=== PATIENT | male | born 1950 | race Caucasian/White ===

== ENCOUNTER → 2016-08-14 | Outpatient (CLI) | payer MEDICARE ==
--- NOTE | 2016-08-14 09:08 | CT ---
EXAMINATION TYPE: CT chest wo con DATE OF EXAM: 08/14/2016 8:57 AM COMPARISON: NONE HISTORY: Patient has history of ascending thopracic aorta CT DLP: 785.[address] of the chest was performed with lung and mediastinal window settings submitted. The la ck of contrast limits evaluation of the vascular, mediastinal and parenchymal structures including th e upper abdomen. LUNGS: The lungs are clear and free of infiltrate. No atelectasis. No pulmonary nodule or mass is de tected. No pleural effusion. No CT evidence of interstitial lung disease. MEDIASTINUM/LORI: Ascending thoracic aortic aneurysm is stable at 4.4 cm AP dimension. Mild atheromat ous changes identified. No evidence for dissection on this unenhanced study. The heart is not enlarge d. Coronary artery calcifications identified. No evidence for mediastinal mass. No lymph nodes gre ater than 1cm. UPPER ABDOMEN: Partially imaged low attenuating lesion lower pole left kidney. Probable adrenal adeno mas unchanged. OTHER: No significant other abnormality. IMPRESSION: 1. Stable ascending thoracic aortic aneurysm as noted.
== END | disposition home or self-care (01) ==
LOC: RADCTMAIN 08:37
PROVIDERS: ATTEND Thoracic Surgery (Cardiothoracic Vascular Surgery)
DX: I71.2 Thoracic aortic aneurysm, without rupture (principal)
CPT/HCPCS: 71250

== ENCOUNTER → 2017-08-22 | Outpatient (CLI) | payer MEDICARE ==
[2017-08-22 11:43] LABS: Blood Urea Nitrogen 14 mg/dL (9-20)
--- NOTE | 2017-08-22 14:02 | CT ---
EXAMINATION TYPE: CT chest w con DATE OF EXAM: 08/22/2017 COMPARISON: 08/14/2016 HISTORY: 67-year-old male Ascending Aortic Aneurysm TECHNIQUE: Contiguous axial scanning of the chest after the administration of 100 mL of Isovue 300. Coronal/sagittal reconstructions performed. CT DLP: 689.7mGycm. Automatic exposure control utilized for a dose reduction. FINDINGS: The heart is normal size without pericardial effusion. Coronary vessel calcifications are present and are remarkable for coronary artery disease. Ascending aorta aneurysmal at 4.5 cm, stable. There is bovine configuration to the aortic arch. Mild atherosclerotic calcifications are present. Ectasia of the upper descending thoracic aorta at 3.4 cm, unchanged. Ectasia of the lower descending thoracic aorta 2.9 cm. No thoracic lymphadenopathy. Evaluation of the lungs shows mild diffuse bronchial wall thickening which could represent bronchitis or asthma. There is minimal emphysematous change in the upper lungs. No consolidation or pleural eff usion. Subcentimeter hypodensity posterior left hepatic dome too small fractured CT characterization but sta ble, likely cysts. There is some reflux of contrast noted into the hepatic veins, tiny hiatal hernia, stable low-density nodularity right adrenal gland measuring 1.4 cm (stability suggesting an adrenal adenoma) and some thickening of the lateral limb of the left adrenal gland also unchanged. Subcentimeter hypodensity posterior aspect of the left kidney too small for accurate CT characterizat ion, probable cyst. Bones: Endplate spondylosis mid to lower thoracic spine. No osseous destructive process. IMPRESSION: 1. Stable aneurysm ascending aorta 4.5 cm and ectatic descending thoracic aorta measuring up to 3.4 c m. 2. CAD and COPD with minimal emphysema.
== END | disposition home or self-care (01) ==
LOC: RADCTMAIN 11:03
PROVIDERS: ATTEND Thoracic Surgery (Cardiothoracic Vascular Surgery)
DX: I71.2 Thoracic aortic aneurysm, without rupture (principal); I77.810 Thoracic aortic ectasia; I25.10 Atherosclerotic heart disease of native coronary artery without angina pectoris; J44.9 Chronic obstructive pulmonary disease, unspecified
CPT/HCPCS: 82565; 84520; 71260; Q9967

== ENCOUNTER → 2018-09-23 | Outpatient (CLI) | payer MEDICARE ==
[2018-09-23 10:34] LABS: Blood Urea Nitrogen 13 mg/dL (9-20)
--- NOTE | 2018-09-23 12:45 | CT ---
EXAMINATION TYPE: CT angio chest DATE OF EXAM: 09/23/2018 COMPARISON: CT chest August 22, 2017 and older CTs back to August 13, 2015 HISTORY: Aneurysm of ascending thoracic aorta. CT DLP: 478 mGycm. Automated Exposure Control for Dose Reduction was Utilized. CONTRAST: CTA scan of the thorax is performed with IV Contrast, patient injected with 100 ml mL of Isovue 300, pulmonary embolism protocol. MIP Images are created on CT scanner and reviewed. FINDINGS: LUNGS: Mild underlying emphysematous changes present without suspicious consolidation. There Is no co ncerning parenchymal mass or nodule identified. There is no pleural effusion or pneumothorax seen. The tracheobronchial tree is patent. MEDIASTINUM: There is satisfactory enhancement of the pulmonary artery and its branches, there is no CT evidence for pulmonary embolism. There are no greater than 1 cm hilar or mediastinal lymph nodes. No cardiomegaly or pericardial effusion is seen. Is a knee aorta at main pulmonary artery bifurcat ion measures up to 4.4 cm in diameter axial image 25 not significantly changed from 2016 CT. Mild per ipheral calcified plaque in the aortic arch and descending thoracic aorta is redemonstrated. There is moderate coronary artery calcification which is noted marker for underlying coronary artery disease. OTHER: Low density thickening to both adrenal glands is unchanged from 2016 study favoring benign lip id rich hyperplasia. Rim hyperdense dependent gallstones and gallbladder are seen better on current s tudy axial image 58 versus old studies. Moderate multilevel spurring thoracic spine is present. IMPRESSION: Stable 4.4 cm ascending aortic aneurysm accounting for technical differences.
== END | disposition home or self-care (01) ==
LOC: RADCTMAIN 09:42
PROVIDERS: ATTEND Thoracic Surgery (Cardiothoracic Vascular Surgery)
DX: I71.2 Thoracic aortic aneurysm, without rupture (principal)
CPT/HCPCS: 82565; 84520; 71275; 36415; Q9967

== ENCOUNTER → 2019-09-19 | Outpatient (CLI) | payer MEDICARE ==
[2019-09-19 13:13] LABS: African American GFR (CKD) >90 (>60 ml/min/1.73 sqM); Blood Urea Nitrogen 11 mg/dL (9-20); Non-African American GFR(CKD) 87 (>60 ml/min/1.73 sqM)
--- NOTE | 2019-09-19 15:12 | CT ---
EXAMINATION TYPE: CT angio chest DATE OF EXAM: 09/19/2019 COMPARISON: 09/23/2018 HISTORY: Thoracic aortic aneurysm without rupture CT DLP: 9:30 mGycm. Automated Exposure Control for Dose Reduction was Utilized. CONTRAST: CTA scan of the thorax is performed without and with IV Contrast, patient injected with 100 mL of Iso salma 300, pulmonary embolism protocol. MIP Images are created on CT scanner and reviewed. FINDINGS: LUNGS: Mild emphysematous changes are redemonstrated. Subcentimeter 3 mm pulmonary nodule in the left lower lobe on image 27 is unchanged from 08/13/2015 and therefore should be considered benign. The fo sarai consolidation, pleural effusion or pneumothorax. The tracheobronchial tree is patent. MEDIASTINUM: Precontrast images demonstrate no evidence of intramural hematoma. Moderate atherosclero sis of the thoracic aorta is seen with severe three-vessel coronary artery calcifications. Stable mil d thoracic aortic aneurysm is seen of the ascending thoracic aorta at the level of main pulmonary art dia measuring 4.4 cm on coronal series 11 image 25. The aortic root just above the sinotubular juncti on is upper limits of normal size measuring 3.9 cm although not aneurysmal. The distal aortic arch me asures 3.4 cm and descending thoracic aorta measures 2.7 cm. Incidental noted normal variant bovine a ortic arch. There are no greater than 1 cm hilar or mediastinal lymph nodes. Linear scarring contiguous with pleu ral surface of the right middle lobe as seen on image 38. No cardiomegaly or pericardial effusion is seen. OTHER: Unenhanced images demonstrate cholelithiasis. Thickening of the adrenal glands as seen on the prior examination is unchanged over multiple exams and likely relates to adrenal gland hyperplasia. M oderate multilevel degenerative change of the spine. IMPRESSION: 1. Stable mild aneurysmal dilatation of the ascending thoracic aortic arch measuring 4.4 cm. 2. Severe three-vessel coronary artery calcifications, marker of coronary artery disease.
== END | disposition home or self-care (01) ==
LOC: RADCTMAIN 12:32
PROVIDERS: ATTEND Thoracic Surgery (Cardiothoracic Vascular Surgery)
DX: I71.2 Thoracic aortic aneurysm, without rupture (principal); I25.10 Atherosclerotic heart disease of native coronary artery without angina pectoris
CPT/HCPCS: 82565; 84520; 71275; 36415; Q9967

== ENCOUNTER → 2020-09-22 | Outpatient (CLI) | payer MEDICARE ==
[2020-09-22 14:07] LABS: African American GFR (CKD) >90 (>60 ml/min/1.73 sqM); Blood Urea Nitrogen 12 mg/dL (9-20); Non-African American GFR(CKD) 89 (>60 ml/min/1.73 sqM)
--- NOTE | 2020-09-22 15:12 | CT ---
EXAMINATION TYPE: CT angio chest DATE OF EXAM: 09/22/2020 2:37 PM COMPARISON: CTA chest September 19, 2019 and older studies HISTORY: H/O thoracic aneurysm CT DLP: 766.20 mGycm Automated exposure control for dose reduction was used. CONTRAST: CTA scan of the thorax is performed with IV Contrast, patient injected with 100ml mL of Isovue 370, a neurysm protocol. 3D reconstructed images are created on an independent workstation and reviewed.. FINDINGS: LUNGS: Mild underlying emphysematous changes are redemonstrated without suspicious new groundglass op acity or consolidation. There Is no enlarging or new greater than 5 mm parenchymal mass or nodule uday ntified. There is no pleural effusion or pneumothorax seen. The tracheobronchial tree is patent. MEDIASTINUM: There is satisfactory enhancement of the central pulmonary arteries. There are no new g reater than 1 cm hilar or mediastinal lymph nodes. No cardiomegaly or pericardial effusion is seen. The ascending aorta at main pulmonary artery bifurcation measures up to 4.3 cm in diameter axial denise ge 29 not significantly changed from prior CT studies. Bovine type aortic arch redemonstrated. Mild p eripheral calcified plaque in the aortic arch and descending thoracic aorta is redemonstrated. There is moderate coronary artery calcification redemonstrated which is noted marker for underlying coronar y artery disease. OTHER: Low density thickening to both adrenal glands is redemonstrated consistent with benign lipid r ich hyperplasia. Rim hyperdense 2.7 cm gallstone in the gallbladder is redemonstrated. Moderate multi level anterior and lateral spurring thoracic spine is present. IMPRESSION: Stable 4.3 cm ascending aortic aneurysm accounting for technical differences.
== END | disposition home or self-care (01) ==
LOC: RADCTMAIN 12:46
PROVIDERS: ATTEND Thoracic Surgery (Cardiothoracic Vascular Surgery)
DX: I71.2 Thoracic aortic aneurysm, without rupture (principal)
CPT/HCPCS: 82565; 84520; 71275; 36415; Q9967

== ENCOUNTER 2021-07-27 10:45 | Emergency (ER) | payer MEDICARE ==
[2021-07-27 11:02] VITALS: BP 155/80; TEMP 97
[2021-07-27 11:46] LABS: Appearance,Urine Clear (Clear); Bilirubin,Urine Negative (Negative); Blood,Urine Trace (Negative); Calcium Oxalate Crystals,Urine Rare /hpf; Color,Urine Yellow; Glucose,Urine (UA) Negative (Negative); Hyaline Casts,Urine 2 /lpf (0-2); Ketones,Urine 1+ (Negative); Leukocyte Esterase,Urine Large (Negative); Mucus,Urine Many /hpf; Nitrite,Urine Negative (Negative); PH, Urine 5.5 (5.0-8.0); Protein,Urine 1+ (Negative); RBC,Urine 3 /hpf (0-5); Squamous Epithelial Cell,Urine <1 /hpf (0-4); WBC,Urine 23 /hpf (0-5)
--- NOTE | 2021-07-27 13:04 | ED ---
General Adult HPI - General Chief complaint: Abdominal Pain Stated complaint: Abdominal Pain Time Seen by Provider: 07/27/21 12:40 Source: patient, family, RN notes reviewed, old records reviewed Mode of arrival: ambulatory Limitations: no limitations - History of Present Illness Initial comments: This is a 71-year-old male presents emergency Department complaining of a three- day history of right lower quadrant pain is intermittent. Patient states when he lays down close to sleep tonight he doesn't feel when he gets up the pain is there and it is worse at times and better at times. Patient states currently he is feeling much better. Patient states currently is not nauseated but he was nauseated in the waiting room. Patient denies any diarrhea. Patient denies any fever chills. Patient has any dysuria hematuria or urinary frequency. Patient denies any back pain. Patient denies any chest pain or palpitations. Patient denies any shortness of breath. - Related Data Home Medications Medication Instructions Recorded Confirmed Aspirin EC [Ecotrin Low Dose] 81 mg PO HS 07/27/21 07/27/21 Cholecalciferol [Vitamin D3 (25 50 mcg PO HS 07/27/21 07/27/21 Mcg = 1000 Iu)] Cholecalciferol [Vitamin D3 (25 125 mcg PO DAILY 07/27/21 07/27/21 Mcg = 1000 Iu)] Propranolol HCl 80 mg PO BID 07/27/21 07/27/21 Triamcinolone 0.1% Cream [Kenalog 1 applic TOPICAL BID PRN 07/27/21 07/27/21 0.1% Cream] amLODIPine BESYLATE/BENAZEPRIL 1 cap PO DAILY 07/27/21 07/27/21 [Lotrel 10-40 MG] Allergies Allergy/AdvReac Type Severity Reaction Status Date / Time No Known Allergies Allergy Verified 07/27/21 14:26 Review of Systems ROS Statement: Those systems with pertinent positive or pertinent negative responses have been documented in the HPI. ROS Other: All systems not noted in ROS Statement are negative. Past Medical History Past Medical History: Hypertension History of Any Multi-Drug Resistant Organisms: None Reported Past Surgical History: No Surgical Hx Reported Past Psychological History: No Psychological Hx Reported Smoking Status: Current every day smoker Past Alcohol Use History: Occasional Past Drug Use History: None Reported General Exam - General Exam Comments Initial Comments: GENERAL: Patient is well-developed and well-nourished. Patient is nontoxic and well- hydrated and is in mild distress. ENT: Neck is soft and supple. No significant lymphadenopathy is noted. Oropharynx is clear. Moist mucous membranes. Neck has full range of motion without eliciting any pain. EYES: The sclera were anicteric and conjunctiva were pink and moist. Extraocular movements were intact and pupils were equal round and reactive to light. Eyelids were unremarkable. PULMONARY: Unlabored respirations. Good breath sounds bilaterally. No audible rales rhonchi or wheezing was noted. CARDIOVASCULAR: There is a regular rate and rhythm without any murmurs gallops or rubs. ABDOMEN: Soft and nontender with normal bowel sounds. SKIN: Skin is clear with no lesions or rashes and otherwise unremarkable. NEUROLOGIC: Patient is alert and oriented x3. Cranial nerves II through XII are grossly intact. Motor and sensory are also intact. Normal speech, volume and content. Symmetrical smile. MUSCULOSKELETAL: Normal extremities with adequate strength and full range of motion. No lower extremity swelling or edema. No calf tenderness. LYMPHATICS: No significant lymphadenopathy is noted PSYCHIATRIC: Normal psychiatric evaluation. Limitations: no limitations Course Vital Signs 07/27/21 10:56 Temperature 97.0 F L Pulse Rate 54 L Respiratory 18 Rate Blood Pressure 155/80 O2 Sat by Pulse 97 Oximetry Medical Decision Making - Medical Decision Making KUB shows no acute abnormality. I went back into the room the patient was having no abdominal pain at this time. Patient was sleeping in the room. When I awoke him he stated he felt fine will follow-up with his colonoscopy as previously scheduled next week - Lab Data Result diagrams: 07/27/21 13:19 07/27/21 13:19 Lab Results 07/27/21 07/27/21 07/27/21 Range/Units 11:12 13:19 13:19 WBC 9.1 (3.8-10.6) k/uL RBC 4.92 (4.30-5.90) m/uL Hgb 15.7 (13.0-17.5) gm/dL Hct 46.3 (39.0-53.0) % MCV 94.2 (80.0-100.0) fL MCH 32.0 (25.0-35.0) pg MCHC 33.9 (31.0-37.0) g/dL RDW 13.4 (11.5-15.5) % Plt Count 193 (150-450) k/uL MPV 8.1 Neutrophils % 72 % Lymphocytes % 18 % Monocytes % 6 % Eosinophils % 1 % Basophils % 0 % Neutrophils # 6.5 (1.3-7.7) k/uL Lymphocytes # 1.6 (1.0-4.8) k/uL Monocytes # 0.6 (0-1.0) k/uL Eosinophils # 0.1 (0-0.7) k/uL Basophils # 0.0 (0-0.2) k/uL Sodium 138 (137-145) mmol/L Potassium 4.4 (3.5-5.1) mmol/L Chloride 104 (98-107) mmol/L Carbon Dioxide 27 (22-30) mmol/L Anion Gap 7 mmol/L BUN 16 (9-20) mg/dL Creatinine 0.90 (0.66-1.25) mg/dL Est GFR (CKD-EPI)AfAm >90 (>60 ml/min/1.73 sqM) Est GFR (CKD-EPI)NonAf 86 (>60 ml/min/1.73 sqM) Glucose 98 (74-99) mg/dL Calcium 9.0 (8.4-10.2) mg/dL Total Bilirubin 1.5 H (0.2-1.3) mg/dL AST 22 (17-59) U/L ALT 14 (4-49) U/L Alkaline Phosphatase 68 (38-126) U/L Total Protein 7.0 (6.3-8.2) g/dL Albumin 4.1 (3.5-5.0) g/dL Amylase 61 (30-110) U/L Lipase 101 (23-300) U/L Urine Color Yellow Urine Appearance Clear (Clear) Urine pH 5.5 (5.0-8.0) Ur Specific [place] 1.030 (1.001-1.035) Urine Protein 1+ H (Negative) Urine Glucose (UA) Negative (Negative) Urine Ketones 1+ H (Negative) Urine Blood Trace H (Negative) Urine Nitrite Negative (Negative) Urine Bilirubin Negative (Negative) Urine Urobilinogen 8.0 (<2.0) mg/dL Ur Leukocyte Esterase Large H (Negative) Urine RBC 3 (0-5) /hpf Urine WBC 23 H (0-5) /hpf Ur Squamous Epith Cells <1 (0-4) /hpf Calcium Oxalate Crystal Rare H (None) /hpf Hyaline Casts 2 (0-2) /lpf Urine Mucus Many H (None) /hpf Disposition Clinical Impression: Abdominal pain Disposition: HOME SELF-CARE Instructions (If sedation given, give patient instructions): Abdominal Pain (ED) Is patient prescribed a controlled substance at d/c from ED?: No Referrals: Tobi Sandoval MD [Primary Care Provider] - 1-2 days Time of Disposition: 16:06
[2021-07-27 13:43] LABS: Basophils % (A) 0 %; Eosinophils # (A) 0.1 k/uL (0-0.7); Eosinophils % (A) 1 %; HCT 46.3 % (39.0-53.0); HGB 15.7 gm/dL (13.0-17.5); Lymphocytes # (A) 1.6 k/uL (1.0-4.8); Lymphocytes % (A) 18 %; MCHC 33.9 g/dL (31.0-37.0); MCV 94.2 fL (80.0-100.0); Mean Platelet Volume 8.1; Monocytes # (A) 0.6 k/uL (0-1.0); Monocytes % (A) 6 %; Neutrophils # (A) 6.5 k/uL (1.3-7.7); Neutrophils % (A) 72 %; Platelet Count 193 k/uL (150-450); RBC 4.92 m/uL (4.30-5.90); RDW 13.4 % (11.5-15.5); WBC 9.1 k/uL (3.8-10.6)
--- NOTE | 2021-07-27 13:46 | XR ---
EXAMINATION TYPE: XR KUB DATE OF EXAM: 07/27/2021 COMPARISON: NONE HISTORY: Pain TECHNIQUE: One view abdominal series FINDINGS: The osseous structures are intact. The bowel gas pattern is nonspecific. Lung bases are clear. Calc ification left upper quadrant measuring 2 mm. IMPRESSION: 1. Nonspecific abdomen. No obstruction. 2. 2 mm left upper quadrant calcification possibly renal correlate clinically.
[2021-07-27 13:51] LABS: ALT 14 U/L (4-49); AST 22 U/L (17-59); African American GFR (CKD) >90 (>60 ml/min/1.73 sqM); Albumin 4.1 g/dL (3.5-5.0); Alkaline Phosphatase 68 U/L (38-126); Amylase 61 U/L (30-110); Anion Gap 7 mmol/L; Blood Urea Nitrogen 16 mg/dL (9-20); Carbon Dioxide 27 mmol/L (22-30); Chloride 104 mmol/L (98-107); Glucose 98 mg/dL (74-99); Lipase 101 U/L (23-300); Non-African American GFR(CKD) 86 (>60 ml/min/1.73 sqM); Potassium 4.4 mmol/L (3.5-5.1); Sodium 138 mmol/L (137-145); Total Bilirubin 1.5 mg/dL (0.2-1.3)
[2021-07-27 16:21] VITALS: PULSE 68; RESP 16
== END 2021-07-27 16:21 | disposition home or self-care (01) ==
LOC: EC 10:45
DX: R10.31 Right lower quadrant pain (principal); I10 Essential (primary) hypertension; F17.200 Nicotine dependence, unspecified, uncomplicated; Z79.82 Long term (current) use of aspirin
CPT/HCPCS: 36415; 74018; 80053; 81001; 82150; 83690; 85025; 87086; 99284

== ENCOUNTER 2021-07-28 08:56 | Observation (INO) | payer MEDICARE ==
[2021-07-28] MEDS ORDERED: SODIUM CHLORIDE 0.9% 1,000 ML IV STA (09:28)
--- NOTE | 2021-07-28 09:44 | ED ---
Abdominal Pain HPI - General Chief Complaint: Abdominal Pain Stated Complaint: NVD Time Seen by Provider: 07/28/21 09:04 Source: patient, RN notes reviewed Mode of arrival: ambulatory Limitations: no limitations - History of Present Illness Initial Comments: This is a 71-year-old male presents emergency Department with chief complaint of abdominal pain. Patient states she's had abdominal pain last few days. Patient states his seen here yesterday was told having was normal. He is scheduled for colonoscopy. Patient states that he had worsening abdominal pain with nausea vomiting is morning. Patient states that the abdominal pain is diffuse in na ture. He did state that his stool has been darker than usual. Patient states he was scheduled for colonoscopy as he had a positive cologaurd test. Patient states the pain is improved at this time he's had no prior abdominal surgeries. No chest pain or shortness breath no dysuria no hematuria - Related Data Home Medications Medication Instructions Recorded Confirmed Aspirin EC [Ecotrin Low Dose] 81 mg PO HS 07/27/21 07/28/21 Cholecalciferol [Vitamin D3 (25 50 mcg PO HS 07/27/21 07/28/21 Mcg = 1000 Iu)] Cholecalciferol [Vitamin D3 (25 125 mcg PO DAILY 07/27/21 07/28/21 Mcg = 1000 Iu)] Propranolol HCl 80 mg PO BID 07/27/21 07/28/21 Triamcinolone 0.1% Cream [Kenalog 1 applic TOPICAL BID PRN 07/27/21 07/28/21 0.1% Cream] amLODIPine BESYLATE/BENAZEPRIL 1 cap PO DAILY 07/27/21 07/28/21 [Lotrel 10-40 MG] Allergies Allergy/AdvReac Type Severity Reaction Status Date / Time No Known Allergies Allergy Verified 07/28/21 09:25 Review of Systems ROS Statement: Those systems with pertinent positive or pertinent negative responses have been documented in the HPI. ROS Other: All systems not noted in ROS Statement are negative. Past Medical History Past Medical History: Hypertension History of Any Multi-Drug Resistant Organisms: None Reported Past Surgical History: No Surgical Hx Reported Past Psychological History: No Psychological Hx Reported Smoking Status: Current every day smoker Past Alcohol Use History: Occasional Past Drug Use History: None Reported General Exam Limitations: no limitations General appearance: alert, in no apparent distress Head exam: Present: atraumatic, normocephalic, normal inspection Eye exam: Present: normal appearance, PERRL, EOMI. Absent: scleral icterus, conjunctival injection, periorbital swelling ENT exam: Present: normal exam, normal oropharynx, mucous membranes moist Neck exam: Present: normal inspection, full ROM. Absent: tenderness, meningismus, lymphadenopathy Respiratory exam: Present: normal lung sounds bilaterally. Absent: respiratory distress, wheezes, rales, rhonchi, stridor Cardiovascular Exam: Present: regular rate, normal rhythm, normal heart sounds. Absent: systolic murmur, diastolic murmur, rubs, gallop, clicks GI/Abdominal exam: Present: soft, tenderness, normal bowel sounds. Absent: distended, guarding, rebound, rigid Back exam: Absent: CVA tenderness (R), CVA tenderness (L) Neurological exam: Present: alert Course Vital Signs 07/28/21 08:57 Temperature 97.8 F Pulse Rate 56 L Respiratory 18 Rate Blood Pressure 124/70 O2 Sat by Pulse 99 Oximetry Medical Decision Making - Medical Decision Making CT shows evidence of peptic ulcer disease concern for possibility of perforation contain I discuss case with Dr. Bateman recommends patient come in patient's on PPIs, close monitoring - Lab Data Result diagrams: 07/28/21 09:40 07/28/21 09:40 Lab Results 07/28/21 07/28/21 07/28/21 Range/Units 09:40 09:40 11:00 WBC 11.2 H (3.8-10.6) k/uL RBC 4.60 (4.30-5.90) m/uL Hgb 15.0 (13.0-17.5) gm/dL Hct 42.7 (39.0-53.0) % MCV 92.9 (80.0-100.0) fL MCH 32.7 (25.0-35.0) pg MCHC 35.2 (31.0-37.0) g/dL RDW 12.5 (11.5-15.5) % Plt Count 201 (150-450) k/uL MPV 7.9 Neutrophils % 71 % Lymphocytes % 16 % Monocytes % 7 % Eosinophils % 4 % Basophils % 1 % Neutrophils # 7.9 H (1.3-7.7) k/uL Lymphocytes # 1.8 (1.0-4.8) k/uL Monocytes # 0.8 (0-1.0) k/uL Eosinophils # 0.4 (0-0.7) k/uL Basophils # 0.1 (0-0.2) k/uL Sodium 135 L (137-145) mmol/L Potassium 4.2 (3.5-5.1) mmol/L Chloride 102 (98-107) mmol/L Carbon Dioxide 26 (22-30) mmol/L Anion Gap 7 mmol/L BUN 21 H (9-20) mg/dL Creatinine 0.96 (0.66-1.25) mg/dL Est GFR (CKD-EPI)AfAm >90 (>60 ml/min/1.73 sqM) Est GFR (CKD-EPI)NonAf 80 (>60 ml/min/1.73 sqM) Glucose 101 H (74-99) mg/dL Calcium 9.1 (8.4-10.2) mg/dL Total Bilirubin 2.0 H (0.2-1.3) mg/dL AST 25 (17-59) U/L ALT 18 (4-49) U/L Alkaline Phosphatase 68 (38-126) U/L Total Protein 7.1 (6.3-8.2) g/dL Albumin 4.1 (3.5-5.0) g/dL Amylase 58 (30-110) U/L Lipase 112 (23-300) U/L Urine Color Yellow Urine Appearance Clear (Clear) Urine pH 6.0 (5.0-8.0) Ur Specific [place] >1.050 H (1.001-1.035) Urine Protein Trace H (Negative) Urine Glucose (UA) Negative (Negative) Urine Ketones 1+ H (Negative) Urine Blood Negative (Negative) Urine Nitrite Negative (Negative) Urine Bilirubin Negative (Negative) Urine Urobilinogen 8.0 (<2.0) mg/dL Ur Leukocyte Esterase Negative (Negative) Disposition Clinical Impression: Peptic ulcer disease, Abdominal pain Disposition: ADMITTED IP TO THIS HOSP Condition: Fair Referrals: Tobi Sandoval MD [Primary Care Provider] - 1-2 days
[2021-07-28 09:48] LABS: Basophils # (A) 0.1 k/uL (0-0.2); Basophils % (A) 1 %; Eosinophils # (A) 0.4 k/uL (0-0.7); Eosinophils % (A) 4 %; HCT 42.7 % (39.0-53.0); Lymphocytes # (A) 1.8 k/uL (1.0-4.8); Lymphocytes % (A) 16 %; MCH 32.7 pg (25.0-35.0); MCHC 35.2 g/dL (31.0-37.0); MCV 92.9 fL (80.0-100.0); Mean Platelet Volume 7.9; Monocytes # (A) 0.8 k/uL (0-1.0); Monocytes % (A) 7 %; Neutrophils # (A) 7.9 k/uL (1.3-7.7); Neutrophils % (A) 71 %; Platelet Count 201 k/uL (150-450); RDW 12.5 % (11.5-15.5); WBC 11.2 k/uL (3.8-10.6)
[2021-07-28 09:59] LABS: ALT 18 U/L (4-49); AST 25 U/L (17-59); African American GFR (CKD) >90 (>60 ml/min/1.73 sqM); Albumin 4.1 g/dL (3.5-5.0); Alkaline Phosphatase 68 U/L (38-126); Amylase 58 U/L (30-110); Anion Gap 7 mmol/L; Blood Urea Nitrogen 21 mg/dL (9-20); Calcium 9.1 mg/dL (8.4-10.2); Carbon Dioxide 26 mmol/L (22-30); Chloride 102 mmol/L (98-107); Glucose 101 mg/dL (74-99); Lipase 112 U/L (23-300); Non-African American GFR(CKD) 80 (>60 ml/min/1.73 sqM); Potassium 4.2 mmol/L (3.5-5.1); Sodium 135 mmol/L (137-145); Total Protein 7.1 g/dL (6.3-8.2)
--- NOTE | 2021-07-28 11:00 | CT ---
EXAMINATION TYPE: CT abdomen pelvis w con DATE OF EXAM: 07/28/2021 COMPARISON: CT dated 04/30/2012 HISTORY: Epigastric abdominal pain, nausea and vomiting CT DLP: 1686.8 mGycm Automated exposure control for dose reduction was used. TECHNIQUE: Helical acquisition of images was performed from the lung bases through the pelvis. CONTRAST: Performed without Oral Contrast and with IV Contrast, patient injected with 100ml mL of Isovue 300. FINDINGS: LUNG BASES: No significant abnormality is appreciated. LIVER/GB: 14 mm left hepatic lobe cyst. No other definite hepatic focal lesion. 3.[address]. No pericholecystic fluid or fat stranding to suggest acute cholecystitis, please correlate clini fredo. PANCREAS: No significant abnormality is seen. SPLEEN: No significant abnormality is seen. ADRENALS: Stable 16 mm right adrenal nodule likely representing an adrenal adenoma. Nodular thickenin g of the left adrenal gland, slightly progressed compared to 2012 CT scan and could be due to multipl e enlarging left adrenal adenomas. This can be further assessed by elective dedicated CT scan of the adrenal glands. KIDNEYS: 7 cm left lower pole renal cyst without suspicious feature with smaller left renal cysts. Un remarkable kidneys otherwise. No hydroureter or hydronephrosis FREE AIR: No free air is visualized. RETROPERITONEAL ADENOPATHY: None visualized REPRODUCTIVE ORGANS: Prostatic concretion. No prostatic enlargement. Unremarkable seminal vesicles. URINARY BLADDER: Nondistended. PELVIC ADENOPATHY: None visualized. OSSEOUS STRUCTURES: Degenerative changes of the lower thoracic and lumbar spine. No aggressive bone lesion. BOWEL: Thickened gastric pylorus and the gastroduodenal junction with surrounding fat stranding and slightly prominent adjacent subsclerotic lymph nodes. This could be related to an inflamed peptic ulc er. Contained perforation cannot be excluded. Unremarkable duodenum and small bowel. Scattered uncomp licated colonic diverticulosis. Normal appendix. OTHER: Scattered arterial atherosclerotic calcifications. No sizable ascites. Left fat-containing ing uinal hernia. IMPRESSION Mild wall thickening of the gastric pylorus and gastroduodenal junction with surrounding mild inflamm atory changes as described above. This could be related to an inflamed peptic ulcer. Contained perfor ation cannot be excluded. No evidence of gastric obstruction or free peritoneal air. No abscess forma tion. Recommend clinical correlation and surgical consultation. Gastroscopy can be also considered. O ther incidental findings as described above.
[2021-07-28 11:33] LABS: Appearance,Urine Clear (Clear); Bilirubin,Urine Negative (Negative); Blood,Urine Negative (Negative); Color,Urine Yellow; Glucose,Urine (UA) Negative (Negative); Ketones,Urine 1+ (Negative); Leukocyte Esterase,Urine Negative (Negative); Nitrite,Urine Negative (Negative); Protein,Urine Trace (Negative)
[2021-07-28 11:34] LABS: Specific Gravity,Urine >1.050 (1.001-1.035)
[2021-07-28] MEDS ORDERED: PANTOPRAZOLE 40 MG/10 ML VIAL IVP ONE (11:54)
[2021-07-28] MEDS ORDERED: ONDANSETRON 4 MG/2 ML VIAL IVP PRN (11:56)
[2021-07-28] MEDS ORDERED: NALOXONE 0.4 MG/ML 1 ML VIAL IV PRN (11:56)
[2021-07-28] MEDS: SODIUM CHLORIDE 0.9% 1,000 ML IV SCH (12:34)
--- NOTE | 2021-07-28 12:43 | P.HPIM ---
History of Present Illness H&P Date: 07/28/21 Chief Complaint: Abdominal pain History of Presenting Illness: Patient is a very pleasant 71-year-old male with a past medical history including hypertension and nicotine dependence. He presented to the emergency department with a chief complaint of abdominal pain. Patient reports having intermittent epigastric pain off and on for the last 2 weeks that has significantly worsened over the past 4 days and became accompanied by nausea, vomiting, and dark colored loose stools. Patient reports pain is sharp and colicky and seems to wax and wane with no determining Patient states pain seems to slightly improved when he lays down and states worsens with any oral intake and that he has not been able to tolerate much oral intake. Patient denies having any fevers, chills, diaphoresis, chest pain, palpitations, gastric reflux, hematemesis, shortness of breath, cough, or experiencing any hematochezia. In the emergency department patient underwent full evaluation. He was found to have mild leukocytosis with WBC count of 11.2 and an elevated bilirubin of 2.0. Abdominal CT revealing mild wall thickening of the gastric pylorus and gastroduodenal junction with surrounding mild inflammatory changes possibly secondary to an inflamed peptic ulcer, however unable to exclude a contained perforation. Patient was admitted under our services with consultation to general surgery. Review of systems: Pertinent positives and negatives as discussed in HPI, a complete review of systems was performed and all other systems are negative. Physical exam: Vital signs reviewed and stable. General: Nontoxic, no distress and appears stated age. Derm: Skin warm and dry, normal coloration for ethnicity. Head: Atraumatic, normocephalic and symmetric. Eyes: EOMs intact, no lid lag, and anicteric sclera Mouth: no lip lesions, mucus membranes moist Cardiovascular: regular rate and rhythm with normal S1S2, no murmur, positive posterior tibial pulses bilaterally, and cap refill < 2 seconds. Lungs: Respirations even, regular, and unlabored on room air. Lungs CTA bilaterally, no rhonchi, no rales, no wheezing, and no accessory muscle usage. Abdominal: soft, mild tenderness to palpation in epigastric region, no guarding, no appreciable organomegaly Ext: ROM intact. No gross muscle atrophy, no edema, no contractures Neuro: Speech clear, face symmetrical and CN II-XII grossly intact with no noted focal neuro deficits Psych: Alert and oriented to person, place, time, and situation. Appropriate and pleasant affect. Assessment and Plan of Care: Epigastric pain accompanied by nausea and vomiting Leukocytosis Hyperbilirubinemia -Abdominal CT revealing mild wall thickening of the gastric pylorus and gastroduodenal junction with surrounding mild inflammatory changes possibly secondary to an inflamed peptic ulcer, however unable to exclude a contained perforation. -Symptomatic and supportive treatment. -Zofran as needed for nausea and vomiting. -Dilaudid as needed for pain -Protonix 40 mg IVP twice daily -Prophylactic IV antibiotics until further evaluation by general surgery and perforation can be ruled out: Rocephin and Flagyl -Continue hydration with IV fluids -Gen. surgery following, appreciate recommendations. Hypertension Monitor vital signs and continue daily medication regimen. CODE STATUS: Full code DVT prophylaxis: SCDs Discussed with: Patient and RN Anticipated discharge date: 1-[address]: Clinical course to determine A total of 45 minutes was spent on the care of this complex patient more than 50% of the time was spent in counseling and care coordination. Past Medical History Past Medical History: Hypertension History of Any Multi-Drug Resistant Organisms: None Reported Past Surgical History: No Surgical Hx Reported Past Psychological History: No Psychological Hx Reported Smoking Status: Current every day smoker Past Alcohol Use History: Occasional Past Drug Use History: None Reported - Past Family History Father Additional Family Medical History / Comment(s): Father had a ND at the age of 83 yrs and lived to be 91 yrs old. He had bilateral vijay replacements. Mother Family Medical History: No Reported History Additional Family Medical History / Comment(s): Mother lived to be 86 yrs old. Medications and Allergies Home Medications Medication Instructions Recorded Confirmed Type Aspirin EC [Ecotrin Low Dose] 81 mg PO HS 07/27/21 07/28/21 History Cholecalciferol [Vitamin D3 (25 50 mcg PO HS 07/27/21 07/28/21 History Mcg = 1000 Iu)] Cholecalciferol [Vitamin D3 (25 125 mcg PO DAILY 07/27/21 07/28/21 History Mcg = 1000 Iu)] Propranolol HCl 80 mg PO BID 07/27/21 07/28/21 History Triamcinolone 0.1% Cream [Kenalog 1 applic TOPICAL BID PRN 07/27/21 07/28/21 History 0.1% Cream] amLODIPine BESYLATE/BENAZEPRIL 1 cap PO DAILY 07/27/21 07/28/21 History [Lotrel 10-40 MG] Allergies Allergy/AdvReac Type Severity Reaction Status Date / Time No Known Allergies Allergy Verified 07/28/21 09:25 Physical Exam Vitals: Vital Signs Temp Pulse Resp BP Pulse Ox 07/28/21 12:32 60 16 135/84 98 07/28/21 08:57 97.8 F 56 L 18 124/70 99 Intake and Output 07/27/21 07/28/21 07/28/21 22:59 06:59 14:59 Other: Weight 113.398 kg Results CBC & Chem 7: 07/28/21 09:40 07/28/21 09:40 Labs: Abnormal Lab Results - Last 24 Hours (Table) 07/28/21 07/28/21 07/28/21 Range/Units 09:40 09:40 11:00 WBC 11.2 H (3.8-10.6) k/uL Neutrophils # 7.9 H (1.3-7.7) k/uL Sodium 135 L (137-145) mmol/L BUN 21 H (9-20) mg/dL Glucose 101 H (74-99) mg/dL Total Bilirubin 2.0 H (0.2-1.3) mg/dL Ur Specific [place] >1.050 H (1.001-1.035) Urine Protein Trace H (Negative) Urine Ketones 1+ H (Negative)
--- NOTE | 2021-07-28 14:17 | P.GSCN ---
<Kym Black - Last Filed: 07/28/21 13:56> History of Present Illness Consult date: 07/28/21 Reason for Consult: Peptic ulcer disease, rule out perforation History of present illness: CHIEF COMPLAINT: Abdominal pain, nausea, vomiting HISTORY OF PRESENT ILLNESS: This is a 71-year-old male who presented to the emergency department with an upset stomach. He states that for the last 3-5 days he has had some intermittent nausea and vomiting with upset stomach. He states most of that discomfort is in the epigastric region. He would vomit 1-2 times a day. He has not been able to tolerate much solids. Last time he vomited was yesterday evening. He did have some pop this morning which she has held down so far. He denies any fevers, chills, or diarrhea. He had a CT of the abdomen and pelvis with contrast that showed mild wall thickening of the gastric pylorus and gastroduodenal junction with surrounding mild inflammatory changes as described above. This could be related to an inflamed peptic ulcer. Contained perforation cannot be excluded. No evidence of gastric obstruction or free peritoneal air. No abscess formation. The patient denies any previous history of peptic ulcer disease or acid reflux. He denies any anticoagulation or regular NSAID use. He denies any previous EGD states that he is scheduled for colonoscopy next week with Dr. Azar screening for neoplasm as he had a positive cologuard. He denies any fevers or chills. He currently does not have any abdominal pain, no vomiting today. Denies any coffee-ground emesis but believes he may have seen streaks of blood yesterday. He was afebrile on admiss ion. Mild leukocytosis with a WBC of 11.2. PAST MEDICAL HISTORY: See list. PAST SURGICAL HISTORY: See list. MEDICATIONS: See list. ALLERGIES: See list. SOCIAL HISTORY: No illicit drug use. REVIEW OF SYSTEMS: CONSTITUTIONAL: Denies fever or chills. HEENT: Denies blurred vision, vision changes, or eye pain. Denies hemoptysis CARDIOVASCULAR: Denies chest pain or pressure. RESPIRATORY: No shortness of breath. GASTROINTESTINAL: See HPI for pertinent findings HEMATOLOGIC: Denies bleeding disorders. GENITOURINARY: Denies any blood in urine or increased urinary frequency. SKIN: Denies pruitis. Denies rash. PHYSICAL EXAM: VITAL SIGNS: Reviewed GENERAL: Well-developed in no acute distress. HEENT: No sclera icterus. Extraocular movements grossly intact. Moist buccal mucosa. Head is atraumatic, normocephalic. No nasal drainage. ABDOMEN: Soft. Obese. Nondistended. Tenderness with palpation in epigastric region. NEUROLOGIC: Alert and oriented. Cranial nerves II through XII grossly intact. LABORATORY DATA: WBC 11.2 hemoglobin 15 hematocrit 42 Sodium 135 potassium 4.2 BUN 21 creatinine 0.9 Total bilirubin 2.0 AST 25 ALT 18 alkaline phosphatase 68 amylase 58 and lipase 112 IMAGING: CT of the abdomen and pelvis with contrast that showed mild wall thickening of the gastric pylorus and gastroduodenal junction with surrounding mild inflammatory changes as described above. This could be related to an inflamed peptic ulcer. Contained perforation cannot be excluded. No evidence of gastric obstruction or free peritoneal air. No abscess formation. ASSESSMENT: 1. Abdominal pain 2. Nausea and vomiting 3. Mild thickening of gastric pylorus and gastroduodenal junction with surrounding mild inflammatory changes noted on CT of abdomen and pelvis. PLAN: 1. Keep nothing by mouth 2. Protonix 40 mg twice a day for GI prophylaxis 3. Antiemetics as needed 4. We'll plan to proceed with EGD today Thank you for this consultation, we will continue to follow. The impression and plan of care has been dictated as directed. Dr. Bateman I performed a history and examination of this patient, discussed the same with the dictator. I agree with the dictator's note ,documented as a scribe. Any additional findings or plans will be noted. Past Medical History Past Medical History: Hypertension History of Any Multi-Drug Resistant Organisms: None Reported Past Surgical History: No Surgical Hx Reported Past Psychological History: No Psychological Hx Reported Smoking Status: Current every day smoker Past Alcohol Use History: Occasional Past Drug Use History: None Reported - Past Family History Father Additional Family Medical History / Comment(s): Father had a AR at the age of 83 yrs and lived to be 91 yrs old. He had bilateral vijay replacements. Mother Family Medical History: No Reported History Additional Family Medical History / Comment(s): Mother lived to be 86 yrs old. Medications and Allergies Home Medications Medication Instructions Recorded Confirmed Type Aspirin EC [Ecotrin Low Dose] 81 mg PO HS 07/27/21 07/28/21 History Cholecalciferol [Vitamin D3 (25 50 mcg PO HS 07/27/21 07/28/21 History Mcg = 1000 Iu)] Cholecalciferol [Vitamin D3 (25 125 mcg PO DAILY 07/27/21 07/28/21 History Mcg = 1000 Iu)] Propranolol HCl 80 mg PO BID 07/27/21 07/28/21 History Triamcinolone 0.1% Cream [Kenalog 1 applic TOPICAL BID PRN 07/27/21 07/28/21 History 0.1% Cream] amLODIPine BESYLATE/BENAZEPRIL 1 cap PO DAILY 07/27/21 07/28/21 History [Lotrel 10-40 MG] Allergies Allergy/AdvReac Type Severity Reaction Status Date / Time No Known Allergies Allergy Verified 07/28/21 09:25 Surgical - Exam Vital Signs Temp Pulse Resp BP Pulse Ox 97.8 F 56 L 18 124/70 99 07/28/21 08:57 07/28/21 08:57 07/28/21 08:57 07/28/21 08:57 07/28/21 08:57 Results - Labs 07/28/21 09:40 07/28/21 09:40 Abnormal Lab Results - Last 24 Hours (Table) 07/28/21 07/28/21 07/28/21 Range/Units 09:40 09:40 11:00 WBC 11.2 H (3.8-10.6) k/uL Neutrophils # 7.9 H (1.3-7.7) k/uL Sodium 135 L (137-145) mmol/L BUN 21 H (9-20) mg/dL Glucose 101 H (74-99) mg/dL Total Bilirubin 2.0 H (0.2-1.3) mg/dL Ur Specific [place] >1.050 H (1.001-1.035) Urine Protein Trace H (Negative) Urine Ketones 1+ H (Negative) Diabetes panel 07/28/21 Range/Units 09:40 Sodium 135 L (137-145) mmol/L Potassium 4.2 (3.5-5.1) mmol/L Chloride 102 (98-107) mmol/L Carbon Dioxide 26 (22-30) mmol/L BUN 21 H (9-20) mg/dL Creatinine 0.96 (0.66-1.25) mg/dL Glucose 101 H (74-99) mg/dL Calcium 9.1 (8.4-10.2) mg/dL AST 25 (17-59) U/L ALT 18 (4-49) U/L Alkaline Phosphatase 68 (38-126) U/L Total Protein 7.1 (6.3-8.2) g/dL Albumin 4.1 (3.5-5.0) g/dL Calcium panel 07/28/21 Range/Units 09:40 Calcium 9.1 (8.4-10.2) mg/dL Albumin 4.1 (3.5-5.0) g/dL Pituitary panel 07/28/21 Range/Units 09:40 Sodium 135 L (137-145) mmol/L Potassium 4.2 (3.5-5.1) mmol/L Chloride 102 (98-107) mmol/L Carbon Dioxide 26 (22-30) mmol/L BUN 21 H (9-20) mg/dL Creatinine 0.96 (0.66-1.25) mg/dL Glucose 101 H (74-99) mg/dL Calcium 9.1 (8.4-10.2) mg/dL Adrenal panel 07/28/21 Range/Units 09:40 Sodium 135 L (137-145) mmol/L Potassium 4.2 (3.5-5.1) mmol/L Chloride 102 (98-107) mmol/L Carbon Dioxide 26 (22-30) mmol/L BUN 21 H (9-20) mg/dL Creatinine 0.96 (0.66-1.25) mg/dL Glucose 101 H (74-99) mg/dL Calcium 9.1 (8.4-10.2) mg/dL Total Bilirubin 2.0 H (0.2-1.3) mg/dL AST 25 (17-59) U/L ALT 18 (4-49) U/L Alkaline Phosphatase 68 (38-126) U/L Total Protein 7.1 (6.3-8.2) g/dL Albumin 4.1 (3.5-5.0) g/dL <Doe Bateman - Last Filed: 07/28/21 17:52> History of Present Illness History of present illness: I have personally seen and examined the patient, reviewed the [employer] /PAs history, exam and MDM and agree with the assessment and plan as written. Based on total visit time, I have performed more than 50% of the visit. As above: CAT scan films reviewed. CAT scan along with the patient's history is suspicious for peptic ulcer disease. We'll proceed with EGD at this time. Risks of bleeding and perforation reviewed. Patient understands and wishes to proceed. Surgical - Exam Vital Signs Temp Pulse Resp BP Pulse Ox 97.8 F 56 L 18 124/70 99 07/28/21 08:57 07/28/21 08:57 07/28/21 08:57 07/28/21 08:57 07/28/21 08:57 Results - Labs 07/28/21 09:40 07/28/21 09:40 Abnormal Lab Results - Last 24 Hours (Table) 07/28/21 07/28/21 07/28/21 Range/Units 09:40 09:40 11:00 WBC 11.2 H (3.8-10.6) k/uL Neutrophils # 7.9 H (1.3-7.7) k/uL Sodium 135 L (137-145) mmol/L BUN 21 H (9-20) mg/dL Glucose 101 H (74-99) mg/dL Total Bilirubin 2.0 H (0.2-1.3) mg/dL Ur Specific [place] >1.050 H (1.001-1.035) Urine Protein Trace H (Negative) Urine Ketones 1+ H (Negative) Diabetes panel 07/28/21 Range/Units 09:40 Sodium 135 L (137-145) mmol/L Potassium 4.2 (3.5-5.1) mmol/L Chloride 102 (98-107) mmol/L Carbon Dioxide 26 (22-30) mmol/L BUN 21 H (9-20) mg/dL Creatinine 0.96 (0.66-1.25) mg/dL Glucose 101 H (74-99) mg/dL Calcium 9.1 (8.4-10.2) mg/dL AST 25 (17-59) U/L ALT 18 (4-49) U/L Alkaline Phosphatase 68 (38-126) U/L Total Protein 7.1 (6.3-8.2) g/dL Albumin 4.1 (3.5-5.0) g/dL Calcium panel 07/28/21 Range/Units 09:40 Calcium 9.1 (8.4-10.2) mg/dL Albumin 4.1 (3.5-5.0) g/dL Pituitary panel 07/28/21 Range/Units 09:40 Sodium 135 L (137-145) mmol/L Potassium 4.2 (3.5-5.1) mmol/L Chloride 102 (98-107) mmol/L Carbon Dioxide 26 (22-30) mmol/L BUN 21 H (9-20) mg/dL Creatinine 0.96 (0.66-1.25) mg/dL Glucose 101 H (74-99) mg/dL Calcium 9.1 (8.4-10.2) mg/dL Adrenal panel 07/28/21 Range/Units 09:40 Sodium 135 L (137-145) mmol/L Potassium 4.2 (3.5-5.1) mmol/L Chloride 102 (98-107) mmol/L Carbon Dioxide 26 (22-30) mmol/L BUN 21 H (9-20) mg/dL Creatinine 0.96 (0.66-1.25) mg/dL Glucose 101 H (74-99) mg/dL Calcium 9.1 (8.4-10.2) mg/dL Total Bilirubin 2.0 H (0.2-1.3) mg/dL AST 25 (17-59) U/L ALT 18 (4-49) U/L Alkaline Phosphatase 68 (38-126) U/L Total Protein 7.1 (6.3-8.2) g/dL Albumin 4.1 (3.5-5.0) g/dL
[2021-07-28] MEDS ORDERED: PIPERACILLIN-TAZOBACTAM 3.375 GM in SODIUM CHLORIDE 0.9% 100 ML IVPB SCH (17:00)
[2021-07-28] MEDS ORDERED: HYDROmorphone 0.5 MG/0.5 ML SYRINGE IVP PRN (17:04)
[2021-07-28] MEDS ORDERED: IV FLUID CONTINUATION 1,000 ML IV ONE (18:01)
[2021-07-28] MEDS ORDERED: PROPOFOL 10 MG/ML 20 ML VIAL IV ONE (18:05)
[2021-07-28] MEDS ORDERED: LIDOCAINE 1% INJ 10MG/ML (20 ML MDV) ONE (18:05)
--- NOTE | 2021-07-28 18:24 | P.PCN ---
Date of Procedure: 07/28/21 Procedure(s) Performed: Preoperative Dx: Epigastric pain, possible peptic ulcer disease Postoperative Dx: Duodenal ulcer, mild gastritis, small hiatal hernia, short segment Maher's esophagus Procedure: EGD Anesthesia: Sedation Endoscopist: Dr. Bateman Specimens: None Endoscopic Procedure: The patient was on the endoscopy table in the left decubitus position. The Olympus gastroscope was inserted into the oropharynx and passed under direct visualization to the region of the third portion of the duodenum. From that point the scope was slowly withdrawn inspecting all surfaces carefully. The patient had bilious fluid in both the small bowel and in the stomach. When we reached the small bowel the second and third portion of the duodenum appeared normal. In the duodenal bulb just distal to the pylorus however there was a large ulcer present then encompassed approximately 50% of the circumference. There was noted to be a small amount of oozing near the ulcer edge. No visible vessel was seen. This seemed to be more anterior in location. This was difficult to visualize in its entirety because of the proximity to the pylorus. No definite evidence of perforation was seen endoscopically. The pylorus itself was widely patent. The stomach was inspected. He had mild gastritis. Retroflexion revealed a small hiatal hernia. The patient's esophagus was examined. The GE junction was present to 7 m above the diaphragmatic hiatus. The patient had approximately 2-3 cm segment of Maher's esophagus proximal to that. This was free of inflammation as well. The remainder the esophagus appear normal. I chose not to do biopsies so that we could monitor for evidence of bleeding. The patient was then taken to the recovery room in stable condition per anesthesia guidelines. Recommendations: Continue IV proton pump inhibitor twice a day. Begin clear liquids. Recheck labs tomorrow. Discussed case with the patient's Laura by phone.
[2021-07-28] MEDS: metroNIDAZOLE-NS PMX 500 MG in SALINE 1 100ML.BAG IVPB SCH (21:51)
[2021-07-28] MEDS: PANTOPRAZOLE 40 MG/10 ML VIAL IV SCH (21:55)
[2021-07-28] MEDS: PROPRANOLOL 40 MG TAB PO SCH (21:55)
[2021-07-28] MEDS: CHOLECALCIFEROL 25 MCG (1000 IU) TABLET PO SCH (21:55)
[2021-07-29] MEDS: metroNIDAZOLE-NS PMX 500 MG in SALINE 1 100ML.BAG IVPB SCH ×4 (04:43→23:28)
[2021-07-29] MEDS: SODIUM CHLORIDE 0.9% 1,000 ML IV SCH ×3 (04:44→21:40)
[2021-07-29] MEDS: PANTOPRAZOLE 40 MG/10 ML VIAL IV SCH ×2 (07:19→21:39)
[2021-07-29] MEDS: lisinopriL 20 MG TAB PO SCH (07:19)
[2021-07-29] MEDS: amLODIPine 10 MG TAB PO SCH (07:20)
[2021-07-29] MEDS: CHOLECALCIFEROL 25 MCG (1000 IU) TABLET PO SCH ×2 (07:20→21:40)
[2021-07-29] MEDS: SUCRALFATE 1 GM TAB PO SCH ×3 (07:21→17:07)
[2021-07-29 09:36] LABS: Basophils # (A) 0.03 X 10*3/uL (0.00-0.10); Basophils % (A) 0.4 %; Eosinophils # (A) 0.11 X 10*3/uL (0.04-0.35); Eosinophils % (A) 1.4 %; HCT 38.7 % (39.6-50.0); HGB 12.8 g/dL (13.0-17.0); Immature Grans, Automated 0.1 %; Lymphocytes # (A) 1.32 X 10*3/uL (0.90-5.00); Lymphocytes % (A) 16.4 %; MCH 30.8 pg (27.0-32.0); MCHC 33.1 g/dL (32.0-37.0); MCV 93.3 fL (80.0-97.0); Mean Platelet Volume 10.4 fL (9.5-12.2); Monocytes # (A) 0.78 X 10*3/uL (0.20-1.00); Monocytes % (A) 9.7 %; NRBC Per 100 WBC 0 /100 WBCS (0.0-0.0); Neutrophils # (A) 5.81 X 10*3/uL (1.80-7.70); Platelet Count 159 X 10*3/uL (140-440); RBC 4.15 X 10*6/uL (4.40-5.60); RDW 12.8 % (11.5-14.5); WBC 8.06 X 10*3/uL (4.50-10.00)
[2021-07-29] MEDS: PROPRANOLOL 40 MG TAB PO SCH ×2 (09:39→21:40)
[2021-07-29 10:16] LABS: African American GFR (CKD) 106.2 (60.0-200.0); Albumin 3.6 g/dL (3.8-4.9); Albumin/Globulin Ratio 1.92 (1.60-3.17); Anion Gap 11.4 mmol/L (10.00-18.00); BUN/Creat Ratio 21.62 Ratio (12.00-20.00); Blood Urea Nitrogen 16.8 mg/dL (9.0-27.0); Calcium 8.8 mg/dL (8.7-10.3); Carbon Dioxide 23.5 mmol/L (20.0-27.5); Globulin 1.9 g/dL (1.6-3.3); Magnesium 2.1 mg/dL (1.5-2.4); Non-African American GFR(CKD) 91.6 (60.0-200.0); Total Bilirubin 1.1 mg/dL (0.30-1.20); Total Protein 5.5 g/dL (6.2-8.2)
[2021-07-29 11:25] LABS: INR 1.01 (0.90-1.11); Prothrombin Time 11.4 sec (9.9-11.9)
--- NOTE | 2021-07-29 11:52 | P.PN ---
<WayneKym - Last Filed: 07/29/21 12:43> Subjective Progress Note Date: 07/29/21 CHIEF COMPLAINT: Epigastric pain, nausea vomiting HISTORY OF PRESENT ILLNESS: This is a 71-year-old male who presented to the emergency department yesterday with complaints of abdominal pain greatest in the epigastric region with nausea and vomiting. He had a CT of the abdomen and pelvis that was concerning for possible peptic ulcer disease. Yesterday he underwent EGD with findings of large duodenal ulcer, mild gastritis, small hiatal hernia and a short segment of Maher's esophagus. PHYSICAL EXAM: VITAL SIGNS: Reviewed. GENERAL: Well-developed in no acute distress. HEENT: No sclera icterus. Extraocular movements grossly intact. Moist buccal mucosa. Head is atraumatic, normocephalic. ABDOMEN: Soft. Nondistended. Nontender. NEUROLOGIC: Alert and oriented. Cranial nerves II through XII grossly intact. ASSESSMENT: 1. Status post EGD with findings of large duodenal ulcer with oozing, mild gastritis, small hiatal hernia and short segment of Maher's esophagus 2. Abdominal pain 3. Nausea and vomiting PLAN: 1. May advance to full liquid diet 2. Continue Protonix 40 mg twice a day 3. Daily CBC Thank you for this consultation, we will continue to follow. The impression and plan of care has been dictated as directed. I performed a history and examination of this patient, discussed the same with the dictator. I agree with the dictator's note ,documented as a scribe. Any additional findings or plans will be noted. Objective - Vital Signs Vital signs: Vital Signs Temp 97.9 F 07/29/21 03:43 Pulse 57 L 07/29/21 07:17 Resp 16 07/29/21 07:17 BP 143/75 07/29/21 07:17 Pulse Ox 94 L 07/29/21 07:17 Intake & Output 07/28/21 07/29/21 07/29/21 18:59 06:59 18:59 Intake Total 50 750 Balance 50 750 Weight 113.398 kg Intake: IV 50 Intake, IV Titration 750 Amount Sodium Chloride 0.9% 1, 600 000 ml @ 75 mls/hr IV . [id number] [facility] Rx#:[id number] cefTRIAXone 1 gm In 50 Sodium Chloride 0.9% 50 ml @ 100 mls/hr IVPB Q24HR [facility] Rx#:[id number] metroNIDAZOLE-NS PMX 500 100 mg In Saline 1 100ml.bag @ 100 mls/hr IVPB Q8H [facility] Rx#:[id number] - Labs CBC & Chem 7: 07/29/21 06:08 07/29/21 06:08 Labs: Abnormal Lab Results - Last 24 Hours (Table) 07/28/21 07/28/21 07/28/21 Range/Units 09:40 09:40 11:00 WBC 11.2 H (3.8-10.6) k/uL Neutrophils # 7.9 H (1.3-7.7) k/uL Sodium 135 L (137-145) mmol/L BUN 21 H (9-20) mg/dL Glucose 101 H (74-99) mg/dL Total Bilirubin 2.0 H (0.2-1.3) mg/dL Ur Specific [place] >1.050 H (1.001-1.035) Urine Protein Trace H (Negative) Urine Ketones 1+ H (Negative) <Doe Batemna - Last Filed: 07/29/21 17:03> Subjective I have personally seen and examined the patient, reviewed the [employer]CHNICIAN /PAs history, exam and MDM and agree with the assessment and plan as written. Based on total visit time, I have performed more than 50% of the visit. As above: Patient says he did start having black colored stools 5 days ago. Epigastric pain began a few days prior to that. Patient's bleeding seems to be fairly small volume given the patient's admitting hemoglobin and follow-up CBC today. Continue antiacid therapy. Continue full liquid diet. Repeat labs tomorrow. If hemoglobin relatively stable May discharge with outpatient follow- up. Objective - Vital Signs Vital signs: Vital Signs Temp 97.5 F L 07/29/21 11:45 Pulse 57 L 07/29/21 11:45 Resp 16 07/29/21 11:45 BP 114/64 07/29/21 11:45 Pulse Ox 95 07/29/21 11:45 Intake & Output 07/28/21 07/29/21 07/29/21 18:59 06:59 18:59 Intake Total 50 750 Balance 50 750 Weight 113.398 kg 113.398 kg Intake: IV 50 Intake, IV Titration 750 Amount Sodium Chloride 0.9% 1, 600 000 ml @ 75 mls/hr IV . [id number] [facility] Rx#:[id number] cefTRIAXone 1 gm In 50 Sodium Chloride 0.9% 50 ml @ 100 mls/hr IVPB Q24HR [facility] Rx#:[id number] metroNIDAZOLE-NS PMX 500 100 mg In Saline 1 100ml.bag @ 100 mls/hr IVPB Q8H [facility] Rx#:[id number] Other: Voiding Method Toilet - Labs CBC & Chem 7: 07/29/21 06:08 07/29/21 06:08 Labs: Abnormal Lab Results - Last 24 Hours (Table) 07/29/21 07/29/21 Range/Units 06:08 06:08 RBC 4.15 L (4.40-5.60) X 10*6/uL Hgb 12.8 L (13.0-17.0) g/dL Hct 38.7 L (39.6-50.0) % BUN/Creatinine Ratio 21.62 H (12.00-20.00) Ratio Total Protein 5.5 L (6.2-8.2) g/dL Albumin 3.6 L (3.8-4.9) g/dL
[2021-07-29 12:20] VITALS: BMI 34.8
--- NOTE | 2021-07-29 14:15 | P.PN ---
Subjective Progress Note Date: 07/29/21 Principal diagnosis: abdominal pain Feeling better today, states that his pain is currently 1-2 out of 10. No nausea or vomiting. Tolerating clear liquid diet. Objective - Vital Signs Vital signs: Vital Signs Temp 97.5 F L 07/29/21 11:45 Pulse 57 L 07/29/21 11:45 Resp 16 07/29/21 11:45 BP 114/64 07/29/21 11:45 Pulse Ox 95 07/29/21 11:45 Intake & Output 07/28/21 07/29/21 07/29/21 18:59 06:59 18:59 Intake Total 50 750 Balance 50 750 Weight 113.398 kg 113.398 kg Intake: IV 50 Intake, IV Titration 750 Amount Sodium Chloride 0.9% 1, 600 000 ml @ 75 mls/hr IV . [id number] [facility] Rx#:[id number] cefTRIAXone 1 gm In 50 Sodium Chloride 0.9% 50 ml @ 100 mls/hr IVPB Q24HR [facility] Rx#:[id number] metroNIDAZOLE-NS PMX 500 100 mg In Saline 1 100ml.bag @ 100 mls/hr IVPB Q8H [facility] Rx#:[id number] Other: Voiding Method Toilet - Exam Constitutional: No acute distress, conversant, pleasant Eyes:Anicteric sclerae, moist conjunctiva, no lid-lag, PERRLA, ENMT: Oropharynx clear, no erythema, exudates Neck: Supple, FROM, no masses, or JVD, No carotid bruits, No thyromegaly Lungs: Clear to auscultation, Clear to percussion, Normal respiratory effort, no accessory muscle use Cardiovascular: Heart regular in rate and rhythm, No murmurs, gallops, or rubs, No peripheral edema Abdominal: Soft, Nontender, no guarding, rebound or rigidity, Normoactive bowel sounds, No hepatomegaly, No splenomegaly, No palpable mass Skin: Normal temperature, tone, texture, turgor, no induration, No subcutaneous nodules, No rash, lesions, No ulcers Extremities: No digital cyanosis, No clubbing, Pedal pulses intact and symmetrical, Radial pulses intact and symmetrical, No calf tenderness Psychiatric: Alert and oriented to person, place and time, appropriate affect, intact judgement Neuro: Muscles Strength 5/5 in all 4 extremities, Sensation to light touch grossly present throughout, Cranial nerves II-XII grossly intact, no focal sensory deficits - Labs CBC & Chem 7: 07/29/21 06:08 07/29/21 06:08 Labs: Abnormal Lab Results - Last 24 Hours (Table) 07/29/21 07/29/21 Range/Units 06:08 06:08 RBC 4.15 L (4.40-5.60) X 10*6/uL Hgb 12.8 L (13.0-17.0) g/dL Hct 38.7 L (39.6-50.0) % BUN/Creatinine Ratio 21.62 H (12.00-20.00) Ratio Total Protein 5.5 L (6.2-8.2) g/dL Albumin 3.6 L (3.8-4.9) g/dL Assessment and Plan Plan: Epigastric pain accompanied by nausea and vomiting sec to duodenal ulcer and gastritis shown on EGD. Leukocytosis Hyperbilirubinemia -Abdominal CT revealing mild wall thickening of the gastric pylorus and gastroduodenal junction with surrounding mild inflammatory changes possibly secondary to an inflamed peptic ulcer, however unable to exclude a contained perforation. -Symptomatic and supportive treatment. -Zofran as needed for nausea and vomiting. -Dilaudid as needed for pain -Protonix 40 mg IVP twice daily -Prophylactic IV antibiotics until further evaluation by general surgery and perforation can be ruled out: Rocephin and Flagyl -Continue hydration with IV fluids -Gen. surgery following, appreciate recommendations. Advance diet to full liquid. Hypertension Monitor vital signs and continue daily medication regimen. CODE STATUS: Full code DVT prophylaxis: SCDs Discussed with: Patient and RN Anticipated discharge date: tomorrow Anticipated discharge place: home
[2021-07-29 21:38] VITALS: PULSE 53
[2021-07-30] MEDS: metroNIDAZOLE-NS PMX 500 MG in SALINE 1 100ML.BAG IVPB SCH (07:56)
[2021-07-30] MEDS: CHOLECALCIFEROL 25 MCG (1000 IU) TABLET PO SCH (08:00)
[2021-07-30] MEDS: PROPRANOLOL 40 MG TAB PO SCH (08:01)
[2021-07-30] MEDS: lisinopriL 20 MG TAB PO SCH (08:02)
[2021-07-30] MEDS: PANTOPRAZOLE 40 MG/10 ML VIAL IV SCH (08:02)
[2021-07-30] MEDS: amLODIPine 10 MG TAB PO SCH (08:03)
[2021-07-30] MEDS: SUCRALFATE 1 GM TAB PO SCH ×2 (08:03→13:35)
--- NOTE | 2021-07-30 10:23 | P.PN ---
Subjective Progress Note Date: 07/30/21 Principal diagnosis: Duodenal ulcer Patient doing well today. No significant abdominal pain. No bowel movement since before my evaluation yesterday. Morning labs are pending. No vomiting. Tolerating full liquids. Objective - Vital Signs Vital signs: Vital Signs Temp 98.2 F 07/30/21 05:00 Pulse 53 L 07/30/21 05:00 Resp 16 07/30/21 05:00 BP 151/81 07/30/21 05:00 Pulse Ox 98 07/30/21 05:00 Intake & Output 07/29/21 07/30/21 07/30/21 18:59 06:59 18:59 Intake Total 3800 1000 Balance 3800 1000 Weight 113.398 kg Intake: Intake, IV Titration 950 1000 Amount Sodium Chloride 0.9% 1, 750 900 000 ml @ 75 mls/hr IV . [id number] [facility] Rx#:[id number] metroNIDAZOLE-NS PMX 500 200 100 mg In Saline 1 100ml.bag @ 100 mls/hr IVPB Q8H [facility]ENN[facility] Rx#:[id number] Oral 2850 Other: Voiding Method Toilet Toilet # Voids 6 3 - Exam Abdomen: Soft, nontender, nondistended - Labs CBC & Chem 7: 07/29/21 06:08 07/29/21 06:08 Assessment and Plan (1) Peptic ulcer disease Narrative/Plan: 71-year-old male with duodenal ulcer. Continue full liquid diet. Continue antibiotics and antiacid therapy. Await morning labs. Hemoglobin stable May discharge. Instructed patient to slowly advance diet after discharge. Patient will follow-up in the office. Current Visit: Yes Status: Acute Code(s): K27.9 - PEPTIC ULC, SITE UNSP, UNSP AC OR CHR, W/O HEMOR OR PERF SNOMED Code(s): 86236592
[2021-07-30 11:38] LABS: Basophils % (A) 0 %; Eosinophils # (A) 0.2 k/uL (0-0.7); Eosinophils % (A) 2 %; HCT 42.6 % (39.0-53.0); HGB 13.9 gm/dL (13.0-17.5); Lymphocytes # (A) 1.3 k/uL (1.0-4.8); Lymphocytes % (A) 18 %; MCH 31.6 pg (25.0-35.0); MCHC 32.5 g/dL (31.0-37.0); MCV 97.2 fL (80.0-100.0); Monocytes # (A) 0.5 k/uL (0-1.0); Monocytes % (A) 6 %; Neutrophils # (A) 5.3 k/uL (1.3-7.7); Neutrophils % (A) 71 %; Platelet Count 184 k/uL (150-450); RBC 4.39 m/uL (4.30-5.90); RDW 13.2 % (11.5-15.5); WBC 7.5 k/uL (3.8-10.6)
--- NOTE | 2021-07-30 12:24 | P.DS ---
Providers Date of admission: 07/28/21 11:51 Expected date of discharge: 07/30/21 Attending physician: Jaqueline Mcknight DO Consults: 07/28/21 11:59 Consult Physician Urgent Consulting Provider: Doe Bateman Reason/Comments: Peptic ulcer disease rule out perforation Do you want consulting provider notified?: Yes Primary care physician: Tobi Sandoval MD Hospital Course: 71-year-old male with a past medical history including hypertension and nicotine dependence. He presented to the emergency department with a chief complaint of abdominal pain. Patient reports having intermittent epigastric pain off and on for the last 2 weeks that has significantly worsened over the past 4 days and became accompanied by nausea, vomiting, and dark colored loose stools. Patient reports pain is sharp and colicky and seems to wax and wane. Patient states pain seems to slightly improved when he lays down and states worsens with any oral intake and that he has not been able to tolerate much oral intake. Patient denies having any fevers, chills, diaphoresis, chest pain, palpitations, gastric reflux, hematemesis, shortness of breath, cough, or experiencing any hematochezia. In the emergency department patient underwent full evaluation. He was found to have mild leukocytosis with WBC count of 11.2 and an elevated bilirubin of 2.0. Abdominal CT revealing mild wall thickening of the gastric pylorus and gastroduodenal junction with surrounding mild inflammatory changes possibly secondary to an inflamed peptic ulcer, however unable to exclude a contained perforation. Patient was admitted under our services with consultation to general surgery. Patient was admitted, was started on IV fluids as well as antibiotics with ceftriaxone and Flagyl. He was also started on IV PPI. He was seen by general surgery who did an upper endoscopy which showed gastritis as well as duodenal ulcer. No signs of perforation were found on the scope. His diet was advanced gradually from clears to full liquid. Tolerated diet well. He chronically takes aspirin for unclear reasons, was instructed to discontinue it. He was also advised against smoking or drinking. His hemoglobin remained stable throughout admission. Did not have black stools or any signs of bleeding. He will be discharged in a stable condition. He was cleared by general surgery. Time for discharge 35 minutes. Patient Condition at Discharge: Fair Plan - Discharge Summary Discharge Rx Participant: No New Discharge Prescriptions: New Omeprazole [PriLOSEC] 20 mg PO AC-BID #90 cap Amoxicillin/Potassium Clav [Augmentin 875-125 Tablet] 1 tab PO BID 7 Days #14 tab Sucralfate [Carafate] 1 gm PO ACHS #120 tab Continue Aspirin EC [Ecotrin Low Dose] 81 mg PO HS amLODIPine BESYLATE/BENAZEPRIL [Lotrel 10-40 MG] 1 cap PO DAILY Triamcinolone 0.1% Cream [Kenalog 0.1% Cream] 1 applic TOPICAL BID PRN PRN Reason: Rash Propranolol HCl 80 mg PO BID Cholecalciferol [Vitamin D3 (25 Mcg = 1000 Iu)] 125 mcg PO DAILY Cholecalciferol [Vitamin D3 (25 Mcg = 1000 Iu)] 50 mcg PO HS Discharge Medication List Aspirin EC [Ecotrin Low Dose] 81 mg PO HS 07/27/21 [History] Cholecalciferol [Vitamin D3 (25 Mcg = 1000 Iu)] 50 mcg PO HS 07/27/21 [History] Cholecalciferol [Vitamin D3 (25 Mcg = 1000 Iu)] 125 mcg PO DAILY 07/27/21 [History] Propranolol HCl 80 mg PO BID 07/27/21 [History] Triamcinolone 0.1% Cream [Kenalog 0.1% Cream] 1 applic TOPICAL BID PRN 07/27/21 [History] amLODIPine BESYLATE/BENAZEPRIL [Lotrel 10-40 MG] 1 cap PO DAILY 07/27/21 [History] Amoxicillin/Potassium Clav [Augmentin 875-125 Tablet] 1 tab PO BID 7 Days #14 tab 07/30/21 [Rx] Omeprazole [PriLOSEC] 20 mg PO AC-BID #90 cap 07/30/21 [Rx] Sucralfate [Carafate] 1 gm PO ACHS #120 tab 07/30/21 [Rx] Follow up Appointment(s)/Referral(s): Doe Bateman MD [Medical Doctor] - 2 Weeks Tobi Sandoval MD [Primary Care Provider] - 1-2 days
[2021-07-30 12:35] VITALS: BP 132/71; RESP 19; TEMP 97.8
== END 2021-07-30 14:46 | disposition home or self-care (01) ==
LOC: EC 08:56 → 6NMEDSUR 11:51 → 5NMEDONC 14:22
PROVIDERS: ADMIT Internal Medicine; ATTEND Internal Medicine
DX: K26.9 Duodenal ulcer, unspecified as acute or chronic, without hemorrhage or perforation (principal); K29.70 Gastritis, unspecified, without bleeding; K44.9 Diaphragmatic hernia without obstruction or gangrene; K22.70 Barrett's esophagus without dysplasia; I10 Essential (primary) hypertension; D72.829 Elevated white blood cell count, unspecified; R17 Unspecified jaundice; K31.89 Other diseases of stomach and duodenum; F17.200 Nicotine dependence, unspecified, uncomplicated; K21.9 Gastro-esophageal reflux disease without esophagitis; I71.4 Abdominal aortic aneurysm, without rupture; Z71.9 Counseling, unspecified; Z71.6 Tobacco abuse counseling; Z79.82 Long term (current) use of aspirin; Z79.899 Other long term (current) drug therapy; Z82.49 Family history of ischemic heart disease and other diseases of the circulatory system
CPT/HCPCS: 96360; 99285; 36415; 80053 ×2; 82150; 83690; 83735; 85025 ×3; 85610; 81003; 74177; 43235; G0378 ×4; J2001; J0696 ×3; J2704; C9113 ×3; Q9967

== ENCOUNTER 2021-09-06 02:28 | Inpatient (IN) | payer MEDICARE ==
[2021-09-06] MEDS ORDERED: IPRATROPIUM-ALBUTEROL 3 ML NEB INHALATION STA (03:00)
--- NOTE | 2021-09-06 03:04 | ED ---
SOB HPI - General Chief Complaint: Shortness of Breath Stated Complaint: SOB Time Seen by Provider: 09/06/21 02:41 Source: patient, EMS Mode of arrival: EMS Limitations: no limitations - History of Present Illness Initial Comments: This patient is 71-year-old man who presents to be evaluated for shortness of breath and cough. Patient states that the symptoms started approximately 2 hours ago after he woke up to use the bathroom. He noticed that he was feeling too short of breath to go back to sleep. Patient denies similar history. No associated symptoms other than a little bit of cough. No chest pain. No fever or chills. No change in urination or bowel movements. No leg pain or swelling. Patient does note that he had suspected Coban exposure little over 2 weeks ago but he did have a test on that was negative. MD Complaint: shortness of breath, cough Onset/Timin -: hour(s) Severity scale (1-10): 0 Consistency: constant Improves With: nothing Worsens With: nothing Associated Symptoms: denies other symptoms - Related Data Home Medications Medication Instructions Recorded Confirmed Aspirin EC [Ecotrin Low Dose] 81 mg PO HS 07/27/21 07/28/21 Cholecalciferol [Vitamin D3 (25 50 mcg PO HS 07/27/21 07/28/21 Mcg = 1000 Iu)] Cholecalciferol [Vitamin D3 (25 125 mcg PO DAILY 07/27/21 07/28/21 Mcg = 1000 Iu)] Propranolol HCl 80 mg PO BID 07/27/21 07/28/21 Triamcinolone 0.1% Cream [Kenalog 1 applic TOPICAL BID PRN 07/27/21 07/28/21 0.1% Cream] amLODIPine BESYLATE/BENAZEPRIL 1 cap PO DAILY 07/27/21 07/28/21 [Lotrel 10-40 MG] Previous Rx's Medication Instructions Recorded Amoxicillin/Potassium Clav 1 tab PO BID 7 Days #14 tab 07/30/21 [Augmentin 875-125 Tablet] Omeprazole [PriLOSEC] 20 mg PO AC-BID #90 cap 07/30/21 Sucralfate [Carafate] 1 gm PO ACHS #120 tab 07/30/21 Allergies Allergy/AdvReac Type Severity Reaction Status Date / Time No Known Allergies Allergy Verified 07/28/21 09:25 Review of Systems ROS Statement: Those systems with pertinent positive or pertinent negative responses have been documented in the HPI. ROS Other: All systems not noted in ROS Statement are negative. Constitutional: Denies: fever, chills, weakness Respiratory: Reports: cough, dyspnea. Denies: hemoptysis Cardiovascular: Denies: chest pain, palpitations, edema, syncope Gastrointestinal: Denies: abdominal pain, nausea, vomiting, melena, hematochezia Genitourinary: Denies: dysuria, hematuria Musculoskeletal: Denies: back pain Skin: Denies: rash Neurological: Denies: headache, weakness Past Medical History Past Medical History: Hypertension Additional Past Medical History / Comment(s): Recent + cologuard and is to have a colonoscopy 08/03/21, ascending aortic aneurysm which has been stable for years, vitamin D deficiency. History of Any Multi-Drug Resistant Organisms: None Reported Past Surgical History: No Surgical Hx Reported Additional Past Surgical History / Comment(s): Pilonidal cyst, r upper back benign lesion removed. Past Anesthesia/Blood Transfusion Reactions: No Reported Reaction Past Psychological History: No Psychological Hx Reported Smoking Status: Current every day smoker Past Alcohol Use History: Occasional Past Drug Use History: None Reported - Past Family History Father Additional Family Medical History / Comment(s): Father had a WA at the age of 83 yrs and lived to be 91 yrs old. He had bilateral vijay replacements. Mother Family Medical History: No Reported History Additional Family Medical History / Comment(s): Mother lived to be 86 yrs old. General Exam Limitations: no limitations General appearance: alert, in no apparent distress Head exam: Present: atraumatic, normocephalic Eye exam: Present: normal appearance. Absent: scleral icterus, conjunctival injection Neck exam: Present: normal inspection Respiratory exam: Present: respiratory distress (Mild tachypnea), wheezes, decreased breath sounds. Absent: rales, rhonchi, stridor, accessory muscle use Cardiovascular Exam: Present: regular rate, normal rhythm, normal heart sounds. Absent: systolic murmur, diastolic murmur, rubs, gallop GI/Abdominal exam: Present: soft. Absent: distended, tenderness, guarding, rebound, rigid, mass Extremities exam: Present: normal inspection, normal capillary refill. Absent: pedal edema, calf tenderness Back exam: Present: normal inspection. Absent: CVA tenderness (R), CVA tenderness (L) Neurological exam: Present: alert Skin exam: Present: warm, dry, intact, normal color. Absent: rash Course Vital Signs 09/06/21 09/06/21 09/06/21 02:41 03:09 03:14 Temperature 98.3 F Pulse Rate 60 59 L 56 L Respiratory 30 H Rate Blood Pressure 141/83 O2 Sat by Pulse 100 Oximetry 09/06/21 09/06/21 03:48 05:00 Temperature Pulse Rate 55 L 55 L Respiratory 22 25 H Rate Blood Pressure 119/63 117/61 O2 Sat by Pulse 97 97 Oximetry Medical Decision Making - Medical Decision Making 's patient is a 71-year-old man presenting to have evaluation for acute onset of dyspnea tonight. Patient denies having any chest pain but does have elevated troponin here. Patient is symptom-free after being placed on oxygen and after having had the nebulized treatment. Given the findings, patient to be admitted with cardiology consultation and echocardiogram. - Lab Data Result diagrams: 09/06/21 03:24 09/06/21 03:24 Lab Results 09/06/21 09/06/21 09/06/21 Range/Units 03:24 03:24 03:24 WBC 9.4 (3.8-10.6) k/uL RBC 4.37 (4.30-5.90) m/uL Hgb 13.3 (13.0-17.5) gm/dL Hct 40.6 (39.0-53.0) % MCV 92.8 (80.0-100.0) fL MCH 30.5 (25.0-35.0) pg MCHC 32.9 (31.0-37.0) g/dL RDW 12.1 (11.5-15.5) % Plt Count 170 (150-450) k/uL MPV 8.5 Neutrophils % 76 % Lymphocytes % 12 % Monocytes % 8 % Eosinophils % 3 % Basophils % 1 % Neutrophils # 7.1 (1.3-7.7) k/uL Lymphocytes # 1.1 (1.0-4.8) k/uL Monocytes # 0.8 (0-1.0) k/uL Eosinophils # 0.2 (0-0.7) k/uL Basophils # 0.1 (0-0.2) k/uL PT 10.7 (9.0-12.0) sec INR 1.0 (<1.2) APTT 26.9 (22.0-30.0) sec D-Dimer 0.71 H (<0.60) mg/L FEU Sodium 137 (137-145) mmol/L Potassium 4.3 (3.5-5.1) mmol/L Chloride 105 (98-107) mmol/L Carbon Dioxide 25 (22-30) mmol/L Anion Gap 7 mmol/L BUN 13 (9-20) mg/dL Creatinine 0.82 (0.66-1.25) mg/dL Est GFR (CKD-EPI)AfAm >90 (>60 ml/min/1.73 sqM) Est GFR (CKD-EPI)NonAf 90 (>60 ml/min/1.73 sqM) Glucose 105 H (74-99) mg/dL Plasma Lactic Acid Ulices (0.7-2.0) mmol/L Calcium 8.6 (8.4-10.2) mg/dL Total Bilirubin 1.1 (0.2-1.3) mg/dL AST 41 (17-59) U/L ALT 34 (4-49) U/L Alkaline Phosphatase 61 (38-126) U/L Troponin I (0.000-0.034) ng/mL NT-Pro-B Natriuret Pep pg/mL Total Protein 6.7 (6.3-8.2) g/dL Albumin 3.7 (3.5-5.0) g/dL Coronavirus (PCR) (Not Detectd) 09/06/21 09/06/21 09/06/21 Range/Units 03:24 03:24 03:24 WBC (3.8-10.6) k/uL RBC (4.30-5.90) m/uL Hgb (13.0-17.5) gm/dL Hct (39.0-53.0) % MCV (80.0-100.0) fL MCH (25.0-35.0) pg MCHC (31.0-37.0) g/dL RDW (11.5-15.5) % Plt Count (150-450) k/uL MPV Neutrophils % % Lymphocytes % % Monocytes % % Eosinophils % % Basophils % % Neutrophils # (1.3-7.7) k/uL Lymphocytes # (1.0-4.8) k/uL Monocytes # (0-1.0) k/uL Eosinophils # (0-0.7) k/uL Basophils # (0-0.2) k/uL PT (9.0-12.0) sec INR (<1.2) APTT (22.0-30.0) sec D-Dimer (<0.60) mg/L FEU Sodium (137-145) mmol/L Potassium (3.5-5.1) mmol/L Chloride (98-107) mmol/L Carbon Dioxide (22-30) mmol/L Anion Gap mmol/L BUN (9-20) mg/dL Creatinine (0.66-1.25) mg/dL Est GFR (CKD-EPI)AfAm (>60 ml/min/1.73 sqM) Est GFR (CKD-EPI)NonAf (>60 ml/min/1.73 sqM) Glucose (74-99) mg/dL Plasma Lactic Acid Ulices 1.0 (0.7-2.0) mmol/L Calcium (8.4-10.2) mg/dL Total Bilirubin (0.2-1.3) mg/dL AST (17-59) U/L ALT (4-49) U/L Alkaline Phosphatase (38-126) U/L Troponin I 3.180 H* (0.000-0.034) ng/mL NT-Pro-B Natriuret Pep 2280 pg/mL Total Protein (6.3-8.2) g/dL Albumin (3.5-5.0) g/dL Coronavirus (PCR) (Not Detectd) 09/06/21 Range/Units 03:25 WBC (3.8-10.6) k/uL RBC (4.30-5.90) m/uL Hgb (13.0-17.5) gm/dL Hct (39.0-53.0) % MCV (80.0-100.0) fL MCH (25.0-35.0) pg MCHC (31.0-37.0) g/dL RDW (11.5-15.5) % Plt Count (150-450) k/uL MPV Neutrophils % % Lymphocytes % % Monocytes % % Eosinophils % % Basophils % % Neutrophils # (1.3-7.7) k/uL Lymphocytes # (1.0-4.8) k/uL Monocytes # (0-1.0) k/uL Eosinophils # (0-0.7) k/uL Basophils # (0-0.2) k/uL PT (9.0-12.0) sec INR (<1.2) APTT (22.0-30.0) sec D-Dimer (<0.60) mg/L FEU Sodium (137-145) mmol/L Potassium (3.5-5.1) mmol/L Chloride (98-107) mmol/L Carbon Dioxide (22-30) mmol/L Anion Gap mmol/L BUN (9-20) mg/dL Creatinine (0.66-1.25) mg/dL Est GFR (CKD-EPI)AfAm (>60 ml/min/1.73 sqM) Est GFR (CKD-EPI)NonAf (>60 ml/min/1.73 sqM) Glucose (74-99) mg/dL Plasma Lactic Acid Ulices (0.7-2.0) mmol/L Calcium (8.4-10.2) mg/dL Total Bilirubin (0.2-1.3) mg/dL AST (17-59) U/L ALT (4-49) U/L Alkaline Phosphatase (38-126) U/L Troponin I (0.000-0.034) ng/mL NT-Pro-B Natriuret Pep pg/mL Total Protein (6.3-8.2) g/dL Albumin (3.5-5.0) g/dL Coronavirus (PCR) Not Detected (Not Detectd) - EKG Data -: EKG Interpreted by Ks EKG shows normal: sinus rhythm, axis (Normal), intervals (QRS duration borderline for prolonged at 111 ms. MD interval 194 ms QTC 439 ms), QRS complexes (Nonspecific intraventricular conduction delay) Rate: bradycardia (Rate 56 bpm) Interpretation: nonspecific ST-T wave changes Disposition Clinical Impression: Congestive heart failure, NSTEMI (non-ST elevated myocardial infarction) Disposition: ADMITTED IP TO THIS HOSP Condition: Fair Referrals: Tobi Sandoval MD [Primary Care Provider] - 1-2 days
--- NOTE | 2021-09-06 03:33 | XR ---
EXAMINATION TYPE: XR chest 1V portable DATE OF EXAM: 09/06/2021 COMPARISON: NONE HISTORY: Difficulty breathing TECHNIQUE: Single view FINDINGS: Heart is borderline enlarged. There is some coarsening of the interstitial markings. There are chest leads. Costophrenic angles are clear. No obvious heart failure. IMPRESSION: There is some minimal pulmonary interstitial edema. No pleural fluid seen to suggest hear t failure.
[2021-09-06 03:44] LABS: Basophils # (A) 0.1 k/uL (0-0.2); Basophils % (A) 1 %; Eosinophils # (A) 0.2 k/uL (0-0.7); Eosinophils % (A) 3 %; HCT 40.6 % (39.0-53.0); HGB 13.3 gm/dL (13.0-17.5); Lymphocytes # (A) 1.1 k/uL (1.0-4.8); Lymphocytes % (A) 12 %; MCH 30.5 pg (25.0-35.0); MCHC 32.9 g/dL (31.0-37.0); MCV 92.8 fL (80.0-100.0); Mean Platelet Volume 8.5; Monocytes # (A) 0.8 k/uL (0-1.0); Monocytes % (A) 8 %; Neutrophils # (A) 7.1 k/uL (1.3-7.7); Neutrophils % (A) 76 %; Platelet Count 170 k/uL (150-450); RBC 4.37 m/uL (4.30-5.90); RDW 12.1 % (11.5-15.5); WBC 9.4 k/uL (3.8-10.6)
[2021-09-06 04:02] LABS: Partial Thromboplastin Time 26.9 sec (22.0-30.0); Prothrombin Time 10.7 sec (9.0-12.0)
[2021-09-06 04:08] LABS: ALT 34 U/L (4-49); AST 41 U/L (17-59); African American GFR (CKD) >90 (>60 ml/min/1.73 sqM); Albumin 3.7 g/dL (3.5-5.0); Alkaline Phosphatase 61 U/L (38-126); Anion Gap 7 mmol/L; Blood Urea Nitrogen 13 mg/dL (9-20); Calcium 8.6 mg/dL (8.4-10.2); Carbon Dioxide 25 mmol/L (22-30); Chloride 105 mmol/L (98-107); Glucose 105 mg/dL (74-99); Non-African American GFR(CKD) 90 (>60 ml/min/1.73 sqM); Potassium 4.3 mmol/L (3.5-5.1); Sodium 137 mmol/L (137-145); Total Bilirubin 1.1 mg/dL (0.2-1.3); Total Protein 6.7 g/dL (6.3-8.2)
[2021-09-06] MEDS ORDERED: NITROGLYCERIN SL TABS 0.4 MG TAB SUBLINGUAL PRN ×2 (05:09→08:44)
[2021-09-06] MEDS ORDERED: HEPARIN SODIUM 1,000 UN/ML (10ML VL) IV ONE (06:15)
[2021-09-06] MEDS ORDERED: HEPARIN SODIUM 1,000 UN/ML (10ML VL) IV PRN ×2 (06:15→12:46)
[2021-09-06] MEDS ORDERED: ASPIRIN 81 MG PO STA (06:16)
[2021-09-06] MEDS ORDERED: HEPARIN SOD,PORK IN 0.45% NACL 25,000 UNIT in 0.45% NACL 1 250ML.BAG IV SCH (06:30)
[2021-09-06 06:52] LABS: Prothrombin Time 11.2 sec (9.0-12.0)
[2021-09-06] MEDS ORDERED: HEPARIN SODIUM,PORCINE 2,500 UNIT in SODIUM CHLORIDE 0.9% 250 ML IRRIGATION PRN (07:00)
[2021-09-06] MEDS ORDERED: HEPARIN SODIUM,PORCINE 10,000 UNIT in SODIUM CHLORIDE 0.9% 1,000 ML IRRIGATION PRN (07:00)
[2021-09-06] MEDS ORDERED: IV FLUID CONTINUATION 1,000 ML IV ONE ×2 (07:24)
[2021-09-06] MEDS ORDERED: ASPIRIN 325 MG TAB PO STA (08:44)
[2021-09-06] MEDS ORDERED: ALPRAZolam 0.25 MG TAB PO PRN (08:44)
[2021-09-06] MEDS ORDERED: ALPRAZolam 0.5 MG TAB PO PRN (08:44)
[2021-09-06] MEDS ORDERED: ATORVASTATIN 80 MG TAB PO STA (08:44)
[2021-09-06] MEDS: ATORVASTATIN 80 MG TAB PO SCH ×2 (09:03→19:51)
[2021-09-06] MEDS ORDERED: LIDOCAINE 1% INJ 10MG/ML (20 ML MDV) ONE (09:03)
[2021-09-06] MEDS: METOPROLOL TARTRATE 12.5 MG TAB PO SCH ×2 (09:06→19:51)
[2021-09-06] MEDS ORDERED: VERAPAMIL 2.5 MG/ML 2 ML AMP ONE (09:13)
[2021-09-06] MEDS ORDERED: HEPARIN SODIUM 1,000 UN/ML (10ML VL) ONE (09:34)
[2021-09-06] MEDS ORDERED: fentaNYL (PF) 50 MCG/ML 2 ML AMP ONE (09:34)
[2021-09-06] MEDS ORDERED: fentaNYL (PF) 50 MCG/ML 2 ML AMP IV ONE (09:35)
[2021-09-06] MEDS ORDERED: MIDAZOLAM 2 MG/2 ML VIAL IV ONE (09:35)
[2021-09-06] MEDS ORDERED: LIDOCAINE 1% INJ 10MG/ML (20 ML MDV) SQ ONE (09:40)
[2021-09-06] MEDS ORDERED: VERAPAMIL SYRINGE (5 MG/10 ML) INTRAARTER ONE (09:43)
[2021-09-06] MEDS: HEPARIN SODIUM 1,000 UN/ML (10ML VL) IV ONE ×2 (09:47→09:59)
[2021-09-06] MEDS ORDERED: IOPAMIDOL-370 125ML BTL INJ ONE (10:04)
--- NOTE | 2021-09-06 10:18 | P.CARDCATH ---
Description of Procedure: PROCEDURES PERFORMED: Left heart catheterization, bilateral coronary angiography, iFR LAD INDICATION: Non-STEMI HISTORY: Patient is a pleasant 71-year-old male who had almost a full day of chest pain on Sunday in the which he attributed to eating a steak. He has been having worsening shortness of breath with significant heart failure symptoms yesterday and therefore came to emergency department and was found to have non-STEMI with diffuse ST depressions. Therefore heart catheterization was recommended. He denies any significant chest pain or dyspnea currently. CONSENT:I have discussed the risks, benefits and alternative therapies for the above-mentioned procedure and for both sedation/analgesia as well as necessary blood product administration, if indicated, as they pertain to this patient. The patient has indicated understanding and acceptance of the risks and procedures discussed. PROCEDURE: After the risks, benefits and alternatives of the above mentioned procedure explained in detail with the patient, informed consent was obtained. Patient was taken to the catheterization lab and prepped and draped in usual fashion. 1% lidocaine was used to anesthetize the right radial artery. A 6- Nigerien sheath was placed in the right radial artery using modified Seldinger technique. Left coronary angiography was performed with a 5-Nigerien JL 3.5 catheter and right coronary angiography was performed with a 5-Nigerien JR5 catheter in various views. A 5-Nigerien FR5 catheter was inserted into the left ventricle and pressure measurements were obtained. The decision was made to perform iFR of LAD. Heparin was given. A 6-Nigerien CLS 3.5 guide was used to engage the left main. A 0.014 pressure wire was advanced into the left main and normalized. The pressure wire was then advanced approximately 1 cm distal to the LAD lesion in the mid LAD. iFR was performed which was abnormal at 0.81. The right radial sheath was removed and a TR band was placed with hemostasis achieved. The patient tolerated the procedure well. Patient was transported back to the post catheterization holding area in stable condition. Conscious Sedation: Patient was monitored under the direct supervision of vision of myself for conscious sedation using Versed and fentanyl for a total duration of 25 minutes HEMODYNAMICS: Aorta: 138/80 LV: 132/8, LVEDP 23 SELECTIVE CORONARY ARTERIOGRAPHY: LEFT MAIN: The left main is a large caliber vessel which bifurcates into the LAD and circumflex. There is mild tender 20% left main stenosis. LEFT ANTERIOR DESCENDING CORONARY ARTERY: LAD is a large caliber vessel which wraps around to the apex. There is a proximal LAD 60-70% at the level of the first septal patient registration manager. Diagonal 1 branch is a small to moderate caliber vessel with a 99% proximal stenosis. There are [id number] collaterals to the PLV branch. LEFT CIRCUMFLEX CORONARY ARTERY: Left circumflex is a moderate caliber vessel. The circumflex gives off a small to moderate caliber OM1 branch without significant disease. The mid circumflex has a 100% stenosis and has very faint left to left collaterals appearing to give off a small caliber OM 2 branch. RIGHT CORONARY ARTERY: The right coronary artery is a large caliber vessel which gives off a PDA and PLV branch and is the dominant vessel. There is a proximal RCA 60 to 70% stenosis. The PLV is large caliber and has a proximal 90% stenosis. The PDA is moderate to large caliber and has a proximal 50% stenosis. FINAL IMPRESSION: 1. Three-vessel coronary artery disease as described above including proximal LAD 60-70% stenosis (iFR abnormal at 0.81), diagonal 1 99% stenosis, mid circumflex 100% stenosis, RCA 60-70% stenosis, PLV 90% stenosis and PDA 50% stenosis. 2. Elevated left sided filling pressures PLAN: 1. Aggressive risk factor modification per most recent ACC/AHA guidelines. 2. Given diffuse disease including abnormal iFR LAD recommend CABG evaluation. If patient deemed high risk or patient does not desire CABG proceed with multivessel PCI.
[2021-09-06] MEDS ORDERED: SODIUM CHLORIDE 0.9% 1,000 ML IV SCH (10:30)
[2021-09-06] MEDS ORDERED: RX INFO: IV CONTRAST WAS GIVEN 1 EACH MISC MISCELLANE PRN (10:34)
--- NOTE | 2021-09-06 11:48 | P.CRDCN ---
History of Present Illness Consult date: 09/06/21 History of present illness: HISTORY OF PRESENT ILLNESS: This is a 71 year old male with a past medical history significant for hypertension, hyperlipidemia (diet controlled per patient), GERD, nicotine dependence, and ascending aortic aneurysm. Patient does not follow with a family support specialist. We have been asked to see the patient in consultation for elevated troponin. Patient examined at the bedside. Patient presented to the hospital with a chief complaint of shortness of breath. He reports last night he was laying in bed and was having a hard time breathing. He states he had to sit up to catch his breath. He denied having any chest pain or pressure. Denied any dizziness or lightheadedness. He denies a history of diabetes. He is a current s moker. He denies any previous cardiac workup in the past including a cardiac cath or stress test. * EKG reveals sinus mechanism with diffuse ST depression * Chest xray there is some minimal pulmonary interstitial edema. No pleural fluid seen to suggest heart failure. * Laboratory data: W BC 9.4. Hemoglobin 13.3. Platelet count 170. Sodium 137. Potassium 4.3. BUN 13. Creatinine 0.82. Lactic acid 1.0. troponin 3.180. 2.980. 3.480. ProBNP 2280. * Current home cardiac medications include amlodipine-Benzapril 10-40mg daily, propanolol 80 mg twice a day, and aspirin 81 mg at night REVIEW OF SYSTEMS: At the time of my exam: CONSTITUTIONAL: Denies fever or chills. HEENT: Denies blurred vision, vision changes, or eye pain. Denies hemoptysis CARDIOVASCULAR: Denies chest pain. Denies orthopnea. Denies PND. Denies palpitations RESPIRATORY: Denies shortness of breath. GASTROINTESTINAL: Denies abdominal pain. Denies nausea or vomiting. HEMATOLOGIC: Denies bleeding disorders. GENITOURINARY: Denies any blood in urine. SKIN: Denies pruitis. Denies rash. PHYSICAL EXAM: VITAL SIGNS: Reviewed. GENERAL: Well-developed in no acute distress. HEENT: Head is normocephalic. Pupils are equal, round. Sclerae anicteric. Mucous membranes of the mouth are moist. Neck supple. No JVD or thyromegaly LUNGS: Respirations even and unlabored. Lungs essentially clear to auscultation bilaterally. HEART: Regular rate and rhythm. S1 and S2 heard. ABDOMEN: Soft. Nondistended. Nontender. EXTREMITIES: Normal range of motion. No clubbing or cyanosis. Peripheral pulses intact. No lower extremity edema NEUROLOGIC: Awake and alert. Oriented x 3. ASSESSMENT: Shortness of breath Non-STEMI Hypertension Hyperlipidemia, diet controlled per patient GERD Nicotine dependence History of ascending aortic aneurysm PLAN: Obtain 2D echo to assess cardiac structure and function Continue IV heparin Begin aspirin 81 mg daily, atorvastatin 80 mg at night, and metoprolol 12.5 mg twice a day Patient to undergo cardiac catheterization today with Dr. Austin Further recommendations pending patient course Nurse practitioner note has been reviewed by physician. Signing provider agrees with the documented findings, assessment, and plan of care. Past Medical History Past Medical History: Hypertension Additional Past Medical History / Comment(s): Recent + cologuard and is to have a colonoscopy 08/03/21, ascending aortic aneurysm which has been stable for years, vitamin D deficiency. History of Any Multi-Drug Resistant Organisms: None Reported Past Surgical History: No Surgical Hx Reported Additional Past Surgical History / Comment(s): Pilonidal cyst, r upper back benign lesion removed. Past Anesthesia/Blood Transfusion Reactions: No Reported Reaction Past Psychological History: No Psychological Hx Reported Smoking Status: Current every day smoker Past Alcohol Use History: Occasional Past Drug Use History: None Reported - Past Family History Father Additional Family Medical History / Comment(s): Father had a TN at the age of 83 yrs and lived to be 91 yrs old. He had bilateral vijay replacements. Mother Family Medical History: No Reported History Additional Family Medical History / Comment(s): Mother lived to be 86 yrs old. Sister(s) Family Medical History: Pulmonary Embolus Medications and Allergies Home Medications Medication Instructions Recorded Confirmed Type Aspirin EC [Ecotrin Low Dose] 81 mg PO HS 07/27/21 09/06/21 History Cholecalciferol [Vitamin D3 (25 50 mcg PO HS 07/27/21 09/06/21 History Mcg = 1000 Iu)] Cholecalciferol [Vitamin D3 (25 125 mcg PO DAILY 07/27/21 09/06/21 History Mcg = 1000 Iu)] Propranolol HCl 80 mg PO BID 07/27/21 09/06/21 History Triamcinolone 0.1% Cream [Kenalog 1 applic TOPICAL BID PRN 07/27/21 09/06/21 History 0.1% Cream] amLODIPine BESYLATE/BENAZEPRIL 1 cap PO DAILY 07/27/21 09/06/21 History [Lotrel 10-40 MG] Omeprazole [PriLOSEC] 20 mg PO AC-BID #90 cap 07/30/21 09/06/21 Rx Sucralfate [Carafate] 1 gm PO ACHS #120 tab 07/30/21 09/06/21 Rx Allergies Allergy/AdvReac Type Severity Reaction Status Date / Time No Known Allergies Allergy Verified 09/06/21 06:22 Physical Exam Vitals: Vital Signs Temp Pulse Pulse Resp BP BP Pulse Ox 09/06/21 07:58 98.6 F 58 L 18 145/79 97 09/06/21 06:08 56 L 24 119/65 97 09/06/21 05:00 55 L 25 H 117/61 97 09/06/21 03:48 55 L 22 119/63 97 09/06/21 03:14 56 L 09/06/21 03:09 59 L 09/06/21 02:41 98.3 F 60 30 H 141/83 100 Intake and Output 09/05/21 09/06/21 09/06/21 22:59 06:59 14:59 Other: Weight 108.862 kg Results 09/06/21 03:24 09/06/21 03:24 Cardiac Enzymes 09/06/21 09/06/21 09/06/21 Range/Units 03:24 03:24 06:40 AST 41 (17-59) U/L Troponin I 3.180 H* 2.990 H* (0.000-0.034) ng/mL Coagulation 09/06/21 09/06/21 Range/Units 03:24 06:40 PT 10.7 11.2 (9.0-12.0) sec APTT 26.9 (22.0-30.0) sec CBC 09/06/21 Range/Units 03:24 WBC 9.4 (3.8-10.6) k/uL RBC 4.37 (4.30-5.90) m/uL Hgb 13.3 (13.0-17.5) gm/dL Hct 40.6 (39.0-53.0) % Plt Count 170 (150-450) k/uL Comprehensive Metabolic Panel 09/06/21 Range/Units 03:24 Sodium 137 (137-145) mmol/L Potassium 4.3 (3.5-5.1) mmol/L Chloride 105 (98-107) mmol/L Carbon Dioxide 25 (22-30) mmol/L BUN 13 (9-20) mg/dL Creatinine 0.82 (0.66-1.25) mg/dL Glucose 105 H (74-99) mg/dL Calcium 8.6 (8.4-10.2) mg/dL AST 41 (17-59) U/L ALT 34 (4-49) U/L Alkaline Phosphatase 61 (38-126) U/L Total Protein 6.7 (6.3-8.2) g/dL Albumin 3.7 (3.5-5.0) g/dL Current Medications Generic Name Dose Route Start Last Admin Trade Name Freq PRN Reason Stop Dose Admin Heparin Sodium (Porcine) 0 unit 09/06/21 06:15 Heparin Sodium 1,000 Un/Ml (10ml Vl) IV PER PROTOCOL PRN Low PTT Protocol Heparin Sodium/Sodium Chloride 250 mls @ 10 mls/hr 09/06/21 06:30 09/06/21 06:29 25,000 unit/ Sodium Chloride IV 9.186 units/kg/hr .Q24H JENNIE 10 mls/hr Administration Protocol 9.186 UNITS/KG/HR Nitroglycerin 0.4 mg 09/06/21 05:09 Nitroglycerin Sl Tabs 0.4 Mg Tab SUBLINGUAL Q5M PRN Chest Pain Intake and Output 09/05/21 09/06/21 09/06/21 22:59 06:59 14:59 Other: Weight 108.862 kg 09/06/21 03:24 09/06/21 03:24
[2021-09-06] MEDS: FUROSEMIDE 10 MG/ML 4 ML VIAL IV SCH ×2 (11:50→19:51)
[2021-09-06 13:05] LABS: Appearance,Urine Clear (Clear); Bilirubin,Urine Negative (Negative); Blood,Urine Negative (Negative); Color,Urine Light Yellow; Glucose,Urine (UA) Negative (Negative); Ketones,Urine Negative (Negative); Leukocyte Esterase,Urine Negative (Negative); Nitrite,Urine Negative (Negative); Protein,Urine Negative (Negative); Specific Gravity,Urine 1.018 (1.001-1.035); Urobilinogen,Urine <2.0 mg/dL (<2.0)
--- NOTE | 2021-09-06 13:20 | P.GSCN ---
History of Present Illness Consult date: 09/06/21 Reason for Consult: Multivessel coronary artery disease, 4.3 cm thoracic aortic aneurysm, non-ST elevated Rajesh infarction this admission. Requesting physician: Fernie Austin History of present illness: This is a 71-year-old gentleman who is followed by Dr. Tobi Sandoval [facility] [place] primary care service on an outpatient basis. He has a past medical history significant for hypertension, hyperlipidemia which has been diet controlled, obesity, chronic ongoing tobacco dependence smoking about a half a pack cigarettes per day, peptic ulcer disease and a known history of an ascending aortic aneurysm. 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 He denies any fever, chills, nausea, vomiting, palpitations, presyncope, syncope, chest pain or chest pressure. He states that the shortness of breath did not resolve with rest and subsequently presented to the emergency department here at [facility]. Initial laboratory results showed a WBC count of 9.4, hemoglobin 13.3, hematocrit 40.6, platelets 170, INR 1.0, PT 10.7, PTT 26.9, d-dimer 0.71, sodium 137, potassium 4.3, BUN 13, creatinine 0.82, serial troponins were elevated and as high as 3.480. A coronavirus test was completed and showed not detected. A chest x-ray was completed which showed minimal pulmonary interstitial edema, no pleural fluid seen to suggest heart failure. A 12-lead EKG was completed which showed sinus bradycardia with diffuse ST depression. Due to the patient's presenting symptoms and elevated troponins a consult was placed to cardiology associates for further evaluation and treatment recommendations. A 2-D echo cardiogram has been ordered with results pending. Dr. Austin evaluated the patient and subsequently the patient underwent a cardiac catheterization which demonstrated three-vessel coronary artery disease with a 60-70% stenosis to his proximal left anterior descending coronary artery, an iFR was abnormal at 0.81, a 99% stenosis to his first diagonal coronary artery, a 100% stenosis to his mid circumflex coronary artery, a 60-70% stenosis to his right coronary artery, a 90% stenosis to his PLV coronary artery and a 50% stenosis to his posterior descending coronary artery. Due to the findings on the cardiac catheterization a consult was placed to Dr. Michael Guillen from cardiothoracic surgery for further evaluation and treatment recommendations including myocardial revascularization surgery. Review of Systems A 14 point review of systems was completed and was negative except as mentioned in the HPI. Past Medical History Past Medical History: Hyperlipidemia, Hypertension Additional Past Medical History / Comment(s): Recent + cologuard and is to have a colonoscopy 08/03/21, ascending aortic aneurysm which has been stable for years, vitamin D deficiency. History of Any Multi-Drug Resistant Organisms: None Reported Past Surgical History: No Surgical Hx Reported Additional Past Surgical History / Comment(s): Pilonidal cyst, r upper back benign lesion removed. Past Anesthesia/Blood Transfusion Reactions: No Reported Reaction Past Psychological History: No Psychological Hx Reported Smoking Status: Current every day smoker Past Alcohol Use History: Occasional Past Drug Use History: None Reported - Past Family History Father Additional Family Medical History / Comment(s): Father had a AR at the age of 83 yrs and lived to be 91 yrs old. He had bilateral vijay replacements. Mother Family Medical History: Diabetes Mellitus Additional Family Medical History / Comment(s): Mother lived to be 86 yrs old. Sister(s) Family Medical History: Pulmonary Embolus Medications and Allergies Home Medications Medication Instructions Recorded Confirmed Type Aspirin EC [Ecotrin Low Dose] 81 mg PO HS 07/27/21 09/06/21 History Cholecalciferol [Vitamin D3 (25 50 mcg PO HS 07/27/21 09/06/21 History Mcg = 1000 Iu)] Cholecalciferol [Vitamin D3 (25 125 mcg PO DAILY 07/27/21 09/06/21 History Mcg = 1000 Iu)] Propranolol HCl 80 mg PO BID 07/27/21 09/06/21 History Triamcinolone 0.1% Cream [Kenalog 1 applic TOPICAL BID PRN 07/27/21 09/06/21 History 0.1% Cream] amLODIPine BESYLATE/BENAZEPRIL 1 cap PO DAILY 07/27/21 09/06/21 History [Lotrel 10-40 MG] Omeprazole [PriLOSEC] 20 mg PO AC-BID #90 cap 07/30/21 09/06/21 Rx Sucralfate [Carafate] 1 gm PO ACHS #120 tab 07/30/21 09/06/21 Rx Allergies Allergy/AdvReac Type Severity Reaction Status Date / Time No Known Allergies Allergy Verified 09/06/21 06:22 Surgical - Exam Vital Signs Temp Pulse Resp BP Pulse Ox 98.3 F 60 30 H 141/83 100 09/06/21 02:41 09/06/21 02:41 09/06/21 02:41 09/06/21 02:41 09/06/21 02:41 - General Pleasant 71-year-old gentleman laying in bed on the cardiac stepdown unit. Cooperative, alert, oriented 3 and is in no acute distress. well developed, well nourished, no distress, no pain, obese - Eyes PERRL, normal ocular movement, no pale, no icteric - ENT normal pinna, normal nares, normal mucosa, no hearing loss, no congestion, poor custodial (Few scattered bottom teeth), dentures - Neck Neck is supple, no lymphadenopathy. no masses, no bruits, trachea midline, no venous distension - Respiratory Lung sounds essentially clear throughout. No wheezes, rhonchi or crackles. Respirations are symmetrical and nonlabored. - Cardiovascular Regular rhythm and rate. S1 and S2 present, negative for S3, gallop or murmur. No edema present. - Abdomen Abdomen is soft, nontender and nondistended. Active bowel sounds present in all 4 abdominal quadrants. No guarding or rigidity. No organomegaly appreciated. - Integumentary Skin is warm and dry. No clubbing or cyanosis is present. no rash, no growths, no abnormal pigmentation - Neurologic normal coordination, normal sensation - Musculoskeletal Moves all 4 extremities with equal strength bilaterally. - Psychiatric oriented to time, oriented to person, oriented to place, speech is normal, memory intact Results - Labs 09/06/21 03:24 09/06/21 03:24 Abnormal Lab Results - Last 24 Hours (Table) 09/06/21 09/06/21 09/06/21 Range/Units 03:24 03:24 03:24 D-Dimer 0.71 H (<0.60) mg/L FEU Glucose 105 H (74-99) mg/dL Troponin I 3.180 H* (0.000-0.034) ng/mL 09/06/21 09/06/21 Range/Units 06:40 08:43 D-Dimer (<0.60) mg/L FEU Glucose (74-99) mg/dL Troponin I 2.990 H* 3.480 H* (0.000-0.034) ng/mL Diabetes panel 09/06/21 Range/Units 03:24 Sodium 137 (137-145) mmol/L Potassium 4.3 (3.5-5.1) mmol/L Chloride 105 (98-107) mmol/L Carbon Dioxide 25 (22-30) mmol/L BUN 13 (9-20) mg/dL Creatinine 0.82 (0.66-1.25) mg/dL Glucose 105 H (74-99) mg/dL Calcium 8.6 (8.4-10.2) mg/dL AST 41 (17-59) U/L ALT 34 (4-49) U/L Alkaline Phosphatase 61 (38-126) U/L Total Protein 6.7 (6.3-8.2) g/dL Albumin 3.7 (3.5-5.0) g/dL Calcium panel 09/06/21 Range/Units 03:24 Calcium 8.6 (8.4-10.2) mg/dL Albumin 3.7 (3.5-5.0) g/dL Pituitary panel 09/06/21 Range/Units 03:24 Sodium 137 (137-145) mmol/L Potassium 4.3 (3.5-5.1) mmol/L Chloride 105 (98-107) mmol/L Carbon Dioxide 25 (22-30) mmol/L BUN 13 (9-20) mg/dL Creatinine 0.82 (0.66-1.25) mg/dL Glucose 105 H (74-99) mg/dL Calcium 8.6 (8.4-10.2) mg/dL Adrenal panel 09/06/21 Range/Units 03:24 Sodium 137 (137-145) mmol/L Potassium 4.3 (3.5-5.1) mmol/L Chloride 105 (98-107) mmol/L Carbon Dioxide 25 (22-30) mmol/L BUN 13 (9-20) mg/dL Creatinine 0.82 (0.66-1.25) mg/dL Glucose 105 H (74-99) mg/dL Calcium 8.6 (8.4-10.2) mg/dL Total Bilirubin 1.1 (0.2-1.3) mg/dL AST 41 (17-59) U/L ALT 34 (4-49) U/L Alkaline Phosphatase 61 (38-126) U/L Total Protein 6.7 (6.3-8.2) g/dL Albumin 3.7 (3.5-5.0) g/dL - Imaging Chest x-ray: report reviewed, image reviewed EKG: image reviewed Assessment and Plan Assessment: 1. Multivessel coronary artery disease 2. Non-ST elevated myocardial infarction this admission with elevated serial troponins as high as 3.480 3. Shortness of breath, likely secondary to above 4. Hypertension 5. Hyperlipidemia 6. Peptic ulcer disease 7. Chronic ongoing tobacco dependence, smokes half a pack of cigarettes per day 8. History of ascending aortic aneurysm Addendum: 71-year-old male presents with shortness of breath and positive troponins. He is found to have three-vessel coronary artery disease. Complicated previous medical history including recent upper GI bleed from large duodenal ulcer. The time of his EGD he was noted to have Maher's esophagus and gastritis but no biopsies were performed due to concern with upper GI bleeding. In addition the patient had a positive: Guarded test and has not had a colonoscopy. Computed tomography scan from 09/22/2020 shows a 4.2 cm ascending aortic aneurysm. This is not been followed up. Echocardiography is currently pending. At this time patient is asymptomatic. Plan: The patient was seen and examined at his bedside on the cardiac stepdown unit. His chart and diagnostics were reviewed. His case was discussed in detail with Dr. Michael Guillen from cardiothoracic surgery. Preoperative testing and preoperative teaching has been initiated. A 2-D echocardiogram results remain pending. The importance of smoking cessation was discussed with the patient. Continue to maximize medical therapy with aspirin, statin and beta hollis. Once the patient is able to ambulate we will obtain a 5 m walk test. Once the patient's preoperative testing has been collected we will calculate an STS risk score and discussed with the patient. Medical management and other comorbidities per primary care service. More recommendations to follow based on patient's clinical course and as the patient's preoperative testing has been obtained. Thank you Dr. Austin for this consult and we look forward to working with you in the care of this patient. Addendum: Patient will require coronary artery bypass. Prior to this he will need repeat CTA of the ascending thoracic aorta to evaluate his ascending aortic size. He will may well need ascending aortic replacement if there is been growth since the previous CAT scan. In addition he will require a completion of his GI workup. This should include a colonoscopy to evaluate for colon cancer given his recent positive: Guarded test. It should also include repeat EGD to evaluate healing of his ulcer and perform biopsies of his gastritis and Maher's esophagus to rule out malignancy. Echocardiogram will be evaluated to rule out valvular heart disease. Further recommendations to follow completion of the above workup. I personally seen and examined this patient and spoken with him about the above assessment and plan. I reviewed his previous CT and recent coronary angiography. Time spent evaluating and meeting with the patient exceeded 45 minutes. I have personally seen and examined the patient, performed the documentation and the assessment and plan as written. Number of minutes spent on the visit 30 minutes. Pee DICKERSON Time with Patient: Greater than 30
[2021-09-06 13:25] LABS: Prothrombin Time 10.9 sec (9.0-12.0)
[2021-09-06] MEDS: HEPARIN SOD,PORK IN 0.45% NACL 25,000 UNIT in 0.45% NACL 1 250ML.BAG IV SCH (14:46)
--- NOTE | 2021-09-06 15:47 | US ---
EXAMINATION TYPE: US carotid duplex BILAT DATE OF EXAM: 09/06/2021 COMPARISON: NONE CLINICAL HISTORY: Pre-Op Cardiac Surgery,Ankle Brachial Index (JOMAR) . HTN, Smoker Suboptimal visualization due to patient breathing EXAM MEASUREMENTS: RIGHT: Peak Systolic Velocity (PSV) cm/sec ----- Right CCA: 39.8 ----- Right ICA: 143.1 ----- Right ECA: 103.0 ICA/CCA ratio: 3.6 RIGHT: End Diastole cm/sec ----- Right CCA: 7.0 ----- Right ICA: 48.5 ----- Right ECA: 15.0 LEFT: Peak Systolic Velocity (PSV) cm/sec ----- Left CCA: 58.4 ----- Left ICA: 151.5 ----- Left ECA: 87.9 ICA/CCA ratio: 2.6 LEFT: End Diastole cm/sec ----- Left CCA: 16.5 ----- Left ICA: 31.3 ----- Left ECA: 10.2 VERTEBRALS (direction of flow): Right Vertebral: Antegrade Left Vertebral: Antegrade Rhythm: Normal Significant stenosis bilaterally. Plaque visualized in bulbs. Wall thickening bilaterally. Elevated bilateral ICA velocities. IMPRESSION: 1. Findings suggest a 50-69% stenosis bilaterally greater on the right. There is atherosclerotic plaq ue extensively. Recommend correlation with CTA neck carotid bifurcation. Criteria for Assigning % of Stenosis / Diameter reduction (Estimation based on the indirect measurements of the internal carotid artery velocities (ICA PSV). 1. Normal (no stenosis)=ICA PSV < 125 cm/s: ratio < 2.0: ICA EDV<40 cm/s. 2. Less than 50% stenosis=ICA PSV < 125 cm/s: ratio < 2.0: ICA EDV<40 cm/s. 3. 50 to 69% stenosis=ICA PSV of 125 to 230 cm/s: ration 2.0 ? 4.0: ICA EDV 40-100 cm/s. 4. Greater than 70% stenosis to near occlusion= ICA PSV > 230 cm/s: ratio > 4.0: ICA EDV > 100 cm/s. 5. Near occlusion= ICA PSV velocities may be low or undetectable: variable ratio and ICA EDV. 6. Total occlusion=unable to detect flow.
--- NOTE | 2021-09-06 15:57 | P.HPIM ---
History of Present Illness Patient is a 71-year-old male with a past medical history significant for essential hypertension, GERD and presented to the hospital secondary to shortness of breath and cough. This has been happening for the past few hours and has been progressively getting worse. Symptoms started to progressively get worse so decided to come into the emergency department. Patient denied any active chest pain, fever, chills or any leg swelling. In the emergency department he was found to have elevated cardiac troponin 3.18 and 2.99. EKG was also reviewed which did show some ST segment depressions. CBC was unremarkable, d-dimer elevated 0.71, BMP also unremarkable except for elevated troponin. COVID-19 negative. Patient was evaluated by cardiology and taken for cardiac catheterization with unfortunately found triple-vessel disease recommending CABG. Patient was examined at bedside not complaining of any active chest pain during my examination, shortness of breath or palpitations. Family present at bedside all questions have been answered. Past Medical History Past Medical History: Hypertension Additional Past Medical History / Comment(s): Recent + cologuard and is to have a colonoscopy 08/03/21, ascending aortic aneurysm which has been stable for years, vitamin D deficiency. History of Any Multi-Drug Resistant Organisms: None Reported Past Surgical History: No Surgical Hx Reported Additional Past Surgical History / Comment(s): Pilonidal cyst, r upper back benign lesion removed. Past Anesthesia/Blood Transfusion Reactions: No Reported Reaction Past Psychological History: No Psychological Hx Reported Smoking Status: Current every day smoker Past Alcohol Use History: Occasional Past Drug Use History: None Reported - Past Family History Father Additional Family Medical History / Comment(s): Father had a MD at the age of 83 yrs and lived to be 91 yrs old. He had bilateral vijay replacements. Mother Family Medical History: No Reported History Additional Family Medical History / Comment(s): Mother lived to be 86 yrs old. Sister(s) Family Medical History: Pulmonary Embolus Medications and Allergies Home Medications Medication Instructions Recorded Confirmed Type Aspirin EC [Ecotrin Low Dose] 81 mg PO HS 07/27/21 09/06/21 History Cholecalciferol [Vitamin D3 (25 50 mcg PO HS 07/27/21 09/06/21 History Mcg = 1000 Iu)] Cholecalciferol [Vitamin D3 (25 125 mcg PO DAILY 07/27/21 09/06/21 History Mcg = 1000 Iu)] Propranolol HCl 80 mg PO BID 07/27/21 09/06/21 History Triamcinolone 0.1% Cream [Kenalog 1 applic TOPICAL BID PRN 07/27/21 09/06/21 History 0.1% Cream] amLODIPine BESYLATE/BENAZEPRIL 1 cap PO DAILY 07/27/21 09/06/21 History [Lotrel 10-40 MG] Omeprazole [PriLOSEC] 20 mg PO AC-BID #90 cap 07/30/21 09/06/21 Rx Sucralfate [Carafate] 1 gm PO ACHS #120 tab 07/30/21 09/06/21 Rx Allergies Allergy/AdvReac Type Severity Reaction Status Date / Time No Known Allergies Allergy Verified 09/06/21 06:22 Physical Exam Vitals: Vital Signs Temp Pulse Pulse Resp BP BP Pulse Ox 09/06/21 07:58 98.6 F 58 L 18 145/79 97 09/06/21 06:08 56 L 24 119/65 97 09/06/21 05:00 55 L 25 H 117/61 97 09/06/21 03:48 55 L 22 119/63 97 09/06/21 03:14 56 L 09/06/21 03:09 59 L 09/06/21 02:41 98.3 F 60 30 H 141/83 100 Intake and Output 09/05/21 09/06/21 09/06/21 22:59 06:59 14:59 Intake Total 125.167 Balance 125.167 Intake: IV 100 Intake, IV Titration 25.167 Amount Heparin Sod,Pork in 0.45% 25.167 NaCl 25,000 unit In 0.45 % NaCl 1 250ml.bag @ 9. 186 UNITS/KG/HR 10 mls/hr IV .Q24H [facility] Rx#: [id number] Other: Weight 108.862 kg 111.5 kg Gen. patient is awake alert oriented 3 Respiratory no wheezing or rhonchi appreciated, bilateral air entry Cardio normal S1/S2 Abdomen soft, nontender Lower extremity no pitting edema noted Psychiatry good spirits Results CBC & Chem 7: 09/06/21 03:24 09/06/21 03:24 Labs: Abnormal Lab Results - Last 24 Hours (Table) 04/19/22 04/19/22 04/19/22 Range/Units 03:24 03:24 03:24 D-Dimer 0.71 H (<0.60) mg/L FEU Glucose 105 H (74-99) mg/dL Troponin I 3.180 H* (0.000-0.034) ng/mL 09/06/21 09/06/21 Range/Units 06:40 08:43 D-Dimer (<0.60) mg/L FEU Glucose (74-99) mg/dL Troponin I 2.990 H* 3.480 H* (0.000-0.034) ng/mL Thrombosis Risk Factor Assmnt - Choose All That Apply Any of the Below Risk Factors Present?: Yes Each Factor Represents 1 point: Obesity (BMI >25), Swollen legs (current) Other Risk Factors: Yes Each Risk Factor Represents 2 Points: Age 61-74 years Each Risk Factor Represents 3 Points: Family history of DVT/PE Other congenital or acquired thrombophilia - If yes, enter type in comment: No Thrombosis Risk Factor Assessment Total Risk Factor Score: 7 Thrombosis Risk Factor Assessment Level: High Risk Assessment and Plan Assessment: Assessment/plan #1 NSTEMI - ACS #2 essential hypertension #3 hyperlipidemia #4 coronary disease triple-vessel disease Plan: -Admit to medicine for close monitoring -Aspiration/fall precaution -Patient underwent cardiac catheterization suggesting triple-vessel disease -Further recommendations from cardiology and cardiothoracic surgery regarding CABG -Risk stratify patient with lipid panel, hemoglobin A1c, TSH reflex T4 -Continue with medical management for now -2-D echocardiogram -DVT prophylaxis currently on heparin drip.
[2021-09-06 19:42] LABS: Chol/HDL Ratio 4.78 Ratio; Hepatitis A Antibody IgM Nonreactive (Nonreactive); Hepatitis B Core IgM Nonreactive (Nonreactive); Hepatitis B Surface Antigen Nonreactive (Nonreactive); Hepatitis C IgG Antibody Nonreactive (Nonreactive); LDL Cholesterol,Calculated 117.4 mg/dL (0.0-131.0)
[2021-09-06] MEDS: MUPIROCIN 2% OINT 22 GM TUBE NASAL SCH (19:52)
[2021-09-07] MEDS ORDERED: PEG 3350-NA SULF,BICARB,CL/KCL 4,000 ML BOTTLE PO ONE (08:00)
[2021-09-07] MEDS ORDERED: ASPIRIN 325 MG TAB PO SCH (09:00)
[2021-09-07 09:31] LABS: LDL Cholesterol,Calculated 100.4 mg/dL (0.0-131.0)
[2021-09-07] MEDS: METOPROLOL TARTRATE 25 MG TAB PO SCH ×2 (09:31→21:11)
[2021-09-07] MEDS: FUROSEMIDE 10 MG/ML 4 ML VIAL IV SCH (09:31)
[2021-09-07] MEDS: ASPIRIN 81 MG PO SCH (09:31)
--- NOTE | 2021-09-07 10:05 | CA ---
Transthoracic Echo Report Name: Caryl Jasmine Age: 71 Gender: M : 1950 Exam Date: 09/06/2021 13:22 Exam Location: [place] [facility] Ht (in): 71 Wt (lb): 240 Ordering Physician: Boyd Elizabeth MD Attending/Referring Phys: Painter Tumbling [employer]rel Susy Peterson RDCS Procedure CPT: Indications: CHF/NSTEMI Cardiac Hx: Technical Quality: Fair Contrast 1: Total Dose (mL): Contrast 2: Total Dose (mL): MEASUREMENTS (Male / Female) Normal Values 2D ECHO LV Diastolic Diameter PLAX 5.4 cm 4.2 - 5.9 / 3.9 - 5.3 cm LV Systolic Diameter PLAX 3.4 cm IVS Diastolic Thickness 1.4 cm 0.6 - 1.0 / 0.6 - 0.9 cm LVPW Diastolic Thickness 1.4 cm 0.6 - 1.0 / 0.6 - 0.9 cm LV Relative Wall Thickness 0.5 RV Internal Dim ED PLAX 3.5 cm M-MODE Aortic Root Diameter MM 3.6 cm MV E Point Septal Separation 0.6 cm AV Cusp Separation MM 2.2 cm DOPPLER AV Peak Velocity 181.5 cm/s AV Peak Gradient 13.2 mmHg AV Mean Velocity 111.3 cm/s AV Mean Gradient 6.0 mmHg AV Velocity Time Integral 39.5 cm AI Peak Velocity 314.9 cm/s AI Peak Gradient 39.7 mmHg AI Pressure Half Time 1298.6 ms LVOT Peak Velocity 101.6 cm/s LVOT Peak Gradient 4.1 mmHg LVOT Velocity Time Integral 31.6 cm MV Area PHT 3.1 cm Mitral E Point Velocity 137.5 cm/s Mitral A Point Velocity 104.7 cm/s Mitral E to A Ratio 1.3 MV Deceleration Time 241.9 ms MV E' Velocity 4.7 cm/s Mitral E to MV E' Ratio 29.4 FINDINGS Left Ventricle Left ventricular ejection fraction is estimated at 60-65 Moderately increased left ventricular wall thickness. %. Right Ventricle Mild right ventricular dilatation. Right Atrium Normal right atrial size. Left Atrium Moderate left atrial dilatation. Mitral Valve Mild mitral regurgitation. Thickened mitral valve without stenosis. Aortic Valve Mild aortic stenosis with a peak gradient of 13 mmHg and a mean gradient of 6 mmHg. Tricuspid Valve Mild tricuspid regurgitation. Pulmonic Valve Trace to mild pulmonic regurgitation. Pericardium Normal pericardium. No pericardial effusion. Aorta Normal size aortic root and proximal ascending aorta. CONCLUSIONS #1. Moderate left ventricular concentric hypertrophy with preserved LV function. #2. Moderate left atrial enlargement. #3. Thickened mitral leaflets with mild regurgitation. #4. Mild aortic stenosis. #5. Trace to mild pulmonic insufficiency and mild tricuspid regurgitation. #6. No pericardial effusion Previewed by: Dr. Gordon Medrano MD (Electronically Signed) Final Date: 07 September 2021 10:04
--- NOTE | 2021-09-07 11:05 | P.PN ---
Subjective Progress Note Date: 09/07/21 Principal diagnosis: Multivessel coronary artery disease, 4.3 cm thoracic aortic aneurysm, non-ST elevated Rajesh infarction this admission. Past medical history significant for hypertension, hyperlipidemia which has been diet controlled, obesity, chronic ongoing tobacco dependence smoking about a half a pack cigarettes per day, peptic ulcer disease and a known history of an ascending aortic aneurysm. The patient was seen and examined in follow-up today 09/07/2021 at his bedside on the cardiac stepdown unit. Currently he is lying in bed, is awake, alert, oriented 3 and is in no acute apparent distress. Denies any further complaints of shortness of breath and continues to not any chest pain or chest pressure. Heparin drip remains infusing per protocol. Oxygen saturations are 95% on 3 L nasal cannula and he is achieving 2500 mL on his incentive spirometry with enc ouragement. A bedside FEV1 was completed yesterday which showed a predicted value of 36% with 1.22 L. A 5 m walk test was completed with the patient this morning which showed time 1: 2.70 seconds, time 2: 2.30 seconds, time 3: 2.50 seconds. The patient tolerated the 5 m walk test without complaints. Preoperative teaching has been reinforced the patient. Reinforced the importance with the patient of smoking cessation. Carotid duplex study completed yesterday 09/06/2021 demonstrated findings suggestive of a 50-69% bilateral internal carotid artery stenosis. Transthoracic 2-D echocardiogram results showed a left ventricular ejection fraction to be estimated at 60-65%, mild mitral valve regurgitation, mild aortic valve stenosis with a peak gradient of 13 mmHg and a mean gradient of 6 mmHg, mild tricuspid valve regurgitation, trace pulmonic valve regurgitation and a normal sized aortic root and proximal ascending aorta. Laboratory results were reviewed, troponin this morning is showing a trend down at 2.740. Objective - Vital Signs Vital signs: Vital Signs Temp 97.5 F L 09/07/21 03:50 Pulse 74 09/07/21 03:50 Resp 18 09/07/21 03:50 BP 140/73 09/07/21 03:50 Pulse Ox 95 09/07/21 03:50 Intake & Output 09/06/21 09/07/21 09/07/21 18:59 06:59 18:59 Intake Total 1605.167 63.722 180 Output Total 1350 1550 Balance 255.167 -1486.278 180 Weight 111.5 kg 107.7 kg Intake: IV 700 Sodium Chloride 0.9% 1, 600 000 ml @ 75 mls/hr IV . [id number] [facility] Rx#:[id number] Intake, IV Titration 25.167 63.722 Amount Heparin Sod,Pork in 0.45% 63.722 NaCl 25,000 unit In 0.45 % NaCl 1 250ml.bag @ 9 UNITS/KG/HR 10.035 mls/hr IV .Q24H [facility] Rx#: [id number] Heparin Sod,Pork in 0.45% 25.167 NaCl 25,000 unit In 0.45 % NaCl 1 250ml.bag @ 9. 186 UNITS/KG/HR 10 mls/hr IV .Q24H [facility] Rx#: [id number] Oral 880 180 Output: Urine 1350 1550 Other: Voiding Method Urinal # Voids 2 - Exam CONSTITUTIONAL: Laying in bed on the cardiac stepdown unit., appears comfortable, cooperative, no apparent acute distress. HEENT: Neck is supple, no JVD, no lymphadenopathy. RESPIRATORY: Lungs sounds essentially clear throughout, few expiratory wheezes. Respirations are symmetrical and nonlabored. Currently on 3 L nasal cannula with oxygen saturations 95%. Able to achieve 2500 mL on their incentive s pirometry. Strong cough. CARDIOVASCULAR: Regular rhythm and rate. S1 and S2 present, negative for S3, gallop or murmur. Remote telemetry showing normal sinus rhythm with depressed ST heart rate 63 BPM. GASTROINTESTINAL: Abdomen soft, nontender, nondistended. Active bowel sounds present 4 quadrants. Tolerating diet. Passing flatus. No guarding or rigidity. GENITOURINARY: Continues to void. INTEGUMENTARY: Skin is warm and dry with no evidence of clubbing or cyanosis. NEUROLOGIC: Cranial nerves II through XII intact. No focal deficits. MUSKULOSKELETAL: Able to move all extremities, strength equal bilaterally. PSYCHIATRIC: Alert and oriented to person place and time, appropriate affect, intact judgment and insight. - Allied health notes Allied health notes reviewed: nursing - Labs CBC & Chem 7: 09/06/21 03:24 09/06/21 03:24 Labs: Abnormal Lab Results - Last 24 Hours (Table) 09/06/21 09/06/21 09/07/21 Range/Units 12:45 20:11 02:09 APTT 42.0 H (22.0-30.0) sec Troponin I (0.000-0.034) ng/mL HDL Cholesterol 37.00 L 31.40 L (40.00-60.00) mg/dL 09/07/21 09/07/21 Range/Units 02:09 08:50 APTT 44.9 H (22.0-30.0) sec Troponin I 2.740 H* (0.000-0.034) ng/mL HDL Cholesterol (40.00-60.00) mg/dL Microbiology - Last 24 Hours (Table) 09/06/21 12:52 Nasal Screen MRSA/MSSA - Preliminary Nasopharyngeal Swab - Imaging and Cardiology 2-D echocardiogram results reviewed. Carotid duplex study results reviewed. Vein mapping results reviewed. Assessment and Plan Assessment: 1. Multivessel coronary artery disease 2. Non-ST elevated myocardial infarction this admission with elevated serial troponins as high as 3.480 3. Shortness of breath, likely secondary to above 4. Hypertension 5. Hyperlipidemia 6. Peptic ulcer disease 7. Chronic ongoing tobacco dependence, smokes half a pack of cigarettes per day 8. History of ascending aortic aneurysm Plan: 1. Continue to optimize medical management with aspirin, statin and beta hollis. 2. Dr. Meyers from pulmonary medicine has been consulted for pulmonary clearance as his bedside FEV1 showed a predicted value of 33% with 1.22 L. 3. 5 m walk test completed. Time 1: 2.70 seconds, time 2: 2.30 seconds, time 3: 2.50 seconds. 4. Preoperative testing in progress. Preoperative teaching has been reinforced with the patient. 5. Dr. Bateman from general surgery has been consulted for preoperative EGD and colonoscopy due to the patient's history of peptic ulcer disease and positive Cologaurd study in the past. 6. Heparin drip management per cardiology. 7. Once his preoperative testing has been collected we will calculate an STS risk score and discussed with the patient. 8. Importance of smoking cessation has been reinforced with the patient. 9. Encourage use of his incentive spirometry 10 times every hour while awake. 10. More recommendations to follow based on patient's clinical course. Time with Patient: Greater than 30
--- NOTE | 2021-09-07 11:11 | P.PN ---
Subjective Patient was examined at bedside today not complaining of any active chest pain, shortness of breath or palpitations. Resting in bed comfortably pending further recommendations from cardiology thoracic surgery. Objective - Vital Signs Vital signs: Vital Signs Temp 97.5 F L 09/07/21 03:50 Pulse 74 09/07/21 03:50 Resp 18 09/07/21 03:50 BP 140/73 09/07/21 03:50 Pulse Ox 95 09/07/21 03:50 Intake & Output 09/06/21 09/07/21 09/07/21 18:59 06:59 18:59 Intake Total 1605.167 63.722 180 Output Total 1350 1550 Balance 255.167 -1486.278 180 Weight 111.5 kg 107.7 kg Intake: IV 700 Sodium Chloride 0.9% 1, 600 000 ml @ 75 mls/hr IV . [id number] [facility] Rx#:[id number] Intake, IV Titration 25.167 63.722 Amount Heparin Sod,Pork in 0.45% 63.722 NaCl 25,000 unit In 0.45 % NaCl 1 250ml.bag @ 9 UNITS/KG/HR 10.035 mls/hr IV .Q24H [facility] Rx#: [id number] Heparin Sod,Pork in 0.45% 25.167 NaCl 25,000 unit In 0.45 % NaCl 1 250ml.bag @ 9. 186 UNITS/KG/HR 10 mls/hr IV .Q24H [facility] Rx#: [id number] Oral 880 180 Output: Urine 1350 1550 Other: Voiding Method Urinal # Voids 2 - Exam Gen. patient is awake alert oriented 3 Respiratory no wheezing or rhonchi appreciated, bilateral air entry Cardio normal S1/S2 Abdomen soft, nontender Lower extremity no pitting edema noted Psychiatry good spirits - Labs CBC & Chem 7: 09/06/21 03:24 09/06/21 03:24 Labs: Abnormal Lab Results - Last 24 Hours (Table) 09/06/21 09/06/21 09/07/21 Range/Units 12:45 20:11 02:09 APTT 42.0 H (22.0-30.0) sec Troponin I (0.000-0.034) ng/mL HDL Cholesterol 37.00 L 31.40 L (40.00-60.00) mg/dL 09/07/21 09/07/21 Range/Units 02:09 08:50 APTT 44.9 H (22.0-30.0) sec Troponin I 2.740 H* (0.000-0.034) ng/mL HDL Cholesterol (40.00-60.00) mg/dL Microbiology - Last 24 Hours (Table) 09/06/21 12:52 Nasal Screen MRSA/MSSA - Preliminary Nasopharyngeal Swab Assessment and Plan Assessment: Assessment/plan #1 NSTEMI - ACS- triple-vessel disease #2 essential hypertension #3 hyperlipidemia #4 coronary disease triple-vessel disease Plan: -Admit to medicine for close monitoring -Aspiration/fall precaution -Patient underwent cardiac catheterization suggesting triple-vessel disease -Further workup being completed by cardiothoracic surgery for possible CABG evaluation -Risk stratify patient with lipid panel, hemoglobin A1c, TSH reflex T4 reviewed -Continue with medical management for now -2-D echocardiogram -DVT prophylaxis currently on heparin drip. Disposition pending further recommendations from cardiothoracic surgery regarding CABG.
[2021-09-07 11:31] LABS: HCT 37.5 % (39.0-53.0); HGB 12.8 gm/dL (13.0-17.5); MCH 31.9 pg (25.0-35.0); MCV 93.9 fL (80.0-100.0); Mean Platelet Volume 8.8; Platelet Count 186 k/uL (150-450); RDW 12.7 % (11.5-15.5); WBC 6.3 k/uL (3.8-10.6)
[2021-09-07 11:47] LABS: African American GFR (CKD) >90 (>60 ml/min/1.73 sqM); Anion Gap 4 mmol/L; Blood Urea Nitrogen 12 mg/dL (9-20); Calcium 8.3 mg/dL (8.4-10.2); Carbon Dioxide 30 mmol/L (22-30); Chloride 104 mmol/L (98-107); Glucose 171 mg/dL (74-99); Non-African American GFR(CKD) >90 (>60 ml/min/1.73 sqM); Potassium 3.7 mmol/L (3.5-5.1); Sodium 138 mmol/L (137-145)
--- NOTE | 2021-09-07 12:21 | P.GSCN ---
History of Present Illness Consult date: 09/07/21 History of present illness: CHIEF COMPLAINT: Shortness of breath HISTORY OF PRESENT ILLNESS: This is a 71-year-old male who presented to the hospital with complaints of shortness of breath he is found have elevated troponins and evidence of a non-ST elevated RI. He had heart catheterization which did reveal triple-vessel coronary artery disease. He's been evaluated by the cardiothoracic surgeon and they want to proceed with cardiac bypass surgery. They have requested surgical consult for EGD and colonoscopy prior to patient's bypass surgery. Patient had a recent admission with upper GI bleed and at that time he had an EGD which revealed a duodenal ulcer, mild gastritis, small hiatal hernia and Maher's esophagus. This was completed on 07/28/2021. Patient also reports having a positive cologuard test in the outpatient setting in May 2021. Patient reports that his colonoscopy was canceled due to development of a skin rash. And therefore patient never did get the colonoscopy completed. Patient's black stools that he was having in July has resolved after his hospitalization. He denies any bright red blood in the stools. Denies any family history of colon cancer. Patient has never had colonoscopy before. Hemoglobin is stable at 13.3. Also note that biopsies were not done in July because of the active GI bleed. He denies any abdominal pain. PAST MEDICAL HISTORY: Ascending aortic aneurysm, hypertension PAST SURGICAL HISTORY: See list. MEDICATIONS: See list. ALLERGIES: See list. SOCIAL HISTORY: No illicit drug use. Nicotine dependence REVIEW OF SYSTEMS: CONSTITUTIONAL: Denies fever or chills. HEENT: Denies blurred vision, vision changes, or eye pain. Denies hemoptysis CARDIOVASCULAR: Denies chest pain or pressure. RESPIRATORY: No shortness of breath. GASTROINTESTINAL: See HPI for pertinent findings HEMATOLOGIC: Denies bleeding disorders. GENITOURINARY: Denies any blood in urine or increased urinary frequency. SKIN: Denies pruitis. Denies rash. PHYSICAL EXAM: VITAL SIGNS: Reviewed GENERAL: Well-developed in no acute distress. HEENT: No sclera icterus. Extraocular movements grossly intact. Moist buccal mucosa. Head is atraumatic, normocephalic. No nasal drainage. ABDOMEN: Soft. Nondistended. Nontender NEUROLOGIC: Alert and oriented. Cranial nerves II through XII grossly intact. LABORATORY DATA: WBC is 6.3 hemoglobin 13.3 down to 12.8 platelets 186 sodium 138 potassium 3.7 creatinine 0.79 Elevated troponin Stool for occult blood negative IMAGING: ASSESSMENT: 1. Duodenal ulcer, gastritis, Maher's esophagus on EGD in July 2. Positive cologuard test 3. Non-ST elevated RI 4. Multivessel coronary artery disease PLAN: -Patient scheduled for EGD and colonoscopy tomorrow, 09/08/[address] Bateman -Start clear liquid diet today -Start GoLYTELY prep today -Nothing by mouth after midnight -Continue supportive care Thank you for this consultation Physician Capsule Machine Operator note has been reviewed by physician. Signing provider agrees with the documented findings, assessment, and plan of care. I have personally seen and examined the patient, reviewed the STEREO EQUIPMENT SALESPERSON /PAs history, exam and MDM and agree with the assessment and plan as written. Based on total visit time, I have performed more than 50% of the visit. As above: Patient presents with acute RI. Patient being considered for possible CABG. Patient with recent hospitalization for duodenal ulcer. Also noted recently to have a positive cologuard test. We'll proceed with upper and lower endoscopy tomorrow. Patient is agreeable. Risks of bleeding, infection, perforation, cardiac event noted. He agrees and wishes to proceed. Past Medical History Past Medical History: Hypertension Additional Past Medical History / Comment(s): Recent + cologuard and is to have a colonoscopy 08/03/21, ascending aortic aneurysm which has been stable for years, vitamin D deficiency. History of Any Multi-Drug Resistant Organisms: None Reported Past Surgical History: No Surgical Hx Reported Additional Past Surgical History / Comment(s): Pilonidal cyst, r upper back benign lesion removed. Past Anesthesia/Blood Transfusion Reactions: No Reported Reaction Past Psychological History: No Psychological Hx Reported Smoking Status: Current every day smoker Past Alcohol Use History: Occasional Past Drug Use History: None Reported - Past Family History Father Additional Family Medical History / Comment(s): Father had a RI at the age of 83 yrs and lived to be 91 yrs old. He had bilateral vijay replacements. Mother Family Medical History: No Reported History Additional Family Medical History / Comment(s): Mother lived to be 86 yrs old. Sister(s) Family Medical History: Pulmonary Embolus Medications and Allergies Home Medications Medication Instructions Recorded Confirmed Type Aspirin EC [Ecotrin Low Dose] 81 mg PO HS 07/27/21 09/06/21 History Cholecalciferol [Vitamin D3 (25 50 mcg PO HS 07/27/21 09/06/21 History Mcg = 1000 Iu)] Cholecalciferol [Vitamin D3 (25 125 mcg PO DAILY 07/27/21 09/06/21 History Mcg = 1000 Iu)] Propranolol HCl 80 mg PO BID 07/27/21 09/06/21 History Triamcinolone 0.1% Cream [Kenalog 1 applic TOPICAL BID PRN 07/27/21 09/06/21 History 0.1% Cream] amLODIPine BESYLATE/BENAZEPRIL 1 cap PO DAILY 07/27/21 09/06/21 History [Lotrel 10-40 MG] Omeprazole [PriLOSEC] 20 mg PO AC-BID #90 cap 07/30/21 09/06/21 Rx Sucralfate [Carafate] 1 gm PO ACHS #120 tab 07/30/21 09/06/21 Rx Allergies Allergy/AdvReac Type Severity Reaction Status Date / Time No Known Allergies Allergy Verified 09/06/21 06:22 Surgical - Exam Vital Signs Temp Pulse Resp BP Pulse Ox 98.3 F 60 30 H 141/83 100 09/06/21 02:41 09/06/21 02:41 09/06/21 02:41 09/06/21 02:41 09/06/21 02:41 Results - Labs 09/07/21 08:50 09/07/21 08:50 Abnormal Lab Results - Last 24 Hours (Table) 09/06/21 09/06/21 09/07/21 Range/Units 12:45 20:11 02:09 RBC (4.30-5.90) m/uL Hgb (13.0-17.5) gm/dL Hct (39.0-53.0) % APTT 42.0 H (22.0-30.0) sec Glucose (74-99) mg/dL Calcium (8.4-10.2) mg/dL Troponin I (0.000-0.034) ng/mL HDL Cholesterol 37.00 L 31.40 L (40.00-60.00) mg/dL 09/07/21 09/07/21 09/07/21 Range/Units 02:09 08:50 08:50 RBC 4.00 L (4.30-5.90) m/uL Hgb 12.8 L (13.0-17.5) gm/dL Hct 37.5 L (39.0-53.0) % APTT 44.9 H (22.0-30.0) sec Glucose (74-99) mg/dL Calcium (8.4-10.2) mg/dL Troponin I 2.740 H* (0.000-0.034) ng/mL HDL Cholesterol (40.00-60.00) mg/dL 09/07/21 Range/Units 08:50 RBC (4.30-5.90) m/uL Hgb (13.0-17.5) gm/dL Hct (39.0-53.0) % APTT (22.0-30.0) sec Glucose 171 H (74-99) mg/dL Calcium 8.3 L (8.4-10.2) mg/dL Troponin I (0.000-0.034) ng/mL HDL Cholesterol (40.00-60.00) mg/dL Microbiology - Last 24 Hours (Table) 09/06/21 12:52 Nasal Screen MRSA/MSSA - Preliminary Nasopharyngeal Swab Diabetes panel 09/06/21 09/06/21 09/07/21 Range/Units 08:43 12:45 02:09 Sodium (137-145) mmol/L Potassium (3.5-5.1) mmol/L Chloride (98-107) mmol/L Carbon Dioxide (22-30) mmol/L BUN (9-20) mg/dL Creatinine (0.66-1.25) mg/dL Glucose (74-99) mg/dL Hemoglobin A1c 5.2 (0.0-6.0) % Calcium (8.4-10.2) mg/dL Triglycerides 113.00 111.00 (0.00-149.00) mg/dL HDL Cholesterol 37.00 L 31.40 L (40.00-60.00) mg/dL 09/07/21 Range/Units 08:50 Sodium 138 (137-145) mmol/L Potassium 3.7 (3.5-5.1) mmol/L Chloride 104 (98-107) mmol/L Carbon Dioxide 30 (22-30) mmol/L BUN 12 (9-20) mg/dL Creatinine 0.79 (0.66-1.25) mg/dL Glucose 171 H (74-99) mg/dL Hemoglobin A1c (0.0-6.0) % Calcium 8.3 L (8.4-10.2) mg/dL Triglycerides (0.00-149.00) mg/dL HDL Cholesterol (40.00-60.00) mg/dL Thyroid panel 09/06/21 Range/Units 12:45 TSH 2.490 (0.465-4.680) mIU/L Calcium panel 09/07/21 Range/Units 08:50 Calcium 8.3 L (8.4-10.2) mg/dL Pituitary panel 09/06/21 09/07/21 Range/Units 12:45 08:50 Sodium 138 (137-145) mmol/L Potassium 3.7 (3.5-5.1) mmol/L Chloride 104 (98-107) mmol/L Carbon Dioxide 30 (22-30) mmol/L BUN 12 (9-20) mg/dL Creatinine 0.79 (0.66-1.25) mg/dL Glucose 171 H (74-99) mg/dL Calcium 8.3 L (8.4-10.2) mg/dL TSH 2.490 (0.465-4.680) mIU/L Adrenal panel 09/07/21 Range/Units 08:50 Sodium 138 (137-145) mmol/L Potassium 3.7 (3.5-5.1) mmol/L Chloride 104 (98-107) mmol/L Carbon Dioxide 30 (22-30) mmol/L BUN 12 (9-20) mg/dL Creatinine 0.79 (0.66-1.25) mg/dL Glucose 171 H (74-99) mg/dL Calcium 8.3 L (8.4-10.2) mg/dL
--- NOTE | 2021-09-07 12:36 | P.PN ---
Subjective Progress Note Date: 09/07/21 HISTORY OF PRESENT ILLNESS: This is a 71 year old male with a past medical history significant for hypertension, hyperlipidemia (diet controlled per patient), GERD, nicotine dependence, and ascending aortic aneurysm. Patient does not follow with a aerospace engineer. We have been asked to see the patient in consultation for elevated troponin. Patient examined at the bedside. Patient presented to the hospital with a chief complaint of shortness of breath. He reports last night he was laying in bed and was having a hard time breathing. He states he had to sit up to catch his breath. He denied having any chest pain or pressure. Denied any dizziness or lightheadedness. He denies a history of diabetes. He is a current smoker. He denies any previous cardiac workup in the past including a cardiac cath or stress test. * EKG reveals sinus mechanism with diffuse ST depression * Chest xray there is some minimal pulmonary interstitial edema. No pleural fluid seen to suggest heart failure. * Laboratory data: W BC 9.4. Hemoglobin 13.3. Platelet count 170. Sodium 137. Potassium 4.3. BUN 13. Creatinine 0.82. Lactic acid 1.0. troponin 3.180. 2.980. 3.480. ProBNP 2280. * Current home cardiac medications include amlodipine-Benzapril 10-40mg daily, propanolol 80 mg twice a day, and aspirin 81 mg at night 09/07/2021 Patient is status post cardiac catheterization yesterday with Dr. Austin revealing triple vessel coronary artery disease including proximal LAD 60-70% stenosis, diagonal 199% stenosis, mid circumflex 100% stenosis, RCA 60-70% stenosis, PLV 90% stenosis, and PDA 50% stenosis. The patient was also found to have elevated left-sided filling pressures with LVEDP of 23. Cardiothoracic surgery was consulted for possible CABG He was started on IV Lasix 40 mg every 12 hours. Patient examined this morning at the bedside. He denies chest pain or pressure. He denies shortness of breath. The patient has a history of peptic ulcer disease. General surgery was consulted and patient is scheduled for endoscopy tomorrow. Echocardiogram completed revealing ejection fraction 60-65%, mild MR, mild aortic stenosis, and mild TR. PHYSICAL EXAM: VITAL SIGNS: Reviewed. GENERAL: Well-developed in no acute distress. HEENT: Head is normocephalic. Pupils are equal, round. Sclerae anicteric. Mucous membranes of the mouth are moist. Neck supple. No JVD or thyromegaly LUNGS: Respirations even and unlabored. Lungs essentially clear to auscultation bilaterally. HEART: Regular rate and rhythm. S1 and S2 heard. ABDOMEN: Soft. Nondistended. Nontender. EXTREMITIES: Normal range of motion. No clubbing or cyanosis. Peripheral pulses intact. No lower extremity edema NEUROLOGIC: Awake and alert. Oriented x 3. ASSESSMENT: Shortness of breath Non-STEMI, as well as cardiac catheterization revealing multivessel coronary artery disease Hypertension Hyperlipidemia, diet controlled per patient GERD Nicotine dependence History of ascending aortic aneurysm History of peptic ulcer disease PLAN: Continue current cardiac medications Continue IV heparin Discontinue IV Lasix. Begin oral lasix 40mg BID General surgery consulted. Patient scheduled for endoscopy tomorrow. Cardiothoracic surgery following for CABG. Await further recommendations. Further recommendations pending patient course Nurse practitioner note has been reviewed by physician. Signing provider agrees with the documented findings, assessment, and plan of care. Objective - Vital Signs Vital signs: Vital Signs Temp 96.9 F L 09/07/21 11:38 Pulse 48 L 09/07/21 11:38 Resp 18 09/07/21 11:38 BP 115/60 09/07/21 11:38 Pulse Ox 98 09/07/21 11:38 Intake & Output 09/06/21 09/07/21 09/07/21 18:59 06:59 18:59 Intake Total 1605.167 63.722 180 Output Total 1350 1550 Balance 255.167 -1486.278 180 Weight 111.5 kg 107.7 kg Intake: IV 700 Sodium Chloride 0.9% 1, 600 000 ml @ 75 mls/hr IV . [id number] [facility] Rx#:[id number] Intake, IV Titration 25.167 63.722 Amount Heparin Sod,Pork in 0.45% 63.722 NaCl 25,000 unit In 0.45 % NaCl 1 250ml.bag @ 9 UNITS/KG/HR 10.035 mls/hr IV .Q24H [facility] Rx#: [id number] Heparin Sod,Pork in 0.45% 25.167 NaCl 25,000 unit In 0.45 % NaCl 1 250ml.bag @ 9. 186 UNITS/KG/HR 10 mls/hr IV .Q24H [facility] Rx#: [id number] Oral 880 180 Output: Urine 1350 1550 Other: Voiding Method Urinal Urinal # Voids 2 - Labs CBC & Chem 7: 09/07/21 08:50 09/07/21 08:50 Labs: Abnormal Lab Results - Last 24 Hours (Table) 09/06/21 09/06/21 09/07/21 Range/Units 12:45 20:11 02:09 RBC (4.30-5.90) m/uL Hgb (13.0-17.5) gm/dL Hct (39.0-53.0) % APTT 42.0 H (22.0-30.0) sec Glucose (74-99) mg/dL Calcium (8.4-10.2) mg/dL Troponin I (0.000-0.034) ng/mL HDL Cholesterol 37.00 L 31.40 L (40.00-60.00) mg/dL 09/07/21 09/07/21 09/07/21 Range/Units 02:09 08:50 08:50 RBC 4.00 L (4.30-5.90) m/uL Hgb 12.8 L (13.0-17.5) gm/dL Hct 37.5 L (39.0-53.0) % APTT 44.9 H (22.0-30.0) sec Glucose (74-99) mg/dL Calcium (8.4-10.2) mg/dL Troponin I 2.740 H* (0.000-0.034) ng/mL HDL Cholesterol (40.00-60.00) mg/dL 09/07/21 Range/Units 08:50 RBC (4.30-5.90) m/uL Hgb (13.0-17.5) gm/dL Hct (39.0-53.0) % APTT (22.0-30.0) sec Glucose 171 H (74-99) mg/dL Calcium 8.3 L (8.4-10.2) mg/dL Troponin I (0.000-0.034) ng/mL HDL Cholesterol (40.00-60.00) mg/dL Microbiology - Last 24 Hours (Table) 09/06/21 12:52 Nasal Screen MRSA/MSSA - Preliminary Nasopharyngeal Swab
[2021-09-07] MEDS: HEPARIN SOD,PORK IN 0.45% NACL 25,000 UNIT in 0.45% NACL 1 250ML.BAG IV SCH (12:38)
[2021-09-07] MEDS: MUPIROCIN 2% OINT 22 GM TUBE NASAL SCH ×2 (12:41→21:14)
--- NOTE | 2021-09-07 14:37 | P.CNPUL ---
History of Present Illness Consult date: 09/07/21 Requesting physician: Choco Guerrero Reason for consult: dyspnea Chief complaint: Shortness of breath, multivessel coronary artery disease History of present illness: This is a 8-year-old white male patient with past medical history of hypertension, hyperlipidemia, GERD, nicotine dependence and ascending aortic aneurysm. Patient presented to the hospital on 09/06/2021 for evaluation of shortness of breath and cough. Patient reported almost a full day of chest pain on Sunday and which he thought was related to eating a steak. No fever or chills, no leg pain or swelling. Patient was found to have elevated troponins in the emergency department of 3.180, 2.990, 3.480, and 2.740. CBC was unremarkable, white count was normal, hemoglobin is 13, d-dimer was mildly elevated at 0.71, electrolytes and renal profile were unremarkable, lactic acid was 1, LFTs were within normal limits, proBNP was 2280. Urinalysis was negative, COVID-19 PCR was negative. EKG revealed sinus rhythm with diffuse ST depression. Chest x-ray shows some minimal pulmonary interstitial edema, no ple ural fluid is seen to suggest heart failure. Patient was seen by cardiology, he was diagnosed with non-ST elevated myocardial infarction and heart catheterization was recommended. Heart Was completed showing three-vessel coronary artery disease with LAD of 60-70% stenosis with abnormal I have far at 0.81, diagonal 1 with 99% stenosis, mid circumflex with 100% stenosis, RCA with 60-70% stenosis, PLV with 90% stenosis and PDA with 50% stenosis, ration had a elevated left sided filling pressures and LVEDP of 23. She was referred to cardiothoracic surgery for evaluation of possibility of coronary artery bypass grafting. Currently undergoing preop evaluation for surgery. His ascending aortic aneurysm has been stable for years. Patient remains a current smoker, his preoperative FEV1 was 36% predicted and showed severe obstruction. Patient has smoked 2 packs a day for the past 55 years, does have exertional dyspnea, and a mild cough in the morning consistent with history of smoking. Patient also has history of Maher's esophagus, and he had a recent positive Cologuard test with the recommendation of follow-up colonoscopy. Gen. surgery has been consulted, and the plan is to proceed with EGD and colonoscopy tomorrow on 09/08/2021. Currently his vitals are stable, he is on 2 L of oxygen pulse ox of 98%, breathing comfortably, no fever, blood pressure stable. No complaints of chest discomfort. on heparin infusion per weight-based protocol, he is on aspirin, intensive dose of Lipitor 80 mg, metoprolol 25 mg twice daily. Review of Systems All systems: negative Constitutional: Denies chills, Denies fever Eyes: denies blurred vision, denies pain Ears, nose, mouth and throat: Denies headache, Denies sore throat Cardiovascular: Reports chest pain, Reports dyspnea on exertion, Denies shortness of breath Respiratory: Denies cough Gastrointestinal: Denies abdominal pain, Denies diarrhea, Denies nausea, Denies vomiting Musculoskeletal: Denies myalgias Integumentary: Denies pruritus, Denies rash Neurological: Denies numbness, Denies weakness Psychiatric: Denies anxiety, Denies depression Endocrine: Denies fatigue, Denies weight change Past Medical History Past Medical History: Hypertension Additional Past Medical History / Comment(s): Recent + cologuard and is to have a colonoscopy 08/03/21, ascending aortic aneurysm which has been stable for years, vitamin D deficiency. History of Any Multi-Drug Resistant Organisms: None Reported Past Surgical History: No Surgical Hx Reported Additional Past Surgical History / Comment(s): Pilonidal cyst, r upper back benign lesion removed. Past Anesthesia/Blood Transfusion Reactions: No Reported Reaction Past Psychological History: No Psychological Hx Reported Smoking Status: Current every day smoker Past Alcohol Use History: Occasional Past Drug Use History: None Reported - Past Family History Father Additional Family Medical History / Comment(s): Father had a TN at the age of 83 yrs and lived to be 91 yrs old. He had bilateral vijay replacements. Mother Family Medical History: No Reported History Additional Family Medical History / Comment(s): Mother lived to be 86 yrs old. Sister(s) Family Medical History: Pulmonary Embolus Medications and Allergies Home Medications Medication Instructions Recorded Confirmed Type Aspirin EC [Ecotrin Low Dose] 81 mg PO HS 07/27/21 09/06/21 History Cholecalciferol [Vitamin D3 (25 50 mcg PO HS 07/27/21 09/06/21 History Mcg = 1000 Iu)] Cholecalciferol [Vitamin D3 (25 125 mcg PO DAILY 07/27/21 09/06/21 History Mcg = 1000 Iu)] Propranolol HCl 80 mg PO BID 07/27/21 09/06/21 History Triamcinolone 0.1% Cream [Kenalog 1 applic TOPICAL BID PRN 07/27/21 09/06/21 History 0.1% Cream] amLODIPine BESYLATE/BENAZEPRIL 1 cap PO DAILY 07/27/21 09/06/21 History [Lotrel 10-40 MG] Omeprazole [PriLOSEC] 20 mg PO AC-BID #90 cap 07/30/21 09/06/21 Rx Sucralfate [Carafate] 1 gm PO ACHS #120 tab 07/30/21 09/06/21 Rx Allergies Allergy/AdvReac Type Severity Reaction Status Date / Time No Known Allergies Allergy Verified 09/06/21 06:22 Physical Exam Vitals: Vital Signs Temp Pulse Resp BP Pulse Ox 09/07/21 11:38 96.9 F L 48 L 18 115/60 98 09/07/21 09:25 97.8 F 63 16 124/69 98 09/07/21 03:50 97.5 F L 74 18 140/73 95 09/07/21 00:00 97.5 F L 70 16 133/73 95 09/06/21 19:50 97.8 F 63 18 131/75 96 09/06/21 16:00 98.2 F 54 L 16 145/85 100 09/06/21 14:19 55 L 146/62 Intake and Output 09/06/21 09/07/21 09/07/21 22:59 06:59 14:59 Intake Total 323.722 828.278 Output Total 800 750 Balance -476.278 -750 828.278 Intake: Intake, IV Titration 63.722 186.278 Amount Heparin Sod,Pork in 0.45% 63.722 186.278 NaCl 25,000 unit In 0.45 % NaCl 1 250ml.bag @ 9 UNITS/KG/HR 10.035 mls/hr IV .Q24H [facility] Rx#: [id number] Oral 260 642 Output: Urine 800 750 Other: Voiding Method Urinal # Voids 2 Weight 107.7 kg GENERAL EXAM: Alert, very pleasant, 71-year-old white male, resting comfortably in bed, 2 L of oxygen his pulse ox is 98% comfortable in no apparent distress. HEAD: Normocephalic/atraumatic. EYES: Normal reaction of pupils, equal size. Conjunctiva pink, sclera white. NOSE: Clear with pink turbinates. THROAT: No erythema or exudates. NECK: No masses, no JVD, no thyroid enlargement, no adenopathy. CHEST: No chest wall deformity. Symmetrical expansion. LUNGS: Equal air entry with no crackles, wheeze, rhonchi or dullness. CVS: Regular rate and rhythm, normal S1 and S2, no gallops, no murmurs, no rubs ABDOMEN: Soft, nontender. No hepatosplenomegaly, normal bowel sounds, no guarding or rigidity. EXTREMITIES: No clubbing, no edema, no cyanosis, 2+ pulses and upper and lower extremities. MUSCULOSKELETAL: Muscle strength and tone normal. SPINE: No scoliosis or deformity SKIN: No rashes CENTRAL NERVOUS SYSTEM: Alert and oriented -3. No focal deficits, tone is normal in all 4 extremities. PSYCHIATRIC: Alert and oriented -3. Appropriate affect. Intact judgment and insight. Results - Laboratory Findings CBC and BMP: 09/07/21 08:50 09/07/21 08:50 PT/INR, D-dimer PT 10.9 sec (9.0-12.0) 09/06/21 12:54 INR 1.0 (<1.2) 09/06/21 12:54 D-Dimer 0.71 mg/L FEU (<0.60) H 09/06/21 03:24 Abnormal lab findings: Abnormal Labs 09/06/21 09/06/21 09/06/21 03:24 03:24 03:24 RBC Hgb Hct APTT D-Dimer 0.71 H Glucose 105 H Calcium Troponin I 3.180 H* HDL Cholesterol 09/06/21 09/06/21 09/06/21 06:40 08:43 12:45 RBC Hgb Hct APTT D-Dimer Glucose Calcium Troponin I 2.990 H* 3.480 H* HDL Cholesterol 37.00 L 09/06/21 09/07/21 09/07/21 20:11 02:09 02:09 RBC Hgb Hct APTT 42.0 H 44.9 H D-Dimer Glucose Calcium Troponin I HDL Cholesterol 31.40 L 09/07/21 09/07/21 09/07/21 08:50 08:50 08:50 RBC 4.00 L Hgb 12.8 L Hct 37.5 L APTT D-Dimer Glucose 171 H Calcium 8.3 L Troponin I 2.740 H* HDL Cholesterol - Diagnostic Findings Chest x-ray: report reviewed, image reviewed Assessment and Plan Plan: Assessment: #1. Acute non-ST elevated myocardial infarction #2. Multivessel coronary artery disease, undergoing preop evaluation for coronary artery bypass grafting #3. Shortness of breath, and chest pain related to the above #4. Long history of smoking, carries [id number] smoking history of 2 packs a day #5. Severe COPD with preop FEV1 showing FEV1 of 36% of predicted #6. Peptic ulcer disease #7. History of ascending aortic aneurysm, stable #8. Hypertension #9. Hyperlipidemia #10. GERD/reflux #11. Maher's esophagus #12. Recent positive Cologuard test Plan: Preop FEV1 has been reviewed and is consistent with advanced COPD History of COPD is not active right now Patient is undergoing preop evaluation for surgery He is going for EGD with colonoscopy tomorrow No need for any maintenance inhalers or breathing treatments We will have to see if the patient will be going home and be scheduled for coronary artery bypass grafting at a later date If he ends up "home will need a full PFT in the office We'll continue following with consultants on the case and making recommendations I have personally seen and examined the patient, performed the documentation and the assessment and plan as written. Number of minutes spent on the visit: [15] Time with Patient: Greater than 30
[2021-09-07] MEDS: FUROSEMIDE 40 MG TAB PO SCH (15:22)
[2021-09-07] MEDS: ATORVASTATIN 80 MG TAB PO SCH (21:11)
[2021-09-08 03:15] LABS: African American GFR (CKD) >90 (>60 ml/min/1.73 sqM); Anion Gap 2 mmol/L; Blood Urea Nitrogen 11 mg/dL (9-20); Calcium 8.4 mg/dL (8.4-10.2); Carbon Dioxide 32 mmol/L (22-30); Chloride 104 mmol/L (98-107); Glucose 87 mg/dL (74-99); Non-African American GFR(CKD) >90 (>60 ml/min/1.73 sqM); Potassium 3.5 mmol/L (3.5-5.1); Sodium 138 mmol/L (137-145)
[2021-09-08 03:30] LABS: HCT 36.3 % (39.0-53.0); HGB 12.7 gm/dL (13.0-17.5); MCH 32.9 pg (25.0-35.0); Mean Platelet Volume 8.6; Platelet Count 155 k/uL (150-450); RBC 3.86 m/uL (4.30-5.90); RDW 12.1 % (11.5-15.5); WBC 6.8 k/uL (3.8-10.6)
[2021-09-08] MEDS: HEPARIN SOD,PORK IN 0.45% NACL 25,000 UNIT in 0.45% NACL 1 250ML.BAG IV SCH (06:39)
--- NOTE | 2021-09-08 08:48 | US ---
EXAMINATION TYPE: US vein mapping BIL DATE OF EXAM: 09/06/2021 2:38 PM COMPARISON: NONE CLINICAL HISTORY: PreOp Cardiac Surgery. PreOP SIDE PERFORMED: Bilateral TECHNIQUE: Lower extremity saphenous vein is examined and measured utilizing real time linear array sonography. Patient History: Smoker: Yes Heart Disease: No Previous DVT: No Vascular Surgery: No Discoloration: No Hypertension: Yes Paralysis: No Varicosities: No Edema: No DUPLEX FINDINGS: Greater Saphenous: Color flow seen Measurements in mm: Right Greater Saphenous: Groin: 8.0 x 7.3 mm High Thigh: 5.2 x 5.0 mm Mid Thigh: 4.9 x 4.1 mm Above Knee: 4.5 x 3.4 mm Knee: 4.6 x 4.1 mm Below Knee: 4.8 x 4.2 mm Mid Calf: 4.5 x 4.1 mm At Ankle: 3.6 x 3.2 mm Left Greater Saphenous: Groin: 4.7 x 5.5 mm High Thigh: 4.6 x 4.9 mm Mid Thigh: 3.9 x 3.3 mm Above Knee: 5.4 x 4.8 mm Knee: 3.4 x 3.5 mm Below Knee: 4.7 x 3.5 mm Mid Calf: 3.4 x 2.8 mm At Ankle: 3.5 x 2.8 mm IMPRESSION: 1. Bilateral GSV measurements listed above. 2. Performing surgeon to determine viability as conduit.
[2021-09-08] MEDS: MUPIROCIN 2% OINT 22 GM TUBE NASAL SCH ×2 (08:52→21:23)
[2021-09-08] MEDS: METOPROLOL TARTRATE 25 MG TAB PO SCH ×2 (08:52→21:23)
[2021-09-08] MEDS: ASPIRIN 81 MG PO SCH (08:52)
[2021-09-08] MEDS: FUROSEMIDE 40 MG TAB PO SCH ×2 (08:52→16:15)
--- NOTE | 2021-09-08 09:23 | US ---
EXAMINATION TYPE: US arterial LE single level DATE OF EXAM: 09/06/2021 3:36 PM CLINICAL HISTORY: Ankle Brachial Index (JOMAR) . JOMAR for CABG Doppler Waveforms: Right: Multiphasic Left: Multiphasic Ankle-Brachial Indices: Right: 1.1 Left: 1.1 Right brachial pressures not obtained due to cardiac cath- right radial approach IMPRESSION: Normal ankle-brachial indices
--- NOTE | 2021-09-08 09:23 | P.PN ---
Subjective Progress Note Date: 09/08/21 Principal diagnosis: Multivessel coronary artery disease, 4.3 cm thoracic aortic aneurysm, non-ST elevated Rajesh infarction this admission. Past medical history significant for hypertension, hyperlipidemia which has been diet controlled, obesity, chronic ongoing tobacco dependence smoking about a half a pack cigarettes per day, peptic ulcer disease and a known history of an ascending aortic aneurysm. The patient was seen and examined on follow-up today 09/08/2021 at his bedside on cardiac stepdown unit. Currently he is lying in bed, is awake, alert, oriented 3 and is in no acute distress. He denies any further complaints of shortness of breath and continues to deny any complaints of chest pain or chest pressure. He reports that he has completed his prep for his EGD and colonoscopy scheduled today at 2:30 PM. He was seen in consultation by Dr. Meyers from pulmonary critical care medicine yesterday for preoperative clearance as his bedside FEV1 showed a 39% of predicted value with 1.22 L. Recommendations were made for a full pulmonary function test. Oxygen saturation are 98% on 2 L nasal cannula and he is achieving 2500 mL on his incentive spirometry with encouragement. A stool occult blood test was completed yesterday which showed negative. Laboratory results reviewed this morning. A repeat troponin was checked yesterday 09/07/2021 which showed his troponin trending down at 2.740. His STS risk score was calculated and discussed with the patient. He continues on Lasix 40 mg by mouth every 12 hours. He also remains on aspirin, atorvastatin and metoprolol tartrate. He has been afebrile the last 24 hours. Objective - Vital Signs Vital signs: Vital Signs Temp 97.7 F 09/08/21 03:30 Pulse 65 09/08/21 03:30 Resp 20 09/08/21 03:30 BP 142/72 09/08/21 03:30 Pulse Ox 98 09/08/21 03:30 Intake & Output 09/07/21 09/08/21 09/08/21 18:59 06:59 18:59 Intake Total 4828.278 227.739 Balance 4828.278 227.739 Intake: Intake, IV Titration 186.278 227.739 Amount Heparin Sod,Pork in 0.45% 186.278 227.739 NaCl 25,000 unit In 0.45 % NaCl 1 250ml.bag @ 9 UNITS/KG/HR 10.035 mls/hr IV .Q24H [facility] Rx#: [id number] Oral 4642 Other: Voiding Method Urinal Urinal # Voids 1 # Bowel Movements 1 - Exam CONSTITUTIONAL: Laying in bed on the cardiac stepdown unit, appears comfortable, cooperative, no apparent acute distress. HEENT: Neck is supple, no JVD, no lymphadenopathy. RESPIRATORY: Lungs sounds essentially clear throughout, few expiratory wheezes. Respirations are symmetrical and nonlabored. Currently on 2 L nasal cannula with oxygen saturations 98%. Able to achieve 2500 mL on his incentive spirometry. Strong cough. CARDIOVASCULAR: Regular rhythm and rate. S1 and S2 present, negative for S3, gallop or murmur. Remote telemetry showing sinus bradycardia with depressed ST heart rate 55 BPM. GASTROINTESTINAL: Abdomen soft, nontender, nondistended. Active bowel sounds present 4 quadrants. Tolerating diet. Passing flatus. No guarding or rigidity. Bowel movement yesterday 09/07/2021. GENITOURINARY: Continues to void. INTEGUMENTARY: Skin is warm and dry with no evidence of clubbing or cyanosis. NEUROLOGIC: Cranial nerves II through XII intact. No focal deficits. MUSKULOSKELETAL: Able to move all extremities, strength equal bilaterally. PSYCHIATRIC: Alert and oriented to person place and time, appropriate affect, intact judgment and insight. - Allied health notes Allied health notes reviewed: nursing - Labs CBC & Chem 7: 09/08/21 02:00 09/08/21 02:00 Labs: Abnormal Lab Results - Last 24 Hours (Table) 09/07/21 09/07/21 09/07/21 Range/Units 02:09 08:50 08:50 RBC 4.00 L (4.30-5.90) m/uL Hgb 12.8 L (13.0-17.5) gm/dL Hct 37.5 L (39.0-53.0) % APTT (22.0-30.0) sec Carbon Dioxide (22-30) mmol/L Glucose (74-99) mg/dL Calcium (8.4-10.2) mg/dL Troponin I 2.740 H* (0.000-0.034) ng/mL HDL Cholesterol 31.40 L (40.00-60.00) mg/dL 04/09/08/21 09/08/21 Range/Units 08:50 01:32 02:00 RBC 3.86 L (4.30-5.90) m/uL Hgb 12.7 L (13.0-17.5) gm/dL Hct 36.3 L (39.0-53.0) % APTT 43.6 H (22.0-30.0) sec Carbon Dioxide (22-30) mmol/L Glucose 171 H (74-99) mg/dL Calcium 8.3 L (8.4-10.2) mg/dL Troponin I (0.000-0.034) ng/mL HDL Cholesterol (40.00-60.00) mg/dL 09/08/21 Range/Units 02:00 RBC (4.30-5.90) m/uL Hgb (13.0-17.5) gm/dL Hct (39.0-53.0) % APTT (22.0-30.0) sec Carbon Dioxide 32 H (22-30) mmol/L Glucose (74-99) mg/dL Calcium (8.4-10.2) mg/dL Troponin I (0.000-0.034) ng/mL HDL Cholesterol (40.00-60.00) mg/dL Microbiology - Last 24 Hours (Table) 09/06/21 12:52 Nasal Screen MRSA/MSSA - Final Nasopharyngeal Swab Assessment and Plan Assessment: 1. Multivessel coronary artery disease 2. Non-ST elevated myocardial infarction this admission with elevated serial troponins as high as 3.480 3. Shortness of breath, likely secondary to above 4. Hypertension 5. Hyperlipidemia 6. Peptic ulcer disease 7. Severe COPD with preoperative FEV1 showing a predicted value of 36% 8. Chronic ongoing tobacco dependence, smokes half a pack of cigarettes per day 9. 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 Recent positive Cologaurd test Plan: 1. Continue to optimize medical management with aspirin, statin and beta hollis. 2. Pulmonary medicine consult noted and appreciated. A full PFThas been ordered. 3. STS risk score calculated and discussed with the patient.. 4. Preoperative teaching has been reinforced with the patient. 5. The patient is scheduled for a EGD and colonoscopy today 09/08/2021 at 2:30 PM, due to the patient's history of peptic ulcer disease and positive Cologaurd study in the past. 6. Encourage use of his incentive spirometry 10 times every hour while awake. 7. Medical management and other comorbidities per primary care service. 8. Importance of smoking cessation has been reinforced with the patient. 9. Date for myocardial revascularization to follow, pending results of EGD, colonoscopy and PFT. 10. More recommendations to follow based on patient's clinical course. Time with Patient: Greater than 30
--- NOTE | 2021-09-08 09:41 | US ---
EXAMINATION TYPE: Pre-Operative Non-Invasive Evaluation of the hand for Potential Radial Artery [address] [facility], Measurements only DATE OF EXAM: 09/07/2021 8:11 AM CLINICAL HISTORY: Pre-Op Cardiac Surgery. SIDE PERFORMED: Bilateral TECHNIQUE: Radial artery is measured utilizing real time linear array sonography. Dominant hand: Right Duplex Findings: Radial Artery: Color flow seen Measurements in mm, transverse view: Right Radial: Artery Proximal: 3.7 x 4.3 mm Mid: 3.4 x 3.6 mm Distal: 3.0 x 3.4 mm Left Radial: Artery Proximal: 2.6 x 3.3 mm Mid: 2.4 x 2.6 mm Distal: 2.4 x 3.0 mm IMPRESSION: 1. Bilateral radial artery measurements listed above. 2. Performing surgeon to determine viability as conduit.
--- NOTE | 2021-09-08 10:36 | P.PN ---
Subjective Progress Note Date: 09/08/21 Principal diagnosis: Possible bypass grafting. This is a 8-year-old white male patient with past medical history of hypertension, hyperlipidemia, GERD, nicotine dependence and ascending aortic aneurysm. Patient presented to the hospital on 09/06/2021 for evaluation of shortness of breath and cough. Patient reported almost a full day of chest pain on Sunday and which he thought was related to eating a steak. No fever or chills, no leg pain or swelling. Patient was found to have elevated troponins in the emergency department of 3.180, 2.990, 3.480, and 2.740. CBC was unremarkable, white count was normal, hemoglobin is 13, d-dimer was mildly elevated at 0.71, electrolytes and renal profile were unremarkable, lactic acid was 1, LFTs were within normal limits, proBNP was 2280. Urinalysis was negative, COVID-19 PCR was negative. EKG revealed sinus rhythm with diffuse ST depression. Chest x-ray shows some minimal pulmonary interstitial edema, no pleural fluid is seen to suggest heart failure. Patient was seen by cardiology, he was diagnosed with non-ST elevated myocardial infarction and heart catheterization was recommended. Heart Was completed showing three-vessel coronary artery disease with LAD of 60-70% stenosis with abnormal I have far at 0.81, diagonal 1 with 99% stenosis, mid circumflex with 100% stenosis, RCA with 60-70% stenosis, PLV with 90% stenosis and PDA with 50% stenosis, ration had a elevated left sided filling pressures and LVEDP of 23. She was referred to cardiothoracic surgery for evaluation of possibility of coronary artery bypass grafting. Currently undergoing preop evaluation for surgery. His ascending aortic aneurysm has been stable for years. Patient remains a current smoker, his preoperative FEV1 was 36% predicted and showed severe obstruction. Patient has smoked 2 packs a day for the past 55 years, does have exertional dyspnea, and a mild cough in the morning consistent with history of smoking. Patient also has history of Maher's esophagus, and he had a recent positive Cologuard test with the recommendation of follow-up colonoscopy. Gen. surgery has been consulted, and the plan is to proceed with EGD and colonoscopy tomorrow on 09/08/2021. Currently his vitals are stable, he is on 2 L of oxygen pulse ox of 98%, breathing comfortably, no fever, blood pressure stable. No complaints of chest discomfort. Ms. on heparin infusion per weight-based protocol, he is on aspirin, intensive dose of Lipitor 80 mg, metoprolol 25 mg twice daily. Progress note dated 09/08/2021. 71-year-old male is currently being evaluated for bypass surgery. The patient will be scheduled for a complete pulmonary function test. He apparently is not going to be discharged from the hospital, but rather stay in. The patient is scheduled to have an EGD and colonoscopy today. That's to evaluate a history of Maher's esophagus, duodenal ulcer, and a positive [place]-betzaida test. Currently, white count 6.8, hemoglobin 12.7, hematocrit 36.3, with a normal platelet count. Electrolytes look pretty good, with a CO2 level of 32. Everything else is normal. Objective - Vital Signs Vital signs: Vital Signs Temp 97.7 F 09/08/21 03:30 Pulse 66 09/08/21 08:00 Resp 16 09/08/21 08:00 BP 133/65 09/08/21 08:00 Pulse Ox 96 09/08/21 08:00 Intake & Output 09/07/21 09/08/21 09/08/21 18:59 06:59 18:59 Intake Total 4828.278 227.739 Balance 4828.278 227.739 Intake: Intake, IV Titration 186.278 227.739 Amount Heparin Sod,Pork in 0.45% 186.278 227.739 NaCl 25,000 unit In 0.45 % NaCl 1 250ml.bag @ 9 UNITS/KG/HR 10.035 mls/hr IV .Q24H [facility] Rx#: [id number] Oral 4642 Other: Voiding Method Urinal Urinal # Voids 1 # Bowel Movements 1 - Exam No acute distress, oriented 3. No respiratory distress. The patient's on 2 L of O2. HEENT examination is grossly unremarkable. Neck supple. Full range of motion. No adenopathy thyromegaly or neck vein distention. Cardiovascular examination reveals regular rhythm rate. S1-S2 normal. No S3 or S4. No discernible murmur noted. Heart rate 66 bpm. Lungs reveal mostly clear breath sounds. Breath sounds are equal bilaterally. Mild scattered rhonchi. No wheezes or crackles. Saturations 96%. Abdomen soft bowel sounds are heard. No masses or tenderness. Extremities are intact. No cyanosis clubbing or edema. Skin is without rash or lesion. Neurologic examination is brief but nonfocal. - Labs CBC & Chem 7: 09/08/21 02:00 09/08/21 02:00 Labs: Abnormal Lab Results - Last 24 Hours (Table) 09/07/21 09/07/21 09/08/21 Range/Units 08:50 08:50 01:32 RBC 4.00 L (4.30-5.90) m/uL Hgb 12.8 L (13.0-17.5) gm/dL Hct 37.5 L (39.0-53.0) % APTT 43.6 H (22.0-30.0) sec Carbon Dioxide (22-30) mmol/L Glucose 171 H (74-99) mg/dL Calcium 8.3 L (8.4-10.2) mg/dL 09/08/21 09/08/21 09/08/21 Range/Units 02:00 02:00 07:20 RBC 3.86 L (4.30-5.90) m/uL Hgb 12.7 L (13.0-17.5) gm/dL Hct 36.3 L (39.0-53.0) % APTT 52.8 H (22.0-30.0) sec Carbon Dioxide 32 H (22-30) mmol/L Glucose (74-99) mg/dL Calcium (8.4-10.2) mg/dL Microbiology - Last 24 Hours (Table) 09/06/21 12:52 Nasal Screen MRSA/MSSA - Final Nasopharyngeal Swab Assessment and Plan Assessment: Acute non-ST segment elevation myocardial infarction. Multivessel coronary artery disease. COPD. Long-standing history of tobacco use, 54 years. Peptic ulcer disease. Ascending aortic aneurysm. Hypertension. Hyperlipidemia. GERD. History of Maher's esophagus. Plan: Plan dated 09/08/2021. The patient is doing rather well. We will continue to follow the patient make recommendations were appropriate. The patient's currently on 2 L. Because the patient will not be discharged, we will order a full PFT. Prognosis is guarded. The patient is scheduled for an EGD, and colonoscopy today. We will await those results. Time with Patient: Less than 30
--- NOTE | 2021-09-08 12:47 | CT ---
EXAMINATION TYPE: CT angio chest DATE OF EXAM: 09/08/2021 COMPARISON: CT dated 09/22/2020 HISTORY: History of ascending aortic aneurysm CT DLP: 732.5 mGy.cm. Automated Exposure Control for Dose Reduction was Utilized. TECHNIQUE AND CONTRAST: CTA scan of the thorax is performed without and with IV Contrast, patient injected with 100 ml mL of Isovue 370, thoracic aortic angiogram protocol. MIP and 3-D Images are created on an independent wo rkstation and reviewed. FINDINGS: Slightly more prominent known ascending aortic aneurysm measuring 4.4 cm compared to 4.3 cm previousl y. Bovine aortic arch. Scattered arterial atherosclerotic calcifications and plaques. Unremarkable re mainder of the thoracic and upper abdominal aorta. No major or central pulmonary embolism. Coronary a rterial calcifications. No gross cardiomegaly. No pathologically enlarged lymph nodes in the chest. No pericardial effusion. Small right pleural eff usion. Small right basal pulmonary atelectasis. Mild COPD changes in the upper lobes, mainly centrilo bular emphysematous changes. Stable tiny middle lobe nodules. Patent trachea and main bronchi. Stable left hepatic lobe posterior cyst and solitary gallbladder sarai culus. Unchanged bilateral adrenal nodules. Stable left posterior renal cysts. Degenerative changes o f the thoracic spine. IMPRESSION: Ascending aortic aneurysm measuring up to 4.4 cm compared to 4.3 cm previously. Other interval change s and incidental findings as described above.
[2021-09-08] MEDS ORDERED: LACTATED RINGERS 1,000 ML IV ONE (12:56)
[2021-09-08] MEDS ORDERED: PROPOFOL 10 MG/ML 20 ML VIAL IV ONE (12:59)
[2021-09-08] MEDS ORDERED: LIDOCAINE 2% INJ 20 MG/ML (2 ML VIAL) ONE (12:59)
--- NOTE | 2021-09-08 13:16 | P.PN ---
Subjective Progress Note Date: 09/08/21 HISTORY OF PRESENT ILLNESS: This is a 71 year old male with a past medical history significant for hypertension, hyperlipidemia (diet controlled per patient), GERD, nicotine dependence, and ascending aortic aneurysm. Patient does not follow with a senior biostatistician/group leader. We have been asked to see the patient in consultation for elevated troponin. Patient examined at the bedside. Patient presented to the hospital with a chief complaint of shortness of breath. He reports last night he was laying in bed and was having a hard time breathing. He states he had to sit up to catch his breath. He denied having any chest pain or pressure. Denied any dizziness or lightheadedness. He denies a history of diabetes. He is a current smoker. He denies any previous cardiac workup in the past including a cardiac cath or stress test. * EKG reveals sinus mechanism with diffuse ST depression * Chest xray there is some minimal pulmonary interstitial edema. No pleural fluid seen to suggest heart failure. * Laboratory data: W BC 9.4. Hemoglobin 13.3. Platelet count 170. Sodium 137. Potassium 4.3. BUN 13. Creatinine 0.82. Lactic acid 1.0. troponin 3.180. 2.980. 3.480. ProBNP 2280. * Current home cardiac medications include amlodipine-Benzapril 10-40mg daily, propanolol 80 mg twice a day, and aspirin 81 mg at night 09/07/2021 Patient is status post cardiac catheterization yesterday with Dr. Austin revealing triple vessel coronary artery disease including proximal LAD 60-70% stenosis, diagonal 199% stenosis, mid circumflex 100% stenosis, RCA 60-70% stenosis, PLV 90% stenosis, and PDA 50% stenosis. The patient was also found to have elevated left-sided filling pressures with LVEDP of 23. Cardiothoracic surgery was consulted for possible CABG He was started on IV Lasix 40 mg every 12 hours. Patient examined this morning at the bedside. He denies chest pain or pressure. He denies shortness of breath. The patient has a history of peptic ulcer disease. General surgery was consulted and patient is scheduled for endoscopy tomorrow. Echocardiogram completed revealing ejection fraction 60-65%, mild MR, mild aortic stenosis, and mild TR. 09/08/2021 Patient examined this morning at the bedside. Patient denies chest pain or pressure. Denies SOB. He remains on IV heparin. Vital signs are stable. PHYSICAL EXAM: VITAL SIGNS: Reviewed. GENERAL: Well-developed in no acute distress. HEENT: Head is normocephalic. Pupils are equal, round. Sclerae anicteric. Mucous membranes of the mouth are moist. Neck supple. No JVD or thyromegaly LUNGS: Respirations even and unlabored. Lungs essentially clear to auscultation bilaterally. HEART: Regular rate and rhythm. S1 and S2 heard. ABDOMEN: Soft. Nondistended. Nontender. EXTREMITIES: Normal range of motion. No clubbing or cyanosis. Peripheral pulses intact. No lower extremity edema NEUROLOGIC: Awake and alert. Oriented x 3. ASSESSMENT: Shortness of breath Non-STEMI, as well as cardiac catheterization revealing multivessel coronary artery disease Hypertension Hyperlipidemia, diet controlled per patient GERD Nicotine dependence History of ascending aortic aneurysm History of peptic ulcer disease PLAN: Continue current cardiac medications Continue IV heparin General surgery consulted. Patient scheduled for endoscopy today. Cardiothoracic surgery following for CABG. Await further recommendations. Further recommendations pending patient course Nurse practitioner note has been reviewed by physician. Signing provider agrees with the documented findings, assessment, and plan of care. Objective - Vital Signs Vital signs: Vital Signs Temp 97.7 F 09/08/21 03:30 Pulse 65 09/08/21 12:00 Resp 16 09/08/21 12:00 BP 133/81 09/08/21 12:00 Pulse Ox 98 09/08/21 12:00 Intake & Output 09/07/21 09/08/21 09/08/21 18:59 06:59 18:59 Intake Total 4828.278 227.739 Balance 4828.278 227.739 Intake: Intake, IV Titration 186.278 227.739 Amount Heparin Sod,Pork in 0.45% 186.278 227.739 NaCl 25,000 unit In 0.45 % NaCl 1 250ml.bag @ 9 UNITS/KG/HR 10.035 mls/hr IV .Q24H [facility] Rx#: [id number] Oral 4642 Other: Voiding Method Urinal Urinal Urinal # Voids 1 # Bowel Movements 1 - Labs CBC & Chem 7: 09/08/21 02:00 09/08/21 02:00 Labs: Abnormal Lab Results - Last 24 Hours (Table) 09/08/21 09/08/21 09/08/21 Range/Units 01:32 02:00 02:00 RBC 3.86 L (4.30-5.90) m/uL Hgb 12.7 L (13.0-17.5) gm/dL Hct 36.3 L (39.0-53.0) % APTT 43.6 H (22.0-30.0) sec Carbon Dioxide 32 H (22-30) mmol/L 09/08/21 Range/Units 07:20 RBC (4.30-5.90) m/uL Hgb (13.0-17.5) gm/dL Hct (39.0-53.0) % APTT 52.8 H (22.0-30.0) sec Carbon Dioxide (22-30) mmol/L Microbiology - Last 24 Hours (Table) 09/06/21 12:52 Nasal Screen MRSA/MSSA - Final Nasopharyngeal Swab
[2021-09-08] MEDS ORDERED: MD COMMUNICATION TO PHARMACY 1 EACH MISC PO ONE (14:25)
--- NOTE | 2021-09-08 15:23 | P.PCN ---
Date of Procedure: 09/08/21 Procedure(s) Performed: PREOPERATIVE DIAGNOSIS: History of duodenal ulcer, abnormal stool test POSTOPERATIVE DIAGNOSIS: Gastritis, hiatal hernia, normal colon PROCEDURE: 1. EGD with biopsy 2. Colonoscopy ANESTHESIA: MAC SURGEON: Doe Bateman M.D. SPECIMENS: Antrum ENDOSCOPIC PROCEDURE: The patient was on the endoscopy table in the left decubitus position. The Olympus gastroscope was inserted into the oropharynx and passed under direct visualization to the region of the third portion of the duodenum. From that point the scope was slowly withdrawn inspecting all surfaces carefully. There were no neoplastic inflammatory or polypoid lesions throughout the duodenum. The previously seen duodenal ulceration was no longer evident. The pylorus was widely patent. The stomach was carefully inspected. There was mild gastritis present. A biopsy of the antrum took place to rule out H. pylori. Retroflexion revealed a small sliding hiatal hernia. The esophagus was then carefully examined. There were no neoplastic inflammatory or polypoid lesions throughout the visualized esophagus. It was no evidence of Maher's esophagus visibly at this time. The patient was kept on the endoscopy table in the left decubitus position. The Olympus colonoscope was inserted into the anus and passed under direct visualization to the base of the cecum. The appendiceal orifice was visualized. From that point the scope was slowly withdrawn inspecting all surfaces carefully. There were no neoplastic inflammatory or polypoid lesions throughout the cecum, ascending, transverse, descending, sigmoid and rectum. There was no diverticulosis noted. Digital rectal examination was normal. The patient was taken to the recovery room in stable condition per anesthesia guidelines. RECOMMENDATIONS: Resume diet. No contraindications to anticoagulation.
[2021-09-08] MEDS: IPRATROPIUM-ALBUTEROL 3 ML NEB INHALATION SCH ×2 (16:18→21:32)
--- NOTE | 2021-09-08 16:57 | P.PN ---
Progress Note - Text Progress Note Date: 09/08/21 Endoscopy results reviewed in detail with the patient. He was started on a heparin drip. Plans are underway for cardiac surgery tomorrow. We'll sign off at this time. Please call if general surgery issues arise.
--- NOTE | 2021-09-08 17:46 | P.PN ---
Subjective Doing okay today. Denies any chest pain or shortness of breath or any GI complaints. Status post EGD and colonoscopy preparation to CABG Objective - Vital Signs Vital signs: Vital Signs Temp 97.7 F 09/08/21 03:30 Pulse 65 09/08/21 16:31 Resp 16 09/08/21 16:00 BP 137/83 09/08/21 16:00 Pulse Ox 98 09/08/21 16:00 Intake & Output 09/07/21 09/08/21 09/08/21 18:59 06:59 18:59 Intake Total 4828.278 227.739 100 Balance 4828.278 227.739 100 Intake: IV 100 Intake, IV Titration 186.278 227.739 Amount Heparin Sod,Pork in 0.45% 186.278 227.739 NaCl 25,000 unit In 0.45 % NaCl 1 250ml.bag @ 9 UNITS/KG/HR 10.035 mls/hr IV .Q24H [facility] Rx#: [id number] Oral 4642 Other: Voiding Method Urinal Urinal Urinal # Voids 1 3 # Bowel Movements 1 - Exam Gen. patient is awake alert oriented 3 Lungs: No wheezing or rhonchi appreciated, bilateral air entry Cardio normal S1/S2 Abdomen soft, nontender Lower extremity no pitting edema noted No cyanosis no cough tenderness - Labs CBC & Chem 7: 09/08/21 02:00 09/08/21 02:00 Labs: Abnormal Lab Results - Last 24 Hours (Table) 09/08/21 09/08/21 09/08/21 Range/Units 01:32 02:00 02:00 RBC 3.86 L (4.30-5.90) m/uL Hgb 12.7 L (13.0-17.5) gm/dL Hct 36.3 L (39.0-53.0) % APTT 43.6 H (22.0-30.0) sec Carbon Dioxide 32 H (22-30) mmol/L Crossmatch 09/08/21 09/08/21 Range/Units 07:20 15:00 RBC (4.30-5.90) m/uL Hgb (13.0-17.5) gm/dL Hct (39.0-53.0) % APTT 52.8 H (22.0-30.0) sec Carbon Dioxide (22-30) mmol/L Crossmatch See Detail Microbiology - Last 24 Hours (Table) 09/06/21 12:52 Nasal Screen MRSA/MSSA - Final Nasopharyngeal Swab Assessment and Plan Plan: # NSTEMI - ACS- triple-vessel disease # essential hypertension # hyperlipidemia # coronary disease triple-vessel disease #History of peptic ulcer disease Plan: -Status post EGD and colonoscopy in preparation for CABG Continue per cardiothoracic surgery recommendations
[2021-09-08] MEDS: ATORVASTATIN 80 MG TAB PO SCH (21:23)
[2021-09-08] MEDS: BUDESONIDE 1 MG/2 ML NEBU INHALATION SCH (21:32)
[2021-09-08] MEDS: FORMOTEROL FUMARATE 20 MCG/2 ML NEBU INHALATION SCH (21:32)
[2021-09-09] MEDS: HEPARIN SOD,PORK IN 0.45% NACL 25,000 UNIT in 0.45% NACL 1 250ML.BAG IV SCH (03:59)
[2021-09-09] MEDS ORDERED: ceFAZolin 1,000 MG in SODIUM CHLORIDE 0.9% IRRIGATIO 1,000 ML IRRIGATION ONE (05:00)
[2021-09-09] MEDS ORDERED: NITROGLYCERIN-D5W PMX 50 MG in DEXTROSE/WATER 1 250ML.BAG IV SCH ×2 (05:00→13:31)
[2021-09-09] MEDS ORDERED: CLEVIDIPINE BUTYRATE 25 MG in EMPTY BAG 1 BAG IV SCH ×2 (05:00→13:31)
[2021-09-09] MEDS ORDERED: ALBUMIN HUMAN 5% 500 ML in EMPTY BAG 1 BAG IVPB ONE ×6 (05:00)
[2021-09-09] MEDS ORDERED: PROTAMINE SULFATE 250 MG in EMPTY BAG 1 BAG IV ONE (05:00)
[2021-09-09] MEDS ORDERED: NOREPINEPHRINE 4 MG in SODIUM CHLORIDE 0.9% 250 ML IV SCH (05:00)
[2021-09-09] MEDS ORDERED: CHLORHEXIDINE GLUCONATE 15 ML CUP MUCOUS MEM ONE (05:00)
[2021-09-09] MEDS ORDERED: MAGNESIUM SULFATE 16.24 MEQ in EMPTY SYRINGE 1 SYR IV ONE (05:00)
[2021-09-09] MEDS ORDERED: HEPARIN SODIUM,PORCINE 5,000 UNIT in SODIUM CHLORIDE 0.9% 500 ML 500 ML IV ONE (05:00)
[2021-09-09] MEDS ORDERED: INSULIN REGULAR 100 UNIT in SODIUM CHLORIDE 0.9% 100 ML IV SCH ×2 (05:00→14:00)
[2021-09-09] MEDS ORDERED: CARDIOPLEGIC SOLN (K+ 16 MEQ/L 1,000 ML with SOD BICARB SYR 8.4% (1 MEQ/ML) 20 ML, LIDO... PERFUSION NR ×3 (05:00)
[2021-09-09] MEDS ORDERED: ATORVASTATIN 10 MG TAB PO ONE (05:00)
[2021-09-09] MEDS ORDERED: PAPAVERINE 360 MG in SODIUM CHLORIDE 0.9% 90 ML IV ONE ×2 (05:00→09:26)
[2021-09-09] MEDS ORDERED: SODIUM BICARB 8.4% 50 ML SYR (1 MEQ/ML) IV ONE (05:00)
[2021-09-09] MEDS ORDERED: NITROGLYCERIN-D5W PMX 25 MG/250 ML BTL IV ONE (05:00)
[2021-09-09] MEDS ORDERED: DILTIAZEM 125 MG in SODIUM CHLORIDE 0.9% 100 ML IV SCH (05:00)
[2021-09-09] MEDS ORDERED: ALBUMIN HUMAN 25% 50 ML in EMPTY BAG 1 BAG IVPB ONE (05:00)
[2021-09-09] MEDS ORDERED: LACTATED RINGERS 1,000 ML IV SCH (05:00)
[2021-09-09] MEDS ORDERED: METOPROLOL TARTRATE 12.5 MG TAB PO ONE (05:00)
[2021-09-09] MEDS ORDERED: ASPIRIN 325 MG TAB PO ONE (05:00)
[2021-09-09] MEDS ORDERED: HEPARIN SODIUM 1,000 UN/ML (10ML VL) IV ONE (05:00)
[2021-09-09] MEDS ORDERED: PROTAMINE SULFATE 10 MG/ML 25 ML VIAL IV ONE (05:00)
[2021-09-09] MEDS ORDERED: MANNITOL 25% 12.5 GM/50 ML VIAL IV ONE ×2 (05:00)
[2021-09-09] MEDS ORDERED: CALCIUM CHLORIDE 100 MG/ML 10 ML SYRINGE IVP ONE (05:00)
[2021-09-09] MEDS ORDERED: TRANEXAMIC ACID 2,000 MG in SODIUM CHLORIDE 0.9% 80 ML IV ONE (05:00)
[2021-09-09] MEDS ORDERED: PHENYLEPHRINE 40 MG in SODIUM CHLORIDE 0.9% 250 ML IV ONE (05:00)
[2021-09-09] MEDS ORDERED: PHENYLEPHRINE 10 MG/ML VIAL IV ONE (05:00)
[2021-09-09] MEDS ORDERED: ceFAZolin 3 GM in SODIUM CHLORIDE 0.9% 100 ML IVPB ONE (05:00)
[2021-09-09 06:52] LABS: HCT 40.4 % (39.0-53.0); HGB 13.8 gm/dL (13.0-17.5); MCH 31.9 pg (25.0-35.0); MCHC 34.1 g/dL (31.0-37.0); MCV 93.7 fL (80.0-100.0); Mean Platelet Volume 8.9; Platelet Count 217 k/uL (150-450); RBC 4.32 m/uL (4.30-5.90); RDW 12.1 % (11.5-15.5); WBC 7.7 k/uL (3.8-10.6)
[2021-09-09 06:58] LABS: African American GFR (CKD) >90 (>60 ml/min/1.73 sqM); Anion Gap 9 mmol/L; Blood Urea Nitrogen 9 mg/dL (9-20); Calcium 8.9 mg/dL (8.4-10.2); Carbon Dioxide 29 mmol/L (22-30); Chloride 102 mmol/L (98-107); Glucose 96 mg/dL (74-99); Magnesium 1.9 mg/dL (1.6-2.3); Non-African American GFR(CKD) 88 (>60 ml/min/1.73 sqM); Potassium 3.7 mmol/L (3.5-5.1); Sodium 140 mmol/L (137-145)
[2021-09-09] MEDS: BUDESONIDE 1 MG/2 ML NEBU INHALATION SCH ×2 (07:30→19:39)
[2021-09-09] MEDS: IPRATROPIUM-ALBUTEROL 3 ML NEB INHALATION SCH ×3 (07:31→19:39)
[2021-09-09] MEDS: FORMOTEROL FUMARATE 20 MCG/2 ML NEBU INHALATION SCH (07:31)
[2021-09-09] MEDS ORDERED: CALCIUM CHLORIDE 100 MG/ML 10 ML SYRINGE ONE (07:40)
[2021-09-09] MEDS ORDERED: PHENYLEPHRINE-0.9% NACL SYG 1,000 MCG/10 ML SYRINGE ONE (07:40)
[2021-09-09] MEDS ORDERED: MAGNESIUM SULFATE 4 MEQ/ML 10ML VIAL ONE (07:40)
[2021-09-09] MEDS ORDERED: POTASSIUM CHLORIDE OPEN HEART 20 MEQ/50 ML BAG IVPB ONE (07:40)
[2021-09-09] MEDS ORDERED: LIDOCAINE 2% SYG (PF) 100 MG/5 ML ONE (07:40)
[2021-09-09] MEDS ORDERED: FUROSEMIDE 10 MG/ML 2 ML VIAL ONE (07:40)
[2021-09-09] MEDS ORDERED: ceFAZolin 1,000 MG VIAL ONE (07:40)
[2021-09-09] MEDS ORDERED: VECURONIUM 10 MG VIAL IV ONE (07:40)
[2021-09-09] MEDS ORDERED: HEPARIN SODIUM,PORCINE 10,000 UNIT/ML 1 ML VIAL ONE (07:40)
[2021-09-09] MEDS ORDERED: GLYCOPYRROLATE 0.2 MG/ML 2 ML VIAL ONE (07:40)
[2021-09-09] MEDS ORDERED: WATER FOR INJECTION, STERILE 10 ML VIAL IV ONE (07:40)
[2021-09-09] MEDS ORDERED: ALBUMIN HUMAN 5% (25gm) 500 ML VIAL IVPB ONE (07:40)
[2021-09-09] MEDS ORDERED: ePHEDrine 50 MG/ML 1 ML VIAL ONE (07:40)
[2021-09-09] MEDS ORDERED: PROPOFOL 10 MG/ML 20 ML VIAL IV ONE (07:40)
[2021-09-09] MEDS ORDERED: MIDAZOLAM HCL 10 MG/10 ML VIAL ONE (07:40)
[2021-09-09] MEDS ORDERED: NITROGLYCERIN-D5W PMX 50 MG/250 ML BOTTLE IV ONE (07:40)
[2021-09-09] MEDS ORDERED: fentaNYL (PF) 50 MCG/ML 50 ML VIAL ONE (07:40)
[2021-09-09] MEDS ORDERED: SODIUM CHLORIDE 0.9% 100 ML BAG ONE (07:40)
[2021-09-09] MEDS ORDERED: SODIUM CHLORIDE 0.9% 500 ML 500 ML with HEPARIN SODIUM,PORCINE 5,000 UNIT IV ONE ×2 (09:26)
[2021-09-09] MEDS ORDERED: ceFAZolin 1,000 MG in SODIUM CHLORIDE 0.9% 1,000 ML IRRIGATION ONE (09:27)
--- NOTE | 2021-09-09 10:11 | P.ANPRN ---
Procedure Note - Anesthesia - YUMIKO Intraop Pre Bypass YUMIKO Intraop - Anesthesia Indication: CAD, AI, MR Date of Procedure: 09/09/21 Pre-operative Diagnosis: CAD Post-operative Diagnosis: Same Surgeon: Michael Guillen Left Ventricle: EF 50 Ejection Fraction: Normal Regional Wall Motion Abnormalities: None Left Ventricle Hypertrophy: No R. Ventricle Function: Normal Anatomy: Trileaflet Aortic Stenosis: None Aortic Regurgitation: Trace Mitral Stenosis: None Mitral Regurgitation: Trace Tricuspid Stenosis: None Tricuspid Regurgitation: Trace Pulmonic Stenosis: None Pulmonic Regurgitation: None R. Atrial Dilation: No R. Atrial PFO: Yes L. Atrial Dilation: No Aortic Dissection: No Aortic Calcification: Moderate Plural Effusion: None
--- NOTE | 2021-09-09 11:14 | P.ANPRN ---
Procedure Note - Anesthesia - Invasive Line Left Central Line Time Out Performed: Yes (0724) Date of Procedure: 09/09/21 Time of Procedure: 07:25 Location of Patient: Phase I Preparation: Sterile Prep, Sterile Dressing Arterial Line Location: Radial Ultrasound Used: Yes Purpose - Visualization and Identification of Vasculature: Yes Needle Guage: 18g Image Stored and Saved: Yes Narrative: Central line placement per sterile protocol utilized. Attempt right IJ x1. vessel collapses significantly as it approaches central circulation. Abandoned -->left side +local +angio +cvp +jwire +uneventful dilation and introduction left IJ Cordis. Attempts x1
--- NOTE | 2021-09-09 11:15 | P.ANPRN ---
Procedure Note - Anesthesia - Invasive Line Left [place] Time Out Performed: Yes (0741) Date of Procedure: 09/09/21 Time of Procedure: 07:42 Location of Patient: Phase I Preparation: Sterile Prep, Sterile Dressing Arterial Line Location: Radial Ultrasound Used: No Purpose - Visualization and Identification of Vasculature: No Image Stored and Saved: No Narrative: Central line placement per sterile protocol utilized. PA floated in one attempt to PA wedge at 60cm. w/d 5cm to pa. Good wave form. 1 attempt.
--- NOTE | 2021-09-09 12:54 | P.OP ---
Date of Procedure: 09/09/21 Preoperative Diagnosis: Non-ST elevation CA, unstable angina, coronary artery disease Postoperative Diagnosis: Same Procedure(s) Performed: Off-pump CABG 3 with GATES to LAD, left radial artery graft to ANA, saphenous vein graft to PDA. Also, obliteration of left atrial appendage with 40 mm AtriCure clip, left lower extremity greater saphenous vein endovascular harvest, left radial artery and endovascular harvest. Implants: 40 mm AtriCure clip Anesthesia: GETA Surgeon: Michael Guillen Supervisor [employer] #1: Hans Kendrick Supervisor [employer] #2: Choco Guerrero Estimated Blood Loss (ml): 500 IV fluids (ml): 2,000 Urine output (ml): 300 Pathology: none sent Condition: stable Disposition: ICU Indications for Procedure: 71-year-old male who presented with shortness of breath and heart failure symptomatology. Troponins were positive. Catheterization demonstrated three-vessel coronary artery disease. He was admitted to the hospital and heparinized. He had a recent history of upper GI bleed and positive: Guarded test. He also had a known history of moderate ascending aortic dilatation. Repeat computed tomography scan confirmed the presence of moderate ascending aortic dilatation. This was not considered significant enough to warrant aortic replacement. He also underwent an EGD and colonoscopy. This demonstrated complete healing of his ulcer without any other abnormalities in the EGD and no evidence of colonic tumor on the colonoscopy. Patient was subsequently scheduled for urgent myocardial revascularization. Operative Findings: GATES was an excellent conduit. The radial artery was an excellent conduit. Saphenous vein was a good conduit although somewhat irregular in size. I consistently sized piece was utilized. Left ventricle was moderately enlarged. Target vessels were somewhat limited. There was diffuse disease in the LAD. It was grafted in its midportion. The diagonal was heavily diseased proximally and very small distally. The first obtuse marginal was a relatively small vessel which did not have significant stenosis on cath. The distal circumflex was a completely occluded vessel however we were only able to identify a very small lateral obtuse marginal branch which was not graftable. ANA and PDA were good targets. Description of Procedure: Patient was brought to the operating room, placed supine on the operating table, anesthetized and intubated. Preoperative monitoring lines been placed in the preop holding area including right radial arterial line and a left IJ [place] catheter. The anterior torso bilateral lower extremities and left upper extremity were sterilely prepped and draped. Endovascular harvesting of the left greater saphenous vein from mid calf to groin and the left radial artery were performed simultaneously with midline sternotomy. The left hemisternum was retracted upwards and the left internal mammary artery harvested on a vascula rized pedicle left intact on its origin from the subclavian and divided distally. The left pleural space was drained with a 32-[place] chest tube. Standard sternal retractor was placed. Pericardium was opened in the midline and the heart exposed with pericardial sutures. The patient was systemically heparinized and ACTs were maintained greater than 250 during grafting. We began with the GATES to the LAD. The LAD was stabilized and grafted in its midportion. It was a 1.75 mm vessel and blood flow was controlled with a 1.5 mm flow through after stabilization opening the vessel. End-to-side anastomosis between the GATES and LAD was performed with running 8-0 Prolene suture. On completion anastomosis flow through was removed effectively probing the proximal portion anastomosis. Suture was tied with good result and hemostasis. The XIOMARA pedicle was tacked surrounding epicardium with 6-0 silk was. Next the lateral wall was exposed and the posterior lateral branch was stabilized. We grafted the most distal posterior lateral branch. It was 2 mm vessel. It was opened and blood flow control with a 1.5 mm flow through. End to side anastomosis between the left radial artery and the ANA was performed with running 7-0 Prolene suture. On completion anastomosis flow through was removed effectively probing the proximal distal portion anastomosis. Suture was tied with good result and hemostasis. Next the PDA was stabilized and dissected out proximally. It was opened and blood flow control with a 2 mm flow through. Saphenous vein was trimmed and the best segment was used. It was anastomosed in an inside fashion with running 7-0 Prolene suture. On completion anastomosis flow through was removed effectively probing the proximal distal portion of the anastomosis. Suture was tied with good result and hemostasis. Backbleeding and both of these grafts was controlled with bulldog clamps. Heart was lowered into anatomic position. A heartstring device was deployed in the proximal ascending aorta. Proximal anastomosis of the saphenous vein off the aorta was performed with running 5-0 Prolene suture. On completion anastomosis the heartstring device was removed and the suture tied with good result and hemostasis. Vein graft was de-aired with needle holes and the inflow open. Distal anastomosis was hemostatic. Bulldog clamps were placed on the vein graft proximally and distally proximal to the acute margin of the heart. A longitudinal venotomy was performed and the proximal anastomosis of the radial artery off the vein graft was performed with running 7-0 Prolene suture. On completion anastomosis was de-aired by backbleeding and the inflow was open. All grafts were now noted to be hemostatic. Heparin was reversed with protamine. Good hemostasis was o btained throughout. The chest was irrigated with warm antibiotic solution. Mediastinum was drained with 36-[place] chest tube. Sternum was closed with 8 sternal wires. Fascia was closed with 0 Ethibond. Leg and morbid closed with layers of Vicryl suture. Dry sterile dressings were applied the patient was transferred to the ICU in stable condition. No blood transfusions were required. No inotropic support was required.
[2021-09-09] MEDS ORDERED: ALBUMIN HUMAN 5% 250 ML IVPB ONE ×2 (13:26)
[2021-09-09] MEDS ORDERED: hydrALAZINE HCL 20 MG/ML 1 ML VIAL IVP PRN (13:31)
[2021-09-09] MEDS ORDERED: ONDANSETRON 4 MG/2 ML VIAL IVP PRN (13:31)
[2021-09-09] MEDS ORDERED: BENZOCAINE/MENTHOL LOZENG 1 EACH LOZENGE MUCOUS MEM PRN (13:31)
[2021-09-09] MEDS ORDERED: Magnesium Replacement Protocol 1 EACH MISC MISCELLANE PRN (13:31)
[2021-09-09] MEDS ORDERED: Phosphorus Replacement Protoco 1 EACH MISC MISCELLANE PRN (13:31)
[2021-09-09] MEDS ORDERED: IPRATROPIUM-ALBUTEROL 3 ML NEB INHALATION PRN (13:31)
[2021-09-09] MEDS ORDERED: METOCLOPRAMIDE 5 MG/ML 2 ML VIAL IVP PRN (13:31)
[2021-09-09] MEDS ORDERED: Potassium Replacement Protocol 1 EACH MISC MISCELLANE PRN (13:31)
[2021-09-09] MEDS ORDERED: DEXMEDETOMIDINE/0.9% NACL(PMX) 400 MCG in EMPTY BAG 1 BAG IV SCH (13:31)
[2021-09-09] MEDS: DILTIAZEM 125 MG in SODIUM CHLORIDE 0.9% 100 ML IV SCH ×2 (14:00→21:43)
[2021-09-09] MEDS: LACTATED RINGERS 1,000 ML IV SCH (14:00)
[2021-09-09] MEDS ORDERED: DEXTROSE 5% IN WATER 100 ML with AMIODARONE 150 MG IV PRN (14:00)
[2021-09-09] MEDS ORDERED: CALCIUM GLUCONATE IN NACL 2 GM in SALINE 1 100ML.BAG IVPB PRN (14:00)
[2021-09-09 14:06] LABS: Glucose,Whole Blood 122 mg/dL (75-99)
[2021-09-09] MEDS ORDERED: AMIODARONE 360 MG in DEXTROSE 5% IN WATER 200 ML IV ONE ×2 (14:15)
[2021-09-09 14:20] LABS: Basophils % (A) 0 %; Eosinophils % (A) 0 %; HCT 28.1 % (39.0-53.0); Lymphocytes # (A) 0.7 k/uL (1.0-4.8); Lymphocytes % (A) 7 %; MCH 31.6 pg (25.0-35.0); MCHC 33.6 g/dL (31.0-37.0); MCV 94.2 fL (80.0-100.0); Mean Platelet Volume 9.4; Monocytes # (A) 0.6 k/uL (0-1.0); Monocytes % (A) 6 %; Neutrophils # (A) 8.6 k/uL (1.3-7.7); Neutrophils % (A) 86 %; Platelet Count 146 k/uL (150-450); RBC 2.98 m/uL (4.30-5.90); RDW 12.2 % (11.5-15.5); WBC 10.1 k/uL (3.8-10.6)
[2021-09-09 14:24] LABS: HGB 9.4 gm/dL (13.0-17.5)
[2021-09-09 14:24] LABS: ABG Base Excess -1.5 mmol/L; ABG HCO3 25 mmol/L (21-25); ABG Oxygen Saturation 99.1 % (94-97); ABG PCO2 52 mmHg (35-45); ABG PH 7.29 (7.35-7.45); ABG PO2 185 mmHg (83-108); ABG TCO2 27 mmol/L (19-24)
[2021-09-09 14:26] LABS: Allen Test Performed? no
[2021-09-09 14:34] LABS: INR 1.2 (<1.2); Partial Thromboplastin Time 41.3 sec (22.0-30.0); Prothrombin Time 12.4 sec (9.0-12.0)
--- NOTE | 2021-09-09 14:35 | XR ---
EXAMINATION TYPE: XR chest 1V portable DATE OF EXAM: 09/09/2021 COMPARISON: Chest x-ray 09/06/2021 HISTORY: Postop cardiac surgery TECHNIQUE: Single frontal view of the chest is obtained. FINDINGS: Patient is post median sternotomy and left atrial appendage clip placement. Endotracheal t ube, NG tube, left chest tube, left jugular central venous catheter, median sternal drain are in plac e and overlying appropriate positions. Patient is rotated. No evident pneumothorax or sizable effusio n. Lung volumes are low. Interstitium is increased. Patchy basilar density is noted. Heart may be enl arged. Aorta is dense. Subcutaneous emphysema is present. IMPRESSION: There may be a component of volume overload, interstitial edema although exam is rotated and expiratory, follow-up.
[2021-09-09 14:40] LABS: ALT 18 U/L (4-49); AST 34 U/L (17-59); African American GFR (CKD) >90 (>60 ml/min/1.73 sqM); Albumin 3.3 g/dL (3.5-5.0); Alkaline Phosphatase 32 U/L (38-126); Anion Gap 6 mmol/L; Blood Urea Nitrogen 8 mg/dL (9-20); Calcium 8.3 mg/dL (8.4-10.2); Carbon Dioxide 25 mmol/L (22-30); Chloride 107 mmol/L (98-107); Glucose 109 mg/dL (74-99); Non-African American GFR(CKD) >90 (>60 ml/min/1.73 sqM); Potassium 4.4 mmol/L (3.5-5.1); Sodium 138 mmol/L (137-145); Total Bilirubin 1.2 mg/dL (0.2-1.3); Total Protein 5.3 g/dL (6.3-8.2)
[2021-09-09] MEDS ORDERED: AMIODARONE 360 MG in DEXTROSE 5% IN WATER 200 ML IV PRN ×2 (14:41)
[2021-09-09] MEDS ORDERED: AMIODARONE 450 MG in DEXTROSE 5% IN WATER 250 ML IV PRN ×2 (14:41)
--- NOTE | 2021-09-09 14:54 | P.PN ---
Subjective Progress Note Date: 09/09/21 Principal diagnosis: Possible bypass grafting. This is a 8-year-old white male patient with past medical history of hypertension, hyperlipidemia, GERD, nicotine dependence and ascending aortic aneurysm. Patient presented to the hospital on 09/06/2021 for evaluation of shortness of breath and cough. Patient reported almost a full day of chest pain on Sunday and which he thought was related to eating a steak. No fever or chills, no leg pain or swelling. Patient was found to have elevated troponins in the emergency department of 3.180, 2.990, 3.480, and 2.740. CBC was unremarkable, white count was normal, hemoglobin is 13, d-dimer was mildly elevated at 0.71, electrolytes and renal profile were unremarkable, lactic acid was 1, LFTs were within normal limits, proBNP was 2280. Urinalysis was negative, COVID-19 PCR was negative. EKG revealed sinus rhythm with diffuse ST depression. Chest x-ray shows some minimal pulmonary interstitial edema, no pleural fluid is seen to suggest heart failure. Patient was seen by cardiology, he was diagnosed with non-ST elevated myocardial infarction and heart catheterization was recommended. Heart Was completed showing three-vessel coronary artery disease with LAD of 60-70% stenosis with abnormal I have far at 0.81, diagonal 1 with 99% stenosis, mid circumflex with 100% stenosis, RCA with 60-70% stenosis, PLV with 90% stenosis and PDA with 50% stenosis, ration had a elevated left sided filling pressures and LVEDP of 23. She was referred to cardiothoracic surgery for evaluation of possibility of coronary artery bypass grafting. Currently undergoing preop evaluation for surgery. His ascending aortic aneurysm has been stable for years. Patient remains a current smoker, his preoperative FEV1 was 36% predicted and showed severe obstruction. Patient has smoked 2 packs a day for the past 55 years, does have exertional dyspnea, and a mild cough in the morning consistent with history of smoking. Patient also has history of Maher's esophagus, and he had a recent positive Cologuard test with the recommendation of follow-up colonoscopy. Gen. surgery has been consulted, and the plan is to proceed with EGD and colonoscopy tomorrow on 09/08/2021. Currently his vitals are stable, he is on 2 L of oxygen pulse ox of 98%, breathing comfortably, no fever, blood pressure stable. No complaints of chest discomfort. Ms. on heparin infusion per weight-based protocol, he is on aspirin, intensive dose of Lipitor 80 mg, metoprolol 25 mg twice daily. Progress note dated 09/08/2021. 71-year-old male is currently being evaluated for bypass surgery. The patient will be scheduled for a complete pulmonary function test. He apparently is not going to be discharged from the hospital, but rather stay in. The patient is scheduled to have an EGD and colonoscopy today. That's to evaluate a history of Maher's esophagus, duodenal ulcer, and a positive [place]-betzaida test. Currently, white count 6.8, hemoglobin 12.7, hematocrit 36.3, with a normal platelet count. Electrolytes look pretty good, with a CO2 level of 32. Everything else is normal. Progress note dated 09/09/2021. 71-year-old male, who is going to undergo bypass surgery today. The patient is a heavy smoker. I believe his lung function to be adequate to be able to tolerate surgery. The patient smoked 1-2 packs a day for about 54 years. In addition, there was some concerns about his GI tract, but apparently his EGD and colonoscopy turned out okay. White count 10.1, hemoglobin 9.4, hematocrit 28.1, and platelet count 146,000 PTT was 41.3. Sodium 138, potassium 4.4, chlorides 107, CO2 25, anion gap 6, BUN 8, creatinine 0.75. Objective - Vital Signs Vital signs: Vital Signs Temp 96.6 F L 09/09/21 14:00 Pulse 55 L 09/09/21 14:00 Resp 24 09/09/21 14:00 BP 142/69 09/09/21 06:25 Pulse Ox 100 09/09/21 14:00 Intake & Output 09/08/21 09/09/21 09/09/21 18:59 06:59 18:59 Intake Total 100 350 57.144 Output Total 500 Balance 100 350 -442.856 Weight 104.8 kg Intake: IV 100 100 54 CARDIAC OUTPUT (0.9 0 Sodium Chloride) Lactated Ringers 1,000 ml 0 @ 50 mls/hr IV .Q20H [facility] Rx#:[id number] Nitroglycerin-D5w Pmx 50 0 mg In Dextrose/Water 1 250ml.bag @ 5 MCG/MIN 1.5 mls/hr IV .Q24H [facility] Rx#: [id number] PRESSURE BAG (0.9 Sodium 0 Chloride) Intake, IV Titration 250 3.144 Amount Heparin Sod,Pork in 0.45% 250 NaCl 25,000 unit In 0.45 % NaCl 1 250ml.bag @ 9 UNITS/KG/HR 10.035 mls/hr IV .Q24H [facility]ENN[facility] Rx#: [id number] propofoL 1,000 mg In 3.144 Empty Bag 1 bag @ Titrate IV .Q0M [facility]ENN[facility] Rx#: [id number] Output: Estimated Blood Loss 500 Other: Voiding Method Urinal Urinal # Voids 3 1 ABP, PAP, CO, CI - Last Documented Arterial Blood Pressure 90/50 Pulmonary Artery Pressure 57/21 Cardiac Output 6.2 Cardiac Index 2.8 - Exam No acute distress, oriented 3. No respiratory distress. The patient's on 2 L of O2. HEENT examination is grossly unremarkable. Neck supple. Full range of motion. No adenopathy thyromegaly or neck vein d istention. Cardiovascular examination reveals regular rhythm rate. S1-S2 normal. No S3 or S4. No discernible murmur noted. Heart rate 73 bpm. Lungs reveal mostly clear breath sounds. Breath sounds are equal bilaterally. Mild scattered rhonchi. No wheezes or crackles. Saturations 97 %. Abdomen soft bowel sounds are heard. No masses or tenderness. Extremities are intact. No cyanosis clubbing or edema. Skin is without rash or lesion. Neurologic examination is brief but nonfocal. - Labs CBC & Chem 7: 09/09/21 14:06 09/09/21 14:06 Labs: Abnormal Lab Results - Last 24 Hours (Table) 09/08/21 09/08/21 09/09/21 Range/Units 15:00 23:18 14:04 RBC (4.30-5.90) m/uL Hgb (13.0-17.5) gm/dL Hct (39.0-53.0) % Plt Count (150-450) k/uL Neutrophils # (1.3-7.7) k/uL Lymphocytes # (1.0-4.8) k/uL PT (9.0-12.0) sec INR (<1.2) APTT 50.9 H (22.0-30.0) sec ABG pH (7.35-7.45) ABG pCO2 (35-45) mmHg ABG pO2 (83-108) mmHg ABG Total CO2 (19-24) mmol/L ABG O2 Saturation (94-97) % BUN (9-20) mg/dL Glucose (74-99) mg/dL POC Glucose (mg/dL) 122 H (75-99) mg/dL Calcium (8.4-10.2) mg/dL Alkaline Phosphatase (38-126) U/L Total Protein (6.3-8.2) g/dL Albumin (3.5-5.0) g/dL Crossmatch See Detail 09/09/21 09/09/21 09/09/21 Range/Units 14:06 14:06 14:06 RBC 2.98 L (4.30-5.90) m/uL Hgb 9.4 L D (13.0-17.5) gm/dL Hct 28.1 L (39.0-53.0) % Plt Count 146 L (150-450) k/uL Neutrophils # 8.6 H (1.3-7.7) k/uL Lymphocytes # 0.7 L (1.0-4.8) k/uL PT 12.4 H (9.0-12.0) sec INR 1.2 H (<1.2) APTT 41.3 H (22.0-30.0) sec ABG pH (7.35-7.45) ABG pCO2 (35-45) mmHg ABG pO2 (83-108) mmHg ABG Total CO2 (19-24) mmol/L ABG O2 Saturation (94-97) % BUN 8 L (9-20) mg/dL Glucose 109 H (74-99) mg/dL POC Glucose (mg/dL) (75-99) mg/dL Calcium 8.3 L (8.4-10.2) mg/dL Alkaline Phosphatase 32 L (38-126) U/L Total Protein 5.3 L (6.3-8.2) g/dL Albumin 3.3 L (3.5-5.0) g/dL Crossmatch 09/09/21 Range/Units 14:23 RBC (4.30-5.90) m/uL Hgb (13.0-17.5) gm/dL Hct (39.0-53.0) % Plt Count (150-450) k/uL Neutrophils # (1.3-7.7) k/uL Lymphocytes # (1.0-4.8) k/uL PT (9.0-12.0) sec INR (<1.2) APTT (22.0-30.0) sec ABG pH 7.29 L (7.35-7.45) ABG pCO2 52 H (35-45) mmHg ABG pO2 185 H (83-108) mmHg ABG Total CO2 27 H (19-24) mmol/L ABG O2 Saturation 99.1 H (94-97) % BUN (9-20) mg/dL Glucose (74-99) mg/dL POC Glucose (mg/dL) (75-99) mg/dL Calcium (8.4-10.2) mg/dL Alkaline Phosphatase (38-126) U/L Total Protein (6.3-8.2) g/dL Albumin (3.5-5.0) g/dL Crossmatch Assessment and Plan Assessment: Acute non-ST segment elevation myocardial infarction, with anticipated bypass grafting. Multivessel coronary artery disease. COPD. Long-standing history of tobacco use, 54 years. Peptic ulcer disease. Ascending aortic aneurysm. Hypertension. Hyperlipidemia. GERD. History of Maher's esophagus. Plan: Plan dated 09/08/2021. The patient is doing rather well. We will continue to follow the patient make recommendations were appropriate. The patient's currently on 2 L. Because the patient will not be discharged, we will order a full PFT. Prognosis is guarded. The patient is scheduled for an EGD, and colonoscopy today. We will await those results. Plan dated 09/09/2021. The patient did have surgery today. Today's postop day #0. He had an off-pump 3 vessel bypass, GATES to LAD, left radial artery graft to PDA, and saphenous vein graft to PDA. In addition, he had obliteration of the left atrial appendage. The surgery was done by Dr. Guillen. Initial blood gases show pO2 of 185, pCO2 of 52, and pH is 7.29. The rate is increased from 12-16 breaths per minute. I've asked the nurse to tell respiratory to wean the FiO2. Additional recommendations and suggestions are forthcoming. Hopefully, we can get the patient extubated in a timely fashion. Time with Patient: Less than 30
[2021-09-09] MEDS: ALBUMIN HUMAN 5% 250 ML in EMPTY BAG 1 BAG IVPB PRN (14:57)
[2021-09-09 15:10] LABS: Glucose,Whole Blood 125 mg/dL (75-99)
[2021-09-09 16:00] LABS: Glucose,Whole Blood 124 mg/dL (75-99)
[2021-09-09] MEDS ORDERED: IPRATROPIUM-ALBUTEROL 3 ML NEB INHALATION SCH (16:00)
[2021-09-09] MEDS: HEPARIN SODIUM,PORCINE/PF 5,000 UNIT/0.5 ML SYRINGE SQ SCH ×2 (16:17→23:45)
[2021-09-09 17:01] LABS: Glucose,Whole Blood 127 mg/dL (75-99)
[2021-09-09] MEDS: KETOROLAC 15 MG/ML 1 ML VIAL IVP SCH ×2 (17:07→23:43)
[2021-09-09 17:58] LABS: ABG Base Excess -1.9 mmol/L; ABG HCO3 23 mmol/L (21-25); ABG Oxygen Saturation 97.5 % (94-97); ABG PCO2 38 mmHg (35-45); ABG PH 7.39 (7.35-7.45); ABG PO2 91 mmHg (83-108); ABG TCO2 24 mmol/L (19-24); Allen Test Performed? Yes
[2021-09-09 18:00] LABS: Basophils % (A) 0 %; Eosinophils % (A) 0 %; HCT 30.2 % (39.0-53.0); HGB 9.9 gm/dL (13.0-17.5); Lymphocytes % (A) 9 %; MCH 31.1 pg (25.0-35.0); MCHC 32.9 g/dL (31.0-37.0); MCV 94.4 fL (80.0-100.0); Mean Platelet Volume 8.7; Monocytes # (A) 0.8 k/uL (0-1.0); Monocytes % (A) 7 %; Neutrophils % (A) 82 %; Platelet Count 155 k/uL (150-450); RDW 12.1 % (11.5-15.5); WBC 10.9 k/uL (3.8-10.6)
[2021-09-09 18:07] LABS: Glucose,Whole Blood 129 mg/dL (75-99)
[2021-09-09] MEDS: ACETAMINOPHEN IV (For NPO) 1,000 MG in EMPTY BAG 1 BAG IVPB SCH ×2 (18:31→23:46)
[2021-09-09 19:27] LABS: Glucose,Whole Blood 133 mg/dL (75-99)
[2021-09-09 20:06] LABS: Glucose,Whole Blood 132 mg/dL (75-99)
[2021-09-09 20:12] LABS: Basophils % (A) 0 %; Eosinophils % (A) 0 %; HCT 28.6 % (39.0-53.0); HGB 9.7 gm/dL (13.0-17.5); Lymphocytes # (A) 0.6 k/uL (1.0-4.8); Lymphocytes % (A) 7 %; MCH 31.6 pg (25.0-35.0); Mean Platelet Volume 10.3; Monocytes # (A) 0.6 k/uL (0-1.0); Monocytes % (A) 7 %; Neutrophils # (A) 7.4 k/uL (1.3-7.7); Neutrophils % (A) 85 %; Platelet Count 130 k/uL (150-450); RBC 3.08 m/uL (4.30-5.90); RDW 12.8 % (11.5-15.5); WBC 8.7 k/uL (3.8-10.6)
[2021-09-09 21:06] LABS: Glucose,Whole Blood 135 mg/dL (75-99)
[2021-09-09] MEDS ORDERED: AMIODARONE 450 MG in DEXTROSE 5% IN WATER 250 ML IV SCH ×2 (21:15)
[2021-09-09 22:08] LABS: Glucose,Whole Blood 130 mg/dL (75-99)
[2021-09-09 23:04] LABS: Glucose,Whole Blood 127 mg/dL (75-99)
[2021-09-09 23:59] LABS: Glucose,Whole Blood 128 mg/dL (75-99)
[2021-09-10] MEDS ORDERED: HYDROcodone/APAP 5-325MG 1 EACH TAB PO PRN ×2 (00:51)
[2021-09-10 01:09] LABS: Glucose,Whole Blood 129 mg/dL (75-99)
[2021-09-10] MEDS: ALBUMIN HUMAN 5% 250 ML in EMPTY BAG 1 BAG IVPB PRN ×2 (01:45→07:01)
[2021-09-10 02:09] LABS: Glucose,Whole Blood 129 mg/dL (75-99)
[2021-09-10 03:10] LABS: Glucose,Whole Blood 130 mg/dL (75-99)
[2021-09-10 03:54] LABS: Glucose,Whole Blood 129 mg/dL (75-99)
[2021-09-10 04:04] LABS: Basophils % (A) 0 %; Eosinophils % (A) 0 %; HCT 29.1 % (39.0-53.0); HGB 9.7 gm/dL (13.0-17.5); Lymphocytes # (A) 0.7 k/uL (1.0-4.8); Lymphocytes % (A) 8 %; MCH 31.1 pg (25.0-35.0); MCHC 33.2 g/dL (31.0-37.0); MCV 93.8 fL (80.0-100.0); Mean Platelet Volume 9.2; Monocytes # (A) 0.6 k/uL (0-1.0); Monocytes % (A) 7 %; Neutrophils # (A) 7.5 k/uL (1.3-7.7); Neutrophils % (A) 83 %; Platelet Count 134 k/uL (150-450); RDW 12.3 % (11.5-15.5)
[2021-09-10 04:23] LABS: ALT 21 U/L (4-49); AST 59 U/L (17-59); African American GFR (CKD) >90 (>60 ml/min/1.73 sqM); Albumin 3.3 g/dL (3.5-5.0); Alkaline Phosphatase 33 U/L (38-126); Anion Gap 3 mmol/L; Blood Urea Nitrogen 11 mg/dL (9-20); Calcium 8.3 mg/dL (8.4-10.2); Carbon Dioxide 26 mmol/L (22-30); Chloride 108 mmol/L (98-107); Glucose 117 mg/dL (74-99); Magnesium 1.9 mg/dL (1.6-2.3); Non-African American GFR(CKD) >90 (>60 ml/min/1.73 sqM); Potassium 4.1 mmol/L (3.5-5.1); Sodium 137 mmol/L (137-145); Total Protein 5.3 g/dL (6.3-8.2)
[2021-09-10] MEDS: MAGNESIUM SULFATE-D5W PMX 1 GM in DEXTROSE/WATER 1 100ML.BAG IVPB SCH ×2 (04:37→06:16)
[2021-09-10 05:10] LABS: Glucose,Whole Blood 131 mg/dL (75-99)
[2021-09-10] MEDS: KETOROLAC 15 MG/ML 1 ML VIAL IVP SCH ×3 (06:14→18:35)
[2021-09-10 06:55] LABS: Glucose,Whole Blood 175 mg/dL (75-99)
[2021-09-10] MEDS: IPRATROPIUM-ALBUTEROL 3 ML NEB INHALATION SCH ×4 (07:16→19:12)
[2021-09-10] MEDS: BUDESONIDE 1 MG/2 ML NEBU INHALATION SCH ×2 (07:16→19:12)
--- NOTE | 2021-09-10 07:35 | XR ---
EXAMINATION TYPE: XR chest 1V portable DATE OF EXAM: 09/10/2021 COMPARISON: Chest x-ray 09/09/2021 HISTORY: Postop cardiac surgery, chest tube TECHNIQUE: Single frontal view of the chest is obtained. FINDINGS: There is been interval removal of endotracheal and NG tube. Left-sided chest tube remains in place. Left jugular central venous catheter shows the distal tip at the level of the pulmonary art dia. Patient is post median sternotomy. Left-sided chest tube, median sternal drain again noted, mushtaq ent is status post left atrial appendage clip placement. Lung volumes are low and the patient is rota thony. Interstitium is increased. Patchy basilar density is present, there are overlying artifacts. No sizable pneumothorax. IMPRESSION: Correlate for interstitial edema, volume overload, basilar atelectasis. Interval extubat ion.
[2021-09-10 08:22] LABS: Glucose,Whole Blood 130 mg/dL (75-99)
[2021-09-10] MEDS ORDERED: ACETAMINOPHEN TAB 325 MG TAB PO PRN (08:28)
--- NOTE | 2021-09-10 08:30 | P.PN ---
Subjective Progress Note Date: 09/10/21 Principal diagnosis: Coronary artery disease, unstable angina, non-STEMI this admission. Previous medical history of ascending aortic aneurysm 4.3-4.4 cm stable for years, hypertension, hyperlipidemia-diet controlled, obesity, chronic ongoing tobacco dependence, severe COPD, bilateral carotid artery stenosis 50-69%, peptic ulcer disease. POD #1 off-pump CABG 3 with left internal mammary artery to the left anterior descending artery, left radial artery graft to the ANA, reverse saphenous vein graft to the PDA. Obliteration of the left atrial appendage with a 40 mm AtriCu re clip. Endoscopic vein harvesting of the left greater saphenous vein. Endovascular left radial artery harvest. Intraoperative transesophageal echocardiogram performed by anesthesia. The patient was seen and examined sitting up in a recliner in the intensive care unit in no acute distress. He was successfully extubated last night at 18:10. Currently in sinus rhythm with heart rate in the mid 60s, hemodynamically stable. Denies any pain or shortness of breath. Working on his incentive sp irometry and achieving 4958-4758 mL at a time. Currently on 5 L nasal cannula with oxygen saturation in the low to mid 90s. Remains on IV nitro and Cardizem for vessel spasm prophylaxis. Left internal jugular Ahmeek/Cordis, right radial arterial line, mediastinal/left pleural chest tubes all remain. No new concerns. Objective - Vital Signs Vital signs: Vital Signs Temp 98.4 F 09/09/21 19:08 Pulse 72 09/10/21 07:36 Resp 20 09/10/21 07:00 BP 98/58 09/10/21 06:00 Pulse Ox 90 L 09/10/21 07:00 Intake & Output 09/09/21 09/10/21 09/10/21 18:59 06:59 18:59 Intake Total 203.398 6283.208 454.54 Output Total 1065 1209 100 Balance -256.012 448.208 354.54 Weight 108.5 kg Intake: IV 776.5 1411.0 445.5 ACETAMINOPHEN IV (For NPO 100 100 ) 1,000 mg In Empty Bag 1 bag @ 400 mls/hr IVPB Q6HR JENNIE Rx#:[id number] Albumin Human 5% 250 ml 250 250 In Empty Bag 1 bag @ 250 mls/hr IVPB Q1HR PRN Rx#: [id number] CARDIAC OUTPUT (0.9 70 330 30 Sodium Chloride) Diltiazem 125 mg In 55 5 Sodium Chloride 0.9% 100 ml @ 5 MG/HR 5 mls/hr IV .Q24H [facility] Rx#:[id number] Lactated Ringers 1,000 ml 200 600 50 @ 20 mls/hr IV .Q24H JENNIE Rx#:[id number] Magnesium Sulfate 100 100 Nitroglycerin-D5w Pmx 50 7.5 18.0 1.5 mg In Dextrose/Water 1 250ml.bag @ 5 MCG/MIN 1.5 mls/hr IV .Q24H JENNIE Rx#: [id number] PRESSURE BAG (0.9 Sodium 45 108 9 Chloride) ceFAZolin 2 gm In Sodium 50 100 Chloride 0.9% 50 ml @ 100 mls/hr IVPB ONCE ONE Rx# :[id number] Intake, IV Titration 32.488 46.208 9.04 Amount Diltiazem 125 mg In 38.583 Sodium Chloride 0.9% 100 ml @ 5 MG/HR 5 mls/hr IV .Q24H [facility] Rx#:[id number] Insulin Regular 100 unit 7.625 9.04 In Sodium Chloride 0.9% 100 ml @ Per Protocol IV .Q0M JENNIE Rx#:[id number] propofoL 1,000 mg In 32.488 Empty Bag 1 bag @ Titrate IV .Q0M [facility] Rx#: [id number] Oral 200 Output: Chest Tube Drainage 410 860 70 Left Pleural/Mediastinal 410 860 70 Urine 155 349 30 Estimated Blood Loss 500 Other: Voiding Method Indwelling Catheter Indwelling Catheter ABP, PAP, CO, CI - Last Documented Arterial Blood Pressure 107/46 Pulmonary Artery Pressure 30/5 Cardiac Output 4.9 Cardiac Index 2.2 - Exam CONSTITUTIONAL: Appears comfortable, cooperative, no acute distress RESPIRATORY: Lungs sounds diminished bilaterally. Respirations even, nonlabored. Currently on 5 L nasal cannula with oxygen saturation 92%. Able to achieve 1642-9943 mL on incentive spirometry. Strong nonproductive cough. CARDIOVASCULAR: S1, S2 present. Regular rate and rhythm, sinus rhythm on tel emetry. Sternum stable. Palpable peripheral pulses bilaterally. No edema present. No calf pain or tenderness noted. Heart hugger in place with patient demonstrating appropriate use. Antiembolism stockings, SCDs present. GASTROINTESTINAL: Abdomen soft, nontender, nondistended. Hypoactive bowel sounds present 4 quadrants. Tolerating clear liquid. Negative flatus GENITOURINARY: Islas present draining clear, yellow urine. Output overnight 20-25 mL per hour INTEGUMENTARY: Skin is warm and dry with evidence of good perfusion. Anterior chest incision well approximated and covered with dry intact dressing. Left lower extremity EVH site as well as left radial artery harvest site well approximated without redness or drainage. NEUROLOGIC: Cranial nerves II through XII intact MUSKULOSKELETAL: Able to move all extremities, strength equal bilaterally PSYCHIATRIC: Alert and oriented to person place and time, appropriate affect, intact judgment and insight INVASIVE LINES AND TUBES: Mediastinal/left pleural chest tubes present and connected to wall suction, no air leaks present, 600 mL serosanguineous drainage overnight, 1350 mL since surgery. Left internal jugular Ahmeek/Cordis, right radial arterial line present. Last CO/CI 4.9/2.2, PA 30/9, CVP 5. - Labs CBC & Chem 7: 09/10/21 03:52 09/10/21 03:52 Labs: Abnormal Lab Results - Last 24 Hours (Table) 09/08/21 09/09/21 09/09/21 Range/Units 15:00 14:04 14:06 WBC (3.8-10.6) k/uL RBC 2.98 L (4.30-5.90) m/uL Hgb 9.4 L D (13.0-17.5) gm/dL Hct 28.1 L (39.0-53.0) % Plt Count 146 L (150-450) k/uL Neutrophils # 8.6 H (1.3-7.7) k/uL Lymphocytes # 0.7 L (1.0-4.8) k/uL PT (9.0-12.0) sec INR (<1.2) APTT (22.0-30.0) sec ABG pH (7.35-7.45) ABG pCO2 (35-45) mmHg ABG pO2 (83-108) mmHg ABG Total CO2 (19-24) mmol/L ABG O2 Saturation (94-97) % Chloride (98-107) mmol/L BUN (9-20) mg/dL Glucose (74-99) mg/dL POC Glucose (mg/dL) 122 H (75-99) mg/dL Calcium (8.4-10.2) mg/dL Alkaline Phosphatase (38-126) U/L Total Protein (6.3-8.2) g/dL Albumin (3.5-5.0) g/dL Crossmatch See Detail 09/09/21 09/09/21 09/09/21 Range/Units 14:06 14:06 14:23 WBC (3.8-10.6) k/uL RBC (4.30-5.90) m/uL Hgb (13.0-17.5) gm/dL Hct (39.0-53.0) % Plt Count (150-450) k/uL Neutrophils # (1.3-7.7) k/uL Lymphocytes # (1.0-4.8) k/uL PT 12.4 H (9.0-12.0) sec INR 1.2 H (<1.2) APTT 41.3 H (22.0-30.0) sec ABG pH 7.29 L (7.35-7.45) ABG pCO2 52 H (35-45) mmHg ABG pO2 185 H (83-108) mmHg ABG Total CO2 27 H (19-24) mmol/L ABG O2 Saturation 99.1 H (94-97) % Chloride (98-107) mmol/L BUN 8 L (9-20) mg/dL Glucose 109 H (74-99) mg/dL POC Glucose (mg/dL) (75-99) mg/dL Calcium 8.3 L (8.4-10.2) mg/dL Alkaline Phosphatase 32 L (38-126) U/L Total Protein 5.3 L (6.3-8.2) g/dL Albumin 3.3 L (3.5-5.0) g/dL Crossmatch 09/09/21 09/09/21 09/09/21 Range/Units 15:08 15:58 16:58 WBC (3.8-10.6) k/uL RBC (4.30-5.90) m/uL Hgb (13.0-17.5) gm/dL Hct (39.0-53.0) % Plt Count (150-450) k/uL Neutrophils # (1.3-7.7) k/uL Lymphocytes # (1.0-4.8) k/uL PT (9.0-12.0) sec INR (<1.2) APTT (22.0-30.0) sec ABG pH (7.35-7.45) ABG pCO2 (35-45) mmHg ABG pO2 (83-108) mmHg ABG Total CO2 (19-24) mmol/L ABG O2 Saturation (94-97) % Chloride (98-107) mmol/L BUN (9-20) mg/dL Glucose (74-99) mg/dL POC Glucose (mg/dL) 125 H 124 H 127 H (75-99) mg/dL Calcium (8.4-10.2) mg/dL Alkaline Phosphatase (38-126) U/L Total Protein (6.3-8.2) g/dL Albumin (3.5-5.0) g/dL Crossmatch 09/09/21 09/09/21 09/09/21 Range/Units 17:00 17:55 18:02 WBC 10.9 H (3.8-10.6) k/uL RBC 3.20 L (4.30-5.90) m/uL Hgb 9.9 L (13.0-17.5) gm/dL Hct 30.2 L (39.0-53.0) % Plt Count (150-450) k/uL Neutrophils # 9.0 H (1.3-7.7) k/uL Lymphocytes # (1.0-4.8) k/uL PT (9.0-12.0) sec INR (<1.2) APTT (22.0-30.0) sec ABG pH (7.35-7.45) ABG pCO2 (35-45) mmHg ABG pO2 (83-108) mmHg ABG Total CO2 (19-24) mmol/L ABG O2 Saturation 97.5 H (94-97) % Chloride (98-107) mmol/L BUN (9-20) mg/dL Glucose (74-99) mg/dL POC Glucose (mg/dL) 129 H (75-99) mg/dL Calcium (8.4-10.2) mg/dL Alkaline Phosphatase (38-126) U/L Total Protein (6.3-8.2) g/dL Albumin (3.5-5.0) g/dL Crossmatch 09/09/21 09/09/21 09/09/21 Range/Units 19:25 20:00 20:03 WBC (3.8-10.6) k/uL RBC 3.08 L (4.30-5.90) m/uL Hgb 9.7 L (13.0-17.5) gm/dL Hct 28.6 L (39.0-53.0) % Plt Count 130 L (150-450) k/uL Neutrophils # (1.3-7.7) k/uL Lymphocytes # 0.6 L (1.0-4.8) k/uL PT (9.0-12.0) sec INR (<1.2) APTT (22.0-30.0) sec ABG pH (7.35-7.45) ABG pCO2 (35-45) mmHg ABG pO2 (83-108) mmHg ABG Total CO2 (19-24) mmol/L ABG O2 Saturation (94-97) % Chloride (98-107) mmol/L BUN (9-20) mg/dL Glucose (74-99) mg/dL POC Glucose (mg/dL) 133 H 132 H (75-99) mg/dL Calcium (8.4-10.2) mg/dL Alkaline Phosphatase (38-126) U/L Total Protein (6.3-8.2) g/dL Albumin (3.5-5.0) g/dL Crossmatch 09/09/21 09/09/21 09/09/21 Range/Units 20:55 22:06 23:01 WBC (3.8-10.6) k/uL RBC (4.30-5.90) m/uL Hgb (13.0-17.5) gm/dL Hct (39.0-53.0) % Plt Count (150-450) k/uL Neutrophils # (1.3-7.7) k/uL Lymphocytes # (1.0-4.8) k/uL PT (9.0-12.0) sec INR (<1.2) APTT (22.0-30.0) sec ABG pH (7.35-7.45) ABG pCO2 (35-45) mmHg ABG pO2 (83-108) mmHg ABG Total CO2 (19-24) mmol/L ABG O2 Saturation (94-97) % Chloride (98-107) mmol/L BUN (9-20) mg/dL Glucose (74-99) mg/dL POC Glucose (mg/dL) 135 H 130 H 127 H (75-99) mg/dL Calcium (8.4-10.2) mg/dL Alkaline Phosphatase (38-126) U/L Total Protein (6.3-8.2) g/dL Albumin (3.5-5.0) g/dL Crossmatch 09/09/21 09/10/21 09/10/21 Range/Units 23:58 01:07 02:08 WBC (3.8-10.6) k/uL RBC (4.30-5.90) m/uL Hgb (13.0-17.5) gm/dL Hct (39.0-53.0) % Plt Count (150-450) k/uL Neutrophils # (1.3-7.7) k/uL Lymphocytes # (1.0-4.8) k/uL PT (9.0-12.0) sec INR (<1.2) APTT (22.0-30.0) sec ABG pH (7.35-7.45) ABG pCO2 (35-45) mmHg ABG pO2 (83-108) mmHg ABG Total CO2 (19-24) mmol/L ABG O2 Saturation (94-97) % Chloride (98-107) mmol/L BUN (9-20) mg/dL Glucose (74-99) mg/dL POC Glucose (mg/dL) 128 H 129 H 129 H (75-99) mg/dL Calcium (8.4-10.2) mg/dL Alkaline Phosphatase (38-126) U/L Total Protein (6.3-8.2) g/dL Albumin (3.5-5.0) g/dL Crossmatch 09/10/21 09/10/21 09/10/21 Range/Units 03:07 03:52 03:52 WBC (3.8-10.6) k/uL RBC 3.10 L (4.30-5.90) m/uL Hgb 9.7 L (13.0-17.5) gm/dL Hct 29.1 L (39.0-53.0) % Plt Count 134 L (150-450) k/uL Neutrophils # (1.3-7.7) k/uL Lymphocytes # 0.7 L (1.0-4.8) k/uL PT (9.0-12.0) sec INR (<1.2) APTT (22.0-30.0) sec ABG pH (7.35-7.45) ABG pCO2 (35-45) mmHg ABG pO2 (83-108) mmHg ABG Total CO2 (19-24) mmol/L ABG O2 Saturation (94-97) % Chloride 108 H (98-107) mmol/L BUN (9-20) mg/dL Glucose 117 H (74-99) mg/dL POC Glucose (mg/dL) 130 H (75-99) mg/dL Calcium 8.3 L (8.4-10.2) mg/dL Alkaline Phosphatase 33 L (38-126) U/L Total Protein 5.3 L (6.3-8.2) g/dL Albumin 3.3 L (3.5-5.0) g/dL Crossmatch 09/10/21 09/10/21 09/10/21 Range/Units 03:52 05:08 06:54 WBC (3.8-10.6) k/uL RBC (4.30-5.90) m/uL Hgb (13.0-17.5) gm/dL Hct (39.0-53.0) % Plt Count (150-450) k/uL Neutrophils # (1.3-7.7) k/uL Lymphocytes # (1.0-4.8) k/uL PT (9.0-12.0) sec INR (<1.2) APTT (22.0-30.0) sec ABG pH (7.35-7.45) ABG pCO2 (35-45) mmHg ABG pO2 (83-108) mmHg ABG Total CO2 (19-24) mmol/L ABG O2 Saturation (94-97) % Chloride (98-107) mmol/L BUN (9-20) mg/dL Glucose (74-99) mg/dL POC Glucose (mg/dL) 129 H 131 H 175 H (75-99) mg/dL Calcium (8.4-10.2) mg/dL Alkaline Phosphatase (38-126) U/L Total Protein (6.3-8.2) g/dL Albumin (3.5-5.0) g/dL Crossmatch - Imaging and Cardiology Chest x-ray: report reviewed, image reviewed Assessment and Plan Assessment: 1. Coronary artery disease, unstable angina, non-STEMI this admission, status post off-pump three-vessel CABG 2. History of ascending aortic aneurysm 4.3-4.4 cm stable for years 3. Hypertension 4. Hyperlipidemia-diet controlled, cholesterol 154, LDL 100, triglycerides 111 5. Obesity 6. Chronic ongoing tobacco dependence 7. Severe COPD, preoperative FEV1 39% of predicted 8. Bilateral carotid artery stenosis 50-69% 9. Peptic ulcer disease Plan: 1. Continue aspirin, statin, Plavix, beta hollis therapy. Will increase beta hollis therapy as tolerated. Discontinue IV nitro 2. Will initiate low-dose Norvasc for radial artery spasm prophylaxis, discontinue IV Cardizem after first oral dose given 3. Wean O2 as tolerated. Encourage incentive spirometry 10 times every hour while awake. Bronchodilators/inhaled steroids per pulmonology 4. Increase activity, ambulate as tolerated. PT/OT/cardiac rehab consulted 5. GI/DVT prophylaxis 6. Discontinue Ahmeek. Connect Cordis to continuous CVP monitoring 7. Pain control with current medication regimen 8. Insulin management per primary care service. The patient is not diabetic, preoperative hemoglobin A1c 5.2%, however he does need tight blood sugar control to prevent infection and promote healing 9. Will monitor daily labs and x-rays. Electrolyte replacement per protocol 10. Continue chest tubes for another 24 hours and monitor output 11. Continue Islas catheter for another 24 hours for strict accurate intake and output. Daily weights 12. More recommendations to follow based on patient's progress
[2021-09-10] MEDS: ATORVASTATIN 40 MG TAB PO SCH (08:33)
[2021-09-10] MEDS: CLOPIDOGREL 75 MG TAB PO SCH (08:33)
[2021-09-10] MEDS: ASPIRIN 325 MG TAB PO SCH (08:33)
[2021-09-10] MEDS: METOPROLOL TARTRATE 12.5 MG TAB PO SCH ×2 (08:33→20:08)
[2021-09-10] MEDS: HEPARIN SODIUM,PORCINE/PF 5,000 UNIT/0.5 ML SYRINGE SQ SCH ×2 (08:34→16:40)
[2021-09-10] MEDS ORDERED: bisacodyL 10 MG SUPP RECTAL PRN (09:00)
[2021-09-10] MEDS ORDERED: MAGNESIUM HYDROXIDE 2,400 MG/10 ML CUP PO PRN (09:00)
[2021-09-10] MEDS ORDERED: PANTOPRAZOLE 40 MG/10 ML VIAL IVP SCH (09:00)
[2021-09-10] MEDS ORDERED: amLODIPine 2.5 MG TAB PO SCH (09:00)
[2021-09-10 09:06] LABS: Glucose,Whole Blood 160 mg/dL (75-99)
--- NOTE | 2021-09-10 09:10 | P.PN ---
Subjective Progress Note Date: 09/10/21 Principal diagnosis: Possible bypass grafting. This is a 8-year-old white male patient with past medical history of hypertension, hyperlipidemia, GERD, nicotine dependence and ascending aortic aneurysm. Patient presented to the hospital on 09/06/2021 for evaluation of shortness of breath and cough. Patient reported almost a full day of chest pain on Sunday and which he thought was related to eating a steak. No fever or chills, no leg pain or swelling. Patient was found to have elevated troponins in the emergency department of 3.180, 2.990, 3.480, and 2.740. CBC was unremarkable, white count was normal, hemoglobin is 13, d-dimer was mildly elevated at 0.71, electrolytes and renal profile were unremarkable, lactic acid was 1, LFTs were within normal limits, proBNP was 2280. Urinalysis was negative, COVID-19 PCR was negative. EKG revealed sinus rhythm with diffuse ST depression. Chest x-ray shows some minimal pulmonary interstitial edema, no pleural fluid is seen to suggest heart failure. Patient was seen by cardiology, he was diagnosed with non-ST elevated myocardial infarction and heart catheterization was recommended. Heart Was completed showing three-vessel coronary artery disease with LAD of 60-70% stenosis with abnormal I have far at 0.81, diagonal 1 with 99% stenosis, mid circumflex with 100% stenosis, RCA with 60-70% stenosis, PLV with 90% stenosis and PDA with 50% stenosis, ration had a elevated left sided filling pressures and LVEDP of 23. She was referred to cardiothoracic surgery for evaluation of possibility of coronary artery bypass grafting. Currently undergoing preop evaluation for surgery. His ascending aortic aneurysm has been stable for years. Patient remains a current smoker, his preoperative FEV1 was 36% predicted and showed severe obstruction. Patient has smoked 2 packs a day for the past 55 years, does have exertional dyspnea, and a mild cough in the morning consistent with history of smoking. Patient also has history of Maher's esophagus, and he had a recent positive Cologuard test with the recommendation of follow-up colonoscopy. Gen. surgery has been consulted, and the plan is to proceed with EGD and colonoscopy tomorrow on 09/08/2021. Currently his vitals are stable, he is on 2 L of oxygen pulse ox of 98%, breathing comfortably, no fever, blood pressure stable. No complaints of chest discomfort. Ms. on heparin infusion per weight-based protocol, he is on aspirin, intensive dose of Lipitor 80 mg, metoprolol 25 mg twice daily. Progress note dated 09/08/2021. 71-year-old male is currently being evaluated for bypass surgery. The patient will be scheduled for a complete pulmonary function test. He apparently is not going to be discharged from the hospital, but rather stay in. The patient is scheduled to have an EGD and colonoscopy today. That's to evaluate a history of Maher's esophagus, duodenal ulcer, and a positive [place]-betzaida test. Currently, white count 6.8, hemoglobin 12.7, hematocrit 36.3, with a normal platelet count. Electrolytes look pretty good, with a CO2 level of 32. Everything else is normal. Progress note dated 09/09/2021. 71-year-old male, who is going to undergo bypass surgery today. The patient is a heavy smoker. I believe his lung function to be adequate to be able to tolerate surgery. The patient smoked 1-2 packs a day for about 54 years. In addition, there was some concerns about his GI tract, but apparently his EGD and colonoscopy turned out okay. White count 10.1, hemoglobin 9.4, hematocrit 28.1, and platelet count 146,000 PTT was 41.3. Sodium 138, potassium 4.4, chlorides 107, CO2 25, anion gap 6, BUN 8, creatinine 0.75. Progress note dated 09/10/2021. 71-year-old male postop day #1, status post off-pump three-vessel bypass grafting. The patient was extubated in less than 4 hours. Currently, the patient's doing well. He is currently on 5 L nasal cannula. Getting lactated Ringer's at 50 mL an hour insulin at 3 units an hour and Cardizem drip at 5 mg an hour. The patient does sitting up in the chair next to the bed. Looks very well. Laboratory data includes a white count of 9 hemoglobin 9.7 hematocrit 29.1 and platelet count 134,000. Sodium and potassium are normal chlorides 108 CO2 26 BUN 11 and creatinine of 0.74. Albumin is 3.3. Chest x-ray shows some basilar atelectasis, and mild interstitial edema. Objective - Vital Signs Vital signs: Vital Signs Temp 98.4 F 09/09/21 19:08 Pulse 72 09/10/21 07:36 Resp 20 09/10/21 07:00 BP 98/58 09/10/21 06:00 Pulse Ox 90 L 09/10/21 07:00 Intake & Output 09/09/21 09/10/21 09/10/21 18:59 06:59 18:59 Intake Total 305.661 0196.208 458.479 Output Total 1065 1209 100 Balance -256.012 448.208 358.479 Weight 108.5 kg Intake: IV 776.5 1411.0 445.5 ACETAMINOPHEN IV (For NPO 100 100 ) 1,000 mg In Empty Bag 1 bag @ 400 mls/hr IVPB Q6HR [facility] Rx#:[id number] Albumin Human 5% 250 ml 250 250 In Empty Bag 1 bag @ 250 mls/hr IVPB Q1HR PRN Rx#: [id number] CARDIAC OUTPUT (0.9 70 330 30 Sodium Chloride) Diltiazem 125 mg In 55 5 Sodium Chloride 0.9% 100 ml @ 5 MG/HR 5 mls/hr IV .Q24H [facility] Rx#:[id number] Lactated Ringers 1,000 ml 200 600 50 @ 20 mls/hr IV .Q24H [facility] Rx#:[id number] Magnesium Sulfate 100 100 Nitroglycerin-D5w Pmx 50 7.5 18.0 1.5 mg In Dextrose/Water 1 250ml.bag @ 5 MCG/MIN 1.5 mls/hr IV .Q24H [facility] Rx#: [id number] PRESSURE BAG (0.9 Sodium 45 108 9 Chloride) ceFAZolin 2 gm In Sodium 50 100 Chloride 0.9% 50 ml @ 100 mls/hr IVPB ONCE ONE Rx# :[id number] Intake, IV Titration 32.488 46.208 12.979 Amount Diltiazem 125 mg In 38.583 Sodium Chloride 0.9% 100 ml @ 5 MG/HR 5 mls/hr IV .Q24H [facility] Rx#:[id number] Insulin Regular 100 unit 7.625 12.979 In Sodium Chloride 0.9% 100 ml @ Per Protocol IV .Q0M [facility] Rx#:[id number] propofoL 1,000 mg In 32.488 Empty Bag 1 bag @ Titrate IV .Q0M [facility] Rx#: [id number] Oral 200 Output: Chest Tube Drainage 410 860 70 Left Pleural/Mediastinal 410 860 70 Urine 155 349 30 Estimated Blood Loss 500 Other: Voiding Method Indwelling Catheter Indwelling Catheter ABP, PAP, CO, CI - Last Documented Arterial Blood Pressure 107/46 Pulmonary Artery Pressure 30/5 Cardiac Output 4.9 Cardiac Index 2.2 - Exam No acute distress, oriented 3. No respiratory distress. Currently on 5 L nasal cannula. HEENT examination is grossly unremarkable. Neck supple. Full range of motion. No adenopathy thyromegaly or neck vein distention. Cardiovascular examination reveals regular rhythm rate. S1-S2 normal. No S3 or S4. No discernible murmur noted. Heart rate 72 bpm. Lungs reveal mostly clear breath sounds. Breath sounds are equal bilaterally. Mild scattered rhonchi. No wheezes or crackles. Saturations 92 %. Abdomen soft bowel sounds are heard. No masses or tenderness. Extremities are intact. No cyanosis clubbing or edema. Skin is without rash or lesion. Neurologic examination is brief but nonfocal. - Labs CBC & Chem 7: 09/10/21 03:52 09/10/21 03:52 Labs: Abnormal Lab Results - Last 24 Hours (Table) 09/08/21 09/09/21 09/09/21 Range/Units 15:00 14:04 14:06 WBC (3.8-10.6) k/uL RBC 2.98 L (4.30-5.90) m/uL Hgb 9.4 L D (13.0-17.5) gm/dL Hct 28.1 L (39.0-53.0) % Plt Count 146 L (150-450) k/uL Neutrophils # 8.6 H (1.3-7.7) k/uL Lymphocytes # 0.7 L (1.0-4.8) k/uL PT (9.0-12.0) sec INR (<1.2) APTT (22.0-30.0) sec ABG pH (7.35-7.45) ABG pCO2 (35-45) mmHg ABG pO2 (83-108) mmHg ABG Total CO2 (19-24) mmol/L ABG O2 Saturation (94-97) % Chloride (98-107) mmol/L BUN (9-20) mg/dL Glucose (74-99) mg/dL POC Glucose (mg/dL) 122 H (75-99) mg/dL Calcium (8.4-10.2) mg/dL Alkaline Phosphatase (38-126) U/L Total Protein (6.3-8.2) g/dL Albumin (3.5-5.0) g/dL Crossmatch See Detail 09/09/21 09/09/21 09/09/21 Range/Units 14:06 14:06 14:23 WBC (3.8-10.6) k/uL RBC (4.30-5.90) m/uL Hgb (13.0-17.5) gm/dL Hct (39.0-53.0) % Plt Count (150-450) k/uL Neutrophils # (1.3-7.7) k/uL Lymphocytes # (1.0-4.8) k/uL PT 12.4 H (9.0-12.0) sec INR 1.2 H (<1.2) APTT 41.3 H (22.0-30.0) sec ABG pH 7.29 L (7.35-7.45) ABG pCO2 52 H (35-45) mmHg ABG pO2 185 H (83-108) mmHg ABG Total CO2 27 H (19-24) mmol/L ABG O2 Saturation 99.1 H (94-97) % Chloride (98-107) mmol/L BUN 8 L (9-20) mg/dL Glucose 109 H (74-99) mg/dL POC Glucose (mg/dL) (75-99) mg/dL Calcium 8.3 L (8.4-10.2) mg/dL Alkaline Phosphatase 32 L (38-126) U/L Total Protein 5.3 L (6.3-8.2) g/dL Albumin 3.3 L (3.5-5.0) g/dL Crossmatch 09/09/21 09/09/21 09/09/21 Range/Units 15:08 15:58 16:58 WBC (3.8-10.6) k/uL RBC (4.30-5.90) m/uL Hgb (13.0-17.5) gm/dL Hct (39.0-53.0) % Plt Count (150-450) k/uL Neutrophils # (1.3-7.7) k/uL Lymphocytes # (1.0-4.8) k/uL PT (9.0-12.0) sec INR (<1.2) APTT (22.0-30.0) sec ABG pH (7.35-7.45) ABG pCO2 (35-45) mmHg ABG pO2 (83-108) mmHg ABG Total CO2 (19-24) mmol/L ABG O2 Saturation (94-97) % Chloride (98-107) mmol/L BUN (9-20) mg/dL Glucose (74-99) mg/dL POC Glucose (mg/dL) 125 H 124 H 127 H (75-99) mg/dL Calcium (8.4-10.2) mg/dL Alkaline Phosphatase (38-126) U/L Total Protein (6.3-8.2) g/dL Albumin (3.5-5.0) g/dL Crossmatch 09/09/21 09/09/21 09/09/21 Range/Units 17:00 17:55 18:02 WBC 10.9 H (3.8-10.6) k/uL RBC 3.20 L (4.30-5.90) m/uL Hgb 9.9 L (13.0-17.5) gm/dL Hct 30.2 L (39.0-53.0) % Plt Count (150-450) k/uL Neutrophils # 9.0 H (1.3-7.7) k/uL Lymphocytes # (1.0-4.8) k/uL PT (9.0-12.0) sec INR (<1.2) APTT (22.0-30.0) sec ABG pH (7.35-7.45) ABG pCO2 (35-45) mmHg ABG pO2 (83-108) mmHg ABG Total CO2 (19-24) mmol/L ABG O2 Saturation 97.5 H (94-97) % Chloride (98-107) mmol/L BUN (9-20) mg/dL Glucose (74-99) mg/dL POC Glucose (mg/dL) 129 H (75-99) mg/dL Calcium (8.4-10.2) mg/dL Alkaline Phosphatase (38-126) U/L Total Protein (6.3-8.2) g/dL Albumin (3.5-5.0) g/dL Crossmatch 09/09/21 09/09/21 09/09/21 Range/Units 19:25 20:00 20:03 WBC (3.8-10.6) k/uL RBC 3.08 L (4.30-5.90) m/uL Hgb 9.7 L (13.0-17.5) gm/dL Hct 28.6 L (39.0-53.0) % Plt Count 130 L (150-450) k/uL Neutrophils # (1.3-7.7) k/uL Lymphocytes # 0.6 L (1.0-4.8) k/uL PT (9.0-12.0) sec INR (<1.2) APTT (22.0-30.0) sec ABG pH (7.35-7.45) ABG pCO2 (35-45) mmHg ABG pO2 (83-108) mmHg ABG Total CO2 (19-24) mmol/L ABG O2 Saturation (94-97) % Chloride (98-107) mmol/L BUN (9-20) mg/dL Glucose (74-99) mg/dL POC Glucose (mg/dL) 133 H 132 H (75-99) mg/dL Calcium (8.4-10.2) mg/dL Alkaline Phosphatase (38-126) U/L Total Protein (6.3-8.2) g/dL Albumin (3.5-5.0) g/dL Crossmatch 09/09/21 09/09/21 09/09/21 Range/Units 20:55 22:06 23:01 WBC (3.8-10.6) k/uL RBC (4.30-5.90) m/uL Hgb (13.0-17.5) gm/dL Hct (39.0-53.0) % Plt Count (150-450) k/uL Neutrophils # (1.3-7.7) k/uL Lymphocytes # (1.0-4.8) k/uL PT (9.0-12.0) sec INR (<1.2) APTT (22.0-30.0) sec ABG pH (7.35-7.45) ABG pCO2 (35-45) mmHg ABG pO2 (83-108) mmHg ABG Total CO2 (19-24) mmol/L ABG O2 Saturation (94-97) % Chloride (98-107) mmol/L BUN (9-20) mg/dL Glucose (74-99) mg/dL POC Glucose (mg/dL) 135 H 130 H 127 H (75-99) mg/dL Calcium (8.4-10.2) mg/dL Alkaline Phosphatase (38-126) U/L Total Protein (6.3-8.2) g/dL Albumin (3.5-5.0) g/dL Crossmatch 09/09/21 09/10/21 09/10/21 Range/Units 23:58 01:07 02:08 WBC (3.8-10.6) k/uL RBC (4.30-5.90) m/uL Hgb (13.0-17.5) gm/dL Hct (39.0-53.0) % Plt Count (150-450) k/uL Neutrophils # (1.3-7.7) k/uL Lymphocytes # (1.0-4.8) k/uL PT (9.0-12.0) sec INR (<1.2) APTT (22.0-30.0) sec ABG pH (7.35-7.45) ABG pCO2 (35-45) mmHg ABG pO2 (83-108) mmHg ABG Total CO2 (19-24) mmol/L ABG O2 Saturation (94-97) % Chloride (98-107) mmol/L BUN (9-20) mg/dL Glucose (74-99) mg/dL POC Glucose (mg/dL) 128 H 129 H 129 H (75-99) mg/dL Calcium (8.4-10.2) mg/dL Alkaline Phosphatase (38-126) U/L Total Protein (6.3-8.2) g/dL Albumin (3.5-5.0) g/dL Crossmatch 09/10/21 09/10/21 09/10/21 Range/Units 03:07 03:52 03:52 WBC (3.8-10.6) k/uL RBC 3.10 L (4.30-5.90) m/uL Hgb 9.7 L (13.0-17.5) gm/dL Hct 29.1 L (39.0-53.0) % Plt Count 134 L (150-450) k/uL Neutrophils # (1.3-7.7) k/uL Lymphocytes # 0.7 L (1.0-4.8) k/uL PT (9.0-12.0) sec INR (<1.2) APTT (22.0-30.0) sec ABG pH (7.35-7.45) ABG pCO2 (35-45) mmHg ABG pO2 (83-108) mmHg ABG Total CO2 (19-24) mmol/L ABG O2 Saturation (94-97) % Chloride 108 H (98-107) mmol/L BUN (9-20) mg/dL Glucose 117 H (74-99) mg/dL POC Glucose (mg/dL) 130 H (75-99) mg/dL Calcium 8.3 L (8.4-10.2) mg/dL Alkaline Phosphatase 33 L (38-126) U/L Total Protein 5.3 L (6.3-8.2) g/dL Albumin 3.3 L (3.5-5.0) g/dL Crossmatch 09/10/21 09/10/21 09/10/21 Range/Units 03:52 05:08 06:54 WBC (3.8-10.6) k/uL RBC (4.30-5.90) m/uL Hgb (13.0-17.5) gm/dL Hct (39.0-53.0) % Plt Count (150-450) k/uL Neutrophils # (1.3-7.7) k/uL Lymphocytes # (1.0-4.8) k/uL PT (9.0-12.0) sec INR (<1.2) APTT (22.0-30.0) sec ABG pH (7.35-7.45) ABG pCO2 (35-45) mmHg ABG pO2 (83-108) mmHg ABG Total CO2 (19-24) mmol/L ABG O2 Saturation (94-97) % Chloride (98-107) mmol/L BUN (9-20) mg/dL Glucose (74-99) mg/dL POC Glucose (mg/dL) 129 H 131 H 175 H (75-99) mg/dL Calcium (8.4-10.2) mg/dL Alkaline Phosphatase (38-126) U/L Total Protein (6.3-8.2) g/dL Albumin (3.5-5.0) g/dL Crossmatch 09/10/21 Range/Units 08:20 WBC (3.8-10.6) k/uL RBC (4.30-5.90) m/uL Hgb (13.0-17.5) gm/dL Hct (39.0-53.0) % Plt Count (150-450) k/uL Neutrophils # (1.3-7.7) k/uL Lymphocytes # (1.0-4.8) k/uL PT (9.0-12.0) sec INR (<1.2) APTT (22.0-30.0) sec ABG pH (7.35-7.45) ABG pCO2 (35-45) mmHg ABG pO2 (83-108) mmHg ABG Total CO2 (19-24) mmol/L ABG O2 Saturation (94-97) % Chloride (98-107) mmol/L BUN (9-20) mg/dL Glucose (74-99) mg/dL POC Glucose (mg/dL) 130 H (75-99) mg/dL Calcium (8.4-10.2) mg/dL Alkaline Phosphatase (38-126) U/L Total Protein (6.3-8.2) g/dL Albumin (3.5-5.0) g/dL Crossmatch Assessment and Plan Assessment: Postop day #1, status post off-pump three-vessel bypass grafting. Acute non-ST segment elevation myocardial infarction, with anticipated bypass grafting. Multivessel coronary artery disease. COPD. Long-standing history of tobacco use, 54 years. Peptic ulcer disease. Ascending aortic aneurysm. Hypertension. Hyperlipidemia. GERD. History of Maher's esophagus. Plan: Plan dated 09/08/2021. The patient is doing rather well. We will continue to follow the patient make recommendations were appropriate. The patient's currently on 2 L. Because the patient will not be discharged, we will order a full PFT. Prognosis is guarded. The patient is scheduled for an EGD, and colonoscopy today. We will await those results. Plan dated 09/09/2021. The patient did have surgery today. Today's postop day #0. He had an off-pump 3 vessel bypass, GATES to LAD, left radial artery graft to PDA, and saphenous vein graft to PDA. In addition, he had obliteration of the left atrial appendage. The surgery was done by Dr. Guillen. Initial blood gases show pO2 of 185, pCO2 of 52, and pH is 7.29. The rate is increased from 12-16 breaths per minute. I've asked the nurse to tell respiratory to wean the FiO2. Additional recommendations and suggestions are forthcoming. Hopefully, we can get the patient extubated in a timely fashion. Plan dated 09/10/2021. The patient is doing very well. We will continue to follow and make recommendations where appropriate. Currently he is on 5 L. His also getting lactated Ringer's at 50 mL an hour, and an insulin drip at 3 units an hour. Chest x-ray, labs, and medications are all reviewed. The patient's prognosis is guarded. We will continue to follow the patient and make recommendations. We do recommend hourly use of incentive spirometer, updraft treatments, as well as deep breathing, coughing, clearing of secretions. Time with Patient: Greater than 30
[2021-09-10 10:10] LABS: Glucose,Whole Blood 125 mg/dL (75-99)
[2021-09-10 11:08] VITALS: BMI 33.3
--- NOTE | 2021-09-10 11:38 | P.PN ---
Subjective Progress Note Date: 09/10/21 The patient is a 71-year-old male currently admitted to the hospital for non-ST elevated myocardial infarction. 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 No postoperative complications to date. The patient was interviewed and examined sitting up in the recliner chair. He states he is feeling well this morning. Minimal sternal discomfort. No shortness of breath, palpitations, dizziness, or lightheadedness. GENERAL: Well-appearing, well-nourished and in no acute distress. NECK: Supple without JVD or thyromegaly. LUNGS: Breath sounds rhonchorous to auscultation bilaterally. Respiration equal and unlabored. HEART: Regular rate and rhythm without murmurs, rubs or gallops. S1 and S2 heard. EXTREMITIES: Normal range of motion, no edema. No clubbing or cyanosis. Peripheral pulses palpable. VITALS: Blood pressure 147/57, respiratory rate 22 pulse 76, SpO2 95% on 3 L nasal cannula TELEMETRY: Sinus mechanism. LABS: WBC 9.0, hemoglobin 9.7, hematocrit 29.1, platelet 134, sodium 137, potassium 4.1, BUN 11, creatinine 0.74, magnesium 1.9, AST 59, ALT 21, ALP 33 IMPRESSION: Non-ST elevated myocardial infarction, multivessel disease Status post CABG 3 Hypertension Dyslipidemia Nicotine dependence History of ascending aortic aneurysm PLAN: No additional recommendations from the cardiac standpoint Continue aggressive pulmonary hygiene Further recommendations will be based upon clinical course. I am dictating on behalf of Dr Alex Mckenzie's history/physical and assessment/plan. Objective - Vital Signs Vital signs: Vital Signs Temp 99.0 F 09/10/21 08:00 Pulse 68 09/10/21 11:22 Resp 22 09/10/21 11:00 BP 98/58 09/10/21 06:00 Pulse Ox 95 09/10/21 11:00 Intake & Output 09/09/21 09/10/21 09/10/21 18:59 06:59 18:59 Intake Total 373.587 9467.208 719.392 Output Total 1065 1209 360 Balance -256.012 448.208 359.392 Weight 108.5 kg 108.5 kg Intake: IV 776.5 1411.0 703.5 ACETAMINOPHEN IV (For NPO 100 100 ) 1,000 mg In Empty Bag 1 bag @ 400 mls/hr IVPB Q6HR [facility] Rx#:[id number] Albumin Human 5% 250 ml 250 250 In Empty Bag 1 bag @ 250 mls/hr IVPB Q1HR PRN Rx#: [id number] CARDIAC OUTPUT (0.9 70 330 60 Sodium Chloride) Diltiazem 125 mg In 55 15 Sodium Chloride 0.9% 100 ml @ 5 MG/HR 5 mls/hr IV .Q24H [facility] Rx#:[id number] Lactated Ringers 1,000 ml 200 600 250 @ 20 mls/hr IV .Q24H [facility] Rx#:[id number] Magnesium Sulfate 100 100 Nitroglycerin-D5w Pmx 50 7.5 18.0 1.5 mg In Dextrose/Water 1 250ml.bag @ 5 MCG/MIN 1.5 mls/hr IV .Q24H [facility] Rx#: [id number] PRESSURE BAG (0.9 Sodium 45 108 27 Chloride) ceFAZolin 2 gm In Sodium 50 100 Chloride 0.9% 50 ml @ 100 mls/hr IVPB ONCE ONE Rx# :[id number] Intake, IV Titration 32.488 46.208 15.892 Amount Diltiazem 125 mg In 38.583 Sodium Chloride 0.9% 100 ml @ 5 MG/HR 5 mls/hr IV .Q24H [facility] Rx#:[id number] Insulin Regular 100 unit 7.625 15.892 In Sodium Chloride 0.9% 100 ml @ Per Protocol IV .Q0M [facility] Rx#:[id number] propofoL 1,000 mg In 32.488 Empty Bag 1 bag @ Titrate IV .Q0M [facility] Rx#: [id number] Oral 200 Output: Chest Tube Drainage 410 860 230 Left Pleural/Mediastinal 410 860 230 Urine 155 349 130 Estimated Blood Loss 500 Other: Voiding Method Indwelling Catheter Indwelling Catheter ABP, PAP, CO, CI - Last Documented Arterial Blood Pressure 147/57 Pulmonary Artery Pressure 19/5 Cardiac Output 8.2 Cardiac Index 3.7 - Labs CBC & Chem 7: 09/10/21 03:52 09/10/21 03:52 Labs: Abnormal Lab Results - Last 24 Hours (Table) 09/08/21 09/09/21 09/09/21 Range/Units 15:00 14:04 14:06 WBC (3.8-10.6) k/uL RBC 2.98 L (4.30-5.90) m/uL Hgb 9.4 L D (13.0-17.5) gm/dL Hct 28.1 L (39.0-53.0) % Plt Count 146 L (150-450) k/uL Neutrophils # 8.6 H (1.3-7.7) k/uL Lymphocytes # 0.7 L (1.0-4.8) k/uL PT (9.0-12.0) sec INR (<1.2) APTT (22.0-30.0) sec ABG pH (7.35-7.45) ABG pCO2 (35-45) mmHg ABG pO2 (83-108) mmHg ABG Total CO2 (19-24) mmol/L ABG O2 Saturation (94-97) % Chloride (98-107) mmol/L BUN (9-20) mg/dL Glucose (74-99) mg/dL POC Glucose (mg/dL) 122 H (75-99) mg/dL Calcium (8.4-10.2) mg/dL Alkaline Phosphatase (38-126) U/L Total Protein (6.3-8.2) g/dL Albumin (3.5-5.0) g/dL Crossmatch See Detail 09/09/21 09/09/21 09/09/21 Range/Units 14:06 14:06 14:23 WBC (3.8-10.6) k/uL RBC (4.30-5.90) m/uL Hgb (13.0-17.5) gm/dL Hct (39.0-53.0) % Plt Count (150-450) k/uL Neutrophils # (1.3-7.7) k/uL Lymphocytes # (1.0-4.8) k/uL PT 12.4 H (9.0-12.0) sec INR 1.2 H (<1.2) APTT 41.3 H (22.0-30.0) sec ABG pH 7.29 L (7.35-7.45) ABG pCO2 52 H (35-45) mmHg ABG pO2 185 H (83-108) mmHg ABG Total CO2 27 H (19-24) mmol/L ABG O2 Saturation 99.1 H (94-97) % Chloride (98-107) mmol/L BUN 8 L (9-20) mg/dL Glucose 109 H (74-99) mg/dL POC Glucose (mg/dL) (75-99) mg/dL Calcium 8.3 L (8.4-10.2) mg/dL Alkaline Phosphatase 32 L (38-126) U/L Total Protein 5.3 L (6.3-8.2) g/dL Albumin 3.3 L (3.5-5.0) g/dL Crossmatch 09/09/21 09/09/21 09/09/21 Range/Units 15:08 15:58 16:58 WBC (3.8-10.6) k/uL RBC (4.30-5.90) m/uL Hgb (13.0-17.5) gm/dL Hct (39.0-53.0) % Plt Count (150-450) k/uL Neutrophils # (1.3-7.7) k/uL Lymphocytes # (1.0-4.8) k/uL PT (9.0-12.0) sec INR (<1.2) APTT (22.0-30.0) sec ABG pH (7.35-7.45) ABG pCO2 (35-45) mmHg ABG pO2 (83-108) mmHg ABG Total CO2 (19-24) mmol/L ABG O2 Saturation (94-97) % Chloride (98-107) mmol/L BUN (9-20) mg/dL Glucose (74-99) mg/dL POC Glucose (mg/dL) 125 H 124 H 127 H (75-99) mg/dL Calcium (8.4-10.2) mg/dL Alkaline Phosphatase (38-126) U/L Total Protein (6.3-8.2) g/dL Albumin (3.5-5.0) g/dL Crossmatch 09/09/21 09/09/21 09/09/21 Range/Units 17:00 17:55 18:02 WBC 10.9 H (3.8-10.6) k/uL RBC 3.20 L (4.30-5.90) m/uL Hgb 9.9 L (13.0-17.5) gm/dL Hct 30.2 L (39.0-53.0) % Plt Count (150-450) k/uL Neutrophils # 9.0 H (1.3-7.7) k/uL Lymphocytes # (1.0-4.8) k/uL PT (9.0-12.0) sec INR (<1.2) APTT (22.0-30.0) sec ABG pH (7.35-7.45) ABG pCO2 (35-45) mmHg ABG pO2 (83-108) mmHg ABG Total CO2 (19-24) mmol/L ABG O2 Saturation 97.5 H (94-97) % Chloride (98-107) mmol/L BUN (9-20) mg/dL Glucose (74-99) mg/dL POC Glucose (mg/dL) 129 H (75-99) mg/dL Calcium (8.4-10.2) mg/dL Alkaline Phosphatase (38-126) U/L Total Protein (6.3-8.2) g/dL Albumin (3.5-5.0) g/dL Crossmatch 09/09/21 09/09/21 09/09/21 Range/Units 19:25 20:00 20:03 WBC (3.8-10.6) k/uL RBC 3.08 L (4.30-5.90) m/uL Hgb 9.7 L (13.0-17.5) gm/dL Hct 28.6 L (39.0-53.0) % Plt Count 130 L (150-450) k/uL Neutrophils # (1.3-7.7) k/uL Lymphocytes # 0.6 L (1.0-4.8) k/uL PT (9.0-12.0) sec INR (<1.2) APTT (22.0-30.0) sec ABG pH (7.35-7.45) ABG pCO2 (35-45) mmHg ABG pO2 (83-108) mmHg ABG Total CO2 (19-24) mmol/L ABG O2 Saturation (94-97) % Chloride (98-107) mmol/L BUN (9-20) mg/dL Glucose (74-99) mg/dL POC Glucose (mg/dL) 133 H 132 H (75-99) mg/dL Calcium (8.4-10.2) mg/dL Alkaline Phosphatase (38-126) U/L Total Protein (6.3-8.2) g/dL Albumin (3.5-5.0) g/dL Crossmatch 09/09/21 09/09/21 09/09/21 Range/Units 20:55 22:06 23:01 WBC (3.8-10.6) k/uL RBC (4.30-5.90) m/uL Hgb (13.0-17.5) gm/dL Hct (39.0-53.0) % Plt Count (150-450) k/uL Neutrophils # (1.3-7.7) k/uL Lymphocytes # (1.0-4.8) k/uL PT (9.0-12.0) sec INR (<1.2) APTT (22.0-30.0) sec ABG pH (7.35-7.45) ABG pCO2 (35-45) mmHg ABG pO2 (83-108) mmHg ABG Total CO2 (19-24) mmol/L ABG O2 Saturation (94-97) % Chloride (98-107) mmol/L BUN (9-20) mg/dL Glucose (74-99) mg/dL POC Glucose (mg/dL) 135 H 130 H 127 H (75-99) mg/dL Calcium (8.4-10.2) mg/dL Alkaline Phosphatase (38-126) U/L Total Protein (6.3-8.2) g/dL Albumin (3.5-5.0) g/dL Crossmatch 09/09/21 09/10/21 09/10/21 Range/Units 23:58 01:07 02:08 WBC (3.8-10.6) k/uL RBC (4.30-5.90) m/uL Hgb (13.0-17.5) gm/dL Hct (39.0-53.0) % Plt Count (150-450) k/uL Neutrophils # (1.3-7.7) k/uL Lymphocytes # (1.0-4.8) k/uL PT (9.0-12.0) sec INR (<1.2) APTT (22.0-30.0) sec ABG pH (7.35-7.45) ABG pCO2 (35-45) mmHg ABG pO2 (83-108) mmHg ABG Total CO2 (19-24) mmol/L ABG O2 Saturation (94-97) % Chloride (98-107) mmol/L BUN (9-20) mg/dL Glucose (74-99) mg/dL POC Glucose (mg/dL) 128 H 129 H 129 H (75-99) mg/dL Calcium (8.4-10.2) mg/dL Alkaline Phosphatase (38-126) U/L Total Protein (6.3-8.2) g/dL Albumin (3.5-5.0) g/dL Crossmatch 09/10/21 09/10/21 09/10/21 Range/Units 03:07 03:52 03:52 WBC (3.8-10.6) k/uL RBC 3.10 L (4.30-5.90) m/uL Hgb 9.7 L (13.0-17.5) gm/dL Hct 29.1 L (39.0-53.0) % Plt Count 134 L (150-450) k/uL Neutrophils # (1.3-7.7) k/uL Lymphocytes # 0.7 L (1.0-4.8) k/uL PT (9.0-12.0) sec INR (<1.2) APTT (22.0-30.0) sec ABG pH (7.35-7.45) ABG pCO2 (35-45) mmHg ABG pO2 (83-108) mmHg ABG Total CO2 (19-24) mmol/L ABG O2 Saturation (94-97) % Chloride 108 H (98-107) mmol/L BUN (9-20) mg/dL Glucose 117 H (74-99) mg/dL POC Glucose (mg/dL) 130 H (75-99) mg/dL Calcium 8.3 L (8.4-10.2) mg/dL Alkaline Phosphatase 33 L (38-126) U/L Total Protein 5.3 L (6.3-8.2) g/dL Albumin 3.3 L (3.5-5.0) g/dL Crossmatch 09/10/21 09/10/21 09/10/21 Range/Units 03:52 05:08 06:54 WBC (3.8-10.6) k/uL RBC (4.30-5.90) m/uL Hgb (13.0-17.5) gm/dL Hct (39.0-53.0) % Plt Count (150-450) k/uL Neutrophils # (1.3-7.7) k/uL Lymphocytes # (1.0-4.8) k/uL PT (9.0-12.0) sec INR (<1.2) APTT (22.0-30.0) sec ABG pH (7.35-7.45) ABG pCO2 (35-45) mmHg ABG pO2 (83-108) mmHg ABG Total CO2 (19-24) mmol/L ABG O2 Saturation (94-97) % Chloride (98-107) mmol/L BUN (9-20) mg/dL Glucose (74-99) mg/dL POC Glucose (mg/dL) 129 H 131 H 175 H (75-99) mg/dL Calcium (8.4-10.2) mg/dL Alkaline Phosphatase (38-126) U/L Total Protein (6.3-8.2) g/dL Albumin (3.5-5.0) g/dL Crossmatch 09/10/21 09/10/21 09/10/21 Range/Units 08:20 09:05 10:08 WBC (3.8-10.6) k/uL RBC (4.30-5.90) m/uL Hgb (13.0-17.5) gm/dL Hct (39.0-53.0) % Plt Count (150-450) k/uL Neutrophils # (1.3-7.7) k/uL Lymphocytes # (1.0-4.8) k/uL PT (9.0-12.0) sec INR (<1.2) APTT (22.0-30.0) sec ABG pH (7.35-7.45) ABG pCO2 (35-45) mmHg ABG pO2 (83-108) mmHg ABG Total CO2 (19-24) mmol/L ABG O2 Saturation (94-97) % Chloride (98-107) mmol/L BUN (9-20) mg/dL Glucose (74-99) mg/dL POC Glucose (mg/dL) 130 H 160 H 125 H (75-99) mg/dL Calcium (8.4-10.2) mg/dL Alkaline Phosphatase (38-126) U/L Total Protein (6.3-8.2) g/dL Albumin (3.5-5.0) g/dL Crossmatch
[2021-09-10 12:09] LABS: Glucose,Whole Blood 130 mg/dL (75-99)
[2021-09-10 13:04] LABS: Glucose,Whole Blood 121 mg/dL (75-99)
--- NOTE | 2021-09-10 13:30 | P.PN ---
Subjective Progress Note Date: 09/10/21 Patient is doing well, postop day 1. On insulin drip at 1 unit per hour, sugars well-controlled. Saturating 95% on 4 L nasal cannula, blood pressure is 147/57, heart rate is in normal sinus rhythm at 72. He is on Dilt drip at 5. Lactated Ringer's at 20 Gen: awake, alert HEENT: normocephalic, atraumatic, good hearing acuity, moist mucous membranes Resp: good air exchange, breathing comfortably with no accessory muscle use CVS: good distal perfusion x 4, chest tubes x 2 GI: soft, NTTP, ND : no SPT, no CVAT, ahuja catheter is present MSK: no pitting edema, no clubbing Neuro: non-focal, moving all extremities Psych: cooperative, euthymic mood Assessment/plan: # NSTEMI - ACS- triple-vessel disease # essential hypertension # hyperlipidemia # coronary disease triple-vessel disease #History of peptic ulcer disease Plan: -Strict sugar control -Continue insulin -Cardiology, cardiothoracic, pulmonary conditions -Aspirin, statin, Plavix -Metoprolol -Dilt drip, amiodarone drip per CT surgery -Pain control -PT/OT Patient is full code DVT PPx with heparin Objective - Vital Signs Vital signs: Vital Signs Temp 99.0 F 09/10/21 08:00 Pulse 72 09/10/21 11:35 Resp 22 09/10/21 11:00 BP 98/58 09/10/21 06:00 Pulse Ox 95 09/10/21 11:00 Intake & Output 09/09/21 09/10/21 09/10/21 18:59 06:59 18:59 Intake Total 180.422 3416.208 719.392 Output Total 1065 1209 360 Balance -256.012 448.208 359.392 Weight 108.5 kg 108.5 kg Intake: IV 776.5 1411.0 703.5 ACETAMINOPHEN IV (For NPO 100 100 ) 1,000 mg In Empty Bag 1 bag @ 400 mls/hr IVPB Q6HR [facility] Rx#:[id number] Albumin Human 5% 250 ml 250 250 In Empty Bag 1 bag @ 250 mls/hr IVPB Q1HR PRN Rx#: [id number] CARDIAC OUTPUT (0.9 70 330 60 Sodium Chloride) Diltiazem 125 mg In 55 15 Sodium Chloride 0.9% 100 ml @ 5 MG/HR 5 mls/hr IV .Q24H [facility] Rx#:[id number] Lactated Ringers 1,000 ml 200 600 250 @ 20 mls/hr IV .Q24H [facility] Rx#:[id number] Magnesium Sulfate 100 100 Nitroglycerin-D5w Pmx 50 7.5 18.0 1.5 mg In Dextrose/Water 1 250ml.bag @ 5 MCG/MIN 1.5 mls/hr IV .Q24H [facility] Rx#: [id number] PRESSURE BAG (0.9 Sodium 45 108 27 Chloride) ceFAZolin 2 gm In Sodium 50 100 Chloride 0.9% 50 ml @ 100 mls/hr IVPB ONCE ONE Rx# :[id number] Intake, IV Titration 32.488 46.208 15.892 Amount Diltiazem 125 mg In 38.583 Sodium Chloride 0.9% 100 ml @ 5 MG/HR 5 mls/hr IV .Q24H [facility] Rx#:[id number] Insulin Regular 100 unit 7.625 15.892 In Sodium Chloride 0.9% 100 ml @ Per Protocol IV .Q0M [facility] Rx#:[id number] propofoL 1,000 mg In 32.488 Empty Bag 1 bag @ Titrate IV .Q0M [facility] Rx#: [id number] Oral 200 Output: Chest Tube Drainage 410 860 230 Left Pleural/Mediastinal 410 860 230 Urine 155 349 130 Estimated Blood Loss 500 Other: Voiding Method Indwelling Catheter Indwelling Catheter ABP, PAP, CO, CI - Last Documented Arterial Blood Pressure 147/57 Pulmonary Artery Pressure 19/5 Cardiac Output 8.2 Cardiac Index 3.7 - Labs CBC & Chem 7: 09/10/21 03:52 09/10/21 03:52 Labs: Abnormal Lab Results - Last 24 Hours (Table) 09/08/21 09/09/21 09/09/21 Range/Units 15:00 14:04 14:06 WBC (3.8-10.6) k/uL RBC 2.98 L (4.30-5.90) m/uL Hgb 9.4 L D (13.0-17.5) gm/dL Hct 28.1 L (39.0-53.0) % Plt Count 146 L (150-450) k/uL Neutrophils # 8.6 H (1.3-7.7) k/uL Lymphocytes # 0.7 L (1.0-4.8) k/uL PT (9.0-12.0) sec INR (<1.2) APTT (22.0-30.0) sec ABG pH (7.35-7.45) ABG pCO2 (35-45) mmHg ABG pO2 (83-108) mmHg ABG Total CO2 (19-24) mmol/L ABG O2 Saturation (94-97) % Chloride (98-107) mmol/L BUN (9-20) mg/dL Glucose (74-99) mg/dL POC Glucose (mg/dL) 122 H (75-99) mg/dL Calcium (8.4-10.2) mg/dL Alkaline Phosphatase (38-126) U/L Total Protein (6.3-8.2) g/dL Albumin (3.5-5.0) g/dL Crossmatch See Detail 09/09/21 09/09/21 09/09/21 Range/Units 14:06 14:06 14:23 WBC (3.8-10.6) k/uL RBC (4.30-5.90) m/uL Hgb (13.0-17.5) gm/dL Hct (39.0-53.0) % Plt Count (150-450) k/uL Neutrophils # (1.3-7.7) k/uL Lymphocytes # (1.0-4.8) k/uL PT 12.4 H (9.0-12.0) sec INR 1.2 H (<1.2) APTT 41.3 H (22.0-30.0) sec ABG pH 7.29 L (7.35-7.45) ABG pCO2 52 H (35-45) mmHg ABG pO2 185 H (83-108) mmHg ABG Total CO2 27 H (19-24) mmol/L ABG O2 Saturation 99.1 H (94-97) % Chloride (98-107) mmol/L BUN 8 L (9-20) mg/dL Glucose 109 H (74-99) mg/dL POC Glucose (mg/dL) (75-99) mg/dL Calcium 8.3 L (8.4-10.2) mg/dL Alkaline Phosphatase 32 L (38-126) U/L Total Protein 5.3 L (6.3-8.2) g/dL Albumin 3.3 L (3.5-5.0) g/dL Crossmatch 09/09/21 09/09/21 09/09/21 Range/Units 15:08 15:58 16:58 WBC (3.8-10.6) k/uL RBC (4.30-5.90) m/uL Hgb (13.0-17.5) gm/dL Hct (39.0-53.0) % Plt Count (150-450) k/uL Neutrophils # (1.3-7.7) k/uL Lymphocytes # (1.0-4.8) k/uL PT (9.0-12.0) sec INR (<1.2) APTT (22.0-30.0) sec ABG pH (7.35-7.45) ABG pCO2 (35-45) mmHg ABG pO2 (83-108) mmHg ABG Total CO2 (19-24) mmol/L ABG O2 Saturation (94-97) % Chloride (98-107) mmol/L BUN (9-20) mg/dL Glucose (74-99) mg/dL POC Glucose (mg/dL) 125 H 124 H 127 H (75-99) mg/dL Calcium (8.4-10.2) mg/dL Alkaline Phosphatase (38-126) U/L Total Protein (6.3-8.2) g/dL Albumin (3.5-5.0) g/dL Crossmatch 09/09/21 09/09/21 09/09/21 Range/Units 17:00 17:55 18:02 WBC 10.9 H (3.8-10.6) k/uL RBC 3.20 L (4.30-5.90) m/uL Hgb 9.9 L (13.0-17.5) gm/dL Hct 30.2 L (39.0-53.0) % Plt Count (150-450) k/uL Neutrophils # 9.0 H (1.3-7.7) k/uL Lymphocytes # (1.0-4.8) k/uL PT (9.0-12.0) sec INR (<1.2) APTT (22.0-30.0) sec ABG pH (7.35-7.45) ABG pCO2 (35-45) mmHg ABG pO2 (83-108) mmHg ABG Total CO2 (19-24) mmol/L ABG O2 Saturation 97.5 H (94-97) % Chloride (98-107) mmol/L BUN (9-20) mg/dL Glucose (74-99) mg/dL POC Glucose (mg/dL) 129 H (75-99) mg/dL Calcium (8.4-10.2) mg/dL Alkaline Phosphatase (38-126) U/L Total Protein (6.3-8.2) g/dL Albumin (3.5-5.0) g/dL Crossmatch 09/09/21 09/09/21 09/09/21 Range/Units 19:25 20:00 20:03 WBC (3.8-10.6) k/uL RBC 3.08 L (4.30-5.90) m/uL Hgb 9.7 L (13.0-17.5) gm/dL Hct 28.6 L (39.0-53.0) % Plt Count 130 L (150-450) k/uL Neutrophils # (1.3-7.7) k/uL Lymphocytes # 0.6 L (1.0-4.8) k/uL PT (9.0-12.0) sec INR (<1.2) APTT (22.0-30.0) sec ABG pH (7.35-7.45) ABG pCO2 (35-45) mmHg ABG pO2 (83-108) mmHg ABG Total CO2 (19-24) mmol/L ABG O2 Saturation (94-97) % Chloride (98-107) mmol/L BUN (9-20) mg/dL Glucose (74-99) mg/dL POC Glucose (mg/dL) 133 H 132 H (75-99) mg/dL Calcium (8.4-10.2) mg/dL Alkaline Phosphatase (38-126) U/L Total Protein (6.3-8.2) g/dL Albumin (3.5-5.0) g/dL Crossmatch 09/09/21 09/09/21 09/09/21 Range/Units 20:55 22:06 23:01 WBC (3.8-10.6) k/uL RBC (4.30-5.90) m/uL Hgb (13.0-17.5) gm/dL Hct (39.0-53.0) % Plt Count (150-450) k/uL Neutrophils # (1.3-7.7) k/uL Lymphocytes # (1.0-4.8) k/uL PT (9.0-12.0) sec INR (<1.2) APTT (22.0-30.0) sec ABG pH (7.35-7.45) ABG pCO2 (35-45) mmHg ABG pO2 (83-108) mmHg ABG Total CO2 (19-24) mmol/L ABG O2 Saturation (94-97) % Chloride (98-107) mmol/L BUN (9-20) mg/dL Glucose (74-99) mg/dL POC Glucose (mg/dL) 135 H 130 H 127 H (75-99) mg/dL Calcium (8.4-10.2) mg/dL Alkaline Phosphatase (38-126) U/L Total Protein (6.3-8.2) g/dL Albumin (3.5-5.0) g/dL Crossmatch 09/09/21 09/10/21 09/10/21 Range/Units 23:58 01:07 02:08 WBC (3.8-10.6) k/uL RBC (4.30-5.90) m/uL Hgb (13.0-17.5) gm/dL Hct (39.0-53.0) % Plt Count (150-450) k/uL Neutrophils # (1.3-7.7) k/uL Lymphocytes # (1.0-4.8) k/uL PT (9.0-12.0) sec INR (<1.2) APTT (22.0-30.0) sec ABG pH (7.35-7.45) ABG pCO2 (35-45) mmHg ABG pO2 (83-108) mmHg ABG Total CO2 (19-24) mmol/L ABG O2 Saturation (94-97) % Chloride (98-107) mmol/L BUN (9-20) mg/dL Glucose (74-99) mg/dL POC Glucose (mg/dL) 128 H 129 H 129 H (75-99) mg/dL Calcium (8.4-10.2) mg/dL Alkaline Phosphatase (38-126) U/L Total Protein (6.3-8.2) g/dL Albumin (3.5-5.0) g/dL Crossmatch 09/10/21 09/10/21 09/10/21 Range/Units 03:07 03:52 03:52 WBC (3.8-10.6) k/uL RBC 3.10 L (4.30-5.90) m/uL Hgb 9.7 L (13.0-17.5) gm/dL Hct 29.1 L (39.0-53.0) % Plt Count 134 L (150-450) k/uL Neutrophils # (1.3-7.7) k/uL Lymphocytes # 0.7 L (1.0-4.8) k/uL PT (9.0-12.0) sec INR (<1.2) APTT (22.0-30.0) sec ABG pH (7.35-7.45) ABG pCO2 (35-45) mmHg ABG pO2 (83-108) mmHg ABG Total CO2 (19-24) mmol/L ABG O2 Saturation (94-97) % Chloride 108 H (98-107) mmol/L BUN (9-20) mg/dL Glucose 117 H (74-99) mg/dL POC Glucose (mg/dL) 130 H (75-99) mg/dL Calcium 8.3 L (8.4-10.2) mg/dL Alkaline Phosphatase 33 L (38-126) U/L Total Protein 5.3 L (6.3-8.2) g/dL Albumin 3.3 L (3.5-5.0) g/dL Crossmatch 09/10/21 09/10/21 09/10/21 Range/Units 03:52 05:08 06:54 WBC (3.8-10.6) k/uL RBC (4.30-5.90) m/uL Hgb (13.0-17.5) gm/dL Hct (39.0-53.0) % Plt Count (150-450) k/uL Neutrophils # (1.3-7.7) k/uL Lymphocytes # (1.0-4.8) k/uL PT (9.0-12.0) sec INR (<1.2) APTT (22.0-30.0) sec ABG pH (7.35-7.45) ABG pCO2 (35-45) mmHg ABG pO2 (83-108) mmHg ABG Total CO2 (19-24) mmol/L ABG O2 Saturation (94-97) % Chloride (98-107) mmol/L BUN (9-20) mg/dL Glucose (74-99) mg/dL POC Glucose (mg/dL) 129 H 131 H 175 H (75-99) mg/dL Calcium (8.4-10.2) mg/dL Alkaline Phosphatase (38-126) U/L Total Protein (6.3-8.2) g/dL Albumin (3.5-5.0) g/dL Crossmatch 09/10/21 09/10/21 09/10/21 Range/Units 08:20 09:05 10:08 WBC (3.8-10.6) k/uL RBC (4.30-5.90) m/uL Hgb (13.0-17.5) gm/dL Hct (39.0-53.0) % Plt Count (150-450) k/uL Neutrophils # (1.3-7.7) k/uL Lymphocytes # (1.0-4.8) k/uL PT (9.0-12.0) sec INR (<1.2) APTT (22.0-30.0) sec ABG pH (7.35-7.45) ABG pCO2 (35-45) mmHg ABG pO2 (83-108) mmHg ABG Total CO2 (19-24) mmol/L ABG O2 Saturation (94-97) % Chloride (98-107) mmol/L BUN (9-20) mg/dL Glucose (74-99) mg/dL POC Glucose (mg/dL) 130 H 160 H 125 H (75-99) mg/dL Calcium (8.4-10.2) mg/dL Alkaline Phosphatase (38-126) U/L Total Protein (6.3-8.2) g/dL Albumin (3.5-5.0) g/dL Crossmatch 09/10/21 09/10/21 Range/Units 12:07 13:02 WBC (3.8-10.6) k/uL RBC (4.30-5.90) m/uL Hgb (13.0-17.5) gm/dL Hct (39.0-53.0) % Plt Count (150-450) k/uL Neutrophils # (1.3-7.7) k/uL Lymphocytes # (1.0-4.8) k/uL PT (9.0-12.0) sec INR (<1.2) APTT (22.0-30.0) sec ABG pH (7.35-7.45) ABG pCO2 (35-45) mmHg ABG pO2 (83-108) mmHg ABG Total CO2 (19-24) mmol/L ABG O2 Saturation (94-97) % Chloride (98-107) mmol/L BUN (9-20) mg/dL Glucose (74-99) mg/dL POC Glucose (mg/dL) 130 H 121 H (75-99) mg/dL Calcium (8.4-10.2) mg/dL Alkaline Phosphatase (38-126) U/L Total Protein (6.3-8.2) g/dL Albumin (3.5-5.0) g/dL Crossmatch
[2021-09-10 15:16] LABS: Glucose,Whole Blood 134 mg/dL (75-99)
[2021-09-10 16:34] LABS: Glucose,Whole Blood 114 mg/dL (75-99)
[2021-09-10] MEDS: PANTOPRAZOLE 40 MG TABLET PO SCH (16:40)
[2021-09-10] MEDS: LACTATED RINGERS 1,000 ML IV SCH ×2 (16:44→18:34)
[2021-09-10 18:42] LABS: Glucose,Whole Blood 151 mg/dL (75-99)
[2021-09-10 19:59] LABS: Glucose,Whole Blood 143 mg/dL (75-99)
[2021-09-10] MEDS: SENNOSIDES-DOCUSATE SODIUM 1 EACH TAB PO SCH (20:08)
[2021-09-10 21:11] LABS: Glucose,Whole Blood 117 mg/dL (75-99)
[2021-09-10] MEDS ORDERED: FUROSEMIDE 10 MG/ML 2 ML VIAL IV ONE (21:16)
[2021-09-10 22:04] LABS: Glucose,Whole Blood 119 mg/dL (75-99)
[2021-09-11] MEDS: KETOROLAC 15 MG/ML 1 ML VIAL IVP SCH ×4 (00:10→17:40)
[2021-09-11] MEDS: HEPARIN SODIUM,PORCINE/PF 5,000 UNIT/0.5 ML SYRINGE SQ SCH ×3 (00:10→16:32)
[2021-09-11 00:15] LABS: Glucose,Whole Blood 134 mg/dL (75-99)
[2021-09-11 01:55] LABS: Glucose,Whole Blood 131 mg/dL (75-99)
[2021-09-11 04:17] LABS: Glucose,Whole Blood 127 mg/dL (75-99)
[2021-09-11 04:48] LABS: Basophils % (A) 0 %; Eosinophils # (A) 0.1 k/uL (0-0.7); Eosinophils % (A) 1 %; HCT 29.3 % (39.0-53.0); HGB 9.8 gm/dL (13.0-17.5); Lymphocytes # (A) 0.9 k/uL (1.0-4.8); Lymphocytes % (A) 11 %; MCH 31.5 pg (25.0-35.0); MCHC 33.6 g/dL (31.0-37.0); MCV 93.8 fL (80.0-100.0); Mean Platelet Volume 8.5; Monocytes # (A) 0.6 k/uL (0-1.0); Monocytes % (A) 8 %; Neutrophils # (A) 6.2 k/uL (1.3-7.7); Neutrophils % (A) 78 %; Platelet Count 148 k/uL (150-450); RBC 3.12 m/uL (4.30-5.90); RDW 12.4 % (11.5-15.5); WBC 7.9 k/uL (3.8-10.6)
[2021-09-11 05:10] LABS: Ionized Calcium 4.9 mg/dL (4.5-5.3)
[2021-09-11 05:19] LABS: ALT 18 U/L (4-49); AST 54 U/L (17-59); African American GFR (CKD) >90 (>60 ml/min/1.73 sqM); Albumin 2.9 g/dL (3.5-5.0); Alkaline Phosphatase 41 U/L (38-126); Anion Gap 5 mmol/L; Blood Urea Nitrogen 15 mg/dL (9-20); Carbon Dioxide 24 mmol/L (22-30); Chloride 106 mmol/L (98-107); Glucose 105 mg/dL (74-99); Non-African American GFR(CKD) 89 (>60 ml/min/1.73 sqM); Potassium 3.7 mmol/L (3.5-5.1); Sodium 135 mmol/L (137-145); Total Bilirubin 1.3 mg/dL (0.2-1.3)
[2021-09-11 06:08] LABS: Glucose,Whole Blood 109 mg/dL (75-99)
[2021-09-11] MEDS: PANTOPRAZOLE 40 MG TABLET PO SCH ×2 (06:47→17:41)
--- NOTE | 2021-09-11 07:12 | XR ---
EXAMINATION TYPE: XR chest 1V portable DATE OF EXAM: 09/11/2021 5:53 AM COMPARISON: Chest radiograph from one day prior. TECHNIQUE: XR chest 1V portable Frontal view of the chest. CLINICAL INDICATION:Male, 71 years old with history of Post Operative Cardiac Surgery; FINDINGS: Lungs/Pleura: There is no evidence of pleural effusion, focal consolidation, or pneumothorax. Pulmonary vascularity: Pulmonary vascular congestion. Heart/mediastinum: Cardiomediastinal silhouette is enlarged and stable. Atrial appendage occlusion d evices present. Musculoskeletal: No acute osseous pathology. Midline sternotomy wires are noted and stable. Lines/Tubes: Left thoracotomy tube is present without evidence of pneumothorax. IMPRESSION: 1. Left thoracotomy tube without large pneumothorax. 2. Similar Cardiomegaly and mild pulmonary vascular congestion.
[2021-09-11] MEDS: BUDESONIDE 1 MG/2 ML NEBU INHALATION SCH ×2 (07:17→18:59)
[2021-09-11] MEDS: IPRATROPIUM-ALBUTEROL 3 ML NEB INHALATION SCH ×4 (07:17→18:59)
[2021-09-11] MEDS ORDERED: PANTOPRAZOLE 40 MG TABLET PO SCH (07:30)
[2021-09-11] MEDS ORDERED: Potassium Replacement Protocol 1 EACH MISC MISCELLANE PRN (07:50)
[2021-09-11 08:23] LABS: Glucose,Whole Blood 132 mg/dL (75-99)
--- NOTE | 2021-09-11 08:28 | P.PN ---
Subjective Progress Note Date: 09/11/21 Principal diagnosis: Coronary artery disease, unstable angina, non-STEMI this admission. Previous medical history of ascending aortic aneurysm 4.3-4.4 cm stable for years, hypertension, hyperlipidemia-diet controlled, obesity, chronic ongoing tobacco dependence, severe COPD, bilateral carotid artery stenosis 50-69%, peptic ulcer disease. POD #2 off-pump CABG 3 with left internal mammary artery to the left anterior descending artery, left radial artery graft to the ANA, reverse saphenous vein graft to the PDA. Obliteration of the left atrial appendage with a 40 mm AtriCu re clip. Endoscopic vein harvesting of the left greater saphenous vein. Endovascular left radial artery harvest. Intraoperative transesophageal echocardiogram performed by anesthesia. The patient was seen and examined sitting up in a recliner in the intensive care unit in no acute distress. Remains in sinus rhythm with heart rate in the 70- 80s, hemodynamically stable. Denies any pain or shortness of breath. Working on his incentive spirometry and achieving 1500 mL at a time. Currently on 2 L nasal cannula with oxygen saturation in the low to mid 90s. Left internal jugular Cordis, right radial arterial line, mediastinal/left pleural chest tubes all remain. Patient ambulate in the hallway yesterday without difficulty. No new concerns. Objective - Vital Signs Vital signs: Vital Signs Temp 97.7 F 09/11/21 04:00 Pulse 74 09/11/21 07:35 Resp 12 09/11/21 07:00 BP 110/70 09/11/21 07:00 Pulse Ox 94 L 09/11/21 07:00 Intake & Output 09/10/21 09/11/21 09/11/21 18:59 06:59 18:59 Intake Total 1035.839 548.494 66 Output Total 785 855 160 Balance 250.839 -306.506 -94 Weight 108.5 kg 112.4 kg Intake: IV 1013.5 426 66 Albumin Human 5% 250 ml 250 In Empty Bag 1 bag @ 250 mls/hr IVPB Q1HR PRN Rx#: [id number] CARDIAC OUTPUT (0.9 60 Sodium Chloride) Diltiazem 125 mg In 15 Sodium Chloride 0.9% 100 ml @ 5 MG/HR 5 mls/hr IV .Q24H [facility] Rx#:[id number] Lactated Ringers 1,000 ml 560 360 60 @ 20 mls/hr IV .Q24H [facility] Rx#:[id number] Magnesium Sulfate 100 Nitroglycerin-D5w Pmx 50 1.5 mg In Dextrose/Water 1 250ml.bag @ 5 MCG/MIN 1.5 mls/hr IV .Q24H [facility] Rx#: [id number] PRESSURE BAG (0.9 Sodium 27 66 6 Chloride) Intake, IV Titration 22.339 122.494 Amount Diltiazem 125 mg In 111.25 Sodium Chloride 0.9% 100 ml @ 5 MG/HR 5 mls/hr IV .Q24H [facility] Rx#:[id number] Insulin Regular 100 unit 22.339 11.244 In Sodium Chloride 0.9% 100 ml @ Per Protocol IV .Q0M [facility] Rx#:[id number] Output: Chest Tube Drainage 490 365 50 Left Pleural/Mediastinal 490 365 50 Urine 295 490 110 Other: Voiding Method Indwelling Catheter Indwelling Catheter ABP, PAP, CO, CI - Last Documented Arterial Blood Pressure 110/60 Pulmonary Artery Pressure 19/5 Cardiac Output 8.2 Cardiac Index 3.7 - Exam CONSTITUTIONAL: Appears comfortable, cooperative, no acute distress RESPIRATORY: Lungs sounds diminished bilaterally. Respirations even, nonlabored. Currently on 2 L nasal cannula with oxygen saturation 94%. Able to achieve 1500 mL on incentive spirometry. Strong nonproductive cough. CARDIOVASCULAR: S1, S2 present. Regular rate and rhythm, sinus rhythm on telemetry. Sternum stable. Palpable peripheral pulses bilaterally. No edema present. No calf pain or tenderness noted. Heart hugger in place with patient demonstrating appropriate use. Antiembolism stockings, SCDs present. GASTROINTESTINAL: Abdomen soft, nontender, nondistended. Hypoactive bowel sounds present 4 quadrants. Tolerating diet. Negative flatus GENITOURINARY: Islas present draining clear, yellow urine. Output overnight 25-60 mL per hour, 785 mL in the last 24 hours INTEGUMENTARY: Skin is warm and dry with evidence of good perfusion. Anterior chest incision well approximated and covered with dry intact dressing. Left lower extremity EVH site as well as left radial artery harvest site well approximated without redness or drainage. NEUROLOGIC: Cranial nerves II through XII intact MUSKULOSKELETAL: Able to move all extremities, strength equal bilaterally PSYCHIATRIC: Alert and oriented to person place and time, appropriate affect, intact judgment and insight INVASIVE LINES AND TUBES: Mediastinal/left pleural chest tubes present and connected to wall suction, no air leaks present, 250 mL serosanguineous drainage overnight, 790 mL in the last 24 hours. Left internal jugular Cordis, right radial arterial line present. - Labs CBC & Chem 7: 09/11/21 04:15 09/11/21 04:15 Labs: Abnormal Lab Results - Last 24 Hours (Table) 09/10/21 09/10/21 09/10/21 Range/Units 09:05 10:08 12:07 RBC (4.30-5.90) m/uL Hgb (13.0-17.5) gm/dL Hct (39.0-53.0) % Plt Count (150-450) k/uL Lymphocytes # (1.0-4.8) k/uL Sodium (137-145) mmol/L Glucose (74-99) mg/dL POC Glucose (mg/dL) 160 H 125 H 130 H (75-99) mg/dL Calcium (8.4-10.2) mg/dL Total Protein (6.3-8.2) g/dL Albumin (3.5-5.0) g/dL 09/10/21 09/10/21 09/10/21 Range/Units 13:02 15:14 16:33 RBC (4.30-5.90) m/uL Hgb (13.0-17.5) gm/dL Hct (39.0-53.0) % Plt Count (150-450) k/uL Lymphocytes # (1.0-4.8) k/uL Sodium (137-145) mmol/L Glucose (74-99) mg/dL POC Glucose (mg/dL) 121 H 134 H 114 H (75-99) mg/dL Calcium (8.4-10.2) mg/dL Total Protein (6.3-8.2) g/dL Albumin (3.5-5.0) g/dL 09/10/21 09/10/21 09/10/21 Range/Units 18:40 19:58 21:10 RBC (4.30-5.90) m/uL Hgb (13.0-17.5) gm/dL Hct (39.0-53.0) % Plt Count (150-450) k/uL Lymphocytes # (1.0-4.8) k/uL Sodium (137-145) mmol/L Glucose (74-99) mg/dL POC Glucose (mg/dL) 151 H 143 H 117 H (75-99) mg/dL Calcium (8.4-10.2) mg/dL Total Protein (6.3-8.2) g/dL Albumin (3.5-5.0) g/dL 09/10/21 09/11/21 09/11/21 Range/Units 22:03 00:14 01:54 RBC (4.30-5.90) m/uL Hgb (13.0-17.5) gm/dL Hct (39.0-53.0) % Plt Count (150-450) k/uL Lymphocytes # (1.0-4.8) k/uL Sodium (137-145) mmol/L Glucose (74-99) mg/dL POC Glucose (mg/dL) 119 H 134 H 131 H (75-99) mg/dL Calcium (8.4-10.2) mg/dL Total Protein (6.3-8.2) g/dL Albumin (3.5-5.0) g/dL 09/11/21 09/11/21 09/11/21 Range/Units 04:15 04:15 04:15 RBC 3.12 L (4.30-5.90) m/uL Hgb 9.8 L (13.0-17.5) gm/dL Hct 29.3 L (39.0-53.0) % Plt Count 148 L (150-450) k/uL Lymphocytes # 0.9 L (1.0-4.8) k/uL Sodium 135 L (137-145) mmol/L Glucose 105 H (74-99) mg/dL POC Glucose (mg/dL) 127 H (75-99) mg/dL Calcium 8.0 L (8.4-10.2) mg/dL Total Protein 5.0 L (6.3-8.2) g/dL Albumin 2.9 L (3.5-5.0) g/dL 09/11/21 Range/Units 06:07 RBC (4.30-5.90) m/uL Hgb (13.0-17.5) gm/dL Hct (39.0-53.0) % Plt Count (150-450) k/uL Lymphocytes # (1.0-4.8) k/uL Sodium (137-145) mmol/L Glucose (74-99) mg/dL POC Glucose (mg/dL) 109 H (75-99) mg/dL Calcium (8.4-10.2) mg/dL Total Protein (6.3-8.2) g/dL Albumin (3.5-5.0) g/dL - Imaging and Cardiology Chest x-ray: report reviewed, image reviewed Assessment and Plan Assessment: 1. Coronary artery disease, unstable angina, non-STEMI this admission, status post off-pump three-vessel CABG 2. History of ascending aortic aneurysm 4.3-4.4 cm stable for years 3. Hypertension 4. Hyperlipidemia-diet controlled, cholesterol 154, LDL 100, triglycerides 111 5. Obesity 6. Chronic ongoing tobacco dependence 7. Severe COPD, preoperative FEV1 39% of predicted 8. Bilateral carotid artery stenosis 50-69% 9. Peptic ulcer disease Plan: 1. Continue aspirin, statin, Plavix, beta hollis therapy. Will increase beta hollis therapy as tolerated, increase to 25 mg twice daily today. 2. Continue low-dose Norvasc for radial artery spasm prophylaxis 3. Wean O2 as tolerated. Encourage incentive spirometry 10 times every hour while awake. Bronchodilators/inhaled steroids per pulmonology 4. Increase activity, ambulate as tolerated. PT/OT/cardiac rehab consulted 5. GI/DVT prophylaxis 6. Discontinue arterial line as it is not functioning, unable to draw blood back. Continue Cordis for another 24 hours 7. Pain control with current medication regimen 8. Insulin management per primary care service. The patient is not diabetic, preoperative hemoglobin A1c 5.2%, however he does need tight blood sugar control to prevent infection and promote healing 9. Will monitor daily labs and x-rays. Electrolyte replacement per protocol 10. Mediastinal chest tube discontinued without incident, will keep left pleural chest tube for another 24 hours and monitor drainage 11. Discontinue Islas catheter. May bladder scan and straight cath for greater than 300 mL residual 12. Strict accurate intake and output. Daily weights 13. More recommendations to follow based on patient's progress
[2021-09-11] MEDS ORDERED: POTASSIUM CHLORIDE ER 20 MEQ TAB.ER PO SCH (08:30)
[2021-09-11] MEDS: CLOPIDOGREL 75 MG TAB PO SCH (08:32)
[2021-09-11] MEDS: ASPIRIN 325 MG TAB PO SCH (08:33)
[2021-09-11] MEDS: ATORVASTATIN 40 MG TAB PO SCH (08:33)
[2021-09-11] MEDS: METOPROLOL TARTRATE 25 MG TAB PO SCH ×2 (08:33→20:28)
[2021-09-11 10:20] LABS: Glucose,Whole Blood 106 mg/dL (75-99)
--- NOTE | 2021-09-11 10:51 | P.PN ---
Subjective Progress Note Date: 09/11/21 Patient is doing well, postop day 1. On insulin drip at 1 unit per hour, sugars well-controlled. Saturating 95% on 4 L nasal cannula, blood pressure is 147/57, heart rate is in normal sinus rhythm at 72. He is on Dilt drip at 5. Lactated Ringer's at 20 Gen: awake, alert HEENT: normocephalic, atraumatic, good hearing acuity, moist mucous membranes Resp: good air exchange, breathing comfortably with no accessory muscle use CVS: good distal perfusion x 4, chest tubes x 2 GI: soft, NTTP, ND : no SPT, no CVAT, ahuja catheter is present MSK: no pitting edema, no clubbing Neuro: non-focal, moving all extremities Psych: cooperative, euthymic mood Assessment/plan: # NSTEMI - ACS- triple-vessel disease # essential hypertension # hyperlipidemia # coronary disease triple-vessel disease #History of peptic ulcer disease Plan: -Strict sugar control -Continue insulin, ACHS + SSI -Cardiology, cardiothoracic, pulmonary conditions -Aspirin, statin, Plavix -Metoprolol -Dilt drip, amiodarone drip per CT surgery -Pain control -PT/OT Patient is full code DVT PPx with heparin Objective - Vital Signs Vital signs: Vital Signs Temp 98.2 F 09/11/21 08:00 Pulse 74 09/11/21 10:00 Resp 23 09/11/21 10:00 BP 115/65 09/11/21 10:00 Pulse Ox 97 09/11/21 10:00 Intake & Output 09/10/21 09/11/21 09/11/21 18:59 06:59 18:59 Intake Total 1035.839 548.494 127.986 Output Total 785 855 265 Balance 250.839 -306.506 -137.014 Weight 108.5 kg 112.4 kg Intake: IV 1013.5 426 126 Albumin Human 5% 250 ml 250 In Empty Bag 1 bag @ 250 mls/hr IVPB Q1HR PRN Rx#: [id number] CARDIAC OUTPUT (0.9 60 Sodium Chloride) Diltiazem 125 mg In 15 Sodium Chloride 0.9% 100 ml @ 5 MG/HR 5 mls/hr IV .Q24H [facility] Rx#:[id number] Lactated Ringers 1,000 ml 560 360 120 @ 20 mls/hr IV .Q24H [facility] Rx#:[id number] Magnesium Sulfate 100 Nitroglycerin-D5w Pmx 50 1.5 mg In Dextrose/Water 1 250ml.bag @ 5 MCG/MIN 1.5 mls/hr IV .Q24H [facility] Rx#: [id number] PRESSURE BAG (0.9 Sodium 27 66 6 Chloride) Intake, IV Titration 22.339 122.494 1.986 Amount Diltiazem 125 mg In 111.25 Sodium Chloride 0.9% 100 ml @ 5 MG/HR 5 mls/hr IV .Q24H [facility] Rx#:[id number] Insulin Regular 100 unit 22.339 11.244 1.986 In Sodium Chloride 0.9% 100 ml @ Per Protocol IV .Q0M [facility] Rx#:[id number] Output: Chest Tube Drainage 490 365 70 Left Pleural/Mediastinal 490 365 70 Urine 295 490 195 Other: Voiding Method Indwelling Catheter Indwelling Catheter ABP, PAP, CO, CI - Last Documented Arterial Blood Pressure 104/64 Pulmonary Artery Pressure 19/5 Cardiac Output 8.2 Cardiac Index 3.7 - Labs CBC & Chem 7: 09/11/21 04:15 09/11/21 04:15 Labs: Abnormal Lab Results - Last 24 Hours (Table) 09/10/21 09/10/21 09/10/21 Range/Units 12:07 13:02 15:14 RBC (4.30-5.90) m/uL Hgb (13.0-17.5) gm/dL Hct (39.0-53.0) % Plt Count (150-450) k/uL Lymphocytes # (1.0-4.8) k/uL Sodium (137-145) mmol/L Glucose (74-99) mg/dL POC Glucose (mg/dL) 130 H 121 H 134 H (75-99) mg/dL Calcium (8.4-10.2) mg/dL Total Protein (6.3-8.2) g/dL Albumin (3.5-5.0) g/dL 09/10/21 09/10/21 09/10/21 Range/Units 16:33 18:40 19:58 RBC (4.30-5.90) m/uL Hgb (13.0-17.5) gm/dL Hct (39.0-53.0) % Plt Count (150-450) k/uL Lymphocytes # (1.0-4.8) k/uL Sodium (137-145) mmol/L Glucose (74-99) mg/dL POC Glucose (mg/dL) 114 H 151 H 143 H (75-99) mg/dL Calcium (8.4-10.2) mg/dL Total Protein (6.3-8.2) g/dL Albumin (3.5-5.0) g/dL 09/10/21 09/10/21 09/11/21 Range/Units 21:10 22:03 00:14 RBC (4.30-5.90) m/uL Hgb (13.0-17.5) gm/dL Hct (39.0-53.0) % Plt Count (150-450) k/uL Lymphocytes # (1.0-4.8) k/uL Sodium (137-145) mmol/L Glucose (74-99) mg/dL POC Glucose (mg/dL) 117 H 119 H 134 H (75-99) mg/dL Calcium (8.4-10.2) mg/dL Total Protein (6.3-8.2) g/dL Albumin (3.5-5.0) g/dL 09/11/21 09/11/21 09/11/21 Range/Units 01:54 04:15 04:15 RBC 3.12 L (4.30-5.90) m/uL Hgb 9.8 L (13.0-17.5) gm/dL Hct 29.3 L (39.0-53.0) % Plt Count 148 L (150-450) k/uL Lymphocytes # 0.9 L (1.0-4.8) k/uL Sodium 135 L (137-145) mmol/L Glucose 105 H (74-99) mg/dL POC Glucose (mg/dL) 131 H (75-99) mg/dL Calcium 8.0 L (8.4-10.2) mg/dL Total Protein 5.0 L (6.3-8.2) g/dL Albumin 2.9 L (3.5-5.0) g/dL 09/11/21 09/11/21 09/11/21 Range/Units 04:15 06:07 08:21 RBC (4.30-5.90) m/uL Hgb (13.0-17.5) gm/dL Hct (39.0-53.0) % Plt Count (150-450) k/uL Lymphocytes # (1.0-4.8) k/uL Sodium (137-145) mmol/L Glucose (74-99) mg/dL POC Glucose (mg/dL) 127 H 109 H 132 H (75-99) mg/dL Calcium (8.4-10.2) mg/dL Total Protein (6.3-8.2) g/dL Albumin (3.5-5.0) g/dL 09/11/21 Range/Units 10:19 RBC (4.30-5.90) m/uL Hgb (13.0-17.5) gm/dL Hct (39.0-53.0) % Plt Count (150-450) k/uL Lymphocytes # (1.0-4.8) k/uL Sodium (137-145) mmol/L Glucose (74-99) mg/dL POC Glucose (mg/dL) 106 H (75-99) mg/dL Calcium (8.4-10.2) mg/dL Total Protein (6.3-8.2) g/dL Albumin (3.5-5.0) g/dL
--- NOTE | 2021-09-11 11:39 | P.PN ---
Subjective Progress Note Date: 09/11/21 The patient is a 71-year-old male currently admitted to the hospital for non-ST elevated myocardial infarction. 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 No postoperative complications to date. The patient was interviewed and examined resting comfortably in bed. He states he did well overnight and is looking forward to getting back into the recliner chair. Minimal sternal discomfort. No shortness of breath, palpitations, dizziness, or lightheadedness. GENERAL: Well-appearing, well-nourished and in no acute distress. NECK: Supple without JVD or thyromegaly. LUNGS: Breath sounds diminished to auscultation bilaterally. Respiration equal and unlabored. HEART: Regular rate and rhythm without murmurs, rubs or gallops. S1 and S2 heard. EXTREMITIES: Normal range of motion, no edema. No clubbing or cyanosis. Peripheral pulses palpable. VITALS: Blood pressure 118/68, pulse 82, respiratory rate 15, 96% on 2 L TELEMETRY: Sinus mechanism. No ectopy overnight LABS: WBC 7.9, hemoglobin 9.8, hematocrit 29.3, platelet 140, sodium 135, potassium 3.7, BUN 15, creatinine 0.82, AST 54, ALT 18, ALP 41 IMPRESSION: Non-ST elevated myocardial infarction, multivessel disease Status post CABG 3 Hypertension Dyslipidemia Nicotine dependence History of ascending aortic aneurysm PLAN: No additional recommendations from the cardiac standpoint Continue aggressive pulmonary hygiene and supportive care Transfer to floor when recommended by CV surgery I am dictating on behalf of Dr Alex Mckenzie's history/physical and assessment/plan. Objective - Vital Signs Vital signs: Vital Signs Temp 98.2 F 09/11/21 08:00 Pulse 74 09/11/21 10:00 Resp 23 09/11/21 10:00 BP 115/65 09/11/21 10:00 Pulse Ox 97 09/11/21 10:00 Intake & Output 09/10/21 09/11/21 09/11/21 18:59 06:59 18:59 Intake Total 1035.839 548.494 127.986 Output Total 785 855 265 Balance 250.839 -306.506 -137.014 Weight 108.5 kg 112.4 kg Intake: IV 1013.5 426 126 Albumin Human 5% 250 ml 250 In Empty Bag 1 bag @ 250 mls/hr IVPB Q1HR PRN Rx#: [id number] CARDIAC OUTPUT (0.9 60 Sodium Chloride) Diltiazem 125 mg In 15 Sodium Chloride 0.9% 100 ml @ 5 MG/HR 5 mls/hr IV .Q24H [facility] Rx#:[id number] Lactated Ringers 1,000 ml 560 360 120 @ 20 mls/hr IV .Q24H [facility] Rx#:[id number] Magnesium Sulfate 100 Nitroglycerin-D5w Pmx 50 1.5 mg In Dextrose/Water 1 250ml.bag @ 5 MCG/MIN 1.5 mls/hr IV .Q24H [facility] Rx#: [id number] PRESSURE BAG (0.9 Sodium 27 66 6 Chloride) Intake, IV Titration 22.339 122.494 1.986 Amount Diltiazem 125 mg In 111.25 Sodium Chloride 0.9% 100 ml @ 5 MG/HR 5 mls/hr IV .Q24H [facility] Rx#:[id number] Insulin Regular 100 unit 22.339 11.244 1.986 In Sodium Chloride 0.9% 100 ml @ Per Protocol IV .Q0M [facility] Rx#:[id number] Output: Chest Tube Drainage 490 365 70 Left Pleural/Mediastinal 490 365 70 Urine 295 490 195 Other: Voiding Method Indwelling Catheter Indwelling Catheter ABP, PAP, CO, CI - Last Documented Arterial Blood Pressure 104/64 Pulmonary Artery Pressure 19/5 Cardiac Output 8.2 Cardiac Index 3.7 - Labs CBC & Chem 7: 09/11/21 04:15 09/11/21 04:15 Labs: Abnormal Lab Results - Last 24 Hours (Table) 09/10/21 09/10/21 09/10/21 Range/Units 12:07 13:02 15:14 RBC (4.30-5.90) m/uL Hgb (13.0-17.5) gm/dL Hct (39.0-53.0) % Plt Count (150-450) k/uL Lymphocytes # (1.0-4.8) k/uL Sodium (137-145) mmol/L Glucose (74-99) mg/dL POC Glucose (mg/dL) 130 H 121 H 134 H (75-99) mg/dL Calcium (8.4-10.2) mg/dL Total Protein (6.3-8.2) g/dL Albumin (3.5-5.0) g/dL 09/10/21 09/10/21 09/10/21 Range/Units 16:33 18:40 19:58 RBC (4.30-5.90) m/uL Hgb (13.0-17.5) gm/dL Hct (39.0-53.0) % Plt Count (150-450) k/uL Lymphocytes # (1.0-4.8) k/uL Sodium (137-145) mmol/L Glucose (74-99) mg/dL POC Glucose (mg/dL) 114 H 151 H 143 H (75-99) mg/dL Calcium (8.4-10.2) mg/dL Total Protein (6.3-8.2) g/dL Albumin (3.5-5.0) g/dL 09/10/21 09/10/21 09/11/21 Range/Units 21:10 22:03 00:14 RBC (4.30-5.90) m/uL Hgb (13.0-17.5) gm/dL Hct (39.0-53.0) % Plt Count (150-450) k/uL Lymphocytes # (1.0-4.8) k/uL Sodium (137-145) mmol/L Glucose (74-99) mg/dL POC Glucose (mg/dL) 117 H 119 H 134 H (75-99) mg/dL Calcium (8.4-10.2) mg/dL Total Protein (6.3-8.2) g/dL Albumin (3.5-5.0) g/dL 09/11/21 09/11/21 09/11/21 Range/Units 01:54 04:15 04:15 RBC 3.12 L (4.30-5.90) m/uL Hgb 9.8 L (13.0-17.5) gm/dL Hct 29.3 L (39.0-53.0) % Plt Count 148 L (150-450) k/uL Lymphocytes # 0.9 L (1.0-4.8) k/uL Sodium 135 L (137-145) mmol/L Glucose 105 H (74-99) mg/dL POC Glucose (mg/dL) 131 H (75-99) mg/dL Calcium 8.0 L (8.4-10.2) mg/dL Total Protein 5.0 L (6.3-8.2) g/dL Albumin 2.9 L (3.5-5.0) g/dL 09/11/21 09/11/21 09/11/21 Range/Units 04:15 06:07 08:21 RBC (4.30-5.90) m/uL Hgb (13.0-17.5) gm/dL Hct (39.0-53.0) % Plt Count (150-450) k/uL Lymphocytes # (1.0-4.8) k/uL Sodium (137-145) mmol/L Glucose (74-99) mg/dL POC Glucose (mg/dL) 127 H 109 H 132 H (75-99) mg/dL Calcium (8.4-10.2) mg/dL Total Protein (6.3-8.2) g/dL Albumin (3.5-5.0) g/dL 09/11/21 Range/Units 10:19 RBC (4.30-5.90) m/uL Hgb (13.0-17.5) gm/dL Hct (39.0-53.0) % Plt Count (150-450) k/uL Lymphocytes # (1.0-4.8) k/uL Sodium (137-145) mmol/L Glucose (74-99) mg/dL POC Glucose (mg/dL) 106 H (75-99) mg/dL Calcium (8.4-10.2) mg/dL Total Protein (6.3-8.2) g/dL Albumin (3.5-5.0) g/dL
[2021-09-11] MEDS: amLODIPine 2.5 MG TAB PO SCH (11:49)
--- NOTE | 2021-09-11 11:55 | P.PN ---
Subjective Progress Note Date: 09/11/21 Principal diagnosis: Possible bypass grafting. This is a 8-year-old white male patient with past medical history of hypertension, hyperlipidemia, GERD, nicotine dependence and ascending aortic aneurysm. Patient presented to the hospital on 09/06/2021 for evaluation of shortness of breath and cough. Patient reported almost a full day of chest pain on Sunday and which he thought was related to eating a steak. No fever or chills, no leg pain or swelling. Patient was found to have elevated troponins in the emergency department of 3.180, 2.990, 3.480, and 2.740. CBC was unremarkable, white count was normal, hemoglobin is 13, d-dimer was mildly elevated at 0.71, electrolytes and renal profile were unremarkable, lactic acid was 1, LFTs were within normal limits, proBNP was 2280. Urinalysis was negative, COVID-19 PCR was negative. EKG revealed sinus rhythm with diffuse ST depression. Chest x-ray shows some minimal pulmonary interstitial edema, no pleural fluid is seen to suggest heart failure. Patient was seen by cardiology, he was diagnosed with non-ST elevated myocardial infarction and heart catheterization was recommended. Heart Was completed showing three-vessel coronary artery disease with LAD of 60-70% stenosis with abnormal I have far at 0.81, diagonal 1 with 99% stenosis, mid circumflex with 100% stenosis, RCA with 60-70% stenosis, PLV with 90% stenosis and PDA with 50% stenosis, ration had a elevated left sided filling pressures and LVEDP of 23. She was referred to cardiothoracic surgery for evaluation of possibility of coronary artery bypass grafting. Currently undergoing preop evaluation for surgery. His ascending aortic aneurysm has been stable for years. Patient remains a current smoker, his preoperative FEV1 was 36% predicted and showed severe obstruction. Patient has smoked 2 packs a day for the past 55 years, does have exertional dyspnea, and a mild cough in the morning consistent with history of smoking. Patient also has history of Maher's esophagus, and he had a recent positive Cologuard test with the recommendation of follow-up colonoscopy. Gen. surgery has been consulted, and the plan is to proceed with EGD and colonoscopy tomorrow on 09/08/2021. Currently his vitals are stable, he is on 2 L of oxygen pulse ox of 98%, breathing comfortably, no fever, blood pressure stable. No complaints of chest discomfort. Ms. on heparin infusion per weight-based protocol, he is on aspirin, intensive dose of Lipitor 80 mg, metoprolol 25 mg twice daily. Progress note dated 09/08/2021. 71-year-old male is currently being evaluated for bypass surgery. The patient will be scheduled for a complete pulmonary function test. He apparently is not going to be discharged from the hospital, but rather stay in. The patient is scheduled to have an EGD and colonoscopy today. That's to evaluate a history of Maher's esophagus, duodenal ulcer, and a positive Edison-betzaida test. Currently, white count 6.8, hemoglobin 12.7, hematocrit 36.3, with a normal platelet count. Electrolytes look pretty good, with a CO2 level of 32. Everything else is normal. Progress note dated 09/09/2021. 71-year-old male, who is going to undergo bypass surgery today. The patient is a heavy smoker. I believe his lung function to be adequate to be able to tolerate surgery. The patient smoked 1-2 packs a day for about 54 years. In addition, there was some concerns about his GI tract, but apparently his EGD and colonoscopy turned out okay. White count 10.1, hemoglobin 9.4, hematocrit 28.1, and platelet count 146,000 PTT was 41.3. Sodium 138, potassium 4.4, chlorides 107, CO2 25, anion gap 6, BUN 8, creatinine 0.75. Progress note dated 09/10/2021. 71-year-old male postop day #1, status post off-pump three-vessel bypass grafting. The patient was extubated in less than 4 hours. Currently, the patient's doing well. He is currently on 5 L nasal cannula. Getting lactated Ringer's at 50 mL an hour insulin at 3 units an hour and Cardizem drip at 5 mg an hour. The patient does sitting up in the chair next to the bed. Looks very well. Laboratory data includes a white count of 9 hemoglobin 9.7 hematocrit 29.1 and platelet count 134,000. Sodium and potassium are normal chlorides 108 CO2 26 BUN 11 and creatinine of 0.74. Albumin is 3.3. Chest x-ray shows some basilar atelectasis, and mild interstitial edema. Progress note dated 09/11/2021. 71-year-old male, who is postop day #2, status post op I'll three-vessel bypass grafting. The patient's doing well. She remains on lactated Ringer's at 30 mL an hour, and an insulin drip at 1 unit per hour. Patient's on 2 L nasal cannula. His chest x-ray shows bibasilar atelectasis. White count 7.9, hemoglobin 9.8, hematocrit 29.3, and platelet count 148,000. Sodium 135, potassium 3.7, chlorides 106, CO2 24, BUN 15, and creatinine 0.84. Albumin is 2.9. Objective - Vital Signs Vital signs: Vital Signs Temp 98.2 F 09/11/21 08:00 Pulse 82 09/11/21 11:00 Resp 15 09/11/21 11:00 BP 118/68 09/11/21 11:00 Pulse Ox 96 09/11/21 11:00 Intake & Output 09/10/21 09/11/21 09/11/21 18:59 06:59 18:59 Intake Total 1035.839 548.494 127.986 Output Total 785 855 265 Balance 250.839 -306.506 -137.014 Weight 108.5 kg 112.4 kg Intake: IV 1013.5 426 126 Albumin Human 5% 250 ml 250 In Empty Bag 1 bag @ 250 mls/hr IVPB Q1HR PRN Rx#: [id number] CARDIAC OUTPUT (0.9 60 Sodium Chloride) Diltiazem 125 mg In 15 Sodium Chloride 0.9% 100 ml @ 5 MG/HR 5 mls/hr IV .Q24H JENNIE Rx#:[id number] Lactated Ringers 1,000 ml 560 360 120 @ 20 mls/hr IV .Q24H JENNIE Rx#:[id number] Magnesium Sulfate 100 Nitroglycerin-D5w Pmx 50 1.5 mg In Dextrose/Water 1 250ml.bag @ 5 MCG/MIN 1.5 mls/hr IV .Q24H JENNIE Rx#: [id number] PRESSURE BAG (0.9 Sodium 27 66 6 Chloride) Intake, IV Titration 22.339 122.494 1.986 Amount Diltiazem 125 mg In 111.25 Sodium Chloride 0.9% 100 ml @ 5 MG/HR 5 mls/hr IV .Q24H JENNIE Rx#:[id number] Insulin Regular 100 unit 22.339 11.244 1.986 In Sodium Chloride 0.9% 100 ml @ Per Protocol IV .Q0M JENNIE Rx#:[id number] Output: Chest Tube Drainage 490 365 70 Left Pleural/Mediastinal 490 365 70 Urine 295 490 195 Other: Voiding Method Indwelling Catheter Indwelling Catheter ABP, PAP, CO, CI - Last Documented Arterial Blood Pressure 104/64 Pulmonary Artery Pressure 19/5 Cardiac Output 8.2 Cardiac Index 3.7 - Exam No acute distress, oriented 3. No respiratory distress. Currently on 2 L nasal cannula. HEENT examination is grossly unremarkable. Neck supple. Full range of motion. No adenopathy thyromegaly or neck vein distention. Cardiovascular examination reveals regular rhythm rate. S1-S2 normal. No S3 or S4. No discernible murmur noted. Heart rate 82 bpm. Lungs reveal mostly clear breath sounds. Breath sounds are equal bilaterally. Mild scattered rhonchi. No wheezes or crackles. Saturations 97 %. Abdomen soft bowel sounds are heard. No masses or tenderness. Extremities are intact. No cyanosis clubbing or edema. Skin is without rash or lesion. Neurologic examination is brief but nonfocal. - Labs CBC & Chem 7: 09/11/21 04:15 09/11/21 04:15 Labs: Abnormal Lab Results - Last 24 Hours (Table) 09/10/21 09/10/21 09/10/21 Range/Units 12:07 13:02 15:14 RBC (4.30-5.90) m/uL Hgb (13.0-17.5) gm/dL Hct (39.0-53.0) % Plt Count (150-450) k/uL Lymphocytes # (1.0-4.8) k/uL Sodium (137-145) mmol/L Glucose (74-99) mg/dL POC Glucose (mg/dL) 130 H 121 H 134 H (75-99) mg/dL Calcium (8.4-10.2) mg/dL Total Protein (6.3-8.2) g/dL Albumin (3.5-5.0) g/dL 09/10/21 09/10/21 09/10/21 Range/Units 16:33 18:40 19:58 RBC (4.30-5.90) m/uL Hgb (13.0-17.5) gm/dL Hct (39.0-53.0) % Plt Count (150-450) k/uL Lymphocytes # (1.0-4.8) k/uL Sodium (137-145) mmol/L Glucose (74-99) mg/dL POC Glucose (mg/dL) 114 H 151 H 143 H (75-99) mg/dL Calcium (8.4-10.2) mg/dL Total Protein (6.3-8.2) g/dL Albumin (3.5-5.0) g/dL 09/10/21 09/10/21 09/11/21 Range/Units 21:10 22:03 00:14 RBC (4.30-5.90) m/uL Hgb (13.0-17.5) gm/dL Hct (39.0-53.0) % Plt Count (150-450) k/uL Lymphocytes # (1.0-4.8) k/uL Sodium (137-145) mmol/L Glucose (74-99) mg/dL POC Glucose (mg/dL) 117 H 119 H 134 H (75-99) mg/dL Calcium (8.4-10.2) mg/dL Total Protein (6.3-8.2) g/dL Albumin (3.5-5.0) g/dL 09/11/21 09/11/21 09/11/21 Range/Units 01:54 04:15 04:15 RBC 3.12 L (4.30-5.90) m/uL Hgb 9.8 L (13.0-17.5) gm/dL Hct 29.3 L (39.0-53.0) % Plt Count 148 L (150-450) k/uL Lymphocytes # 0.9 L (1.0-4.8) k/uL Sodium 135 L (137-145) mmol/L Glucose 105 H (74-99) mg/dL POC Glucose (mg/dL) 131 H (75-99) mg/dL Calcium 8.0 L (8.4-10.2) mg/dL Total Protein 5.0 L (6.3-8.2) g/dL Albumin 2.9 L (3.5-5.0) g/dL 09/11/21 09/11/21 09/11/21 Range/Units 04:15 06:07 08:21 RBC (4.30-5.90) m/uL Hgb (13.0-17.5) gm/dL Hct (39.0-53.0) % Plt Count (150-450) k/uL Lymphocytes # (1.0-4.8) k/uL Sodium (137-145) mmol/L Glucose (74-99) mg/dL POC Glucose (mg/dL) 127 H 109 H 132 H (75-99) mg/dL Calcium (8.4-10.2) mg/dL Total Protein (6.3-8.2) g/dL Albumin (3.5-5.0) g/dL 09/11/21 Range/Units 10:19 RBC (4.30-5.90) m/uL Hgb (13.0-17.5) gm/dL Hct (39.0-53.0) % Plt Count (150-450) k/uL Lymphocytes # (1.0-4.8) k/uL Sodium (137-145) mmol/L Glucose (74-99) mg/dL POC Glucose (mg/dL) 106 H (75-99) mg/dL Calcium (8.4-10.2) mg/dL Total Protein (6.3-8.2) g/dL Albumin (3.5-5.0) g/dL Assessment and Plan Assessment: Postop day #2, status post off-pump three-vessel bypass grafting. Acute non-ST segment elevation myocardial infarction, with anticipated bypass grafting. Multivessel coronary artery disease. COPD. Long-standing history of tobacco use, 54 years. Peptic ulcer disease. Ascending aortic aneurysm. Hypertension. Hyperlipidemia. GERD. History of Maher's esophagus. Plan: Plan dated 09/08/2021. The patient is doing rather well. We will continue to follow the patient make recommendations were appropriate. The patient's currently on 2 L. Because the patient will not be discharged, we will order a full PFT. Prognosis is guarded. The patient is scheduled for an EGD, and colonoscopy today. We will await those results. Plan dated 09/09/2021. The patient did have surgery today. Today's postop day #0. He had an off-pump 3 vessel bypass, GATES to LAD, left radial artery graft to PDA, and saphenous vein graft to PDA. In addition, he had obliteration of the left atrial appendage. The surgery was done by Dr. Guillen. Initial blood gases show pO2 of 185, pCO2 of 52, and pH is 7.29. The rate is increased from 12-16 breaths per minute. I've asked the nurse to tell respiratory to wean the FiO2. Additional recommendations and suggestions are forthcoming. Hopefully, we can get the patient extubated in a timely fashion. Plan dated 09/10/2021. The patient is doing very well. We will continue to follow and make recommendations where appropriate. Currently he is on 5 L. His also getting lactated Ringer's at 50 mL an hour, and an insulin drip at 3 units an hour. Chest x-ray, labs, and medications are all reviewed. The patient's prognosis is guarded. We will continue to follow the patient and make recommendations. We do recommend hourly use of incentive spirometer, updraft treatments, as well as deep breathing, coughing, clearing of secretions. Plan dated 09/11/2021. The patient is doing well. He's been weaned down to 2 L. Labs, x-rays, medications are reviewed. He is postop day #2, status post off-pump three- vessel bypass grafting. The patient remains on an insulin drip at 1 unit an hour. He is getting lactated Ringer's at 30 mL an hour. Additional recommendations and suggestions are forthcoming. We will continue to follow and make recommendations where appropriate. Time with Patient: Less than 30
[2021-09-11 16:38] LABS: Glucose,Whole Blood 105 mg/dL (75-99)
[2021-09-11 20:28] LABS: Glucose,Whole Blood 137 mg/dL (75-99)
[2021-09-11] MEDS: SENNOSIDES-DOCUSATE SODIUM 1 EACH TAB PO SCH (20:28)
[2021-09-12] MEDS: HEPARIN SODIUM,PORCINE/PF 5,000 UNIT/0.5 ML SYRINGE SQ SCH ×3 (00:34→16:45)
[2021-09-12] MEDS: KETOROLAC 15 MG/ML 1 ML VIAL IVP SCH ×2 (00:34→14:34)
[2021-09-12 04:49] LABS: Basophils % (A) 0 %; Eosinophils # (A) 0.3 k/uL (0-0.7); Eosinophils % (A) 3 %; HCT 31.1 % (39.0-53.0); HGB 10.6 gm/dL (13.0-17.5); Lymphocytes # (A) 1.6 k/uL (1.0-4.8); Lymphocytes % (A) 17 %; MCH 32.1 pg (25.0-35.0); MCHC 34.1 g/dL (31.0-37.0); Mean Platelet Volume 8.5; Monocytes # (A) 0.7 k/uL (0-1.0); Monocytes % (A) 7 %; Neutrophils # (A) 6.5 k/uL (1.3-7.7); Neutrophils % (A) 70 %; Platelet Count 175 k/uL (150-450); RBC 3.31 m/uL (4.30-5.90); RDW 12.5 % (11.5-15.5); WBC 9.3 k/uL (3.8-10.6)
[2021-09-12 04:59] LABS: ALT 20 U/L (4-49); AST 41 U/L (17-59); African American GFR (CKD) >90 (>60 ml/min/1.73 sqM); Alkaline Phosphatase 46 U/L (38-126); Anion Gap 3 mmol/L; Blood Urea Nitrogen 16 mg/dL (9-20); Calcium 8.3 mg/dL (8.4-10.2); Carbon Dioxide 26 mmol/L (22-30); Chloride 106 mmol/L (98-107); Glucose 100 mg/dL (74-99); Non-African American GFR(CKD) >90 (>60 ml/min/1.73 sqM); Sodium 135 mmol/L (137-145); Total Bilirubin 1.3 mg/dL (0.2-1.3); Total Protein 5.3 g/dL (6.3-8.2)
[2021-09-12] MEDS: BUDESONIDE 1 MG/2 ML NEBU INHALATION SCH ×2 (08:25→19:18)
[2021-09-12] MEDS: IPRATROPIUM-ALBUTEROL 3 ML NEB INHALATION SCH ×4 (08:25→19:18)
[2021-09-12 10:45] LABS: Glucose,Whole Blood 104 mg/dL (75-99)
[2021-09-12 11:31] LABS: Glucose,Whole Blood 109 mg/dL (75-99)
--- NOTE | 2021-09-12 11:53 | P.PN ---
Subjective Progress Note Date: 09/12/21 This is a 71-year-old male patient in the patient's current the post of the #3. The patient undergone coronary artery bypass surgery off pump and the patient underwent three-vessel bypass. The cordis is out, the mediastinal chest tube is out, and the patient continues to have a left-sided chest tube in place without the being around 300 mL over the past 24 hours. Current cardiac rhythm is sinus. The patient is on lactated Ringer at the rate of 30 mL an hour. He is using incentive spirometer and is pulling approximately 1500. No nausea. No vomiting. No chest pain. No focal neurological deficit at this point in time. He is known to have hypertension, hyperlipidemia, and history of smoking along with an ascending aortic aneurysm. The patient has a preop FEV1 of 36% of predicted consistent with COPD as the patient carries more than [id number] smoking history. The blood work from today shows a white cell count myopathy with a hemoglobin of 10.6 and a platelet count of 175, BUN is a 60 with a creatinine of 0.8. LFTs are within normal limits. No other acute abnormality is on the blood work. Objective - Vital Signs Vital signs: Vital Signs Temp 97.9 F 09/12/21 04:00 Pulse 68 09/12/21 04:00 Resp 19 09/12/21 04:00 BP 124/69 09/12/21 04:00 Pulse Ox 93 L 09/12/21 04:00 Intake & Output 09/11/21 09/12/21 09/12/21 18:59 06:59 18:59 Intake Total 397.986 297 Output Total 725 490 Balance -327.014 -193 Intake: IV 396 297 Lactated Ringers 1,000 ml 390 270 @ 20 mls/hr IV .Q24H JENINE Rx#:[id number] PRESSURE BAG (0.9 Sodium 6 27 Chloride) Intake, IV Titration 1.986 Amount Insulin Regular 100 unit 1.986 In Sodium Chloride 0.9% 100 ml @ Per Protocol IV .Q0M JENNIE Rx#:[id number] Output: Chest Tube Drainage 265 65 Left Pleural/Mediastinal 265 65 Urine 460 425 Other: Voiding Method Urinal Urinal # Voids 0 ABP, PAP, CO, CI - Last Documented Arterial Blood Pressure 104/64 Pulmonary Artery Pressure 19/5 Cardiac Output 8.2 Cardiac Index 3.7 - Exam No acute distress, oriented 3. No respiratory distress. Currently on 2 L nasal cannula. HEENT examination is grossly unremarkable. Neck supple. Full range of motion. No adenopathy thyromegaly or neck vein distention. Cardiovascular examination reveals regular rhythm rate. S1-S2 normal. No S3 or S4. No discernible murmur noted. the patient has a left-sided pleural chest tube. Lungs reveal mostly clear breath sounds. Breath sounds are equal bilaterally. Mild scattered rhonchi. No wheezes or crackles. Saturations 97 %. Abdomen soft bowel sounds are heard. No masses or tenderness. Extremities are intact. No cyanosis clubbing or edema. Skin is without rash or lesion. Neurologic examination is brief but nonfocal. - Labs CBC & Chem 7: 09/12/21 04:30 09/12/21 04:30 Labs: Abnormal Lab Results - Last 24 Hours (Table) 09/11/21 09/11/21 09/12/21 Range/Units 16:36 20:26 04:30 RBC (4.30-5.90) m/uL Hgb (13.0-17.5) gm/dL Hct (39.0-53.0) % Sodium 135 L (137-145) mmol/L Glucose 100 H (74-99) mg/dL POC Glucose (mg/dL) 105 H 137 H (75-99) mg/dL Calcium 8.3 L (8.4-10.2) mg/dL Total Protein 5.3 L (6.3-8.2) g/dL Albumin 3.0 L (3.5-5.0) g/dL 09/12/21 09/12/21 09/12/21 Range/Units 04:30 06:42 11:30 RBC 3.31 L (4.30-5.90) m/uL Hgb 10.6 L (13.0-17.5) gm/dL Hct 31.1 L (39.0-53.0) % Sodium (137-145) mmol/L Glucose (74-99) mg/dL POC Glucose (mg/dL) 104 H 109 H (75-99) mg/dL Calcium (8.4-10.2) mg/dL Total Protein (6.3-8.2) g/dL Albumin (3.5-5.0) g/dL Assessment and Plan Plan: Postop day #3 , status post off-pump three-vessel bypass grafting. Acute non-ST segment elevation myocardial infarction, with anticipated bypass grafting. Multivessel coronary artery disease. COPD, Long-standing history of tobacco use, 54 years. Peptic ulcer disease. Ascending aortic aneurysm. Hypertension. Hyperlipidemia. GERD. History of Maher's esophagus. Plan: May consider discontinuing the left-sided chest tube, the chest x-ray was reviewed from today. The patient started negative and some mild pulmonary vascular congestion. The left-sided chest tube is in a good location. There is no evidence of any pneumothorax at this point in time. He is using incentive spirometer. Wean down the FiO2 as tolerated to maintain saturation above 90%. The patient is adequate pain control. Continue aspirin. Continue Plavix. Continue amiodarone for A. fib prophylaxis. Continue rest of the supportive care and will continue to follow make further recommendations based on his progress. The patient will stay in ICU for another 24 hours.
--- NOTE | 2021-09-12 12:13 | P.PN ---
Subjective Progress Note Date: 09/12/21 Principal diagnosis: Coronary artery disease, unstable angina, non-STEMI this admission. Previous medical history of ascending aortic aneurysm 4.3-4.4 cm stable for years, hypertension, hyperlipidemia-diet controlled, obesity, chronic ongoing tobacco dependence, severe COPD, bilateral carotid artery stenosis 50-69%, peptic ulcer disease. POD #3 off-pump CABG 3 with left internal mammary artery to the left anterior descending artery, left radial artery graft to the ANA, reverse saphenous vein graft to the PDA. Obliteration of the left atrial appendage with a 40 mm AtriCu re clip. Endoscopic vein harvesting of the left greater saphenous vein. Endovascular left radial artery harvest. Intraoperative transesophageal echocardiogram performed by anesthesia. The patient was seen and examined sitting up in a recliner in the intensive care unit in no acute distress. Remains in sinus rhythm with heart rate in the 70- 80s, hemodynamically stable on no inotropes or pressors. Denies any pain or shortness of breath. Working on his incentive spirometry and achieving 1750 mL at a time. Currently on room air with oxygen saturation in the mid 90s. Left internal jugular Cordis, left pleural chest tube remains. Patient has ambulate in the hallway without difficulty. Islas cath was removed yesterday, patient has voided. No new concerns. Objective - Vital Signs Vital signs: Vital Signs Temp 97.9 F 09/12/21 04:00 Pulse 68 09/12/21 04:00 Resp 19 09/12/21 04:00 BP 124/69 09/12/21 04:00 Pulse Ox 93 L 09/12/21 04:00 Intake & Output 09/11/21 09/12/21 09/12/21 18:59 06:59 18:59 Intake Total 397.986 297 Output Total 725 490 Balance -327.014 -193 Intake: IV 396 297 Lactated Ringers 1,000 ml 390 270 @ 20 mls/hr IV .Q24H JENNIE Rx#:[id number] PRESSURE BAG (0.9 Sodium 6 27 Chloride) Intake, IV Titration 1.986 Amount Insulin Regular 100 unit 1.986 In Sodium Chloride 0.9% 100 ml @ Per Protocol IV .Q0M JENNIE Rx#:[id number] Output: Chest Tube Drainage 265 65 Left Pleural/Mediastinal 265 65 Urine 460 425 Other: Voiding Method Urinal Urinal # Voids 0 ABP, PAP, CO, CI - Last Documented Arterial Blood Pressure 104/64 Pulmonary Artery Pressure 19/5 Cardiac Output 8.2 Cardiac Index 3.7 - Exam CONSTITUTIONAL: Appears comfortable, cooperative, no acute distress RESPIRATORY: Lungs sounds diminished bilaterally. Respirations even, nonlabored. Currently on room air with oxygen saturation 94%. Able to achieve 1750 mL on incentive spirometry. Strong productive cough with yellow sputum. CARDIOVASCULAR: S1, S2 present. Regular rate and rhythm, sinus rhythm on tele metry. Sternum stable. Palpable peripheral pulses bilaterally. No edema present. No calf pain or tenderness noted. Heart hugger in place with patient demonstrating appropriate use. Antiembolism stockings, SCDs present. GASTROINTESTINAL: Abdomen soft, nontender, nondistended. Active bowel sounds present 4 quadrants. Tolerating diet. Positive bowel movement GENITOURINARY: Islas discontinued yesterday, patient is voiding INTEGUMENTARY: Skin is warm and dry with evidence of good perfusion. Anterior chest incision well approximated and covered with dry intact dressing. Left lower extremity EVH site as well as left radial artery harvest site well approximated without redness or drainage. NEUROLOGIC: Cranial nerves II through XII intact MUSKULOSKELETAL: Able to move all extremities, strength equal bilaterally PSYCHIATRIC: Alert and oriented to person place and time, appropriate affect, intact judgment and insight INVASIVE LINES AND TUBES: Left pleural chest tube present and connected to wall suction, no air leaks present, 300 mL serosanguinous drainage in the last 24 joycelyn rs. Left internal jugular Cordis present. - Labs CBC & Chem 7: 09/12/21 04:30 09/12/21 04:30 Labs: Abnormal Lab Results - Last 24 Hours (Table) 09/11/21 09/11/21 09/12/21 Range/Units 16:36 20:26 04:30 RBC (4.30-5.90) m/uL Hgb (13.0-17.5) gm/dL Hct (39.0-53.0) % Sodium 135 L (137-145) mmol/L Glucose 100 H (74-99) mg/dL POC Glucose (mg/dL) 105 H 137 H (75-99) mg/dL Calcium 8.3 L (8.4-10.2) mg/dL Total Protein 5.3 L (6.3-8.2) g/dL Albumin 3.0 L (3.5-5.0) g/dL 09/12/21 09/12/21 09/12/21 Range/Units 04:30 06:42 11:30 RBC 3.31 L (4.30-5.90) m/uL Hgb 10.6 L (13.0-17.5) gm/dL Hct 31.1 L (39.0-53.0) % Sodium (137-145) mmol/L Glucose (74-99) mg/dL POC Glucose (mg/dL) 104 H 109 H (75-99) mg/dL Calcium (8.4-10.2) mg/dL Total Protein (6.3-8.2) g/dL Albumin (3.5-5.0) g/dL Assessment and Plan Assessment: 1. Coronary artery disease, unstable angina, non-STEMI this admission, status post off-pump three-vessel CABG 2. History of ascending aortic aneurysm 4.3-4.4 cm stable for years 3. Hypertension 4. Hyperlipidemia-diet controlled, cholesterol 154, LDL 100, triglycerides 111 5. Obesity 6. Chronic ongoing tobacco dependence 7. Severe COPD, preoperative FEV1 39% of predicted 8. Bilateral carotid artery stenosis 50-69% 9. Peptic ulcer disease Plan: 1. Continue aspirin, statin, Plavix, beta hollis therapy. Will increase beta hollis therapy as tolerated 2. Continue low-dose Norvasc for radial artery spasm prophylaxis 3. Encourage incentive spirometry 10 times every hour while awake. Bronchodilators/inhaled steroids per pulmonology 4. Increase activity, ambulate as tolerated. PT/OT/cardiac rehab consulted. Shower daily 5. GI/DVT prophylaxis 6. Discontinue Cordis 7. Pain control with current medication regimen 8. Insulin management per primary care service. The patient is not diabetic, preoperative hemoglobin A1c 5.2%, however he does need tight blood sugar control to prevent infection and promote healing 9. Will monitor daily labs and x-rays. Electrolyte replacement per protocol 10. Left pleural chest tube discontinued without incident 11. Strict accurate intake and output. Daily weights 12. Will place transfer orders for 3S cardiac stepdown unit. May transfer when bed available 13. Discharge planning in progress, anticipate discharge to home with home care in the next 24 hours 14. More recommendations to follow based on patient's progress
--- NOTE | 2021-09-12 12:20 | XR ---
EXAMINATION TYPE: XR chest 1V portable DATE OF EXAM: 09/12/2021 COMPARISON: 09/11/2021 HISTORY: Postop TECHNIQUE: Single frontal view of the chest is obtained. FINDINGS: Postsurgical changes are seen with cardiomegaly and chest tube. There is a small approxima te 5% left apical pneumothorax. Bilateral subsegmental areas of consolidation. No sizable pleural eff usion. Mild interstitial prominence. IMPRESSION: 1. Approximately 5-10% left apical pneumothorax. 2. Postoperative changes correlate for mild central venous congestion with basilar atelectasis or ear ly infiltrate.
--- NOTE | 2021-09-12 12:36 | P.PN ---
Subjective Progress Note Date: 09/12/21 Patient is doing well, postop day 2. On ACHS SSI. Gen: awake, alert HEENT: normocephalic, atraumatic, good hearing acuity, moist mucous membranes Resp: good air exchange, breathing comfortably with no accessory muscle use CVS: good distal perfusion x 4, chest tubes x 2 GI: soft, NTTP, ND : no SPT, no CVAT, ahuja catheter is present MSK: no pitting edema, no clubbing Neuro: non-focal, moving all extremities Psych: cooperative, euthymic mood Assessment/plan: # NSTEMI - ACS- triple-vessel disease # essential hypertension # hyperlipidemia # coronary disease triple-vessel disease #History of peptic ulcer disease Plan: -Strict sugar control -Continue insulin, ACHS + SSI -Cardiology, cardiothoracic, pulmonary conditions -Aspirin, statin, Plavix -Metoprolol -Dilt drip, amiodarone drip per CT surgery -Pain control -PT/OT Patient is full code DVT PPx with heparin Objective - Vital Signs Vital signs: Vital Signs Temp 97.9 F 09/12/21 04:00 Pulse 68 09/12/21 04:00 Resp 19 09/12/21 04:00 BP 124/69 09/12/21 04:00 Pulse Ox 93 L 09/12/21 04:00 Intake & Output 09/11/21 09/12/21 09/12/21 18:59 06:59 18:59 Intake Total 397.986 297 Output Total 725 490 Balance -327.014 -193 Intake: IV 396 297 Lactated Ringers 1,000 ml 390 270 @ 20 mls/hr IV .Q24H [facility] Rx#:[id number] PRESSURE BAG (0.9 Sodium 6 27 Chloride) Intake, IV Titration 1.986 Amount Insulin Regular 100 unit 1.986 In Sodium Chloride 0.9% 100 ml @ Per Protocol IV .Q0M [facility] Rx#:[id number] Output: Chest Tube Drainage 265 65 Left Pleural/Mediastinal 265 65 Urine 460 425 Other: Voiding Method Urinal Urinal # Voids 0 ABP, PAP, CO, CI - Last Documented Arterial Blood Pressure 104/64 Pulmonary Artery Pressure 19/5 Cardiac Output 8.2 Cardiac Index 3.7 - Labs CBC & Chem 7: 09/12/21 04:30 09/12/21 04:30 Labs: Abnormal Lab Results - Last 24 Hours (Table) 09/11/21 09/11/21 09/12/21 Range/Units 16:36 20:26 04:30 RBC (4.30-5.90) m/uL Hgb (13.0-17.5) gm/dL Hct (39.0-53.0) % Sodium 135 L (137-145) mmol/L Glucose 100 H (74-99) mg/dL POC Glucose (mg/dL) 105 H 137 H (75-99) mg/dL Calcium 8.3 L (8.4-10.2) mg/dL Total Protein 5.3 L (6.3-8.2) g/dL Albumin 3.0 L (3.5-5.0) g/dL 09/12/21 09/12/21 09/12/21 Range/Units 04:30 06:42 11:30 RBC 3.31 L (4.30-5.90) m/uL Hgb 10.6 L (13.0-17.5) gm/dL Hct 31.1 L (39.0-53.0) % Sodium (137-145) mmol/L Glucose (74-99) mg/dL POC Glucose (mg/dL) 104 H 109 H (75-99) mg/dL Calcium (8.4-10.2) mg/dL Total Protein (6.3-8.2) g/dL Albumin (3.5-5.0) g/dL
--- NOTE | 2021-09-12 12:55 | P.PN ---
Subjective Progress Note Date: 09/12/21 HISTORY OF PRESENT ILLNESS: This is a 71 year old male with a past medical history significant for hypertension, hyperlipidemia (diet controlled per patient), GERD, nicotine dependence, and ascending aortic aneurysm. Patient does not follow with a general intern. We have been asked to see the patient in consultation for elevated troponin. Patient examined at the bedside. Patient presented to the hospital with a chief complaint of shortness of breath. He reports last night he was laying in bed and was having a hard time breathing. He states he had to sit up to catch his breath. He denied having any chest pain or pressure. Denied any dizziness or lightheadedness. He denies a history of diabetes. He is a current smoker. He denies any previous cardiac workup in the past including a cardiac cath or stress test. * EKG reveals sinus mechanism with diffuse ST depression * Chest xray there is some minimal pulmonary interstitial edema. No pleural fluid seen to suggest heart failure. * Laboratory data: W BC 9.4. Hemoglobin 13.3. Platelet count 170. Sodium 137. Potassium 4.3. BUN 13. Creatinine 0.82. Lactic acid 1.0. troponin 3.180. 2.980. 3.480. ProBNP 2280. * Current home cardiac medications include amlodipine-Benzapril 10-40mg daily, propanolol 80 mg twice a day, and aspirin 81 mg at night 09/07/2021 Patient is status post cardiac catheterization yesterday with Dr. Austin revealing triple vessel coronary artery disease including proximal LAD 60-70% stenosis, diagonal 199% stenosis, mid circumflex 100% stenosis, RCA 60-70% stenosis, PLV 90% stenosis, and PDA 50% stenosis. The patient was also found to have elevated left-sided filling pressures with LVEDP of 23. Cardiothoracic surgery was consulted for possible CABG He was started on IV Lasix 40 mg every 12 hours. Patient examined this morning at the bedside. He denies chest pain or pressure. He denies shortness of breath. The patient has a history of peptic ulcer disease. General surgery was consulted and patient is scheduled for endoscopy tomorrow. Echocardiogram completed revealing ejection fraction 60-65%, mild MR, mild aortic stenosis, and mild TR. 09/08/2021 Patient examined this morning at the bedside. Patient denies chest pain or pressure. Denies SOB. He remains on IV heparin. Vital signs are stable. 09/11/2021 The patient is a 71-year-old male currently admitted to the hospital for non-ST elevated myocardial infarction. 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 No postoperative complications to date. The patient was interviewed and examined resting comfortably in bed. He states he did well overnight and is looking forward to getting back into the recliner chair. Minimal sternal discomfort. No shortness of breath, palpitations, dizziness, or lightheadedness. 09/12/2021 Patient examined this morning in the ICU. Patient is sitting up in the chair. Family present. Patient denies chest pain or pressure. Denies SOB. Telemetry reveals sinus mechanism. Vital signs are stable. PHYSICAL EXAM: VITAL SIGNS: Reviewed. GENERAL: Well-developed in no acute distress. HEENT: Head is normocephalic. Pupils are equal, round. Sclerae anicteric. Mucous membranes of the mouth are moist. Neck supple. No JVD or thyromegaly LUNGS: Respirations even and unlabored. Lungs essentially clear to auscultation bilaterally. HEART: Regular rate and rhythm. S1 and S2 heard. ABDOMEN: Soft. Nondistended. Nontender. EXTREMITIES: Normal range of motion. No clubbing or cyanosis. Peripheral pulses intact. No lower extremity edema NEUROLOGIC: Awake and alert. Oriented x 3. ASSESSMENT: Shortness of breath Non-STEMI, s/p cardiac catheterization revealing multivessel coronary artery disease S/P CABG x 3 Hypertension Hyperlipidemia GERD Nicotine dependence History of ascending aortic aneurysm History of peptic ulcer disease PLAN: Continue postoperative management per CTS Continue current cardiac medications Increase activity as tolerated Encourage use of IS Possible discharge in the next 24 hours Further recommendations pending patient course Nurse practitioner note has been reviewed by physician. Signing provider agrees with the documented findings, assessment, and plan of care. Objective - Vital Signs Vital signs: Vital Signs Temp 97.9 F 09/12/21 04:00 Pulse 68 09/12/21 04:00 Resp 19 09/12/21 04:00 BP 124/69 09/12/21 04:00 Pulse Ox 93 L 09/12/21 04:00 Intake & Output 09/11/21 09/12/21 09/12/21 18:59 06:59 18:59 Intake Total 397.986 297 Output Total 725 490 Balance -327.014 -193 Intake: IV 396 297 Lactated Ringers 1,000 ml 390 270 @ 20 mls/hr IV .Q24H [facility] Rx#:[id number] PRESSURE BAG (0.9 Sodium 6 27 Chloride) Intake, IV Titration 1.986 Amount Insulin Regular 100 unit 1.986 In Sodium Chloride 0.9% 100 ml @ Per Protocol IV .Q0M [facility] Rx#:[id number] Output: Chest Tube Drainage 265 65 Left Pleural/Mediastinal 265 65 Urine 460 425 Other: Voiding Method Urinal Urinal # Voids 0 ABP, PAP, CO, CI - Last Documented Arterial Blood Pressure 104/64 Pulmonary Artery Pressure 19/5 Cardiac Output 8.2 Cardiac Index 3.7 - Labs CBC & Chem 7: 09/12/21 04:30 09/12/21 04:30 Labs: Abnormal Lab Results - Last 24 Hours (Table) 09/11/21 09/11/21 09/12/21 Range/Units 16:36 20:26 04:30 RBC (4.30-5.90) m/uL Hgb (13.0-17.5) gm/dL Hct (39.0-53.0) % Sodium 135 L (137-145) mmol/L Glucose 100 H (74-99) mg/dL POC Glucose (mg/dL) 105 H 137 H (75-99) mg/dL Calcium 8.3 L (8.4-10.2) mg/dL Total Protein 5.3 L (6.3-8.2) g/dL Albumin 3.0 L (3.5-5.0) g/dL 09/12/21 09/12/21 09/12/21 Range/Units 04:30 06:42 11:30 RBC 3.31 L (4.30-5.90) m/uL Hgb 10.6 L (13.0-17.5) gm/dL Hct 31.1 L (39.0-53.0) % Sodium (137-145) mmol/L Glucose (74-99) mg/dL POC Glucose (mg/dL) 104 H 109 H (75-99) mg/dL Calcium (8.4-10.2) mg/dL Total Protein (6.3-8.2) g/dL Albumin (3.5-5.0) g/dL
[2021-09-12] MEDS: PANTOPRAZOLE 40 MG TABLET PO SCH ×2 (14:34→16:45)
[2021-09-12] MEDS: METOPROLOL TARTRATE 25 MG TAB PO SCH ×2 (14:35→20:38)
[2021-09-12] MEDS: ASPIRIN 325 MG TAB PO SCH (14:35)
[2021-09-12] MEDS: ATORVASTATIN 40 MG TAB PO SCH (14:35)
[2021-09-12] MEDS: CLOPIDOGREL 75 MG TAB PO SCH (14:35)
[2021-09-12] MEDS: INSULIN ASPART (NovoLOG) 100 UNIT/ML VIAL SQ SCH ×3 (14:36→20:41)
[2021-09-12 16:09] LABS: Glucose,Whole Blood 101 mg/dL (75-99)
[2021-09-12] MEDS: amLODIPine 2.5 MG TAB PO SCH (16:45)
[2021-09-12 20:37] LABS: Glucose,Whole Blood 110 mg/dL (75-99)
[2021-09-12] MEDS: SENNOSIDES-DOCUSATE SODIUM 1 EACH TAB PO SCH (20:38)
[2021-09-13] MEDS: HEPARIN SODIUM,PORCINE/PF 5,000 UNIT/0.5 ML SYRINGE SQ SCH ×2 (00:12→08:39)
[2021-09-13 06:56] LABS: Glucose,Whole Blood 102 mg/dL (75-99)
--- NOTE | 2021-09-13 07:10 | P.PN ---
Subjective Progress Note Date: 09/13/21 Principal diagnosis: Coronary artery disease, unstable angina, non-STEMI this admission. Previous medical history of ascending aortic aneurysm 4.3-4.4 cm stable for years, hypertension, hyperlipidemia-diet controlled, obesity, chronic ongoing tobacco dependence, severe COPD, bilateral carotid artery stenosis 50-69%, peptic ulcer disease. POD #4 off-pump CABG 3 with left internal mammary artery to the left anterior descending artery, left radial artery graft to the ANA, reverse saphenous vein graft to the PDA. Obliteration of the left atrial appendage with a 40 mm AtriCu re clip. Endoscopic vein harvesting of the left greater saphenous vein. Endovascular left radial artery harvest. Intraoperative transesophageal echocardiogram performed by anesthesia. The patient was seen and examined sitting up in a recliner in the intensive care unit in no acute distress eating breakfast. Remains in sinus rhythm with heart rate in the 70-80s, hemodynamically stable. Denies any pain or shortness of breath. Working on his incentive spirometry and achieving 2000 mL at a time. Currently on room air with oxygen saturation in the mid 90s. Patient has ambulate in the hallway without difficulty. Anticipates discharge today. No new concerns. Objective - Vital Signs Vital signs: Vital Signs Temp 98.4 F 09/13/21 04:00 Pulse 69 09/13/21 04:00 Resp 26 H 09/13/21 04:00 BP 113/67 09/13/21 04:00 Pulse Ox 93 L 09/13/21 04:00 Intake & Output 09/12/21 09/13/21 09/13/21 18:59 06:59 18:59 Intake Total 1113 250 Output Total 550 0 Balance 563 250 Intake: IV 33 Lactated Ringers 1,000 ml 30 @ 20 mls/hr IV .Q24H [facility] Rx#:[id number] PRESSURE BAG (0.9 Sodium 3 Chloride) Oral 1080 250 Output: Urine 550 0 Other: Voiding Method Urinal Urinal # Bowel Movements 1 ABP, PAP, CO, CI - Last Documented Arterial Blood Pressure 104/64 Pulmonary Artery Pressure 19/5 Cardiac Output 8.2 Cardiac Index 3.7 - Exam CONSTITUTIONAL: Appears comfortable, cooperative, no acute distress RESPIRATORY: Lungs sounds diminished bilaterally. Respirations even, nonlabored. Currently on room air with oxygen saturation 93%. Able to achieve 2000 mL on incentive spirometry. Strong productive cough with yellow sputum. CARDIOVASCULAR: S1, S2 present. Regular rate and rhythm, sinus rhythm on telemetry. Sternum stable. Palpable peripheral pulses bilaterally. No edema present. No calf pain or tenderness noted. Heart hugger in place with patient demonstrating appropriate use. Antiembolism stockings, SCDs present. GASTROINTESTINAL: Abdomen soft, nontender, nondistended. Active bowel sounds present 4 quadrants. Tolerating diet. Positive bowel movement 09/12 GENITOURINARY: Continues to void INTEGUMENTARY: Skin is warm and dry with evidence of good perfusion. Anterior chest incision well approximated and covered with dry intact dressing. Left lower extremity EVH site as well as left radial artery harvest site well approx imated without redness or drainage. NEUROLOGIC: Cranial nerves II through XII intact MUSKULOSKELETAL: Able to move all extremities, strength equal bilaterally PSYCHIATRIC: Alert and oriented to person place and time, appropriate affect, intact judgment and insight - Allied health notes Allied health notes reviewed: nursing - Labs CBC & Chem 7: 09/12/21 04:30 09/12/21 04:30 Labs: Abnormal Lab Results - Last 24 Hours (Table) 09/12/21 09/12/21 09/12/21 Range/Units 06:42 11:30 16:07 POC Glucose (mg/dL) 104 H 109 H 101 H (75-99) mg/dL 09/12/21 09/13/21 Range/Units 20:36 06:55 POC Glucose (mg/dL) 110 H 102 H (75-99) mg/dL - Imaging and Cardiology Chest x-ray: image reviewed Assessment and Plan Assessment: 1. Coronary artery disease, unstable angina, non-STEMI this admission, status post off-pump three-vessel CABG 2. History of ascending aortic aneurysm 4.3-4.4 cm stable for years 3. Hypertension 4. Hyperlipidemia-diet controlled, cholesterol 154, LDL 100, triglycerides 111 5. Obesity 6. Chronic ongoing tobacco dependence 7. Severe COPD, preoperative FEV1 39% of predicted 8. Bilateral carotid artery stenosis 50-69% 9. Peptic ulcer disease Plan: 1. Continue aspirin, statin, Plavix, beta hollis therapy. 2. Continue low-dose Norvasc for radial artery spasm prophylaxis 3. Encourage incentive spirometry 10 times every hour while awake. Bronchodilators/inhaled steroids per pulmonology 4. Increase activity, ambulate as tolerated. PT/OT/cardiac rehab consulted. Shower daily 5. GI/DVT prophylaxis 6. Pain control with current medication regimen 7. Insulin management per primary care service 8. Strict accurate intake and output. Daily weights 9. Discharge planning in progress, anticipate discharge to home with home care this afternoon
[2021-09-13] MEDS: BUDESONIDE 1 MG/2 ML NEBU INHALATION SCH (07:28)
[2021-09-13] MEDS: IPRATROPIUM-ALBUTEROL 3 ML NEB INHALATION SCH ×2 (07:28→10:47)
[2021-09-13 07:45] LABS: HCT 32.7 % (39.0-53.0); HGB 10.9 gm/dL (13.0-17.5); MCH 31.2 pg (25.0-35.0); MCHC 33.3 g/dL (31.0-37.0); MCV 93.8 fL (80.0-100.0); Mean Platelet Volume 8.1; Platelet Count 238 k/uL (150-450); RBC 3.49 m/uL (4.30-5.90); RDW 13.1 % (11.5-15.5); WBC 7.6 k/uL (3.8-10.6)
[2021-09-13 08:01] LABS: African American GFR (CKD) >90 (>60 ml/min/1.73 sqM); Anion Gap 6 mmol/L; Blood Urea Nitrogen 15 mg/dL (9-20); Calcium 8.5 mg/dL (8.4-10.2); Carbon Dioxide 27 mmol/L (22-30); Chloride 106 mmol/L (98-107); Glucose 93 mg/dL (74-99); Non-African American GFR(CKD) 89 (>60 ml/min/1.73 sqM); Potassium 4.2 mmol/L (3.5-5.1); Sodium 139 mmol/L (137-145)
--- NOTE | 2021-09-13 08:31 | XR ---
EXAMINATION TYPE: XR chest 2V DATE OF EXAM: 09/13/2021 COMPARISON: Chest x-ray 09/12/2021 HISTORY: Status post cardiac surgery, chest tube removal TECHNIQUE: Frontal and lateral views of the chest are obtained. FINDINGS: Left-sided chest tube has been removed in the interval. There are overlying artifacts. Pos top changes are again seen. Minimal left apical pneumothorax is present. Heart remains enlarged. No s izable effusion, minimal blunting the posterior costophrenic angles persists. IMPRESSION: Interval chest tube removal without significant interval change. Postop changes, cardiom egaly. There may be small effusions.
[2021-09-13] MEDS: INSULIN ASPART (NovoLOG) 100 UNIT/ML VIAL SQ SCH (08:37)
[2021-09-13] MEDS: CLOPIDOGREL 75 MG TAB PO SCH (08:39)
[2021-09-13] MEDS: ATORVASTATIN 40 MG TAB PO SCH (08:39)
[2021-09-13] MEDS: PANTOPRAZOLE 40 MG TABLET PO SCH (08:39)
[2021-09-13] MEDS: ASPIRIN 325 MG TAB PO SCH (08:39)
[2021-09-13] MEDS: METOPROLOL TARTRATE 25 MG TAB PO SCH (08:39)
--- NOTE | 2021-09-13 09:27 | P.PN ---
Subjective Progress Note Date: 09/13/21 Principal diagnosis: Coronary artery disease, unstable angina, non-ST elevated myocardial infarction On 09/13/2021 patient seen in follow-up in intensive care unit, today is post operative day number 4, status post off-pump CABG 3 with GATES to LAD, left radial artery to the LAD, SVG to the PDA, left atrial appendage exclusion, endovascular vein harvest from the left greater saphenous vein, and left radial artery endovascular graft. Patient is doing very well, room air pulse ox is 97%, hemodynamically stable, he is in sinus mechanism, not on any drips, hep- locked IV fluids. Breathing comfortably, denies any specific complaints, all of his chest tubes have been discontinued, today's chest x-ray has been reviewed showing interval chest tube removal without significant interval change, cardiomegaly, and small pleural effusions. Today's labs have been reviewed, white blood cell count is 7.6, hemoglobin is 10.9, platelet count is 238, electrolytes and renal profile were unremarkable. Patient remains on DuoNeb, Pulmicort and Perforomist, he does have severe COPD preop FEV1 in the 36%. Patient has been tolerating ambulation around the unit, with supervision only, he took his first day postoperative shower today. He is anticipated to be discharged home today Objective - Vital Signs Vital signs: Vital Signs Temp 98.4 F 09/13/21 04:00 Pulse 69 09/13/21 04:00 Resp 26 H 09/13/21 04:00 BP 113/67 09/13/21 04:00 Pulse Ox 93 L 09/13/21 04:00 Intake & Output 09/12/21 09/13/21 09/13/21 18:59 06:59 18:59 Intake Total 1113 250 Output Total 550 0 Balance 563 250 Intake: IV 33 Lactated Ringers 1,000 ml 30 @ 20 mls/hr IV .Q24H [facility] Rx#:[id number] PRESSURE BAG (0.9 Sodium 3 Chloride) Oral 1080 250 Output: Urine 550 0 Other: Voiding Method Urinal Urinal # Bowel Movements 1 ABP, PAP, CO, CI - Last Documented Arterial Blood Pressure 104/64 Pulmonary Artery Pressure 19/5 Cardiac Output 8.2 Cardiac Index 3.7 - Exam GENERAL EXAM: Alert, very pleasant, 71-year-old white male, comfortable in no apparent distress. HEAD: Normocephalic/atraumatic. EYES: Normal reaction of pupils, equal size. Conjunctiva pink, sclera white. NOSE: Clear with pink turbinates. THROAT: No erythema or exudates. NECK: No masses, no JVD, no thyroid enlargement, no adenopathy. CHEST: No chest wall deformity. Symmetrical expansion. Midsternal incision is clean dry and intact, chest tube sites are clean dry and intact LUNGS: Equal air entry with no crackles, wheeze, rhonchi or dullness. CVS: Regular rate and rhythm, normal S1 and S2, no gallops, no murmurs, no rubs ABDOMEN: Soft, nontender. No hepatosplenomegaly, normal bowel sounds, no guarding or rigidity. EXTREMITIES: No clubbing, no edema, no cyanosis, 2+ pulses and upper and lower extremities. MUSCULOSKELETAL: Muscle strength and tone normal. SPINE: No scoliosis or deformity SKIN: No rashes. Left leg incision and left radial artery harvest site clean dry and CENTRAL NERVOUS SYSTEM: Alert and oriented -3. No focal deficits, tone is normal in all 4 extremities. PSYCHIATRIC: Alert and oriented -3. Appropriate affect. Intact judgment and insight. - Labs CBC & Chem 7: 09/13/21 06:35 09/13/21 06:35 Labs: Abnormal Lab Results - Last 24 Hours (Table) 09/12/21 09/12/21 09/12/21 Range/Units 06:42 11:30 16:07 RBC (4.30-5.90) m/uL Hgb (13.0-17.5) gm/dL Hct (39.0-53.0) % POC Glucose (mg/dL) 104 H 109 H 101 H (75-99) mg/dL 09/12/21 09/13/21 09/13/21 Range/Units 20:36 06:35 06:55 RBC 3.49 L (4.30-5.90) m/uL Hgb 10.9 L (13.0-17.5) gm/dL Hct 32.7 L (39.0-53.0) % POC Glucose (mg/dL) 110 H 102 H (75-99) mg/dL Assessment and Plan Plan: Assessment: #1. Acute non-ST elevated myocardial infarction #2. Multivessel coronary artery disease, status post off-pump three-vessel coronary artery bypass grafting, left atrial appendage exclusion with a chief acute clip, endovascular harvest of left greater saphenous vein and left radial artery, postoperative day #4 #3. Long history of smoking, carries [id number] smoking history of 2 packs a day #4. Severe COPD with preop FEV1 showing FEV1 of 36% of predicted #5. Peptic ulcer disease #6. History of ascending aortic aneurysm, stable #7. Hypertension #8. Hyperlipidemia #9. GERD/reflux #10. Maher's esophagus #11. Recent positive Cologuard test Plan: Patient remains stable, vital signs are stable Breathing comfortably, on room air Tolerating ambulation Today's chest x-ray and labs reviewed Continues on aspirin, statin, Plavix and beta blockers Continues on May DVT prophylaxis Chest tubes are out Islas catheter and arterial line discontinued Patient is anticipated to go home today He can go home on Anoro inhaler if insurance covers Albuterol rescue inhaler We'll see the patient in outpatient basis in follow-up in 7-10 days after discharge I have personally seen and examined the patient, performed the documentation and the assessment and plan as written. Number of minutes spent on the visit: [10] I have personally seen and examined the patient and reviewed the documentation. I performed a joint evaluation with the nurse practitioner in this evaluation was done more than 20 minutes. I fully agree with the documentation above and the plan of care. Patient is stable. The patient is emanating. No complaints. He is currently on room air oxygen. Continue aspirin and Plavix. Terms of his COPD, we have made recommendations to discharge this patient home on Anoro 1 ablation day in addition to be a HFA on an as-needed basis. Surgical wound site is dry clean and intact. The patient will be discharged home to be followed up on outpatient basis. We'll see him in the office for his postoperative care. Time with Patient: Less than 30
--- NOTE | 2021-09-13 09:57 | P.DS ---
Providers Date of admission: 09/06/21 05:09 Expected date of discharge: 09/13/21 Attending physician: Michael Guillen Consults: 09/06/21 05:09 Consult Physician Routine Consulting Provider: Romaine Reynoso Consult Reason/Comments: elevated troponin Do you want consulting provider notified?: Yes 09/06/21 10:19 Consult Physician Routine Consulting Provider: Michael Guillen Consult Reason/Comments: re: CABG eval Do you want consulting provider notified?: Yes 09/06/21 17:51 Consult Physician Routine Consulting Provider: Doe Bateman Consult Reason/Comments: EGD/colonoscopy Do you want consulting provider notified?: Already Contacted 09/07/21 10:48 Consult Physician Routine Consulting Provider: Jian Meyers Consult Reason/Comments: pulmonary cleareance preop Do you want consulting provider notified?: Yes 09/08/21 14:25 Consult to Anesthesia Routine Consulting Provider: Anesthesia,Services Consult Reason/Comments: Cardiac Surgery Pre-Op 09/09/21 13:31 Consult Physician Routine Consulting Provider: Mario Napier Consult Reason/Comments: med mgmt Do you want consulting provider notified?: Already Contacted Primary care physician: Tobi Sandoval MD Hospital Course: FINAL DIAGNOSIS: 1. Coronary artery disease, unstable angina, NSTEMI this admission 2. History of ascending aortic aneurysm 4.3-4.4, stable for years 3. Hypertension 4. Hyperlipidemia-diet controlled, cholesterol 154, LDL 100, triglycerides 111 5. Obesity 6. Chronic ongoing tobacco dependence] 7. Severe COPD, preoperative FEV1 39% of predicted 8. Bilateral carotid artery stenosis 50-69% 9. Peptic ulcer disease, stable with no active bleed PRINCIPAL PROCEDURE: 1. Off pump CABG x 3 with left internal mammary artery to the left anterior descending artery, left radial artery graft to the ANA, reverse saphenous vein graft to the PDA 2. Obliteration of the left atrial appendage with a 40 mm AtriCure clip 3. Endoscopic vein harvesting of the left greater saphenous vein 4. Endovascular left radial artery harvest 5. Intraoperative transesophageal echocardiogram performed by anesthesia HISTORY OF PRESENT ILLNESS: This is a 71 year old male patient who follows on an outpatient basis with Dr. Sandoval for primary care. He presented to [facility] emergency room after experiencing acute shortness of breath which did not resolve with rest. In the emergency room, his troponins were elevated, his EKG demonstrated diffuse ST depression and he was ruled in for NSTEMI. He was admitted and underwent heart catheterization which revealed triple vessel coronary artery disease. Consultation was placed to Dr. Guillen from cardiothoracic surgery. He was recommended to undergo coronary artery bypass surgery. The usual perioperative course was discussed in detail with the patient and his family, all risks and benefits were explained, all questions were answered, and consent was obtained to proceed with surgery. The patient was kept inpatient due to the nature of his disease process. Prior to surgery the patient required EGD and colonoscopy due to history of peptic ulcer disease with possible Maher's esophagitis. Both studies were completed demonstrating no Maher's esophagitis, and no active bleeding sites. He also had a CTA of the chest which confirmed stable ascending aortic aneurysm measuring 4.4 cm. HOSPITAL COURSE: The patient was brought to the preoperative area 09/09/21, prepared in the usual fashion, and subsequently taken to the operating room where Dr. Guillen performed 3V off pump CABG. Upon completion of surgery the patient was transferred to the cardiovascular intensive care unit where he was recovered and monitored hemodynamically. He was extubated, all lines, tubes, and drips were discontinued when appropriate, and transfer orders were placed for 3 S. cardiac stepdown unit, however there was no bed availability and the patient remained on ICU as a stepdown patient until discharge. His oxygen was titrated down, he continued to work with physical and occupational therapy, he was tolerating oral diet, his pain was controlled, and he was ready to be discharged to home with [facility] care on postoperative day #4. He received written and verbal instruction regarding his medications, activity restrictions, signs and symptoms requiring physician notification, and follow-up appointments. Patient Condition at Discharge: Stable Plan - Discharge Summary Discharge Rx Participant: No New Discharge Prescriptions: New Atorvastatin [Lipitor] 40 mg PO DAILY #30 tab amLODIPine [Norvasc] 2.5 mg PO DAILY@1200 #30 tab Clopidogrel [Plavix] 75 mg PO DAILY #30 tab Pantoprazole [Protonix] 40 mg PO AC-BID #60 tab Metoprolol Tartrate [Lopressor] 25 mg PO BID #60 tab Sennosides-Docusate Sodium [Senokot-S] 2 each PO HS PRN tab PRN Reason: Constipation Budesonide/Formoterol Fumarate [Symbicort 160-4.5 Mcg Inhaler] 1 puff INHALATION BID 30 Days #10.2 gm Acetaminophen Tab [Tylenol] 650 mg PO Q4HR PRN tab PRN Reason: Fever And/ Or Pain Albuterol Inhaler [Ventolin Hfa Inhaler] 1 puff INHALATION RT-QID PRN 30 Days #8 gm PRN Reason: Shortness Of Breath Or Wheezing Continue Aspirin EC [Ecotrin Low Dose] 81 mg PO HS Triamcinolone 0.1% Cream [Kenalog 0.1% Cream] 1 applic TOPICAL BID PRN PRN Reason: Rash Cholecalciferol [Vitamin D3 (25 Mcg = 1000 Iu)] 125 mcg PO DAILY Cholecalciferol [Vitamin D3 (25 Mcg = 1000 Iu)] 50 mcg PO HS Discontinued amLODIPine BESYLATE/BENAZEPRIL [Lotrel 10-40 MG] 1 cap PO DAILY Propranolol HCl 80 mg PO BID Omeprazole [PriLOSEC] 20 mg PO AC-BID #90 cap Sucralfate [Carafate] 1 gm PO ACHS #120 tab Discharge Medication List Aspirin EC [Ecotrin Low Dose] 81 mg PO HS 07/27/21 [History] Cholecalciferol [Vitamin D3 (25 Mcg = 1000 Iu)] 50 mcg PO HS 07/27/21 [History] Cholecalciferol [Vitamin D3 (25 Mcg = 1000 Iu)] 125 mcg PO DAILY 07/27/21 [History] Triamcinolone 0.1% Cream [Kenalog 0.1% Cream] 1 applic TOPICAL BID PRN 07/27/21 [History] Acetaminophen Tab [Tylenol] 650 mg PO Q4HR PRN tab 09/13/21 [Rx] Albuterol Inhaler [Ventolin Hfa Inhaler] 1 puff INHALATION RT-QID PRN 30 Days #8 gm 09/13/21 [Rx] Atorvastatin [Lipitor] 40 mg PO DAILY #30 tab 09/13/21 [Rx] Budesonide/Formoterol Fumarate [Symbicort 160-4.5 Mcg Inhaler] 1 puff INHALATION BID 30 Days #10.2 gm 09/13/21 [Rx] Clopidogrel [Plavix] 75 mg PO DAILY #30 tab 09/13/21 [Rx] Metoprolol Tartrate [Lopressor] 25 mg PO BID #60 tab 09/13/21 [Rx] Pantoprazole [Protonix] 40 mg PO AC-BID #60 tab 09/13/21 [Rx] Sennosides-Docusate Sodium [Senokot-S] 2 each PO HS PRN tab 09/13/21 [Rx] amLODIPine [Norvasc] 2.5 mg PO DAILY@1200 #30 tab 09/13/21 [Rx] Follow up Appointment(s)/Referral(s): Alex Mckenzie MD [STAFF PHYSICIAN] - 10/07/21 3:15 pm (Appointment is with RANDOLPH Calderon at the [address] office inside [facility] ) Rehab Edgard BOYLE,Cardiac [NON-STAFF] - 4 Weeks (You will be called in approximately 4-6 weeks for evaluation for cardiac rehab) Michael Guillen MD [STAFF PHYSICIAN] - 4 Weeks (Deneen from the office will call with an appointment) Choco Guerrero NPC [Nurse Practitioner] - 09/20/21 11:00 am (You will be seen in the surgeon's office behind the [facility], [address]. Office number is ) Jian Meyers DO [Doctor of Osteopathic Medicine] - 10/06/21 9:15 am Tobi Sandoval MD [Primary Care Provider] - 09/26/21 10:30 am [facility] [NON-STAFF] - 1-2 Days (To be seen the day after discharge, then 2-3 times per week for 4 weeks) Ambulatory/Diagnostic Orders: Complete Blood Count w/diff [LAB.AMB] Time Frame: 3 Days, Location: None Selected Comprehensive Metabolic Panel [LAB.AMB] Time Frame: 3 Days, Location: None Selected Activity/Diet/Wound Care/Special Instructions: DISCHARGE INSTRUCTIONS: 1. No driving for 4 weeks, or until physician gives their ok. 2. The patient should sleep in their own bed, no medical bed needed. 3. Stairs are not an issue. If the bedroom is upstairs, it is advised that the patient go up at night and down in the morning for the first week. Go slowly, using handrail and take 1 step at a time. 4. VINOD hose are to be worn for 30 days or until physician discontinues. 5. Heart hugger is to be worn 100% of the time until physician discontinu es.(except when showering) 6. No lifting, pushing, or pulling more than 10 pounds for 12 weeks. The physician will advise of any restriction changes. 7. The patient is expected to continue the prescribed walking program. 8. Continue pain control per as needed orders. 9. Continue with incentive spirometry and splinting/heart hugger until otherwise directed by the physician. 10. Must shower daily using liquid antibacterial soap and a separate white washcloth for each individual incision. 11. Routine sternal incision care. No powders, lotions, ointments on incisions. No dressings are necessary on incisions unless they are draining. Dermabond tape is to remain on sternal incision until surgeon follow-up. 12. Please call surgeon/PERSONAL DEVELOPMENT COACH for temp greater than 101 F or purulent drainage from incisions. 13. You should weigh yourself daily, record and bring log with you to follow up appointments. 14. All prescriptions given by surgeon for 30 days. Refills need to be filled through silverware assembler/primary care physician. 15. A Red armband has been placed on the patient. It should be worn for 30 days post surgery and will be removed by the cardiac surgeons. If an ER visit is necessary, please make sure the number on the Red armband is called. 16. You have been referred to and are expected to begin Cardiac Rehab in approximately 4-6 weeks. 17. ABSOLUTELY NO SMOKING!! HOME HEALTH SERVICES TO PROVIDE: RN SKILLED HOME CARE SERVICES FOR POST-OP SURGICAL PATIENTS WITH THE FOLLOWING: Coronary Artery Bypass Surgery (CABG), Mitral Valve Replacement/Rep air ( MVR), Aortic Valve Replacement/Repair (AVR) RN TO CONTINUE EDUCATION FROM ``ROAD TO A HEALTH HEART PATIENT EDUCATION MANUAL (GIVEN TO PATIENT IN THE HOSPITAL) MEDICATION RECONCILIATION WITH EDUCATION NEEDED ON FIRST HOME VISIT EMPHASIZE IMPORTANCE OF WEARING BREAST SUPPORT/HEART HUGGER ENCOURAGE USE OF INCENTIVE SPIROMETER 10 X EVERY HOUR WHILE AWAKE ENCOURAGE UTILIZATION OF LOWER EXTREMITY COMPRESSION STOCKINGS/VINOD HOSE and ELEVATE LEGS ABOVE LEVEL OF HEART WHILE AT REST. ENCOURAGE AMBULATION 3-5x/day INCREASING TOLERATES, WHILE AVOIDING EXTREMES IN TEMPERATURE FREQUENCY: RN TO OPEN THE PATIENT WITHIN 24 HOURS OF DISCHARGE FROM THE HOSPITAL WITH TELEHEALTH INSTALLED AT [facility] [place], RN TO VISIT 2-3 X A WEEK FOR 4 WEEKS ESTABLISHED BY PATIENT NEEDS. LABORATORY: CBC, CMP TO BE DRAWN ON THE THIRD DAY HOME, (RAN STAT) FAX RESULTS TO [phone]. TELEHEALTH PARAMETERS: WEIGHT: NOTIFY MD OF WEIGHT GAIN OF 2 LBS IN 24 HOURS OR 5 LBS IN ONE WEEK HR: NOTIFY MD OF HR <55 BPM OR HR>100 BPM BP: NOTIFY MD IF BP <90/55 OR BP>140/100 O2 SAT: NOTIFY MD IF PO2<93% ON ROOM AIR SEND TELEHEALTH REPORT TO AUTOMOBILE UPHOLSTERER APPRENTICE AND CARDIOVASCULAR SURGEON THE FIRST WEEK OF CARE AND THEN BI-WEEKLY. PLEASE ADDITIONALLY COMMUNICATE ANY ABNORMALS AND NEW FINDINGS TO THE SURGEONS OFFICE. Discharge Disposition: HOME WITH HOME HEALTH SERVICES
[2021-09-13 12:01] VITALS: BP 137/84; PULSE 68; RESP 18; TEMP 98.4
--- NOTE | 2021-09-13 12:01 | P.PN ---
Subjective Progress Note Date: 09/13/21 HISTORY OF PRESENT ILLNESS: This is a 71 year old male with a past medical history significant for hypertension, hyperlipidemia (diet controlled per patient), GERD, nicotine dependence, and ascending aortic aneurysm. Patient does not follow with a cranberry sorter. We have been asked to see the patient in consultation for elevated troponin. Patient examined at the bedside. Patient presented to the hospital with a chief complaint of shortness of breath. He reports last night he was laying in bed and was having a hard time breathing. He states he had to sit up to catch his breath. He denied having any chest pain or pressure. Denied any dizziness or lightheadedness. He denies a history of diabetes. He is a current smoker. He denies any previous cardiac workup in the past including a cardiac cath or stress test. * EKG reveals sinus mechanism with diffuse ST depression * Chest xray there is some minimal pulmonary interstitial edema. No pleural fluid seen to suggest heart failure. * Laboratory data: W BC 9.4. Hemoglobin 13.3. Platelet count 170. Sodium 137. Potassium 4.3. BUN 13. Creatinine 0.82. Lactic acid 1.0. troponin 3.180. 2.980. 3.480. ProBNP 2280. * Current home cardiac medications include amlodipine-Benzapril 10-40mg daily, propanolol 80 mg twice a day, and aspirin 81 mg at night 09/07/2021 Patient is status post cardiac catheterization yesterday with Dr. Austin revealing triple vessel coronary artery disease including proximal LAD 60-70% stenosis, diagonal 199% stenosis, mid circumflex 100% stenosis, RCA 60-70% stenosis, PLV 90% stenosis, and PDA 50% stenosis. The patient was also found to have elevated left-sided filling pressures with LVEDP of 23. Cardiothoracic surgery was consulted for possible CABG He was started on IV Lasix 40 mg every 12 hours. Patient examined this morning at the bedside. He denies chest pain or pressure. He denies shortness of breath. The patient has a history of peptic ulcer disease. General surgery was consulted and patient is scheduled for endoscopy tomorrow. Echocardiogram completed revealing ejection fraction 60-65%, mild MR, mild aortic stenosis, and mild TR. 09/08/2021 Patient examined this morning at the bedside. Patient denies chest pain or pressure. Denies SOB. He remains on IV heparin. Vital signs are stable. 09/11/2021 The patient is a 71-year-old male currently admitted to the hospital for non-ST elevated myocardial infarction. 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 No postoperative complications to date. The patient was interviewed and examined resting comfortably in bed. He states he did well overnight and is looking forward to getting back into the recliner chair. Minimal sternal discomfort. No shortness of breath, palpitations, dizziness, or lightheadedness. 09/12/2021 Patient examined this morning in the ICU. Patient is sitting up in the chair. Family present. Patient denies chest pain or pressure. Denies SOB. Telemetry reveals sinus mechanism. Vital signs are stable. 09/13/2021 Patient examined this morning in the ICU. Patient is sitting up in the chair. Patient denies chest pain or pressure. Denies SOB. Telemetry reveals sinus mechanism. Vital signs are stable PHYSICAL EXAM: VITAL SIGNS: Reviewed. GENERAL: Well-developed in no acute distress. HEENT: Head is normocephalic. Pupils are equal, round. Sclerae anicteric. Mucous membranes of the mouth are moist. Neck supple. No JVD or thyromegaly LUNGS: Respirations even and unlabored. Lungs essentially clear to auscultation bilaterally. HEART: Regular rate and rhythm. S1 and S2 heard. ABDOMEN: Soft. Nondistended. Nontender. EXTREMITIES: Normal range of motion. No clubbing or cyanosis. Peripheral pulses intact. No lower extremity edema NEUROLOGIC: Awake and alert. Oriented x 3. ASSESSMENT: Shortness of breath Non-STEMI, s/p cardiac catheterization revealing multivessel coronary artery disease S/P CABG x 3 Hypertension Hyperlipidemia GERD Nicotine dependence History of ascending aortic aneurysm History of peptic ulcer disease PLAN: Continue postoperative management per CTS Continue current cardiac medications Stable for discharge home today from a cardiac standpoint Nurse practitioner note has been reviewed by physician. Signing provider agrees with the documented findings, assessment, and plan of care. Objective - Vital Signs Vital signs: Vital Signs Temp 98.2 F 09/13/21 09:00 Pulse 70 09/13/21 10:58 Resp 23 09/13/21 09:00 BP 137/85 09/13/21 09:00 Pulse Ox 95 09/13/21 09:00 Intake & Output 09/12/21 09/13/21 09/13/21 18:59 06:59 18:59 Intake Total 1113 250 Output Total 550 0 Balance 563 250 Intake: IV 33 Lactated Ringers 1,000 ml 30 @ 20 mls/hr IV .Q24H [facility] Rx#:[id number] PRESSURE BAG (0.9 Sodium 3 Chloride) Oral 1080 250 Output: Urine 550 0 Other: Voiding Method Urinal Urinal Urinal # Bowel Movements 1 ABP, PAP, CO, CI - Last Documented Arterial Blood Pressure 104/64 Pulmonary Artery Pressure 19/5 Cardiac Output 8.2 Cardiac Index 3.7 - Labs CBC & Chem 7: 09/13/21 06:35 09/13/21 06:35 Labs: Abnormal Lab Results - Last 24 Hours (Table) 09/12/21 09/12/21 09/13/21 Range/Units 16:07 20:36 06:35 RBC 3.49 L (4.30-5.90) m/uL Hgb 10.9 L (13.0-17.5) gm/dL Hct 32.7 L (39.0-53.0) % POC Glucose (mg/dL) 101 H 110 H (75-99) mg/dL 09/13/21 Range/Units 06:55 RBC (4.30-5.90) m/uL Hgb (13.0-17.5) gm/dL Hct (39.0-53.0) % POC Glucose (mg/dL) 102 H (75-99) mg/dL
--- NOTE | 2021-09-13 13:06 | P.PN ---
Subjective Progress Note Date: 09/13/21 Patient is doing well, postop day 3. Medically stable for discharge Gen: awake, alert HEENT: normocephalic, atraumatic, good hearing acuity, moist mucous membranes Resp: good air exchange, breathing comfortably with no accessory muscle use CVS: good distal perfusion x 4, chest tubes x 2 GI: soft, NTTP, ND : no SPT, no CVAT, ahuja catheter is present MSK: no pitting edema, no clubbing Neuro: non-focal, moving all extremities Psych: cooperative, euthymic mood Assessment/plan: # NSTEMI - ACS- triple-vessel disease # essential hypertension # hyperlipidemia # coronary disease triple-vessel disease #History of peptic ulcer disease Plan: -Strict sugar control -Continue insulin, ACHS + SSI -Cardiology, cardiothoracic, pulmonary conditions -Aspirin, statin, Plavix -Metoprolol -Dilt drip, amiodarone drip per CT surgery -Pain control -PT/OT Patient is full code DVT PPx with heparin Objective - Vital Signs Vital signs: Vital Signs Temp 98.4 F 09/13/21 10:00 Pulse 68 09/13/21 11:00 Resp 18 09/13/21 11:00 BP 137/84 09/13/21 10:00 Pulse Ox 95 09/13/21 10:00 Intake & Output 09/12/21 09/13/21 09/13/21 18:59 06:59 18:59 Intake Total 1113 250 Output Total 550 0 Balance 563 250 Intake: IV 33 Lactated Ringers 1,000 ml 30 @ 20 mls/hr IV .Q24H [facility] Rx#:[id number] PRESSURE BAG (0.9 Sodium 3 Chloride) Oral 1080 250 Output: Urine 550 0 Other: Voiding Method Urinal Urinal Urinal # Bowel Movements 1 ABP, PAP, CO, CI - Last Documented Arterial Blood Pressure 104/64 Pulmonary Artery Pressure 19/5 Cardiac Output 8.2 Cardiac Index 3.7 - Labs CBC & Chem 7: 09/13/21 06:35 09/13/21 06:35 Labs: Abnormal Lab Results - Last 24 Hours (Table) 09/12/21 09/12/21 09/13/21 Range/Units 16:07 20:36 06:35 RBC 3.49 L (4.30-5.90) m/uL Hgb 10.9 L (13.0-17.5) gm/dL Hct 32.7 L (39.0-53.0) % POC Glucose (mg/dL) 101 H 110 H (75-99) mg/dL 09/13/21 Range/Units 06:55 RBC (4.30-5.90) m/uL Hgb (13.0-17.5) gm/dL Hct (39.0-53.0) % POC Glucose (mg/dL) 102 H (75-99) mg/dL
== END 2021-09-13 13:30 | disposition home health service (06) | DRG 234 ==
LOC: SUPCPDRO 02:28 → EC 02:28 → 3SCARD 05:09 → 2SICU 09-09 10:23
PROVIDERS: ADMIT Thoracic Surgery (Cardiothoracic Vascular Surgery); ATTEND Thoracic Surgery (Cardiothoracic Vascular Surgery)
PROC: 0DB78ZX Excision of Stomach, Pylorus, Via Natural or Artificial Opening Endoscopic, Diagnostic (ICD-10-PCS; 2021-09-08)
PROC: 0DJD8ZZ Inspection of Lower Intestinal Tract, Via Natural or Artificial Opening Endoscopic (ICD-10-PCS; 2021-09-08)
PROC: 02L70CK Occlusion of Left Atrial Appendage with Extraluminal Device, Open Approach (ICD-10-PCS; principal; 2021-09-09 11:45)
PROC: 02100AW Bypass Coronary Artery, One Artery from Aorta with Autologous Arterial Tissue, Open Approach (ICD-10-PCS; principal; 2021-09-09 11:45)
PROC: 06BQ4ZZ Excision of Left Saphenous Vein, Percutaneous Endoscopic Approach (ICD-10-PCS; principal; 2021-09-09 11:45)
PROC: 03BC4ZZ Excision of Left Radial Artery, Percutaneous Endoscopic Approach (ICD-10-PCS; principal; 2021-09-09 11:45)
PROC: 02100Z9 Bypass Coronary Artery, One Artery from Left Internal Mammary, Open Approach (ICD-10-PCS; principal; 2021-09-09 11:45)
PROC: 021009W Bypass Coronary Artery, One Artery from Aorta with Autologous Venous Tissue, Open Approach (ICD-10-PCS; principal; 2021-09-09 11:45)
PROC: 4A033BC Measurement of Arterial Pressure, Coronary, Percutaneous Approach (ICD-10-PCS; 2021-09-09 11:45)
PROC: 4A023N7 Measurement of Cardiac Sampling and Pressure, Left Heart, Percutaneous Approach (ICD-10-PCS; 2021-09-09 11:45)
PROC: B2111ZZ Fluoroscopy of Multiple Coronary Arteries using Low Osmolar Contrast (ICD-10-PCS; 2021-09-09 11:45)
PROC: B24BZZ4 Ultrasonography of Heart with Aorta, Transesophageal (ICD-10-PCS; 2021-09-09 11:45)
DX: I21.4 Non-ST elevation (NSTEMI) myocardial infarction (principal); J98.11 Atelectasis; I71.2 Thoracic aortic aneurysm, without rupture; I11.9 Hypertensive heart disease without heart failure; E55.9 Vitamin D deficiency, unspecified; I25.110 Atherosclerotic heart disease of native coronary artery with unstable angina pectoris; J44.9 Chronic obstructive pulmonary disease, unspecified; Z20.822 Contact with and (suspected) exposure to COVID-19; I25.84 Coronary atherosclerosis due to calcified coronary lesion; R00.1 Bradycardia, unspecified; I08.3 Combined rheumatic disorders of mitral, aortic and tricuspid valves; I65.23 Occlusion and stenosis of bilateral carotid arteries; E78.5 Hyperlipidemia, unspecified; K29.70 Gastritis, unspecified, without bleeding; K44.9 Diaphragmatic hernia without obstruction or gangrene; K21.9 Gastro-esophageal reflux disease without esophagitis; R19.5 Other fecal abnormalities; E66.9 Obesity, unspecified; Z68.34 Body mass index [BMI] 34.0-34.9, adult; F17.210 Nicotine dependence, cigarettes, uncomplicated; Z71.6 Tobacco abuse counseling; Z79.82 Long term (current) use of aspirin; Z79.899 Other long term (current) drug therapy; Z87.2 Personal history of diseases of the skin and subcutaneous tissue; Z86.018 Personal history of other benign neoplasm; Z87.11 Personal history of peptic ulcer disease; Z98.890 Other specified postprocedural states; Z71.3 Dietary counseling and surveillance; Z82.49 Family history of ischemic heart disease and other diseases of the circulatory system; Z82.69 Family history of other diseases of the musculoskeletal system and connective tissue; Z83.3 Family history of diabetes mellitus; Z83.2 Family history of diseases of the blood and blood-forming organs and certain disorders involving the immune mechanism
CPT/HCPCS: 36415; 43239; 45378; 71045; 71046; 71275; 80048; 80053; 80061; 80074; 81003; 82272; 82330; 82805; 83036; 83605; 83735; 83880; 84443; 84484; 85025; 85027; 85379; 85520; 85610; 85730; 86850; 86891; 86900; 86901; 86920; 87070; 87635; 88305; 93005; 93306; 93458; 93571; 93880; 93922; 93930; 93970; 94002; 94150; 94640; 96365; 99285

== ENCOUNTER → 2021-09-23 | Outpatient (CLI) | payer MEDICARE ==
[2021-09-23 19:24] LABS: African American GFR (CKD) 99.7 (60.0-200.0); Albumin 3.6 g/dL (3.8-4.9); Albumin/Globulin Ratio 1.29 (1.60-3.17); Anion Gap 10.5 mmol/L (10.00-18.00); BUN/Creat Ratio 11.86 Ratio (12.00-20.00); Blood Urea Nitrogen 10.7 mg/dL (9.0-27.0); Carbon Dioxide 26.6 mmol/L (20.0-27.5); Globulin 2.8 g/dL (1.6-3.3); Potassium 4.2 mmol/L (3.5-5.5); Total Bilirubin 0.8 mg/dL (0.30-1.20); Total Protein 6.4 g/dL (6.2-8.2)
== END | disposition home or self-care (01) ==
LOC: LABWHC1 11:04
PROVIDERS: ATTEND Family Medicine
DX: R74.01 Elevation of levels of liver transaminase levels (principal)
CPT/HCPCS: 36415; 80053

== ENCOUNTER 2022-11-24 10:11 | Emergency (ER) | payer MEDICARE ==
[2022-11-24 10:24] VITALS: RESP 18
--- NOTE | 2022-11-24 10:53 | ED ---
Extremity Problem HPI - General Chief complaint: Extremity Problem,Nontraumatic Stated complaint: R hip/leg pain Time Seen by Provider: 11/24/22 10:31 Source: patient, RN notes reviewed Mode of arrival: ambulatory Limitations: no limitations - History of Present Illness Initial comments: This is a 72-year-old male who presents to the emergency department for right leg/hip pain. States that over the last couple of months, he has started to have pain going from the right hip down the leg about once a week. However, over the last week, the pain has been there daily. This is not present throughout the entire day, states that it starts at random points throughout the day. He has not able to induced this with exercise or determine any other triggers. However, he does note that it seems to be severe in the morning. Denies any history of blood clots or similar symptoms in the past. He is not taking anything to treat his pain. Denies any fevers, chills, sore throat, cough, dyspnea, chest pain, palpitations, abdominal pain, nausea, vomiting, diarrhea, back pain, or headaches. MD Complaint: extremity pain - Related Data Home Medications Medication Instructions Recorded Confirmed Aspirin EC [Ecotrin Low Dose] 81 mg PO HS 07/27/21 09/06/21 Cholecalciferol [Vitamin D3 (25 50 mcg PO HS 07/27/21 09/06/21 Mcg = 1000 Iu)] Cholecalciferol [Vitamin D3 (25 125 mcg PO DAILY 07/27/21 09/06/21 Mcg = 1000 Iu)] Triamcinolone 0.1% Cream [Kenalog 1 applic TOPICAL BID PRN 07/27/21 09/06/21 0.1% Cream] Previous Rx's Medication Instructions Recorded Acetaminophen Tab [Tylenol] 650 mg PO Q4HR PRN tab 09/13/21 Albuterol Inhaler [Ventolin Hfa 1 puff INHALATION RT-QID PRN 30 09/13/21 Inhaler] Days #8 gm Atorvastatin [Lipitor] 40 mg PO DAILY #30 tab 09/13/21 Budesonide/Formoterol Fumarate 1 puff INHALATION BID 30 Days 09/13/21 [Symbicort 160-4.5 Mcg Inhaler] #10.2 gm Clopidogrel [Plavix] 75 mg PO DAILY #30 tab 09/13/21 Metoprolol Tartrate [Lopressor] 25 mg PO BID #60 tab 09/13/21 Pantoprazole [Protonix] 40 mg PO AC-BID #60 tab 09/13/21 Sennosides-Docusate Sodium 2 each PO HS PRN tab 09/13/21 [Senokot-S] amLODIPine [Norvasc] 2.5 mg PO DAILY@1200 #30 tab 09/13/21 predniSONE 50 mg PO DAILY 5 Days #5 tab 11/24/22 Allergies Allergy/AdvReac Type Severity Reaction Status Date / Time No Known Allergies Allergy Verified 11/24/22 10:24 Review of Systems ROS Statement: Those systems with pertinent positive or pertinent negative responses have been documented in the HPI. ROS Other: All systems not noted in ROS Statement are negative. Past Medical History Past Medical History: Hypertension Additional Past Medical History / Comment(s): Recent + cologuard and is to have a colonoscopy 08/03/21, ascending aortic aneurysm which has been stable for years, vitamin D deficiency. History of Any Multi-Drug Resistant Organisms: None Reported Past Surgical History: No Surgical Hx Reported Additional Past Surgical History / Comment(s): Pilonidal cyst, r upper back benign lesion removed. Past Anesthesia/Blood Transfusion Reactions: No Reported Reaction Past Psychological History: No Psychological Hx Reported Smoking Status: Current every day smoker Past Alcohol Use History: Occasional Past Drug Use History: None Reported - Past Family History Father Additional Family Medical History / Comment(s): Father had a FL at the age of 83 yrs and lived to be 91 yrs old. He had bilateral vijay replacements. Mother Family Medical History: No Reported History Additional Family Medical History / Comment(s): Mother lived to be 86 yrs old. Sister(s) Family Medical History: Pulmonary Embolus General Exam Limitations: no limitations General appearance: alert, in no apparent distress Head exam: Present: atraumatic, normocephalic, normal inspection Respiratory exam: Present: normal lung sounds bilaterally. Absent: respiratory distress, wheezes, rales, rhonchi, stridor Cardiovascular Exam: Present: regular rate, normal rhythm, normal heart sounds. Absent: systolic murmur, diastolic murmur, rubs, gallop, clicks Extremities exam: Present: other (No deformities, tenderness, swelling, or erythema to the entirety of the right lower extremity. No calf tenderness. 2+ DP and PT pulses. Capillary refill less than 1 second.) Neurological exam: Present: alert, oriented X3, CN II-XII intact Psychiatric exam: Present: normal affect, normal mood Skin exam: Present: warm, dry, intact, normal color. Absent: rash Course Vital Signs 11/24/22 11/24/22 10:21 13:22 Temperature 97.6 F 97.8 F Pulse Rate 58 L 60 Respiratory 18 18 Rate Blood Pressure 163/79 156/82 O2 Sat by Pulse 96 96 Oximetry Medical Decision Making - Medical Decision Making This is a 72-year-old male who presents to the emergency department for right leg pain. Was pt. sent in by a medical professional or institution? @ -No Did you speak to anyone other than the patient for history? @ -No Did you review nursing and triage notes? @ -Yes, and I agree, it is accurate with regards to the patient's symptoms. Were old charts reviewed? @ -No Differential Diagnosis? @ -Differential Leg Pain: Leg fracture, leg sprain, DVT, PVD, arterial insufficiency, iliac artery aneurysm, cellulitis, compartment syndrome, tendinopathy, nerve entrapment, piriformis syndrome, osteoarthritis, rhabdomyolysis, myositis, cramping from an electrolyte imbalance, this is not meant to be an all inclusive list. EKG interpreted by me (3pts min.)? @ -Not obtained X-rays interpreted by me (1pt min.)? @ -X-ray of the lumbar spine, right hip, and right knee obtained. My interpretation identifies no acute fractures. CT interpreted by me (1pt min.)? @ -Not obtained U/S interpreted by me (1pt. min.)? @ -Duplex ultrasound of the right lower extremity obtained. My interpretation identifies no evidence of a DVT. What testing was considered but not performed? (CT, X-rays, U/S, labs)? Why? @ -None What meds were considered but not given? Why? @ -None Did you discuss the management of the patient with other professionals? @ -No Did you reconcile home meds? @ -No Was smoking cessation discussed for >3mins.? @ -No Was critical care preformed (if so, how long)? @ -No Were there social determinants of health that impacted care today? How? (Homelessness, low income, unemployed, alcoholism, drug addiction, transportation, low edu. Level, literacy, decrease access to med. care, longterm, rehab)? @ -No Was there de-escalation of care discussed even if they declined? (Discuss DNR or withdrawal of care, Hospice)? @ -No What co-morbidities impacted this encounter? (DM, HTN, Smoking, COPD, CAD, Cancer, CVA, Hep., AIDS, mental health diagnosis, sleep apnea, morbid obesity)? @ -Morbid obesity Was patient admitted / discharged? @ -Discharged. Duplex ultrasound of the right lower extremity and x-rays of the right knee, right hip, and lumbar spine obtained, all revealing no acute process. He does have multiple degenerative changes noted on the x-rays. Advised that the cause of this is not entirely clear, however it may all be arthritic in nature. Prescription for 5 day course of prednisone provided with dosing instructions reviewed. He was also given information for orthopedic follow-up for further evaluation of ongoing symptoms. Undiagnosed new problem with uncertain prognosis? @ -None Drug Therapy requiring intensive monitoring for toxicity (Heparin, Nitro, Insulin, Cardizem)? @ -None Were any procedures done? @ -None Diagnosis/symptom? @ -Right leg pain Acute, or Chronic, or Acute on Chronic? @ -Acute Uncomplicated (without systemic symptoms) or Complicated (systemic symptoms)? @ -Uncomplicated Side effects of treatment? @ -None Exacerbation, Progression, or Severe Exacerbation] @ -Not applicable Poses a threat to life or bodily function? @ -No Return precautions reviewed in depth, the patient is instructed to return to the emergency department with any new, worsening, or concerning symptoms. Patient verbalized understanding. This case was discussed in detail with the attending ED physician, Dr. Cano. Presentation, findings, and treatment plan discussed in detail as well. - Radiology Data Radiology results: report reviewed, image reviewed Disposition Clinical Impression: Right leg pain Disposition: HOME SELF-CARE Instructions (If sedation given, give patient instructions): Leg Pain (ED) Additional Instructions: Return to the emergency department with any new, worsening, or concerning symptoms. Take the prednisone daily for 5 days. Contact orthopedics as listed below for a follow-up appointment. Follow up with your primary care provider in 1-2 days. Prescriptions: predniSONE 50 mg PO DAILY 5 Days #5 tab Is patient prescribed a controlled substance at d/c from ED?: No Referrals: Tobi Sandoval MD [REFERRING] - 1-2 days Garrison Zelaya MD [Medical Doctor] - 1-2 days
--- NOTE | 2022-11-24 11:32 | XR ---
EXAMINATION TYPE: XR Hip Complete RT DATE OF EXAM: 11/24/2022 11:12 AM INDICATION: Patient age:Male; 72 years old; Reason for study: Right leg pain; COMPARISON: None. TECHNIQUE: The right hip was examined in the frontal and lateral projections FINDINGS: No evidence for acute process, joint dislocation or significant soft tissue swelling. Osteo phyte formation of the superior acetabulum of the hips. IMPRESSION: 1. No evidence for acute process. 2. Mild hip osteoarthrosis.
--- NOTE | 2022-11-24 11:34 | XR ---
EXAMINATION TYPE: XR lumbar spine 2 or 3V DATE OF EXAM: 11/24/2022 11:12 AM INDICATION: Patient age:Male; 72 years old; Reason for study: Right leg pain; COMPARISON: None TECHNIQUE: Frontal, lateral and coned in L5-S1 lateral views of the spine. FINDINGS: No evidence of any acute osseous pathology. No evidence of loss of vertebral body height i s seen. There is normal alignment of the lumbar vertebral bodies. Mild scattered disc space narrowing . Multilevel marginal osteophyte formation throughout the visualized spine. There is facet joint arth ropathy throughout the spine. Scattered at least mild neural foraminal stenosis worse at L5-S1. Ather osclerosis of the arterial vasculature. IMPRESSION: 1. No acute fracture. 2. Mild to moderate multilevel disc degeneration.
--- NOTE | 2022-11-24 11:45 | XR ---
EXAMINATION TYPE: XR knee complete RT DATE OF EXAM: 11/24/2022 11:12 AM INDICATION: Patient age:Male; 72 years old; Reason for study: Right leg pain; COMPARISON: None. TECHNIQUE: The Right knee(s) was examined in Frontal, lateral and oblique projections. FINDINGS: No evidence of any acute osseous pathology, soft tissue swelling, or joint effusion is no thony. A fabella is present. Atherosclerosis of the arterial vasculature. Tricompartmental osteophyte f ormation involving the femoral condyles, tibial plateau and patella. Mild joint space narrowing. IMPRESSION: 1. No acute osseous pathology. 2. Mild tricompartmental osteoarthritic changes. 3. Small joint effusion present.
--- NOTE | 2022-11-24 12:21 | US ---
EXAMINATION TYPE: US venous doppler duplex LE RT DATE OF EXAM: 11/24/2022 11:44 AM COMPARISON: NONE CLINICAL INDICATION: Male, 72 years old with history of Right leg pain; On blood thinners. No rednes s or swelling. Right hip, knee and calf pain. SIDE PERFORMED: Right TECHNIQUE: The lower extremity deep venous system is examined utilizing real time linear array sonog victor m with graded compression, doppler sonography and color-flow sonography. VESSELS IMAGED: Common Femoral Vein Deep Femoral Vein Greater Saphenous Vein * Femoral Vein Popliteal Vein Small Saphenous Vein * Proximal Calf Veins (* superficial vessels) Right Leg: Negative for DVT IMPRESSION: Grayscale, color doppler, spectral doppler imaging performed of the deep veins of the lo wer extremities. There is normal flow, compressibility, vascular waveforms.
[2022-11-24 13:23] VITALS: BP 156/82; PULSE 60; TEMP 97.8
== END 2022-11-24 13:23 | disposition home or self-care (01) ==
LOC: EC 10:11
DX: M51.36 Other intervertebral disc degeneration, lumbar region (principal); I10 Essential (primary) hypertension; F17.200 Nicotine dependence, unspecified, uncomplicated; Z79.82 Long term (current) use of aspirin
CPT/HCPCS: 72100; 73502; 99284

== ENCOUNTER 2023-09-26 11:19 | Emergency (ER) | payer MEDICARE ==
--- NOTE | 2023-09-26 14:04 | XR ---
EXAMINATION TYPE: XR chest 2V DATE OF EXAM: 09/26/2023 1:58 PM CLINICAL INDICATION:Male, 73 years old with history of difficulty breathing; [facility] COMPARISON: Chest radiographs from 09/13/2021 TECHNIQUE: XR chest 2V Frontal and lateral views of the chest. FINDINGS: Lungs/Pleura: There is no evidence of pleural effusion, focal consolidation, or pneumothorax. Pulmonary vascularity: Unremarkable. Heart/mediastinum: Cardiomediastinal silhouette is unremarkable. Left atrial appendage occlusion raul ce is present. Musculoskeletal: No acute osseous pathology. Midline sternotomy wires and surgical clips project over the mediastinum. Other findings: None IMPRESSION: No acute cardiopulmonary disease/process.
[2023-09-26 14:05] LABS: Basophils % (A) 1 %; Eosinophils # (A) 0.4 k/uL (0-0.7); Eosinophils % (A) 6 %; HGB 14.7 gm/dL (13.0-17.5); Lymphocytes # (A) 1.2 k/uL (1.0-4.8); Lymphocytes % (A) 18 %; MCH 29.6 pg (25.0-35.0); MCHC 32.7 g/dL (31.0-37.0); MCV 90.6 fL (80.0-100.0); Monocytes # (A) 0.4 k/uL (0-1.0); Monocytes % (A) 6 %; Neutrophils # (A) 4.7 k/uL (1.3-7.7); Neutrophils % (A) 69 %; Platelet Count 149 k/uL (150-450); RBC 4.96 m/uL (4.30-5.90); WBC 6.9 k/uL (3.8-10.6)
[2023-09-26 14:16] LABS: ALT 25 U/L (4-49); AST 51 U/L (17-59); African American GFR (CKD) >90 (>60 ml/min/1.73 sqM); Albumin 4.4 g/dL (3.5-5.0); Alkaline Phosphatase 73 U/L (38-126); Anion Gap 4 mmol/L; Blood Urea Nitrogen 12 mg/dL (9-20); Calcium 9.1 mg/dL (8.4-10.2); Carbon Dioxide 29 mmol/L (22-30); Chloride 107 mmol/L (98-107); Glucose 80 mg/dL (74-99); Non-African American GFR(CKD) >90 (>60 ml/min/1.73 sqM); Sodium 140 mmol/L (137-145); Total Protein 7.6 g/dL (6.3-8.2)
[2023-09-26 14:24] LABS: Partial Thromboplastin Time 24.2 sec (22.0-30.0)
[2023-09-26 14:30] LABS: Potassium 4.8 mmol/L (3.5-5.1)
--- NOTE | 2023-09-26 15:03 | ED ---
SOB HPI - General Chief Complaint: Shortness of Breath Stated Complaint: SOB Time Seen by Provider: 09/26/23 11:25 Source: patient Mode of arrival: ambulatory Limitations: no limitations - History of Present Illness Initial Comments: 73-year-old man with past medical history of bypass who presents today with cough and high blood pressure. Patient states that he had bypass surgery a couple years ago. He was very medically compliant when it first happened. States that he checked his blood pressure all the time. As of recently the patient states that he has not checked his blood pressure as much. Over the past couple of days he has been coughing. Denies any sick contacts. Does admit to some nasal congestion. He has bilateral rib pain due to the cough. He has not been taking any medications [id number] for his symptoms. He checked h is blood pressure and was found to be high. Due to the various complaints, the patient decided to get evaluated in the emergency department. He is on 2 different blood pressure medications. States he has been taking them as directed. They have not been changed in quite some time. He denies any chest pain. No fevers. No nausea or vomiting. No other alleviating, precipitating or modifying factors - Related Data Home Medications Medication Instructions Recorded Confirmed Clopidogrel [Plavix] 75 mg PO DAILY 09/26/23 09/26/23 Fish Oil/Dha/Epa [Fish Oil 1,200 2 cap PO HS 09/26/23 09/26/23 mg Fish Oil] Glucosamine/Chondr Kramer A Sod [Osteo 1 tab PO DAILY 09/26/23 09/26/23 Bi-Flex Caplet] Magnesium Oxide [Mag-Ox] 400 mg PO DAILY 09/26/23 09/26/23 Naproxen Sodium [Aleve] 220 mg PO DAILY 09/26/23 09/26/23 Pantoprazole [Protonix] 40 mg PO DAILY 09/26/23 09/26/23 Rosuvastatin Calcium [Crestor] 40 mg PO DAILY 09/26/23 09/26/23 amLODIPine [Norvasc] 2.5 mg PO BID 09/26/23 09/26/23 carvediloL [Coreg] 3.125 mg PO BID 09/26/23 09/26/23 Previous Rx's Medication Instructions Recorded Albuterol Inhaler [Ventolin Hfa 2 puff INHALATION QID PRN #8 gm 09/26/23 Inhaler] Benzonatate [Tessalon Perles] 100 mg PO TID PRN #25 capsule 09/26/23 amLODIPine [Norvasc] 5 mg PO BID #60 tab 09/26/23 predniSONE [Deltasone] 20 mg PO BID #10 tab 09/26/23 Allergies Allergy/AdvReac Type Severity Reaction Status Date / Time No Known Allergies Allergy Verified 09/26/23 15:18 Review of Systems ROS Statement: Those systems with pertinent positive or pertinent negative responses have been documented in the HPI. ROS Other: All systems not noted in ROS Statement are negative. Past Medical History Past Medical History: Hypertension Additional Past Medical History / Comment(s): Recent + cologuard and is to have a colonoscopy 08/03/21, ascending aortic aneurysm which has been stable for years, vitamin D deficiency. History of Any Multi-Drug Resistant Organisms: None Reported Past Surgical History: No Surgical Hx Reported Additional Past Surgical History / Comment(s): Pilonidal cyst, r upper back benign lesion removed. Past Anesthesia/Blood Transfusion Reactions: No Reported Reaction Past Psychological History: No Psychological Hx Reported Smoking Status: Current every day smoker Past Alcohol Use History: Occasional Past Drug Use History: None Reported - Past Family History Father Additional Family Medical History / Comment(s): Father had a CO at the age of 83 yrs and lived to be 91 yrs old. He had bilateral vijay replacements. Mother Family Medical History: No Reported History Additional Family Medical History / Comment(s): Mother lived to be 86 yrs old. Sister(s) Family Medical History: Pulmonary Embolus General Exam Limitations: no limitations General appearance: alert, in no apparent distress Head exam: Present: atraumatic, normocephalic, normal inspection Eye exam: Present: normal appearance, PERRL, EOMI. Absent: scleral icterus, conjunctival injection, periorbital swelling ENT exam: Present: normal exam, mucous membranes moist Neck exam: Present: normal inspection. Absent: tenderness, meningismus, lymph adenopathy Respiratory exam: Present: normal lung sounds bilaterally. Absent: respiratory distress, wheezes, rales, rhonchi, stridor Cardiovascular Exam: Present: regular rate, normal rhythm, normal heart sounds. Absent: systolic murmur, diastolic murmur, rubs, gallop, clicks GI/Abdominal exam: Present: soft, normal bowel sounds. Absent: distended, tenderness, guarding, rebound, rigid Extremities exam: Present: normal inspection, full ROM, normal capillary refill. Absent: tenderness, pedal edema, joint swelling, calf tenderness Back exam: Present: normal inspection Neurological exam: Present: alert, oriented X3, CN II-XII intact Psychiatric exam: Present: normal affect, normal mood Skin exam: Present: warm, dry, intact, normal color. Absent: rash Course Vital Signs 09/26/23 09/26/23 09/26/23 11:20 15:38 18:11 Temperature 97.4 F L 97.8 F Pulse Rate 66 67 75 Respiratory 20 18 20 Rate Blood Pressure 213/83 186/98 178/93 O2 Sat by Pulse 98 96 97 Oximetry Medical Decision Making - Medical Decision Making Was pt. sent in by a medical professional or institution (, PA, INFERTILITY NURSE, urgent care, hospital, or [facility]...) When possible be specific @ -No Did you speak to anyone other than the patient for history (EMS, parent, family, police, friend...)? What history was obtained from this source @ -Spoke with the patient's for history Did you review nursing and triage notes (agree or disagree)? Why? @ -I reviewed and agree with nursing and triage notes Were old charts reviewed (outside hosp., previous admission, EMS record, old EKG, old radiological studies, urgent care reports/EKG's, [facility] records)? Report findings @ -No old charts were reviewed Differential Diagnosis (chest pain, altered mental status, abdominal pain women, abdominal pain men, vaginal bleeding, weakness, fever, dyspnea, syncope, headache, dizziness, GI bleed, back pain, seizure, CVA, palpatations, mental health, musculoskeletal)? @ -Differential Dyspnea: Coronary syndrome, arrhythmia, tamponade, asthma, COPD, pulmonary embolism, pneumonia, pneumothorax, pulmonary effusion, anaphylaxis, diabetic ketoacidosis, flailed chest, pulmonary contusion, diaphragmatic rupture, anemia, neuromuscular, this is not meant to be an all-inclusive list. EKG interpreted by me (3pts min.). @ -Yes and demonstrates sinus rhythm with a rate of 64. CT interval 185. QRS 101. QTc of 422. ST depression 2, 3, aVF as well as V4 through V6. This was previously seen on old EKGs X-rays interpreted by me (1pt min.). @ -Yes and demonstrates no acute process CT interpreted by me (1pt min.). @ -None done U/S interpreted by me (1pt. min.). @ -None done What testing was considered but not performed or refused? (CT, X-rays, U/S, labs)? Why? @ -None What meds were considered but not given or refused? Why? @ -None Did you discuss the management of the patient with other professionals (professionals i.e. , PA, INFERTILITY NURSE, lab, RT, psych nurse, social services designee, early childhood specialist, teacher, business development officer, case specialist)? Give summary @ -No Was smoking cessation discussed for >3mins.? @ -No Was critical care preformed (if so, how long)? @ -No Were there social determinants of health that impacted care today? How? (Homelessness, low income, unemployed, alcoholism, drug addiction, tra nsportation, low edu. Level, literacy, decrease access to med. care, long term, rehab)? @ -No Was there de-escalation of care discussed even if they declined (Discuss DNR or withdrawal of care, Hospice)? DNR status @ -No What co-morbidities impacted this encounter? (DM, HTN, Smoking, COPD, CAD, Cancer, CVA, ARF, Chemo, Hep., AIDS, mental health diagnosis, sleep apnea, morbid obesity)? @ -Hypertension, coronary disease Was patient admitted / discharged? Hospital course, mention meds given and route , prescriptions, significant lab abnormalities, going to OR and other pertinent info. @ -Upon arrival patient was seen and evaluated in the hallway. Laboratory studies had been conducted due to [facility] protocol. These labs are reviewed. I additionally added on a COVID swab and BNP. I reviewed all of the lab work and chest x-ray. At this time the patient will be discharged home. I will increase his blood pressure medication to 5 mg twice daily. He is discussed this with his station attendant and primary care doctor to determine whether the change was adequate for blood pressure control. He will be started on an inhaler, prednisone and Tessalon Perles for the cough. Instructed not to use over -the-counter cold medicines due to the risk of hypertension. Return to the emergency department for any new or worsening symptoms. Patient agreeable to plan and was discharged in stable condition Undiagnosed new problem with uncertain prognosis? @ -No Drug Therapy requiring intensive monitoring for toxicity (Heparin, Nitro, Insulin, Cardizem)? @ -No Were any procedures done? @ -No Diagnosis/symptom? @ -acute cough, acute uri, accelerated htn, hx htn Acute, or Chronic, or Acute on Chronic? @ -acute Uncomplicated (without systemic symptoms) or Complicated (systemic symptoms)? @ -Complicated Side effects of treatment? @ -No Exacerbation, Progression, or Severe Exacerbation? @ -No Poses a threat to life or bodily function? How? (Chest pain, USA, CO, pneumonia, PE, COPD, DKA, ARF, appy, cholecystitis, CVA, Diverticulitis, Homicidal, Suicidal, threat to staff... and all critical care pts) @ -No - Lab Data Result diagrams: 09/26/23 13:57 09/26/23 13:57 Lab Results 09/26/23 09/26/23 09/26/23 Range/Units 13:47 13:57 13:57 WBC 6.9 (3.8-10.6) k/uL RBC 4.96 (4.30-5.90) m/uL Hgb 14.7 (13.0-17.5) gm/dL Hct 45.0 (39.0-53.0) % MCV 90.6 (80.0-100.0) fL MCH 29.6 (25.0-35.0) pg MCHC 32.7 (31.0-37.0) g/dL RDW 13.0 (11.5-15.5) % Plt Count 149 L (150-450) k/uL MPV 8.0 Neutrophils % 69 % Lymphocytes % 18 % Monocytes % 6 % Eosinophils % 6 % Basophils % 1 % Neutrophils # 4.7 (1.3-7.7) k/uL Lymphocytes # 1.2 (1.0-4.8) k/uL Monocytes # 0.4 (0-1.0) k/uL Eosinophils # 0.4 (0-0.7) k/uL Basophils # 0.0 (0-0.2) k/uL PT 11.0 (10.0-12.5) sec INR 1.0 (<1.2) APTT 24.2 (22.0-30.0) sec Sodium (137-145) mmol/L Potassium (3.5-5.1) mmol/L Chloride (98-107) mmol/L Carbon Dioxide (22-30) mmol/L Anion Gap mmol/L BUN (9-20) mg/dL Creatinine (0.66-1.25) mg/dL Est GFR (CKD-EPI)AfAm (>60 ml/min/1.73 sqM) Est GFR (CKD-EPI)NonAf (>60 ml/min/1.73 sqM) Glucose (74-99) mg/dL Plasma Lactic Acid Ulices (0.7-2.0) mmol/L Calcium (8.4-10.2) mg/dL Total Bilirubin (0.2-1.3) mg/dL AST (17-59) U/L ALT (4-49) U/L Alkaline Phosphatase (38-126) U/L Troponin I (0.000-0.034) ng/mL NT-Pro-B Natriuret Pep 634 pg/mL Total Protein (6.3-8.2) g/dL Albumin (3.5-5.0) g/dL Influenza Type A (PCR) (Not Detectd) Influenza Type B (PCR) (Not Detectd) RSV (PCR) (Not Detectd) SARS-CoV-2 (PCR) (Not Detectd) 09/26/23 09/26/23 09/26/23 Range/Units 13:57 13:57 13:57 WBC (3.8-10.6) k/uL RBC (4.30-5.90) m/uL Hgb (13.0-17.5) gm/dL Hct (39.0-53.0) % MCV (80.0-100.0) fL MCH (25.0-35.0) pg MCHC (31.0-37.0) g/dL RDW (11.5-15.5) % Plt Count (150-450) k/uL MPV Neutrophils % % Lymphocytes % % Monocytes % % Eosinophils % % Basophils % % Neutrophils # (1.3-7.7) k/uL Lymphocytes # (1.0-4.8) k/uL Monocytes # (0-1.0) k/uL Eosinophils # (0-0.7) k/uL Basophils # (0-0.2) k/uL PT (10.0-12.5) sec INR (<1.2) APTT (22.0-30.0) sec Sodium 140 (137-145) mmol/L Potassium 4.8 (3.5-5.1) mmol/L Chloride 107 (98-107) mmol/L Carbon Dioxide 29 (22-30) mmol/L Anion Gap 4 mmol/L BUN 12 (9-20) mg/dL Creatinine 0.79 (0.66-1.25) mg/dL Est GFR (CKD-EPI)AfAm >90 (>60 ml/min/1.73 sqM) Est GFR (CKD-EPI)NonAf >90 (>60 ml/min/1.73 sqM) Glucose 80 (74-99) mg/dL Plasma Lactic Acid Ulices 1.0 (0.7-2.0) mmol/L Calcium 9.1 (8.4-10.2) mg/dL Total Bilirubin 2.0 H (0.2-1.3) mg/dL AST 51 (17-59) U/L ALT 25 (4-49) U/L Alkaline Phosphatase 73 (38-126) U/L Troponin I <0.012 (0.000-0.034) ng/mL NT-Pro-B Natriuret Pep pg/mL Total Protein 7.6 (6.3-8.2) g/dL Albumin 4.4 (3.5-5.0) g/dL Influenza Type A (PCR) (Not Detectd) Influenza Type B (PCR) (Not Detectd) RSV (PCR) (Not Detectd) SARS-CoV-2 (PCR) (Not Detectd) 09/26/23 Range/Units 15:49 WBC (3.8-10.6) k/uL RBC (4.30-5.90) m/uL Hgb (13.0-17.5) gm/dL Hct (39.0-53.0) % MCV (80.0-100.0) fL MCH (25.0-35.0) pg MCHC (31.0-37.0) g/dL RDW (11.5-15.5) % Plt Count (150-450) k/uL MPV Neutrophils % % Lymphocytes % % Monocytes % % Eosinophils % % Basophils % % Neutrophils # (1.3-7.7) k/uL Lymphocytes # (1.0-4.8) k/uL Monocytes # (0-1.0) k/uL Eosinophils # (0-0.7) k/uL Basophils # (0-0.2) k/uL PT (10.0-12.5) sec INR (<1.2) APTT (22.0-30.0) sec Sodium (137-145) mmol/L Potassium (3.5-5.1) mmol/L Chloride (98-107) mmol/L Carbon Dioxide (22-30) mmol/L Anion Gap mmol/L BUN (9-20) mg/dL Creatinine (0.66-1.25) mg/dL Est GFR (CKD-EPI)AfAm (>60 ml/min/1.73 sqM) Est GFR (CKD-EPI)NonAf (>60 ml/min/1.73 sqM) Glucose (74-99) mg/dL Plasma Lactic Acid Ulices (0.7-2.0) mmol/L Calcium (8.4-10.2) mg/dL Total Bilirubin (0.2-1.3) mg/dL AST (17-59) U/L ALT (4-49) U/L Alkaline Phosphatase (38-126) U/L Troponin I (0.000-0.034) ng/mL NT-Pro-B Natriuret Pep pg/mL Total Protein (6.3-8.2) g/dL Albumin (3.5-5.0) g/dL Influenza Type A (PCR) Not Detected (Not Detectd) Influenza Type B (PCR) Not Detected (Not Detectd) RSV (PCR) Not Detected (Not Detectd) SARS-CoV-2 (PCR) Not Detected (Not Detectd) Disposition Clinical Impression: Cough, Hypertension Disposition: HOME SELF-CARE Condition: Stable Instructions (If sedation given, give patient instructions): Acute Bronchitis (ED), Hypertension (ED) Additional Instructions: Please increased your blood pressure medication to 5 mg twice a day. Keep a log of your blood pressure 3 times a day. Take this to your primary care doctor to determine whether the medication adjustment is adequate. Take the Tessalon Perles and inhaler as needed for cough. Start the steroids tomorrow. Return for any new or worsening symptoms Prescriptions: predniSONE [Deltasone] 20 mg PO BID #10 tab amLODIPine [Norvasc] 5 mg PO BID #60 tab Benzonatate [Tessalon Perles] 100 mg PO TID PRN #25 capsule PRN Reason: Cough Albuterol Inhaler [Ventolin Hfa Inhaler] 2 puff INHALATION QID PRN #8 gm PRN Reason: Cough Is patient prescribed a controlled substance at d/c from ED?: No Referrals: Santana Avina DO [Primary Care Provider] - 1-2 days Time of Disposition: 18:13
[2023-09-26] MEDS: predniSONE 20 MG TAB PO STA (18:09)
[2023-09-26 18:42] VITALS: BP 178/93; PULSE 75; RESP 20; TEMP 97.8
== END 2023-09-26 18:25 | disposition home or self-care (01) ==
LOC: EC 11:19
DX: J06.9 Acute upper respiratory infection, unspecified (principal); I10 Essential (primary) hypertension; I25.10 Atherosclerotic heart disease of native coronary artery without angina pectoris; F17.200 Nicotine dependence, unspecified, uncomplicated
CPT/HCPCS: 36415; 93005; 83880; 80053; 83605; 84484; 85025; 85610; 85730; 87636; 71046; 99285; J7512

== ENCOUNTER → 2024-06-05 | Outpatient (CLI) | payer MEDICARE ==
[2024-06-05 15:15] LABS: ALT 18 U/L (10-49); AST 25 U/L (14-35); Albumin 4.4 g/dL (3.8-4.9); Albumin/Globulin Ratio 1.83 Ratio (1.60-3.17); Alkaline Phosphatase 74 U/L (41-126); Blood Urea Nitrogen 12.7 mg/dL (9.0-27.0); Carbon Dioxide 26.3 mmol/L (21.6-31.8); Chloride 104 mmol/L (96-109); Chol/HDL Ratio 2.06 Ratio; Globulin 2.4 g/dL (1.6-3.3); Glucose 88 mg/dL (70-110); LDL Cholesterol,Calculated 49.2 mg/dL (0.0-131.0); Potassium 4.2 mmol/L (3.5-5.5); Sodium 142 mmol/L (135-145); Total Bilirubin 1.1 mg/dL (0.3-1.2); Total Protein 6.8 g/dL (6.2-8.2); VLDL Calculation 17.06 mg/dL (5.00-40.00)
[2024-06-05 15:38] LABS: HCT 42.4 % (39.6-50.0); HGB 13.6 g/dL (13.0-17.0); MCHC 32.1 g/dL (32.0-37.0); MCV 90.4 FL (80.0-97.0); Mean Platelet Volume 10.2 FL (9.5-12.2); NRBC Per 100 WBC 0 X 10*3/uL (0.00-0.01); Platelet Count 163 X 10*3/uL (140-440); RBC 4.69 X 10*6/uL (4.40-5.60); RDW 12.6 % (11.5-14.5); WBC 6.26 X 10*3/uL (4.50-10.00)
== END | disposition home or self-care (01) ==
LOC: LABWHC1 08:05
PROVIDERS: ATTEND Internal Medicine Clinical Cardiac Electrophysiology
DX: I25.10 Atherosclerotic heart disease of native coronary artery without angina pectoris (principal); I10 Essential (primary) hypertension; Z95.1 Presence of aortocoronary bypass graft; E78.5 Hyperlipidemia, unspecified
CPT/HCPCS: 36415; 80053; 80061; 83036; 84443; 85027

== ENCOUNTER → 2024-07-29 | Outpatient (CLI) | payer MEDICARE ==
[2024-07-29 15:21] LABS: Blood Urea Nitrogen 12.7 mg/dL (9.0-27.0); Calcium 9.1 mg/dL (8.7-10.3); Carbon Dioxide 27.1 mmol/L (21.6-31.8); Chloride 106 mmol/L (96-109); Glucose 93 mg/dL (70-110); Potassium 4.7 mmol/L (3.5-5.5); Sodium 143 mmol/L (135-145)
== END | disposition home or self-care (01) ==
LOC: LABWHC1 11:07
PROVIDERS: ATTEND Nurse Practitioner Adult Health
DX: I10 Essential (primary) hypertension (principal)
CPT/HCPCS: 36415; 80048; 83735

== ENCOUNTER → 2024-09-10 | Outpatient (CLI) | payer MEDICARE ==
--- NOTE | 2024-09-10 15:40 | US ---
EXAMINATION TYPE: US venous doppler duplex LE LT DATE OF EXAM: 09/10/2024 3:32 PM COMPARISON: NONE CLINICAL INDICATION: Male, 74 years old with history of M79.605 PAIN IN LT LEG; pain in left leg. No hx of DVT. Not on blood thinners, Pain TECHNIQUE: The lower extremity deep venous system is examined utilizing real time linear array sonog victor m with graded compression, color doppler sonography, and spectral doppler. SIDE PERFORMED: Left FINDINGS: VESSELS IMAGED: Common Femoral Vein Deep Femoral Vein Greater Saphenous Vein * Femoral Vein Popliteal Vein Small Saphenous Vein * Proximal Calf Veins (* superficial vessels) Left Leg: No evidence for DVT, Color Doppler imaging shows patency of the vessels. Spectral waveform s are within normal limits. IMPRESSION: 1. Left lower extremity ultrasound negative for deep venous thrombosis. [facility], Workstation: [facility], 09/10/2024 3:37 PM
== END | disposition home or self-care (01) ==
LOC: RADUSWWP 15:02
PROVIDERS: ATTEND Family Medicine
DX: M79.605 Pain in left leg (principal)